=== PATIENT | female | born 1985 | race Caucasian/White ===

== ENCOUNTER 2023-04-27 11:34 | Outpatient (REF) | payer BC, OTHER, SELFPAY ==
[2023-04-27 12:51] LABS: SARS-CoV-2 Ag POSITIVE (NEGATIVE)
== END 2023-04-27 11:35 | disposition home or self-care (01) ==
LOC: LAB 11:34
PROVIDERS: PCP Internal Medicine; Visit Provider Internal Medicine
DX: J06.9 Acute upper respiratory infection, unspecified (principal)
CPT/HCPCS: 87804; 87811

== ENCOUNTER 2023-10-01 11:00 | Outpatient (OUT) | payer BC, OTHER, SELFPAY ==
--- NOTE | 2023-10-01 11:07 | US_ITS ---
[address] [address] Patient Name: KELLY PEREZ MRN: [id number] date: 1985 Sex: F Assigned Patient Location: [place] Current Patient Location: [place] Accession/Order Number: [id number] Exam Date: 10/01/2023 11:12 Report Date: 10/01/2023 13:43 At the request of: SUMEET KAUFFMAN Procedure: US arterial duplex LE BI EXAMINATION: US arterial duplex LE BI HISTORY: Absent pedal pulses R09.89 COMPARISON: No relevant comparison available. TECHNIQUE: Color duplex Doppler ultrasound evaluation analysis was performed in the usual manner. FINDINGS: RIGHT LOWER EXTREMITY ARTERIAL No significant atherosclerosis. Triphasic waveform throughout External Iliac PSV: 144.4 cm/s External Iliac EDV: 16.3 cm/s Common Femoral PSV: 90.9 cm/s Common Femoral EDV: 10.1 cm/s Superficial Femoral Proximal PSV: 85.4 cm/s Proximal EDV: 4.7 cm/s Mid PSV: 104.8 cm/s Mid EDV: 0.0 cm/s Distal PSV: 93.5 cm/s Distal EDV: 0.0 cm/s Popliteal Proximal PSV: 53.7 cm/s Popliteal Proximal EDV: 4.3 cm/s Posterior Tibial Proximal PSV: 55.9 cm/s Proximal EDV: 0.0 cm/s Mid PSV: 19.1 cm/s Mid EDV: 0.0 cm/s Distal PSV: 86.6 cm/s Distal EDV: 2.7 cm/s Anterior Tibial Proximal PSV: 47.1 cm/s Proximal EDV: 0.0 cm/s Mid PSV: 49.3 cm/s Mid EDV: 0.0 cm/s Distal PSV: 61.4 cm/s Distal EDV: 0.0 cm/s LEFT LOWER EXTREMITY ARTERIAL No significant atherosclerosis. Triphasic waveform throughout External Iliac PSV: 183.6 cm/s External Iliac EDV: 13.7 cm/s Common Femoral PSV: 144.6 cm/s Common Femoral EDV: 13.7 cm/s Superficial Femoral Proximal PSV: 110.1 cm/s Proximal EDV: 0.0 cm/s Mid PSV: 110.1 cm/s Mid EDV: 0.0 cm/s Distal PSV: 85.0 cm/s Distal EDV: 2.4 cm/s Popliteal Proximal PSV: Popliteal Proximal EDV: Posterior Tibial Proximal PSV: 43.9 cm/s Proximal EDV: 0.0 cm/s Mid PSV: 52.6 cm/s Mid EDV: 0.0 cm/s Distal PSV: 55.9 cm/s Distal EDV: Anterior Tibial Proximal PSV: 47.2 cm/s Proximal EDV: 0.0 cm/s Mid PSV: 53.7 cm/s Mid EDV: 0.0 cm/s Distal PSV: 64.7 cm/s Distal EDV: 0.0 cm/s US/US arterial duplex LE BI IMPRESSION: No flow significant stenosis Electronically authenticated by: DONNA NAVARRETE Date: 10/01/2023 13:43
== END 2023-10-01 11:01 | disposition home or self-care (01) ==
PROVIDERS: PCP Internal Medicine; Visit Provider Internal Medicine
DX: R09.89 Other specified symptoms and signs involving the circulatory and respiratory systems (principal)
CPT/HCPCS: 93925

== ENCOUNTER 2023-12-12 09:52 | Outpatient (REF) | payer BC, SELFPAY ==
--- OUTSIDE RECORDS SUMMARY | 2023-12-12 09:58 | XMS_ITS | CCD ---
Author Organization [facility] Care Team Providers Care Senior Information Security Analyst Name Role Phone SUNITHA ., DR GANT Admitting Unavailable HAY ., DR GANT Attending Unavailable WHITE, DR FAY Primary Care Unavailable GRECHNY ., JANELL MCMILLAN Consulting Unavailabl e BERNOT, CONCEPCIÓN Consulting Unavailable MARKER ., DR ELLIOTT Admitting Unavailable ZIEBER, DR SIXTO Delgado Consulting Unavailable MARKER ., DR ELLIOTT Attending Unavailable DALY, DR FAY Primary Care Unavailable PAY ., DR UGARTE Consulting Unavailable MARKER ., DR ELLIOTT Consulting Unavailable ANNE ., RENETTA Attending Unavailable GRECHNY ., JANELL MCMILLAN Consulting Unavailabl e WHITE, DR FAY Primary Care Unavailable ANNE ., RENETTA Admitting Unavailable HEMMER, DR [place] Garcia Attending Unavailable WEST, DR DONNA Wright Consulting Unavailable DALY, DR FAY Primary Care Unavailable HEMMER, DR [place] Garcia Admitting Unavailable HEMMER, DR [place] Garcia Consulting Unavailable DALY, DR FAY Primary Care Unavailable DALY, DR FAY Admitting Unavailable DALY, DR FAY Attending Unavailable DALY, DR FAY Consulting Unavailable ZICARITO, DR SIXTO Delgado Consulting Unavailable Leroy White MD Primary Care Provider LEROY WHITE Attending Unavailable RENY MEDRANO Attending Unavailable LEROY WHITE Referring Unavailable LEROY WHITE Attending Unavailable SIXTO MCKINNEY Attending Unavailable LEROY WHITE Referring Unavailable LEROY WHITE Attending Unavailable LEROY WHITE Attending Unavailable LEROY WHITE Attending Unavailable LEROY WHITE Attending Unavailable Allergies Allergy Classification Reported Allergen(s) Allergy Type Date of Onset Reaction(s) Facility (1 source) Adhesive agent Drug allergy (disorder) 11-16-2016 [facility] Repository (1 source) Ciprofloxacin Drug Allergy 01-01-2013 [facility] Repository (1 source) natural latex rubber Drug allergy (disorder) 03-01-2017 [facility] Repository (4 sources) Ciprofloxacin Drug Allergy 11-06-2022 Swelling [facility] Work Phone: (4 sources) Wound Dressing Adhesive Drug Allergy 11-06-2022 Unknown [facility] Medications Current Medications Medication Drug Class(es) Dates Sig (Normalized) Sig (Original) acetaminophen 325 mg / HYDROcodone bitartrate 7.5 mg oral tablet (3 sources) Opioid Agonist Start: 06-21-19 24 End: 06-26-19 24 take 1 tablet by mouth every six hours for pain HYDROcodone-acetamino phen ([place]) 7.5-325 MG tablet Indications: Acute left-sided low back pain with left-sided sciatica Take 1 tablet by mouth every 6 (six) hours if needed for severe pain for up to 5 days 20 tablet 0 06/21/2023 06/26/2023 Active betamethasone 0.5 mg/ml / clotrimazole 10 mg/ml topical cream (1 source) Azole Antifungal, Corticosteroid Start: 06-26-19 24 End: 07-24-19 24 clotrimazole-betameth asone (Lotrisone) cream Indications: Tinea pedis of left foot Apply topically 2 (two) times a day for 28 days 60 g 2 06/26/2023 07/24/2023 Active cyclobenzaprine hydrochloride 10 mg oral tablet (4 sources) Muscle Relaxant Start: 03-08-20 23 take 1 tablet by mouth three times daily as needed for muscle spasms cyclobenzaprine (Flexeril) 10 MG tablet Indications: Cervical radiculopathy Take 1 tablet (10 mg) by mouth 3 (three) times a day as needed for muscle spasms. 90 tablet 2 03/08/2023 Active diazePAM 5 mg oral tablet (3 sources) Benzodiazepine Start: 06-01-19 24 take 1 tablet by mouth once diazePAM (Valium) 5 MG tablet Indications: Panic attacks (CMS/HCC) Take 1 tablet (5 mg) by mouth every 12 (twelve) hours if needed for anxiety, sleep or muscle spasms 30 tablet 0 06/01/2023 Active methylPREDNISolone (4 sources) Corticosteroid Start: 06-21-19 24 End: 06-28-19 24 methylPREDNISolone (Medrol Dospak) 4 MG tablets Indications: Acute left-sided low back pain with left-sided sciatica Follow schedule on package instructions 21 tablet 0 06/21/2023 06/28/2023 Active phentermine hydrochloride 37.5 mg oral tablet (4 sources) Sympathomimetic Amine Anorectic Start: 06-04-19 24 take 1 tablet by mouth once daily phentermine (Adipex-P) 37.5 MG tablet Indications: Severe obesity (BMI 35.0-39.9) with comorbidity (CMS/HCC) Take 1 tablet (37.5 mg) by mouth 1 (one) time each day at the same time 30 tablet 0 06/04/2023 Active vortioxetine 10 mg oral tablet (4 sources) take 1 tablet by mouth once daily Vortioxetine HBr (Trintellix) 10 MG tablet Take 1 tablet by mouth 1 (one) time each day at the same time. 0 Active zolpidem tartrate 10 mg oral tablet (5 sources) gamma-Aminobutyric Acid-ergic Agonist Start: 06-27-19 24 zolpidem (Ambien) 10 MG tablet Indications: Other insomnia TAKE 1 TABLET (10 MG) BY MOUTH NEEDED AT BEDTIME FOR SLEEP. 30 tablet 2 06/27/2023 Active Start: 03-27-2023 End: 06-27-2023 zolpidem (Ambien) 10 MG tabl et Indications: Other insomnia TAKE 1 TABLET (10 MG) BY MOUTH NEEDED AT BEDTIME FOR SLEEP. 30 tablet 2 03/27/2023 06/27/2023 Discontinued Problems Active Problems Problem Classification Problem Date Documented Date Episodic/Chronic Adjustment disorders (4 sources) Adjustment disorder; Translations: [Adjustment disorder, unspecified] Onset: 11-06-2022 11-06-2022 Chronic Anxiety disorders (4 sources) Panic attack; Translations: [Panic disorder [episodic paroxysmal anxiety]] Onset: 11-06-2022 11-06-2022 Chronic Biliary tract disease (4 sources) Disorder of biliary tract; Translations: [Other specified diseases of biliary tract] Onset: 11-06-2022 11-06-2022 Chronic Headache; including migraine (4 sources) Migraine; Translations: [Migraine, unspecified, not intractable, without status migrainosus] Onset: 11-06-2022 11-06-2022 Chronic Headache; including migraine (1 source) Headache; including migraine; Translations: [HEADACHE UNSPECIFIED] Onset: 04-17-2022 Menstrual disorders (12 sources) Dysmenorrhea; Translations: [Dysmenorrhea, unspecified] Onset: 11-06-2022 11-06-2022 Chronic Mood disorders (4 sources) Major depressive disorder; Translations: [Major depressive disorder, single episode, unspecified] Onset: 11-06-2022 11-06-2022 Chronic Other aftercare (1 source) Other shelter (current) drug therapy; Translations: [OTH DETENTION CURRENT DRUG THERAPY] Onset: 10-03-2022 Episodic Other connective tissue disease (2 sources) Plantar fasciitis of right foot; Translations: [Plantar fascial fibromatosis] 06-21-2023 Episodic Other nervous system disorders (4 sources) Chiari malformation type I; Translations: [Compression of brain] Onset: 11-06-2022 11-06-2022 Chronic Other nutritional; endocrine; and metabolic disorders (4 sources) Severe obesity; Translations: [Morbid (severe) obesity due to excess calories] Onset: 11-06-2022 11-06-2022 Chronic Residual codes; unclassified (5 sources) Insomnia; Translations: [Other insomnia] Onset: 11-06-2022 11-06-2022 Chronic Residual codes; unclassified (1 source) Acquired absence of other specified parts of digestive tract; Translations: [ACQ ABSENCE OTH PART DIGESTV TRACT] Onset: 10-03-2022 Episodic Screening and history of mental health and substance abuse codes (1 source) Personal history of nicotine dependence; Translations: [PERSONAL HISTORY OF NICOTINE DEPEND] Onset: 10-03-2022 Episodic Spondylosis; intervertebral disc disorders; other back problems (5 sources) Other cervical disc degeneration, unspecified cervical region; Translations: [Degeneration of cervical intervertebral disc] Onset: 06-10-2022 11-06-2022 Chronic Substance-related disorders (1 source) Nicotine dependence, cigarettes, uncomplicated; Translations: [NICOTINE DEPEND CIGARETTES UNCOMP] Onset: 12-19-2021 Chronic Unclassified (3 sources) LOW BACK PAIN, UNSPECIFIED; Translations: [LOW BACK PAIN, UNSPECIFIED] Onset: 10-03-2022 Past or Other Problems Problem Classification Problem Date Documented Da te Episodic/Chronic Cardiac dysrhythmias (4 sources) Palpitations; Translations: [PALPITATIONS] Onset: 04-10-2022 Episodic Other nervous system disorders (4 sources) Loss of taste; Translations: [Parageusia] Onset: 11-06-2022 11-06-2022 Episodic Spondylosis; intervertebral disc disorders; other back problems (20 sources) Radiculopathy, lumbar region; Translations: [Radiculopathy, cervical region] Onset: 12-19-2021 Episodic Unclassified (1 source) LOW BACK PAIN, UNSPECIFIED; Translations: [LOW BACK PAIN, UNSPECIFIED] Onset: 09-29-2022 Results Test Name Value Interpretation Reference Range Facil ity CT LSPINE WO CONon 3 CT LSPINE WO CON EXAMINATION: CT LSPINE WO CON, 09/29/2022 6:30 AM EDT HISTORY: DORSALGIA, UNSPECIFIED ; acute lumbar pain, no known injury COMPARISON: None. TECHNIQUE: CT of the lumbar spine was performed without IV contrast. CT dose reduction technique was used, including Automated Exposure Control. FINDINGS: PARASPINAL AREA: Normal with no visible mass. BONES: No fracture, pars defect, or osseous lesion. CERVICAL DISC LEVELS: 12-L1: No significant disc/facet abnormality, spinal stenosis, or foraminal stenosis. L1-L2: No significant disc/facet abnormality, spinal stenosis, or foraminal stenosis. L2-L3: No significant disc/facet abnormality, spinal stenosis, or foraminal stenosis. L3-L4: Early degenerative disc disease is present without focal protrusion or neural impingement. L4-L5: Early degenerative disc disease is present without focal protrusion or neural impingement. L5-S1: Moderate left foramen narrowing and mild central canal narrowing. Moderate diffuse disc bulging with mild disc at reduction. Mild degenerative facet arthropathy. IMPRESSION: 1. Suspect moderate or possibly greater foramen narrowing on the left at L5-S1 secondary to degenerative disc disease and facet arthropathy. 2. No acute bone abnormality. Electronically authenticated by: SIXTO BENNETT Date: 2022-09-29 07:12 Normal [facility] ER URINE PROFILEon 3 Bilirubin Ql (U) Negative Normal NEGATIVE [facility] Comment on above: Performed By: #### P T, PTT, DDIM #### [facility] [address] [place] [address] Dr. Michelle Alfaro Clarity (U) CLEAR Normal CLEAR [facility] Comment on above: Performed By: #### P T, PTT, DDIM #### [facility] [address] [address] [address] Michelle Alfaro Color (U) YELLOW Normal YELLOW [facility] Comment on above: Performed By: #### P T, PTT, DDIM #### [facility] [address] [place] [address] Dr. Michelle GARRIDO A micrscopic examination will be performed if indicated. Normal [facility] Comment on above: Performed By: #### P T, PTT, DDIM #### [facility] [address] [place] [address] Dr. Michelle Alfaro Glucose Ql (U) Negative Normal NEGATIVE [facility] Comment on above: Performed By: #### P T, PTT, DDIM #### [facility] [address] [place] [address] Dr. Michelle Alfaro Hemoglobin Ql (U) TRACE-INTACT Abnormal NEGATIVE [facility] Comment on above: Performed By: #### P T, PTT, DDIM #### [facility] [address] [place] [address] Dr. Michelle Alfaro Ketones Ql (U) Negative Normal NEGATIVE [facility] Comment on above: Performed By: #### P T, PTT, DDIM #### [facility] [address] [place] [address] Dr. Michelle Alfaro LEUKOCYTES Negative Normal NEGATIVE [facility] Comment on above: Performed By: #### P T, PTT, DDIM #### [facility] [address] [place] [address] Dr. Michelle Alfaro Nitrite Ql (U) Negative Normal NEGATIVE [facility] Comment on above: Performed By: #### P T, PTT, DDIM #### [facility] [address] [place] [address] Dr. Michelle Alfaro pH (U) 5.5 [pH] Normal 5-9 [facility] Comment on above: Performed By: #### P T, PTT, DDIM #### [facility] [address] [place], [place] [id number] Dr. Michelle Alfaro SPEC GRAVITY >=1.030 Abnormal 1.005-<=1.025 [facility] Comment on above: Performed By: #### P T, PTT, DDIM #### [facility] [address] [place] [address] Dr. Michelle Alfaro UA PROTEIN Negative Normal NEGATIVE/ TRACE [facility] Comment on above: Performed By: #### P T, PTT, DDIM #### [facility] [address] [place] [address] Dr. Michelle Alfaro UR MICRO IND NOT INDICATED Normal [facility] Comment on above: Performed By: #### P T, PTT, DDIM #### [facility] [address] [place] [address] Dr. Michelle Alfaro Urobilinogen Qn (U) 4 {Ramona'U}/dL Abnormal 0.2 - 1.0 [facility] Comment on above: Performed By: #### P T, PTT, DDIM #### [facility] [address] [place] [address] Dr. Michelle Alfaro XR CSPINE MIN 4 VIEWSon 05-21 XR CSPINE MIN 4 VIEWS EXAMINATION: XR CSPINE MIN 4 VIEWS HISTORY: Cervical radiculopathy COMPARISON: No relevant comparison available. FINDINGS: BONES: Reversal of normal cervical lordosis. No acute fracture or spondylolisthesis. No significant degenerative changes DISC SPACES: Normal. No significant disc height narrowing, subluxation, or endplate abnormality. PARASPINOUS: Negative. No paraspinous abnormality is seen. OTHER: Negative. IMPRESSION: Reversal of normal cervical lordosis Electronically authenticated by: DONNA NAVARRETE Date: 2022-06-06 09:11 Normal [facility] CBC W MANUAL DIFFon 04-10-20 22 ATYPICAL LYMPH # Normal [facility] Comment on above: Performed By: #### P T, PTT, DDIM #### [facility] [address] [place] [address] Dr. Michelle Alfaro ATYPICAL LYMPH % Normal [facility] Comment on above: Performed By: #### P T, PTT, DDIM #### [facility] [address] [place] [address] Dr. Michelle Alfaro BAND # Normal 0.0-0.3 [facility] Comment on above: Performed By: #### P T, PTT, DDIM #### [facility] [address] [place] [address] Dr. Michelle Alfaro BAND % Normal 0-5 [facility] Comment on above: Performed By: #### P T, PTT, DDIM #### [facility] [address] [place] [address] Dr. Michelle Alfaro BASOM # 0.09 103/ul Normal 0.00-0.10 [facility] Comment on above: Performed By: #### P T, PTT, DDIM #### [facility] [address] [place] [address] Dr. Michelle Alfaro BASOM % 1.0 % Normal 0.2-2.0 [facility] Comment on above: Performed By: #### P T, PTT, DDIM #### [facility] [address] [place] [address] Dr. Michelle Alfaro BLAST # Normal [facility] Comment on above: Performed By: #### P T, PTT, DDIM #### [facility] [address] [place] [address] Dr. Michelle Alfaro BLAST % Normal [facility] Comment on above: Performed By: #### P T, PTT, DDIM #### [facility] [address] [place] [address] Dr. Michelle Alfaro CORRECTED WBC Normal 4.0-11.0 [facility] Comment on above: Performed By: #### P T, PTT, DDIM #### [facility] [address] [place] [address] Dr. Michelle Alfaro EOS # 0.28 103/ul Normal 0.00-0.70 [facility] Comment on above: Performed By: #### P T, PTT, DDIM #### [facility] [address] [place] [address] Dr. Michelle Alfaro EOS% 3.0 % Normal 0.9-7.0 [facility] Comment on above: Performed By: #### P T, PTT, DDIM #### [facility] [address] [address] [address] Michelle Alfaro HCT 40.7 % Normal 36.0-48.0 [facility] Comment on above: Performed By: #### P T, PTT, DDIM #### [facility] [address] [address] [address] Michelle Alfaro HGB 14.0 g/dl Normal 12.0-16.0 [facility] Comment on above: Performed By: #### P T, PTT, DDIM #### [facility] [address] [address] [address] Michelle Alfaro LYMPHM # 2.67 103/ul Normal 1.20-3.80 [facility] Comment on above: Performed By: #### P T, PTT, DDIM #### [facility] [address] [address] [address] Michelle Alfaro LYMPHM% 29.0 % Normal 20.5-60.0 [facility] Comment on above: Performed By: #### P T, PTT, DDIM #### [facility] [address] [address] [address] Michelle Alfaro MCH 32.1 pg Normal 26.7-34.0 [facility] Comment on above: Performed By: #### P T, PTT, DDIM #### [facility] [address] [address] [address] Michelle Alfaro MCHC 34.4 g/dl Normal 29.9-35.2 [facility] Comment on above: Performed By: #### P T, PTT, DDIM #### [facility] [address] [address] [address] Michelle Alfaro MCV 93.3 fL Normal 81.0-99.0 [facility] Comment on above: Performed By: #### P T, PTT, DDIM #### [facility] [address] [address] [address] Michelle Alfaro METAMYELOCYTE # Normal [facility] Comment on above: Performed By: #### P T, PTT, DDIM #### [facility] [address] [place] [address] Dr. Michelle Alfaro METAMYELOCYTE % Normal [facility] Comment on above: Performed By: #### P T, PTT, DDIM #### [facility] [address] [place] [address] Dr. Michelle Alfaro MONOM# 0.64 103/ul Normal 0.30-0.80 [facility] Comment on above: Performed By: #### P T, PTT, DDIM #### [facility] [address] [place] [address] Dr. Michelle Alfaro MONOM% 7.0 % Normal 1.7-12.0 [facility] Comment on above: Performed By: #### P T, PTT, DDIM #### [facility] [address] [place] [address] Dr. Michelle Alfaro MPV 10.0 fL Normal 9.5-13.5 [facility] Comment on above: Performed By: #### P T, PTT, DDIM #### [facility] [address] [place] [address] Dr. Michelle Alfaro MYELOCYTE # Normal [facility] Comment on above: Performed By: #### P T, PTT, DDIM #### [facility] [address] [place] [address] Dr. Michelle Alfaro MYELOCYTE % Normal [facility] Comment on above: Performed By: #### P T, PTT, DDIM #### [facility] [address] [place] [address] Dr. Michelle Alfaro NRBC Normal [facility] Comment on above: Performed By: #### P T, PTT, DDIM #### [facility] [address] [place] [address] Dr. Michelle Alfaro PLT 288 103/ul Normal 150-450 [facility] Comment on above: Performed By: #### P T, PTT, DDIM #### [facility] [address] [place] [address] Dr. Michelle Alfaro RBC 4.36 106/ul Normal 4.20-5.40 [facility] Comment on above: Performed By: #### P T, PTT, DDIM #### [facility] [address] [place] [address] Dr. Michelle Alfaro RDW 12.4 % Normal 11.0-15.0 [facility] Comment on above: Performed By: #### P T, PTT, DDIM #### [facility] [address] [place] [address] Dr. Michelle Alfaro SEG # 5.52 103/ul Normal 1.40-6.50 [facility] Comment on above: Performed By: #### P T, PTT, DDIM #### [facility] [address] [place] [address] Dr. Michelle Alfaro SEG % 60.0 % Normal 43.0-75.0 [facility] Comment on above: Performed By: #### P T, PTT, DDIM #### [facility] [address] [place] [address] Dr. Michelle Alfaro WBC 9.2 103/ul Normal 4.0-11.0 [facility] Comment on above: Performed By: #### P T, PTT, DDIM #### [facility] [address] [place] [address] Dr. Michelle Alfaro D-DIMERon 04-10-2022 D-DIMER 0.43 mg/L FEU Normal <=0.59 [facility] Comment on above: Performed By: #### P T, PTT, DDIM #### [facility] [address] [place] [address] Dr. Michelle Alfaro D-DIMER COMMENTS SEE BELOW Normal [facility] Comment on above: Result Comment: Incr eases in D-Dimer concentration observed with thromboembolic events can be variable due to localization, size, and age of the thrombus. Therefore, a thromboembolic event cannot be diagnosed with certainty on the basis of the reference range. D-Dimers may also be elevated for a variety of disorders including: advanced age, , coronary disease, cancer, liver disease, infection, inflammation, hematoma, DIC, trauma, post-surgery, diabetes, thrombolytic or anticoagulant therapy, stress, and generalized hospitalization. Performed By: #### P T, PTT, DDIM #### [facility] [address] [address] [address] Michelle Alfaro PREG HCG QUALon 04-10-2022 , QUAL Negative Normal NEGATIVE [facility] Comment on above: Performed By: #### P T, PTT, DDIM #### [facility] [address] [address] [address] Michelle Alfaro PROF 14(COMP METB)on 022 Albumin [Mass/Vol] 3.6 g/dL Normal 3.4-5.0 [facility] Comment on above: Performed By: #### C MP, HSTROPN, TSH #### [facility] [address] [place] [address] Dr. Michelle Alfaro Albumin/Globulin [Mass ratio] 0.9 {ratio} Normal [facility] Comment on above: Performed By: #### C MP, HSTROPN, TSH #### [facility] [address] [place] [address] Dr. Michelle Alfaro ALP [Catalytic activity/Vol] 85 U/L Normal 46-116 [facility] Comment on above: Performed By: #### C MP, HSTROPN, TSH #### [facility] [address] [place] [address] Dr. Michelle Alfaro ALT [Catalytic activity/Vol] 28 U/L Normal 14-59 [facility] Comment on above: Performed By: #### C MP, HSTROPN, TSH #### [facility] [address] [place] [address] Dr. Michelle Alfaro Anion gap [Moles/Vol] 11.7 mmol/L Normal [facility] Comment on above: Performed By: #### C MP, HSTROPN, TSH #### [facility] [address] [place] [address] Dr. Michelle Alfaro AST [Catalytic activity/Vol] 19 U/L Normal 15-37 [facility] Comment on above: Performed By: #### C MP, HSTROPN, TSH #### [facility] [address] [address] [address] Michelle Alfaro Bilirubin [Mass/Vol] 0.2 mg/dL Normal 0.2-1.0 [facility] Comment on above: Performed By: #### C MP, HSTROPN, TSH #### [facility] [address] [address] [address] Michelle Alfaro Calcium [Mass/Vol] 8.8 mg/dL Normal 8.5-10.1 [facility] Comment on above: Performed By: #### C MP, HSTROPN, TSH #### [facility] [address] [place] [address] Dr. Michelle Alfaro Chloride [Moles/Vol] 103 mmol/L Normal 98-107 [facility] Comment on above: Performed By: #### C MP, HSTROPN, TSH #### [facility] [address] [place] [address] Dr. Michelle Alfaro CO2 [Moles/Vol] 26.7 mmol/L Normal 21.0-32.0 [facility] Comment on above: Performed By: #### C MP, HSTROPN, TSH #### [facility] [address] [address] [address] Michelle Alfaro Creatinine [Mass/Vol] 1.05 mg/dL Critically high 0.55-1.02 [facility] Comment on above: Performed By: #### C MP, HSTROPN, TSH #### [facility] [address] [place] [address] Dr. Michelle Alfaro EGFR-AF IRANIAN >60 Normal >=60 [facility] Comment on above: Performed By: #### C MP, HSTROPN, TSH #### [facility] [address] [address] [address] Michelle Alfaro EGFR-NON AF IRANIAN 59 mL/min/1.73m2 Critically low >=60 [facility] Comment on above: Performed By: #### C MP, HSTROPN, TSH #### [facility] [address] [place] [address] Dr. Michelle Alfaro Globulin (S) [Mass/Vol] 4.0 g/dL Normal [facility] Comment on above: Performed By: #### C SARBJIT HSTROPMayela, TSH #### [facility] [address] [address] [address] Michelle Alfaro Glucose [Mass/Vol] 97 mg/dL Normal 74-106 [facility] Comment on above: Performed By: #### C SARBJIT HSTRNUN, TSH #### [facility] [address] [place] [address] Dr. Michelle Alfaro Potassium [Moles/Vol] 3.4 mmol/L Critically low 3.5-5.1 [facility] Comment on above: Performed By: #### C ASH SCHAFFERTRKALLI, TSH #### [facility] [address] [place] [address] Dr. Michelle Alfaro Protein [Mass/Vol] 7.6 g/dL Normal 6.4-8.2 [facility] Comment on above: Performed By: #### C SARBJIT HSTROPN, TSH #### [facility] [address] [place] [address] Dr. Michelle Alfaro Sodium [Moles/Vol] 138 mmol/L Normal 136-145 [facility] Comment on above: Performed By: #### C ASH SCHAFFERTRKALLI, TSH #### [facility] [address] [place] [address] Dr. Michelle Alfaro Urea nitrogen [Mass/Vol] 11.0 mg/dL Normal 7.0-18.0 [facility] Comment on above: Performed By: #### C SARBJIT HSTROPN, TSH #### [facility] [address] [place] [address] Dr. Michelle Alfaro Urea nitrogen/Creatinine [Mass ratio] 10.5 mg/mg Normal [facility] Comment on above: Performed By: #### C SARBJIT HSTRKALLI, TSH #### [facility] [address] [place] [address] Dr. Michelle Alfaro PROTIMEon 04-10-2022 INR Coag (PPP) [Relative time] 0.95 {INR} Normal [facility] Comment on above: Performed By: #### P T, PTT, DDIM #### [facility] [address] [address] [address] Michelle Alfaro INR GUIDELINES SEE BELOW Normal [facility] Comment on above: Result Comment: YASMIN RED INR: 2.0 - 3.0 CONDITIONS NOT LISTED BELOW 2.5 - 3.5 FOR PROSTHETIC HEART VALVE REPLACEMENT 2.5 - 3.5 RECURRENT THROMBOSIS Performed By: #### P T, PTT, DDIM #### [facility] [address] [address] [address] Michelle Alfaro PT Coag (PPP) [Time] 10.3 s Normal 9.0-11.6 [facility] Comment on above: Performed By: #### P T, PTT, DDIM #### [facility] [address] [place] [address] Dr. Michelle Alfaro PTTon 04-10-2022 aPTT Coag (Bld) [Time] 25.3 s Normal 22.3-36.2 [facility] Comment on above: Performed By: #### P T, PTT, DDIM #### [facility] [address] [place] [address] Dr. Michelle Alfaro TROPONIN, HIGH SENSITIVITYon 04-10-2022 HSTROP 12.0 pg/mL Normal 4.0-51.3 [facility] Comment on above: Result Comment: CUT- OFF POINTS HAVE BEEN ESTABLISHED BASED ON THE FOURTH UNIVERSAL DEFINITIONS OF MYOCARDIAL INFARCTION. THE UPPER REFERENCE LIMIT (URL) OF TROPONIN, DEFINED THE 99TH PERCENTILE OF cTnI DISTRIBUTION IN A REFERENCE POPULATION, HAS BEEN CONFIRMED THE DECISION THRESHOLD FOR CA DIAGNOSIS. Performed By: #### C MP, HSTROPN, TSH #### [facility] [address] [address] [address] Michelle Alfaro TSHon 04-10-2022 TSH 3.556 uIU/mL Normal 0.358-3.740 [facility] Comment on above: Performed By: #### C MP, HSTROPN, TSH #### [facility] [address] [address] [address] Michelle Alfaro XR CHEST 1 Von 04-10-2022 XR CHEST 1 V EXAM: XR CHEST 1 V HISTORY: Palpitations COMPARISON(S): None. TECHNIQUE: Single portable AP chest radiograph FINDINGS: Support devices: None. Lungs/pleura: Lungs are clear. No pleural effusion or pneumothorax. Heart/mediastinum: Heart and mediastinum are normal. Bones/Soft Tissues: No acute osseous abnormality. Upper abdomen: Imaged upper abdomen is unremarkable. IMPRESSION: No evidence for acute cardiopulmonary disease. Electronically authenticated by: CONCEPCIÓN MUJICA Date: 2022-04-10 18:52 Normal [facility] XR LSPINE MIN 4 VIEWSon 08-0 XR LSPINE MIN 4 VIEWS EXAMINATION: XR LSPINE MIN 4 VIEWS HISTORY: Lumbar radiculopathy for 4 months COMPARISON: XR lumbar spine 08/15/2017 FINDINGS: BONES: No significant spondylosis, scoliosis, fracture, or visible bony lesion. DISC SPACES: Mild narrowing L5-S1. PARASPINOUS: Negative. No paraspinous abnormality is seen. OTHER: Negative. IMPRESSION: 1. Mild degenerative changes of the lower lumbar spine. No appreciable acute abnormality. Electronically authenticated by: SIXTO BENNETT Date: 2021-12-21 08:04 Normal [facility] Coding Summary.on 04-08-2020 Coding Summary. 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 However, the narrative phrase printed from the coding software may appear abbreviated, or result in slightly different terminology. Coded By: Prisca Ramirez CphT Date Saved: 04/08/2020 07:40 pm Normal [facility] SARS-CoV-2, NAAon 04-03-2020 SARS CORONAVIRUS 2 RNA:PRTHR:PT:RESPIR ATORY:ORD:PROBE.AMP .TAR Detected Abnormal Not Detected [facility] Comment on above: Result Comment: This nucleic acid amplification test was developed and its performance characteristics determined by [facility]. Nucleic acid amplification tests include PCR and TMA. This test has not been FDA cleared or approved. This test has been authorized by FDA under an Emergency Use Authorization (EUA). This test is only authorized for the duration of time the declaration that circumstances exist justifying the authorization of the emergency use of in vitro diagnostic tests for detection of SARS-CoV-2 virus and/or diagnosis of COVID-19 infection under section 564(b)(1) of the Act, 21 U.S.C. 360bbb-3(b) (1), unless the authorization is terminated or revoked sooner. When diagnostic testing is negative, the possibility of a false negative result should be considered in the context of a patient's recent exposures and the presence of clinical signs and symptoms consistent with COVID-19. An individual without symptoms of COVID-19 and who is not shedding SARS-CoV-2 virus would expect to have a negative (not detected) result in this assay. Performed at: [facility] [address] [place], [place] [id number] [facility] Carmella Elizabeth Performed By: #### S ARS-CoV-2, CHRIS #### [facility] [address] [place] [address] Physician Orderon 03-30-2020 Physician Order [id number] .00CD:127 Normal [facility] Consent for Treatmenton Consent for Treatment [id number] 1.00CD:127 Normal [facility] Vital Signs Date Time Vital Sign Value Performing Clinician Faci lity 06-21-2023 15:53-0500 Body mass index (BMI) [Ratio] 37.35 kg/m2 Leroy White MD Work Phone: [facility] 06-21-2023 15:53-0500 Body weight 100.25 kg Leroy White MD Work Phone: [facility] 06-21-2023 15:53-0500 Diastolic blood pressure 78 mm[Hg] Leroy White MD Work Phone: [facility] 06-21-2023 15:53-0500 Heart rate 115 /min Leroy Whtie MD Work Phone: [facility] 06-21-2023 15:53-0500 SaO2% (BldA) [Mass fraction] 99 % Leroy White MD Work Phone: [facility] 06-21-2023 15:53-0500 Systolic blood pressure 128 mm[Hg] Leroy White MD Work Phone: [facility] Encounters Encounter Date Encounter Type Care Provider Facility Start: 11-21-2023 End: 11-21-2023 ambulatory LEROY WHITE Not Available Start: 11-05-2023 End: 11-05-2023 ambulatory LEROY WHITE Not Available Start: 10-22-2023 End: 10-22-2023 ambulatory LEROY WHITE Not Available Start: 10-04-2023 End: 10-04-2023 ambulatory SIXTO MCKINNEY Not Available Start: 09-26-2023 End: 09-26-2023 ambulatory LEROY WHITE Not Available Start: 06-26-2023 Chart abstracting Reny Medrano DPM Work Phone: [facility] Start: 06-26-2023 Refill Ny MACIEL Work Phone: [facility] Comment on above: Other insomnia Start: 06-26-2023 End: 06-26-2023 ambulatory RENY MEDRANO Not Available Start: 06-21-2023 End: 06-21-2023 Office outpatient visit 25 minutes Leroy White MD Work Phone: [facility] Comment on above: Acute left-sided low back pain with left-sided sciatica (Primary Dx); Plantar fasciitis of right foot Start: 06-21-2023 End: 06-21-2023 ambulatory LEROY WHITE Not Available Start: 04-27-2023 End: 04-27-2023 ambulatory LEROY WHITE Not Available Start: 09-29-2022 End: 09-29-[address] LEXI ALCOCER . Facility:[facility] Start: 06-05-2022 End: 06-06-[address] NY PARHAM Facility:[facility] Start: 04-10-2022 End: 04-10-[address] STALIN HELTON . Facility:[facility] Start: 12-20-2021 End: 12-21-[address] LEROY WHITE Facility:[facility] Start: 12-15-2021 End: 12-15-2021 ambulatory RENETTA RODRÍGUEZ . Facility: Plan of Treatment Date Care Activity Detail Author Start: 04-26-2025 Screening for malign ant neoplasm of cervix [facility] Start: 11-18-2023 Influenza vaccination Influenza Vacc ine (#1) [facility] Comment on above: Postponed from 01/19 (Patient Refused) Start: 06-26-2023 End: 06-26-2023 Patient encounter procedure 06/26/2023 9:00 AM EST Office Visit [facility] [address] [place] [id number] Reny Medrano DPM [address] [place] [address] [facility] Start: 2005 Screening for malign ant neoplasm of cervix Pap Smear [facility] Immunizations Immunization Date Immunization Notes Care Provider Fa cili 02-23-2022 influenza, injectabl e, quadrivalent, preservative free Leroy White MD Work Phone: [facility] 02-23-2022 influenza virus vacc ine, unspecified formulation Leroy White MD Work Phone: [facility] 11-03-2021 Pfizer Gómez Cap SARS-CoV-2 Vaccination Leroy White MD Work Phone: [facility] 10-10-2021 Pfizer Gómez Cap SARS-CoV-2 Vaccination Leroy White MD Work Phone: [facility] 02-25-2020 influenza, injectabl e, quadrivalent, preservative free Leroy White MD Work Phone: [facility] 03-01-2015 influenza, injectabl e, quadrivalent, preservative free Leroy White MD Work Phone: [facility] Payers Date Payer Category Payer Medicaid [employer] [place] [id number] 2022-Present [address] [place] [address] [id number] 2022 Unknown BCBS BCBS [id number] 2022-Present [phone] [address] [place] [address] [id number] 2022 Unknown [id number] 1984 Unknown [id number] 1984 Unknown [id number] [id number] 1984 Unknown [id number] [id number] 1984 Unknown [id number] [id number] 1984 Unknown [id number] [id number] 1984 Unknown [id number] [id number] 1984 Unknown [id number] [id number] 1984 Unknown [id number] [id number] 1984 Unknown [id number] [id number] 1984 Unknown [id number] 2.16.840.1.221771.3.579.2.1259 1984 Unknown [id number] [id number] 1984 Unknown [id number] [id number] 1984 Unknown [id number] [id number] 1959 Unknown [id number] 1959 Unknown [id number] 1959 Unknown [id number] Social History Date Type Detail Facility Start: 04-27-2023 Tobacco smoking status VAIS Ex-smoke r [facility] End: 12-19-2021 History of tobacco use Current smoker [facility] End: 12-19-2021 History of tobacco use Cigarette Smoker [facility] Start: 12-05-2022 End: 04-27-2023 Cigarettes smoked current (pack per day) - Reported 1 [facility] Start: 04-27-2023 Tobacco use and exposure Smoke less tobacco non-user [facility] Start: 06-21-2023 End: 06-26-2023 Alcohol intake Ex-drinker (finding) [facility] Start: 12-05-2022 End: 12-20-2022 Humiliation, Afraid, Rape, and Kick questionnaire [HARK] [facility] Within the last year , have you been afraid of your partner or ex-partner? No [facility] Are you now , , , , never or living with a partner? [facility] How often to you hav e a drink containing alcohol? Monthly or less [facility] How many standard dr inks containing alcohol do you have on a typical day? 1 or 2 [facility] How often do you hav e 6 or more drinks on 1 occasion? Less than monthly [facility] How hard is it for y ou to pay for the very basics like food, housing, medical care, and heating Somewhat hard [facility] Do you feel stress - tense, restless, nervous, or anxious, or unable to sleep at night because your mind is troubled all the time - these days [OSQ] To some extent [facility] (I/We) worried wheth er (my/our) food would run out before (I/we) got money to buy more. DK or Refused [facility] In the past 12 month s, has lack of transportation kept you from medical appointments or from getting medications? No [facility] Start: 11-16-2022 Alcohol Comment Caffeine intak e: 1 can pop daily [facility] Start: 1985 Sex Assigned At Not on file [facility] History of Present illness Narrative 06-21-2023 Leroy White MD - 06/21/2023 4:00 PM EST Note Date & Type Note Facility 06-21-2023 History of Presen t illness Narrative Images from the original note were not included. Subjective Patient ID: Kelly Perez is a 37 y.o. female who presents for foot and back pain (Left side ). Pt is having foot and back pain on her left side , started a few months ago , getting worse over the last couple of weeks The most pain is in her arch to her heal , has used ice , used a tennis ball ,tried biofreeze ,tylenol Her back started last week she did fall on the ice Current Outpatient Medications on File Prior to Visit Medication Sig Dispense Refill cyclobenzaprine (Flexeril) 10 MG tablet Take 1 tablet (10 mg) by mouth 3 (three) times a day as needed for muscle spasms. 90 tablet 2 diazePAM (Valium) 5 MG tablet Take 1 tablet (5 mg) by mouth every 12 (twelve) hours if needed for anxiety, sleep or muscle spasms 30 tablet 0 phentermine (Adipex-P) 37.5 MG tablet Take 1 tablet (37.5 mg) by mouth 1 (one) time each day at the same time 30 tablet 0 Vortioxetine HBr (Trintellix) 10 MG tablet Take 1 tablet by mouth 1 (one) time each day at the same time. zolpidem (Ambien) 10 MG tablet TAKE 1 TABLET (10 MG) BY MOUTH NEEDED AT BEDTIME FOR SLEEP. 30 tablet 2 No current facility-administered medications on file prior to visit. Allergies Allergen Reactions Ciprofloxacin Swelling Wound Dressing Adhesive Unknown Social History Tobacco Use Smoking status: Former Packs/day: 1.00 Years: 10.00 Additional pack years: 0.00 Total pack years: 10.00 Types: Cigarettes Quit date: 12/19/2021 Years since quittin.5 Smokeless tobacco: Never Vaping Use Vaping Use: Some days Start date: 12/19/2021 Substance Use Topics Alcohol use: Not Currently Comment: Caffeine intake: 1 can pop daily Drug use: Never Family History Problem Relation Name Age of Onset Fibromyalgia Mother Shaun Lupus Mother Shaun Hypertension Mother Shaun Heart disease Mother Shaun Depression Mother Shaun Other (DDD) Father No Known Problems Sister Past Medical History: Diagnosis Date Acute shoulder pain 2011 accident Anxiety Depression (CMS/HCC) Gall bladder disease 1998 Migraine headache (CMS/HCC) Past Surgical History: Procedure Laterality Date SECTION, LOW TRANSVERSE 2007 x2 CHOLECYSTECTOMY 1998 ESOPHAGOGASTRODUODENOSCOPY IUD INSERTION Adiana Visit Vitals Smoking Status Former Review of Systems Objective Physical Exam Musculoskeletal: Lumbar back: Spasms and tenderness present. No deformity. Normal range of motion. Negative right straight leg raise test and negative left straight leg raise test. No scoliosis. Feet: Feet: Comments: Area of pain/tenderness Neurological: Motor: No weakness. Gait: Gait normal. Deep Tendon Reflexes: Reflexes normal. Assessment/Plan Diagnoses and all orders for this visit: Acute left-sided low back pain with left-sided sciatica - methylPREDNISolone (Medrol Dospak) 4 MG tablets; Follow schedule on package instructions - HYDROcodone-acetaminophen ([place]) 7.5-325 MG tablet; Take 1 tablet by mouth every 6 (six) hours if needed for severe pain for up to 5 days Plantar fasciitis of right foot - Ambulatory referral to Podiatry; Future No follow-ups on file. documented in this encounter [facility] Evaluation note Note Date & Type Note Facility Evaluation note Diagnosis Acute left-sided low back pain with left-sided sciatica- Primary Plantar fasciitis of right foot documented in this encounter [facility] Evaluation note Note Date & Type Note Facility Evaluation note Diagnosis Other insomnia documented in this encounter [facility] Reason for referral (narrative) Consultation (Routine) - Pending Review Note Date & Type Note Facility Reason for referral (narrati ve) Specialty Diagnoses / Procedures Referred By Bc burr Referred To Contact Podiatry Diagnoses Plantar fasciitis of right foot Procedures RI OFFICE/OUTPATIENT NEW HIGH MDM 60 MINUTES Leroy White MD [address] [facility] [address] [place] [address] Danny Chung, DPM FACFAS [address] [place] [id number] Referral ID Status Reason Start Date Expiration Date Visits Requested Visits Authorized [id number] Pending Review Specialty Services Required 06/21/2023 12/18/2023 1 1 [facility] Summary Purpose Family History No Family History Records FoundNo Family History Records FoundNo Family History Records Found Advance Directives No Advanced Directives Records FoundNo Advanced Directives Records FoundNo Advanced Directives Records Found Additional Source Comments INFORMATION SOURCE (unrecogn ized section and content) DATE CREATED AUTHOR 04/19/2020 [facility] DATE CREATED AUTHOR AUTHOR'S ORGANIZ ATION 10/04/2022 [facility] DATE CREATED AUTHOR AUTHOR'S ORGANIZ ATION 11/22/2023 [facility] EPIC Reason for Visit (unrecogniz ed section and content) Reason Comments foot and back pain Left side Reason Comments Med Refill Care Teams (unrecognized sec tion and content) Senior Information Security Analyst Relationship Specialty Start Date End Date Leroy White MD [address] [address] PCP - General Internal Medicine 11/06/22 Senior Information Security Analyst Relationship Specialty Start Date End Date Leroy White MD [address] [address] PCP - General Internal Medicine 11/06/22 Senior Information Security Analyst Relationship Specialty Start Date End Date Leroy White MD [address] [address] PCP - General Internal Medicine 11/06/22 FOR RECORDS PERTAINING TO PATIENTS WHO ARE OR HAVE BEEN ENROLLED IN A CHEMICAL DEPENDENCY/SUBSTANCEABUSE PROGRAM, SOME INFORMATION MAY BE OMITTED. This clinical summary was aggregated from multiple sources. Caution should be exercised in using it in the provision of clinical care. This summary normalizes information from multiple sources, and as a consequence, information in this document may materially change the coding, format and clinical context of patient data. In addition, data may be omitted in some cases. CLINICAL DECISIONS SHOULD BE BASED ON THE PRIMARY CLINICAL RECORDS. [facility]. provides no warranty or guarantee of the accuracy or completeness of information in this document.
[2023-12-12 11:37] LABS: Internal Control Within Normal Limits; SARS-CoV-2 Ag NEGATIVE (NEGATIVE)
== END 2023-12-12 09:53 | disposition home or self-care (01) ==
LOC: LAB 09:52
PROVIDERS: PCP Internal Medicine; Visit Provider Internal Medicine
DX: B34.9 Viral infection, unspecified (principal)
CPT/HCPCS: 87811

== ENCOUNTER 2024-05-02 18:52 | Emergency (ER) | payer BC, SELFPAY ==
[2024-05-02] VITALS (18 sets, daily range): BP systolic 115–134; BP diastolic 72–89; PULSE 79–102; TEMP 37.1; O2SAT 88–100; BMI 30.5
--- NOTE | 2024-05-02 19:16 | ECG_ITS ---
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
--- NOTE | 2024-05-02 19:16 | XR_ITS ---
The [address] [address] Patient Name: KELLY PEREZ MRN: [id number] date: 1985 Sex: F Assigned Patient Location: ER Current Patient Location: ER Accession/Order Number: [id number] Exam Date: 05/02/2024 19:26 Report Date: 05/02/2024 21:30 At the request of: STALIN HELTON Procedure: XR chest 1V XR chest 1V 05/02/2024 7:26 PM EST HISTORY: Chest pain COMPARISON: None FINDINGS: The lungs and pleural spaces are clear. No focal airspace opacity. No pleural effusion. The central airway is clear. No pneumothorax. The heart and pulmonary vascularity appear unremarkable. No acute bony abnormality. XR/XR chest 1V IMPRESSION: No acute cardiopulmonary abnormality. Electronically authenticated by: ANEUDY AGUAYO Date: 05/02/2024 21:30
--- NOTE | 2024-05-02 19:18 | ED_ITS ---
HPI - Chest Pain General Chief Complaint: Chest Pain Stated Complaint: Chest Pain Time Seen by Provider: 05/02/24 19:01 Source: patient Mode of arrival: walk-in Limitations: no limitations History of Present Illness HPI narrative: Yesterday the patient developed chest pain while at rest and has been experiencing intermittent tachycardia and intermittent chest pain since. Mid sternal, it now has moved up toward the lower anterior neck. No associated symptoms and no inciting events or activities, but notes that it is worse with deep breaths during the exam. Although she admits to history of anxiety/panic, she denies any feelings of panic or anxiety at this time. She denies any GI symptoms such as reflux or heartburn. No recent injury to the chest. No [id number] of breath. No URI symptoms, cough or chest congestion. No relief with tylenol and motrin Related Data Home Medications ?Medication ?Instructions ?Recorded ?Confirmed cyclobenzaprine 10 mg tablet 10 mg PO BID PRN muscle spasm 05/02/24 05/02/24 diazepam 5 mg tablet 5 mg PO BID PRN anxiety 05/02/24 05/02/24 ondansetron HCl 4 mg tablet 4 mg PO TID-QID PRN nausea and 05/02/24 05/02/24 vomiting tirzepatide 7.5 mg/0.5 mL 7.5 mg subcut .WEEKLY 05/02/24 05/02/24 subcutaneous pen injector (Mounjaro) vortioxetine 10 mg tablet 10 mg PO BID 05/02/24 05/02/24 (Trintellix) zolpidem 10 mg tablet 10 mg PO .HS 05/02/24 05/02/24 Previous Rx's ?Medication ?Instructions ?Recorded nabumetone 750 mg tablet 750 mg PO BID PRN pain #14 tabs 05/02/24 Allergies Allergy/AdvReac Type Severity Reaction Status Date / Time ciprofloxacin (From Cipro) Allergy Severe SWELLING Verified 05/02/24 18:59 Latex, Natural Rubber Allergy Intermediate Rash Verified 05/02/24 18:59 PFSH PFSH Social History Little interest or pleasure in doing things: not at all Feeling down, depressed, or hopeless: not at all Exam Narrative Exam Narrative: Nurses notes and vital signs reviewed and patient is not hypoxic. afebrile General: Well-appearing and in no apparent distress. Skin: Warm, dry, no pallor noted. Head: Normocephalic, atraumatic. Eye: Pupils are equal, round and EOMI. No scleral icterus. Ears, Nose, Mouth, and Throat: Oral mucosa is moist Cardiovascular: Borderline tachycardia. Respiratory: No accessory muscle use or respiratory distress. Lungs are clear to auscultation, no wheezing, rales or rhonchi Chest Wall: no tenderness, crepitus or subcutaneous emphysema Back: No midline thoracic or lumbar vertebral tenderness. No CVA tenderness GI: Abdomen is soft, non-distended. Normal bowel sounds. No tenderness to palpation. No rebound, guarding, or rigidity noted. Neurological: A&O x4. No cranial nerve dysfunction observed. No truncal ataxia. Moves all extremities. Sensation intact. Psychiatric: Cooperative and interactive. Normal mood and affect. Constitutional Vital Signs, click to edit/add: Last Vital Signs Temp 98.7 F 05/02/24 18:59 Pulse 96 H 05/02/24 21:20 Resp 26 H 05/02/24 21:20 BP 117/89 05/02/24 21:00 Pulse Ox 100 05/02/24 19:50 O2 Del Method Room Air 05/02/24 18:59 Course Vital Signs Vital signs: Vital Signs Temperature 98.7 F 05/02/24 18:59 Pulse Rate 79 05/02/24 18:59 Respiratory Rate 18 05/02/24 18:59 Blood Pressure 134/86 05/02/24 18:59 Pulse Oximetry 98 05/02/24 18:59 Oxygen Delivery Method Room Air 05/02/24 18:59 Temperature 98.7 F 05/02/24 18:59 Pulse Rate 96 H 05/02/24 21:20 Respiratory Rate 26 H 05/02/24 21:20 Blood Pressure 117/89 05/02/24 21:00 Pulse Oximetry 100 05/02/24 19:50 Oxygen Delivery Method Room Air 05/02/24 18:59 MDM - Chest Pain MDM Narrative Medical decision making narrative: EKG unremarkable. Thyroid studies do not reveal hyperthyroidism. CXR negative. DDimer elevated so CTA chest obtained - it was negative for PE. All results explained to pt and she was given reassurance,. She received IV Toradol before discharge home. Recommend PCP follow up and continued use of OTC tylenol and motrin for pain as it appears musculoskeletal. Continue psych meds as well, despite not likely due to anxiety. Lab Data Attestation: I reviewed the patient's lab results. Labs: Lab Results 05/02/24 Range/Units 19:25 D-Dimer 0.61 H* (<=0.59) mg/L FEU Free T3 1.88 L (2.18-3.98) pg/mL TSH & Free T4 Interp 1.858 (0.358-3.740) uIU/mL Imaging Data CT scan - chest: Radiologist's impression: ITS Impressions Chest X-Ray 05/02/24 19:16 IMPRESSION: No acute cardiopulmonary abnormality. Electronically authenticated by: ANEUDY AGUAYO Date: 05/02/2024 21:30 Chest CTA 05/02/24 19:57 IMPRESSION: No CT findings to suggest pulmonary embolism. Electronically authenticated by: ANEUDY AGUAYO Date: 05/02/2024 21:30 ECG Data Attestation: I personally reviewed and interpreted this ECG as follows: Interpretation: EKG interpretation: Emergency Department physician interpretation. Normal sinus rhythm at 99bpm. Normal axis, normal intervals and no ST segment elevation or depression. Discharge Plan Discharge Chief Complaint: Chest Pain Clinical Impression: Pleurisy, Chest pain Patient Disposition: Home, Self-Care Time of Disposition Decision: 21:41 Prescriptions / Home Meds: New nabumetone 750 mg tablet 750 mg PO BID PRN (Reason: pain) Qty: 14 0RF No Action diazepam 5 mg tablet 5 mg PO BID PRN (Reason: anxiety) Mounjaro 7.5 mg/0.5 mL pen injector 7.5 mg SUBCUT .WEEKLY Trintellix 10 mg tablet 10 mg PO BID zolpidem 10 mg tablet 10 mg PO .HS ondansetron HCl 4 mg tablet 4 mg PO TID-QID PRN (Reason: nausea and vomiting) cyclobenzaprine 10 mg tablet 10 mg PO BID PRN (Reason: muscle spasm) Print Language: Greenlandic Instructions: Chest Pain (ED), Pleurisy (ED) Referrals: SUMEET KAUFFMAN [Primary Care Provider] - 1 week
--- OUTSIDE RECORDS SUMMARY | 2024-05-02 19:32 | XMS_ITS | CCD ---
Author Organization [facility] Care Team Providers Care Occupational Health And Safety Manager Name Role Phone SUNITHA ., DR GANT Admitting Unavailable HAY ., DR GANT Attending Unavailable WHITE, DR FAY Primary Care Unavailable GRECHNY ., JANELL MCMILLAN Consulting Unavailabl e BERNOT, CONCEPCIÓN Consulting Unavailable MARKER ., DR ELLIOTT Admitting Unavailable ZIEBER, DR SIXTO Delgado Consulting Unavailable MARKER ., DR ELLIOTT Attending Unavailable WHITE, DR FAY Primary Care Unavailable PAY ., [...] Unavailable HEMMER, DR [place] Garcia Consulting Unavailable WHITE, DR FAY Primary Care Unavailable WHITE, DR FAY Admitting Unavailable WHITE, DR FAY Attending Unavailable WHITE, DR FAY Consulting Unavailable ZIEBER, DR SIXTO Delgado Consulting Unavailable Leroy White [...] Adhesive agent Drug allergy (disorder) 11-16-2016 [facility] Rep[facility] (1 source) Ciprofloxacin Drug Allergy 01-01-2013 [facility] (1 source) natural latex rubber Drug allergy (disorder) 03-01-2017 [facility] (15 sources) Ciprofloxacin Drug Allergy 11-06-2022 Swelling [facility] Work Phone: (15 sources) Wound Dressing Adhesive Drug Allergy 11-06-2022 Unknown [facility] Medications Current Medications Medication Drug Class(es) Dates Sig (Normalized) Sig (Original) acetaminophen 325 mg / HYDROcodone bitartrate 10 mg oral tablet (8 sources) Opioid Agonist Start: 03-03-2024 End: 03-24-2024 take 1 tablet by mouth every six hours for pain HYDROcodone-acetami nophen (Jackson) 10-325 MG tablet Indications: Spondylosis of lumbar region without myelopathy or radiculopathy Take 1 tablet by mouth every 6 (six) hours if needed for moderate pain or severe pain for up to 10 days 40 tablet 03/14/2024 03/24/2024 Active Start: 06-21-2023 End: 06-26-2023 take 1 tablet by mouth every six hours for pain HYDROcodone-acetaminophen (Jackson) 7.5-32 5 MG tablet Indications: Acute left-sided low back pain with left-sided sciatica Take 1 tablet by mouth every 6 (six) hours if needed for severe pain for up to 5 days 20 tablet 0 06/21/2023 06/26/2023 Active azithromycin 250 mg oral tablet (2 sources) Macrolide Antimicrobial Start: 02-06-2024 End: 02-11-2024 take 2 tablets by mouth once daily, then take 1 tablet by mouth once daily azithromycin (Zithromax) 250 MG tablet Indications: Upper respiratory tract infection, unspecified type Take 2 tablets (500 mg) by mouth Daily for 1 day, THEN 1 tablet (250 mg) Daily for 4 days. 6 tablet 02/06/2024 02/11/2024 Active betamethasone 0.5 mg/ml / clotrimazole 10 mg/ml topical cream (1 source) Azole Antifungal, Corticosteroid Start: 06-26-2023 End: 07-24-2023 clotrimazole-betame thasone (Lotrisone) cream Indications: Tinea pedis of left foot Apply topically 2 (two) times a day for 28 days 60 g 2 06/26/2023 07/24/2023 Active cyclobenzaprine hydrochloride 10 mg oral tablet (15 sources) Muscle Relaxant Start: 03-24-2024 take 1 tablet by mouth three times daily as needed for muscle spasms cyclobenzaprine (Flexeril) 10 MG tablet Indications: Cervical radiculopathy Take 1 tablet (10 mg) by mouth 3 (three) times a day as needed for muscle spasms 90 tablet 2 03/24/2024 Active Start: 07-30-2023 take 1 tablet by hal th three times daily as needed for muscle spasms cyclobenzaprine (Flexeril) 10 MG tablet Indications: Cervical radiculopathy TAKE 1 TABLET (10 MG) BY MOUTH 3 (THREE) TIMES A DAY NEEDED FOR MUSCLE SPASMS. 90 tablet 2 07/30/2023 Active Start: 03-08-2023 take 1 tablet by hal th three times daily as needed for muscle spasms cyclobenzaprine (Flexeril) 10 MG tablet Indications: Cervical radiculopathy Take 1 tablet (10 mg) by mouth 3 (three) times a day as needed for muscle spasms. 90 tablet 2 03/08/2023 Active diclofenac potassium 50 mg oral tablet (11 sources) Nonsteroidal Anti-inflammatory Drug Start: 09-26-2023 End: 09-25-2024 take 1 tablet by mouth in the morning diclofenac (Cataflam) 50 MG tablet Indications: Spondylosis of lumbar region without myelopathy or radiculopathy Take 1 tablet (50 mg) by mouth in the morning and 1 tablet (50 mg) before bedtime. 60 tablet 5 09/26/2023 09/25/2024 Active methylPREDNISolone (4 sources) Corticosteroid Start: 06-21-2023 End: 06-28-2023 methylPREDNISolone (Medrol Dospak) 4 MG tablets Indications: Acute left-sided low back pain with left-sided sciatica Follow schedule on package instructions 21 tablet 0 06/21/2023 06/28/2023 Active ondansetron 4 mg disintegrating oral tablet (11 sources) Serotonin-3 Receptor Antagonist Start: 01-25-2024 take 1 tablet by mouth every eight hours as needed for nausea and vomiting and nausea and nausea ondansetron ODT (Zofran-ODT) 4 MG disintegrating tablet Indications: Nausea Take 1 tablet (4 mg) by mouth every 8 (eight) hours if needed for nausea or vomiting 28 tablet 1 01/25/2024 Active phentermine hydrochloride 37.5 mg oral tablet (4 sources) Sympathomimetic Amine Anorectic Start: 06-04-2023 take 1 tablet by mouth once daily phentermine (Adipex-P) 37.5 MG tablet Indications: Severe obesity (BMI 35.0-39.9) with comorbidity (CMS/HCC) Take 1 tablet (37.5 mg) by mouth 1 (one) time each day at the same time 30 tablet 0 06/04/2023 Active SUMAtriptan 50 mg oral tablet (11 sources) Serotonin-1b and Serotonin-1d Receptor Agonist Start: 08-02-2023 take 1 tablet by mouth once daily, then take 2 tablets by mouth every twenty-four hours SUMAtriptan (Imitrex) 50 MG tablet Indications: Migraine syndrome (CMS/HCC) TAKE 1 TABLET BY MOUTH ONCE DAILY WITHIN 1 HOUR OF MIGRAINE START *MAX 2 PER 24 HOURS* 15 tablet 2 02/21/2024 Active Tirzepatide (Mounjaro) 7.5 MG/0.5ML solution auto-injector (2 sources) Start: 04-07-2024 End: 04-07-2025 inject 7.5 mg by subcutaneous injection every week Tirzepatide (Mounjaro) 7.5 MG/0.5ML solution auto-injector Indications: Severe obesity (BMI 35.0-39.9) with comorbidity (CMS/HCC) Inject 7.5 mg under the skin 1 (one) time per week 2 mL 3 04/07/2024 04/07/2025 Active vortioxetine 20 mg oral tablet (15 sources) Start: 10-22-2023 take 1 tablet by mouth once daily Vortioxetine HBr (Trintellix) 20 MG tablet Indications: Depression with anxiety Take 20 mg by mouth Daily 30 tablet 11 10/22/2023 Active take 1 tablet by mouth once charisse y Vortioxetine HBr (Trintellix) 10 MG tablet Take 1 tablet by mouth 1 (one) time each day at the same time. 0 Active zolpidem tartrate 10 mg oral tablet (17 sources) gamma-Aminobutyric Acid-ergic Agonist Start: 03-31-2024 zolpidem (Ambien) 10 MG tablet Indications: Other insomnia Take 1 tablet (10 mg) by mouth as needed at bedtime for sleep 30 tablet 2 03/31/2024 Active Start: 12-26-2023 End: 03-28-2024 zolpidem (Ambien) 10 MG tabl et Indications: Other insomnia Take 1 tablet (10 mg) by mouth as needed at bedtime for sleep 30 tablet 2 12/26/2023 03/28/2024 Discontinued (Reorder) Start: 06-27-2023 zolpidem (Ambi en) 10 MG tablet Indications: Other insomnia TAKE 1 TABLET (10 MG) BY MOUTH NEEDED AT BEDTIME FOR SLEEP. 30 tablet 2 06/27/2023 Active Start: 03-27-2023 End: 06-27-2023 zolpidem (Ambien) 10 MG tabl et Indications: Other insomnia TAKE 1 TABLET (10 MG) BY MOUTH NEEDED AT BEDTIME FOR SLEEP. 30 tablet 2 03/27/2023 06/27/2023 Discontinued Completed/Discontinued Medications Medication Drug Class(es) Dates Sig (Normalized) Sig (Original) diazePAM 5 mg oral tablet (17 sources) Benzodiazepine Start: 01-23-2024 End: 07-23-2024 take 1 tablet by mouth once diazePAM (Valium) 5 MG tablet Indications: Panic attacks (CMS/HCC) Take 1 tablet (5 mg) by mouth every 12 (twelve) hours if needed for anxiety, sleep or muscle spasms 60 tablet 03/24/2024 04/23/2024 Discontinued (Reorder) Start: 06-01-2023 take 1 tablet by mouth once di azePAM (Valium) 5 MG tablet Indications: Panic attacks (CMS/HCC) Take 1 tablet (5 mg) by mouth every 12 (twelve) hours if needed for anxiety, sleep or muscle spasms 30 tablet 0 06/01/2023 Active Tirzepatide (Mounjaro) 5 MG/0.5ML solution pen-injector (12 sources) Start: 02-06-2024 End: 04-07-2024 inject 5 mg by subcutaneous injection every week Tirzepatide (Mounjaro) 5 MG/0.5ML solution pen-injector Indications: Severe obesity (BMI 35.0-39.9) with comorbidity (CMS/HCC) Inject 5 mg under the skin 1 (one) time per week 2 mL 3 02/06/2024 04/07/2024 Discontinued (Dose adjustment) Start: 02-06-2024 inject 5 mg by subcu taneous injection every week Tirzepatide (Mounjaro) 5 MG/0.5ML solution pen-injector Indications: Severe obesity (BMI 35.0-39.9) with comorbidity (CMS/HCC) Inject 5 mg under the skin 1 (one) time per week 2 mL 3 02/06/2024 Active Start: 10-22-2023 End: 02-06-2024 inject 5 mg by subcutaneous injection every week Tirzepatide (Mounjaro) 5 MG/0.5ML solution pen-injector Indications: Severe obesity (BMI 35.0-39.9) with comorbidity (CMS/HCC) Inject 5 mg under the skin 1 (one) time per week 2 mL 3 10/22/2023 02/06/2024 Discontinued (Reorder) Problems Active Problems Problem Classification Problem Date Documented Date Episodic/Chronic Adjustment disorders (15 sources) Adjustment disorder; Translations: [Adjustment disorder, unspecified] Onset: 11-06-2022 11-06-2022 Chronic Anxiety disorders (18 sources) Panic attack; Translations: [Panic disorder [episodic paroxysmal anxiety]] Onset: 11-06-2022 11-06-2022 Chronic Biliary tract disease (15 sources) Disorder of biliary tract; Translations: [Other specified diseases of biliary tract] Onset: 11-06-2022 11-06-2022 Chronic Headache; including migraine (15 sources) Migraine; Translations: [Migraine, unspecified, not intractable, without status migrainosus] Onset: 11-06-2022 11-06-2022 Chronic Headache; including migraine (1 source) Headache; including migraine; Translations: [HEADACHE UNSPECIFIED] Onset: 04-17-2022 Menstrual disorders (20 sources) Dysmenorrhea; Translations: [Dysmenorrhea, unspecified] Onset: 11-06-2022 11-06-2022 Chronic Mood disorders (15 sources) Major depressive disorder; Translations: [Major depressive disorder, single episode, unspecified] Onset: 11-06-2022 11-06-2022 Chronic Other aftercare (1 source) Other custodial (current) drug therapy; Translations: [OTH 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 DRUG THERAPY] Onset: 10-03-2022 Episodic Other connective tissue disease (2 sources) Plantar fasciitis of right foot; Translations: [Plantar fascial fibromatosis] 06-21-2023 Episodic Other nervous system disorders (15 sources) Chiari malformation type I; Translations: [Compression of brain] Onset: 11-06-2022 11-06-2022 Chronic Other nutritional; endocrine; and metabolic disorders (18 sources) Severe obesity; Translations: [Morbid (severe) obesity due to excess calories] Onset: 11-06-2022 11-06-2022 Chronic Other upper respiratory infections (2 sources) Upper respiratory infection; Translations: [Acute upper respiratory infection, unspecified] 02-06-2024 Episodic Residual codes; unclassified (17 sources) Insomnia; Translations: [Other insomnia] Onset: 11-06-2022 [...] disc disorders; other back problems (20 sources) Other cervical disc degeneration, unspecified cervical [...] Onset: 04-10-2022 Episodic Other nervous system disorders (15 sources) Loss of taste; Translations: [Parageusia] Onset: 11-06-2022 11-06-2022 Episodic Spondylosis; intervertebral disc disorders; other back problems (20 sources) Radiculopathy, lumbar region; Translations: [Radiculopathy, cervical region] Onset: 12-19-2021 Episodic Unclassified (1 source) LOW BACK PAIN, UNSPECIFIED; Translations: [LOW BACK PAIN, UNSPECIFIED] Onset: 09-29-2022 Results Test Name Value Interpretation Reference Range Facil ity CT LSPINE WO CONon 3 CT LSPINE WO CON EXAMINATION: CT LSTAZ WO CON, 09/29/2022 6:30 AM EDT HISTORY: [...] SIXTO BENNETT Date: 2022-09-29 07:12 Normal [facility] ER URINE PROFILEon 3 Bilirubin Ql (U) Negative Normal NEGATIVE [facility] Comment on above: Performed By: #### P T, PTT, DDIM #### [facility] [address] [address] [address] Michelle Alfaro Clarity (U) CLEAR Normal CLEAR [facility] Comment on above: Performed By: #### P T, PTT, DDIM #### [facility] [address] [address] [address] Michelle Alfaro Color (U) YELLOW Normal YELLOW [facility] Comment on above: Performed By: #### P T, PTT, DDIM #### [facility] [address] [address] [address] Michelle GARRIDO A micrscopic examination will be performed if indicated. Normal [facility] Comment on above: Performed By: #### P T, PTT, DDIM #### [facility] [address] [address] [address] Michelle Alfaro Glucose Ql (U) Negative Normal NEGATIVE [facility] Comment on above: Performed By: #### P T, PTT, DDIM #### [facility] [address] [address] [address] Michelle Alfaro Hemoglobin Ql (U) TRACE-INTACT Abnormal NEGATIVE [facility] Comment on above: Performed By: #### P T, PTT, DDIM #### [facility] [address] [place] [address] Dr. Michelle Alfaro Ketones Ql (U) Negative Normal NEGATIVE [facility] Comment on above: Performed By: #### P T, PTT, DDIM #### [facility] [address] [place] [address] Dr. Michelle Alfaro LEUKOCYTES Negative Normal NEGATIVE [facility] Comment on above: Performed By: #### P T, PTT, DDIM #### [facility] [address] [address] [address] Michelle Alfaro Nitrite Ql (U) Negative Normal NEGATIVE [facility] Comment on above: Performed By: #### P T, PTT, DDIM #### [facility] [address] [place] [address] Dr. Michelle Alfaro pH (U) 5.5 [pH] Normal 5-9 [facility] Comment on above: Performed By: #### P T, PTT, DDIM #### [facility] [address] [place] [address] Dr. Michelle Alfaro SPEC GRAVITY >=1.030 Abnormal 1.005-<=1.[address] [facility] Comment on above: Performed By: #### P T, PTT, DDIM #### [facility] [address] [place] [address] Dr. Michelle Alfaro UA PROTEIN Negative Normal NEGATIVE/ TRACE [facility] Comment on above: Performed By: #### P T, PTT, DDIM #### [facility] [address] [address] [address] Michelle Alfaro UR MICRO IND NOT INDICATED Normal [facility] Comment on above: Performed By: #### P T, PTT, DDIM #### [facility] [address] [place] [address] Dr. Michelle Alfaro Urobilinogen Qn (U) 4 {Ramona'U}/dL Abnormal 0.2 - 1.0 [facility] Comment on above: Performed By: #### P T, PTT, DDIM #### [facility] [address] [place] [address] Dr. Michelle Alfaro XR CSPINE MIN 4 [...] DONNA NAVARRETE Date: 2022-06-06 09:11 Normal [facility] CBC W MANUAL DIFFon 04-10-20 22 ATYPICAL LYMPH # Normal [facility] Comment on above: Performed By: #### P T, PTT, DDIM #### [facility] [address] [place] [address] Dr. Michelle Alfaro ATYPICAL LYMPH % Normal [facility] Comment on above: Performed By: #### P T, PTT, DDIM #### [facility] [address] [place] [address] Dr. Michelle Alfaro BAND # Normal 0.0-0.3 [facility] Comment on above: Performed By: #### P T, PTT, DDIM #### [facility] [address] [place] [address] Dr. Michelle Alfaro BAND % Normal 0-5 [facility] Comment on above: Performed By: #### P T, PTT, DDIM #### [facility] [address] [address] [address] Michelle Alfaro BASOM # 0.09 103/ul Normal 0.00-0.10 [facility] Comment on above: Performed By: #### P T, PTT, DDIM #### [facility] [address] [place] [address] Dr. Michelle Alfaro BASOM % 1.0 % Normal 0.2-2.0 [facility] Comment on above: Performed By: #### P T, PTT, DDIM #### [facility] [address] [place] [address] Dr. Michelle Alfaro BLAST # Normal [facility] Comment on above: Performed By: #### P T, PTT, DDIM #### [facility] [address] [place] [address] Dr. Michelle Alfaro BLAST % Normal [facility] Comment on above: Performed By: #### P T, PTT, DDIM #### [facility] [address] [place] [address] Dr. Michelle Alfaro CORRECTED WBC Normal 4.0-11.0 [facility] Comment on above: Performed By: #### P T, PTT, DDIM #### [facility] [address] [place] [address] Dr. Michelle Alfaro EOS # 0.28 103/ul Normal 0.00-0.70 [facility] Comment on above: Performed By: #### P T, PTT, DDIM #### [facility] [address] [place] [address] Dr. Michelle Alfaro EOS% 3.0 % Normal 0.9-7.0 [facility] Comment on above: Performed By: #### P T, PTT, DDIM #### [facility] [address] [place] [address] Dr. Michelle Alfaro HCT 40.7 % Normal 36.0-48.0 [facility] Comment on above: Performed By: #### P T, PTT, DDIM #### [facility] [address] [address] [address] Michelle Alfaro HGB 14.0 g/dl Normal 12.0-16.0 [facility] Comment on above: Performed By: #### P T, PTT, DDIM #### [facility] [address] [place] [address] Dr. Michelle Alfaro LYMPHM # 2.67 103/ul Normal 1.20-3.80 [facility] Comment on above: Performed By: #### P T, PTT, DDIM #### [facility] [address] [place] [address] Dr. Michelle Alfaro LYMPHM% 29.0 % Normal 20.5-60.0 [facility] Comment on above: Performed By: #### P T, PTT, DDIM #### [facility] [address] [place] [address] Dr. Michelle Alfaro MCH 32.1 pg Normal 26.7-34.0 [facility] Comment on above: Performed By: #### P T, PTT, DDIM #### [facility] [address] [place] [address] Dr. Michelle Alfaor MCHC 34.4 g/dl Normal 29.9-35.2 [facility] Comment on above: Performed By: #### P T, PTT, DDIM #### [facility] [address] [place] [address] Dr. Michelle Alfaro MCV 93.3 fL Normal 81.0-99.0 [facility] Comment on above: Performed By: #### P T, PTT, DDIM #### [facility] [address] [place] [address] Dr. Michelle Alfaro METAMYELOCYTE # Normal [facility] Comment on above: Performed By: #### P T, PTT, DDIM #### [facility] [address] [place] [address] Dr. Michelle Alfaro METAMYELOCYTE % Normal [facility] Comment on above: Performed By: #### P T, PTT, DDIM #### [facility] [address] [place] [address] Dr. Michelle Alfaro MONOM# 0.64 103/ul Normal 0.30-0.80 [facility] Comment on above: Performed By: #### P T, PTT, DDIM #### [facility] [address] [place] [address] Dr. Michelle Alafro MONOM% 7.0 % Normal 1.7-12.0 [facility] Comment on above: Performed By: #### P T, PTT, DDIM #### [facility] [address] [place] [address] Dr. Michelle Alfaro MPV 10.0 fL Normal 9.5-13.5 [facility] Comment on above: Performed By: #### P T, PTT, DDIM #### [facility] [address] [place] [address] Dr. Michelle Alfaro MYELOCYTE # Normal [facility] Comment on above: Performed By: #### P T, PTT, DDIM #### [facility] [address] [place] [address] Dr. Michelle Alfaro MYELOCYTE % Normal [facility] Comment on above: Performed By: #### P T, PTT, DDIM #### [facility] [address] [place] [address] Dr. Michelle Alfaro NRBC Normal [facility] Comment on above: Performed By: #### P T, PTT, DDIM #### [facility] [address] [place] [address] Dr. Michelle Alfaro PLT 288 103/ul Normal 150-450 [facility] Comment on above: Performed By: #### P T, PTT, DDIM #### [facility] [address] [place] [address] Dr. Michelle Alfaro RBC 4.36 106/ul Normal 4.20-5.40 [facility] Comment on above: Performed By: #### P T, PTT, DDIM #### [facility] [address] [place] [address] Dr. Michelle Alfaro RDW 12.4 % Normal 11.0-15.0 [facility] Comment on above: Performed By: #### P T, PTT, DDIM #### [facility] [address] [address] [address] Michelle Alfaro SEG # 5.52 103/ul Normal 1.40-6.50 [facility] Comment on above: Performed By: #### P T, PTT, DDIM #### [facility] [address] [place] [address] Dr. Michelle Alfaro SEG % 60.0 % Normal 43.0-75.0 [facility] Comment on above: Performed By: #### P T, PTT, DDIM #### [facility] [address] [place] [address] Dr. Michelle Alfaro WBC 9.2 103/ul Normal 4.0-11.0 [facility] Comment on above: Performed By: #### P T, PTT, DDIM #### [facility] [address] [place] [address] Dr. Michelle Alfaro D-DIMERon 04-10-2022 D-DIMER 0.43 mg/L FEU Normal <=0.59 [facility] Comment on above: Performed By: #### P T, PTT, DDIM #### [facility] [address] [place] [address] Dr. Michelle Alfaro D-DIMER COMMENTS SEE BELOW Normal [facility] Comment on above: Result Comment: Incr [...] By: #### P T, PTT, DDIM #### [facility] [address] [place] [address] Dr. Michelle Alfaro PREG HCG QUALon 04-10-2022 , QUAL Negative Normal NEGATIVE [facility] Comment on above: Performed By: #### P T, PTT, DDIM #### [facility] [address] [place] [address] Dr. Michelle Alfaro PROF 14(COMP METB)on 022 Albumin [Mass/Vol] 3.6 g/dL Normal 3.4-5.0 [facility] Comment on above: Performed By: #### C MP, HSTROPN, TSH #### [facility] [address] [place] [address] Dr. Michelle Alfaro Albumin/Globulin [Mass ratio] 0.9 {ratio} Normal [facility] Comment on above: Performed By: #### C MP, HSTROPN, TSH #### [facility] [address] [place] [address] Dr. Michelle Alfaro ALP [Catalytic activity/Vol] 85 U/L Normal 46-116 [facility] Comment on above: Performed By: #### C MP, HSTROPN, TSH #### [facility] [address] [place] [address] Dr. Michelle Alfaro ALT [Catalytic activity/Vol] 28 U/L Normal 14-59 [facility] Comment on above: Performed By: #### C MP, HSTROPN, TSH #### [facility] [address] [place] [address] Dr. Michelle Alfaro Anion gap [Moles/Vol] 11.7 mmol/L Normal [facility] Comment on above: Performed By: #### C MP, HSTROPN, TSH #### [facility] [address] [place] [address] Dr. Michelle Alfaro AST [Catalytic activity/Vol] 19 U/L Normal 15-37 [facility] [facility] Comment on above: Performed By: #### C MP, HSTROPN, TSH #### [facility] [address] [place] [address] Dr. Michelle Alfaro Bilirubin [Mass/Vol] 0.2 mg/dL Normal 0.2-1.0 [facility] Comment on above: Performed By: #### C MP, HSTROPN, TSH #### [facility] [address] [place] [address] Dr. Michelle Alfaro Calcium [Mass/Vol] 8.8 mg/dL Normal 8.5-10.1 [facility] Comment on above: Performed By: #### C MP, HSTROPN, TSH #### [facility] [address] [address] [address] Michelle Alfaro Chloride [Moles/Vol] 103 mmol/L Normal 98-107 [facility] Comment on above: Performed By: #### C MP, HSTROPN, TSH #### [facility] [address] [address] [address] Michelle Alfaro CO2 [Moles/Vol] 26.7 mmol/L Normal 21.0-32.0 [facility] Comment on above: Performed By: #### C MP, HSTROPN, TSH #### [facility] [address] [place] [address] Dr. Michelle Alfaro Creatinine [Mass/Vol] 1.05 mg/dL Critically high 0.55-1.02 [facility] Comment on above: Performed By: #### C MP, HSTROPN, TSH #### [facility] [address] [place] [address] Dr. Michelle Alfaro EGFR-AF QATARI >60 Normal >=60 [facility] Comment on above: Performed By: #### C MP, HSTROPN, TSH #### [facility] [address] [place] [address] Dr. Michelle Alfaro EGFR-NON AF QATARI 59 mL/min/1.73m2 Critically low >=60 [facility] Comment on above: Performed By: #### C MP, HSTROPN, TSH #### [facility] [address] [address] [address] Michelle Alfaro Globulin (S) [Mass/Vol] 4.0 g/dL Normal [facility] Comment on above: Performed By: #### C MP, HSTROPN, TSH #### [facility] [address] [address] [address] Michelle Alfaro Glucose [Mass/Vol] 97 mg/dL Normal 74-106 [facility] Comment on above: Performed By: #### C MP, HSTROPN, TSH #### [facility] [address] [address] [address] Michelle Alfaro Potassium [Moles/Vol] 3.4 mmol/L Critically low 3.5-5.1 [facility] Comment on above: Performed By: #### C MP, HSTROPN, TSH #### [facility] [address] [address] [address] Michelle Alfaro Protein [Mass/Vol] 7.6 g/dL Normal 6.4-8.2 [facility] Comment on above: Performed By: #### C SARBJIT, HSTROPN, TSH #### [facility] [address] [place] [address] Dr. Michelle Alfaro Sodium [Moles/Vol] 138 mmol/L Normal 136-145 [facility] Comment on above: Performed By: #### C SARBJIT HSTROPN, TSH #### [facility] [address] [address] [address] Michelle Alfaro Urea nitrogen [Mass/Vol] 11.0 mg/dL Normal 7.0-18.0 [facility] Comment on above: Performed By: #### C SARBJIT HSTROPN, TSH #### [facility] [address] [place] [address] Dr. Michelle Alfaro Urea nitrogen/Creatinine [Mass ratio] 10.5 mg/mg Normal [facility] Comment on above: Performed By: #### C MP, HSTROPN, TSH #### [facility] [address] [place] [address] Dr. Michelle Alfaro PROTIMEon 04-10-2022 INR Coag (PPP) [Relative time] 0.95 {INR} Normal [facility] Comment on above: Performed By: #### P T, PTT, DDIM #### [facility] [address] [place] [address] Dr. Michelle Alfaro INR GUIDELINES SEE BELOW Normal [facility] Comment on above: Result Comment: YASMIN RED INR: 2.0 - 3.0 CONDITIONS NOT LISTED BELOW 2.5 - 3.5 FOR PROSTHETIC HEART VALVE REPLACEMENT 2.5 - 3.5 RECURRENT THROMBOSIS Performed By: #### P T, PTT, DDIM #### [facility] [address] [place] [address] Dr. Michelle Alfaro PT Coag (PPP) [Time] 10.3 s Normal 9.0-11.6 [facility] Comment on above: Performed By: #### P T, PTT, DDIM #### [facility] [address] [place] [address] Dr. Michelle Alfaro PTTon 04-10-2022 aPTT Coag (Bld) [Time] 25.3 s Normal 22.3-36.2 [facility] Comment on above: Performed By: #### P T, PTT, DDIM #### [facility] [address] [place] [address] Dr. Michelle Alfaro TROPONIN, HIGH SENSITIVITYon 04-10-2022 HSTROP 12.0 pg/mL Normal 4.0-51.3 [facility] Comment on above: Result Comment: CUT- OFF POINTS HAVE BEEN ESTABLISHED BASED ON THE FOURTH UNIVERSAL DEFINITIONS OF MYOCARDIAL INFARCTION. THE UPPER REFERENCE LIMIT (URL) OF TROPONIN, DEFINED THE 99TH PERCENTILE OF cTnI DISTRIBUTION IN A REFERENCE POPULATION, HAS BEEN CONFIRMED THE DECISION THRESHOLD FOR VA DIAGNOSIS. Performed By: #### C MP, HSTROPN, TSH #### [facility] [address] [place] [address] Dr. Michelle Alfaro TSHon 04-10-2022 TSH 3.556 uIU/mL Normal 0.358-3.740 [facility] Comment on above: Performed By: #### C MP, HSTROPN, TSH #### [facility] [address] [place] [address] Dr. Michelle Alfaro XR CHEST 1 Von [...] by: CONCEPCIÓN MUJICA Date: 2022-04-10 18:52 Normal [facility] XR LSPINE MIN 4 VIEWSon 08-0 XR [...] by: SIXTO BENNETT Date: 2021-12-21 08:04 Normal [facility] Coding Summary.on 04-08-2020 Coding Summary. CODING DATE: 04/08/[address] 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 Nucleic acid amplification tests include PCR and [...] detected) result in this assay. Performed at: [facility] [address] [facility], [place] [id number] Formerly [facility] Carmella Elizabeth Performed By: #### S ARS-CoV-2, CHRIS #### [facility] [address] [place] [address] Physician Orderon 03-30-2020 Physician Order [id number] .00CD:127 Normal [facility] Consent for Treatmenton Consent for Treatment [id number] 1.00CD:127 Normal [facility] Vital Signs Date Time Vital Sign Value Performing Clinician Faci lity 03-03-2024 11:42-0400 Body height 162.6 cm Leroy White MD Work Phone: [facility] 03-03-2024 11:42-0400 Body mass index (BMI) [Ratio] 33.47 kg/m2 Leroy White MD Work Phone: [facility] 03-03-2024 11:42-0400 Body weight 88.45 kg Leroy White MD Work Phone: [facility] 03-03-2024 11:42-0400 Diastolic blood pressure 70 mm[Hg] Leroy White MD Work Phone: [facility] 03-03-2024 11:42-0400 Heart rate 74 /min Leroy White MD Work Phone: [facility] 03-03-2024 11:42-0400 SaO2% (BldA) [Mass fraction] 98 % Leroy White MD Work Phone: [facility] 03-03-2024 11:42-0400 Systolic blood pressure 122 mm[Hg] Leroy White MD Work Phone: [facility] 02-06-2024 10:40-0400 Body height 162.6 cm Leroy White MD Work Phone: [facility] 02-06-2024 10:40-0400 Body mass index (BMI) [Ratio] 33.3 kg/m2 Leroy White MD Work Phone: [facility] 02-06-2024 10:40-0400 Body weight 88 kg Leroy White MD Work Phone: [facility] 02-06-2024 10:40-0400 Diastolic blood pressure 76 mm[Hg] Leroy White MD Work Phone: [facility] 02-06-2024 10:40-0400 Heart rate 84 /min Leroy White MD Work Phone: [facility] 02-06-2024 10:40-0400 SaO2% (BldA) [Mass fraction] 98 % Leroy White MD Work Phone: [facility] 02-06-2024 10:40-0400 Systolic blood pressure 124 mm[Hg] Leroy White MD Work Phone: [facility] 06-21-2023 15:53-0500 Body mass index (BMI) [Ratio] 37.35 kg/m2 Leroy White MD Work Phone: [facility] 06-21-2023 15:53-0500 Body weight 100.25 kg Leroy White MD Work Phone: [facility] 06-21-2023 15:53-0500 Diastolic blood pressure 78 mm[Hg] Leroy White MD Work Phone: [facility] 06-21-2023 15:53-0500 Heart rate 115 /min Leroy White MD Work Phone: [facility] 06-21-2023 15:53-0500 SaO2% (BldA) [Mass fraction] 99 % Leroy White MD Work Phone: [facility] 06-21-2023 15:53-0500 Systolic blood pressure 128 mm[Hg] Leroy White MD Work Phone: [facility] Encounters Encounter Date Encounter Type Care Provider Facility Start: 04-23-2024 End: 04-24-2024 Refill Ny Parham PA Work Phone: [facility] Comment on above: Panic attacks (CMS/H CC) Start: 04-07-2024 End: 04-07-2024 Telephone encounter Leroy White MD Work Phone: [facility] Start: 03-28-2024 End: 03-31-2024 Refill Ny Parham PA Work Phone: [facility] Comment on above: Other insomnia Start: 03-24-2024 End: 03-24-2024 Refill Ny Parham PA Work Phone: [facility] Comment on above: Panic attacks (CMS/H CC) Start: 03-14-2024 End: 03-14-2024 Refill Leroy White MD Work Phone: [facility] Comment on above: Spondylosis of lumba r region without myelopathy or radiculopathy Start: 03-03-2024 End: 03-03-2024 Bamboo flowsheet Leroy White MD Work Phone: [facility] Start: 03-03-2024 End: 03-03-2024 Bamboo flowsheet Leroy White MD Work Phone: [facility] Start: 03-03-2024 End: 03-03-2024 ambulatory LEROY WHITE Not Available Start: 03-03-2024 End: 03-03-2024 Office outpatient visit 15 minutes Leroy White MD Work Phone: [facility] Comment on above: Left sided sciatica (Primary Dx); Spondylosis of lumbar region without myelopathy or radiculopathy Start: 02-20-2024 End: 02-20-2024 Refvidya MACIEL Work Phone: [facility] Comment on above: Panic attacks (CMS/H CC) Start: 02-06-2024 End: 02-06-2024 Office outpatient visit 25 minutes Leroy White MD Work Phone: [facility] Comment on above: Upper respiratory tr act infection, unspecified type (Primary Dx); Severe obesity (BMI 35.0-39.9) with comorbidity (CMS/HCC) Start: 02-06-2024 End: 02-06-2024 ambulatory LEROY WHITE Not Available Start: 12-12-2023 End: 12-12-2023 ambulatory LEROY Schreiber WHITE Not Available Start: 11-21-2023 End: 11-21-2023 ambulatory LEROY Schreiber WHITE Not Available Start: 11-05-2023 End: 11-05-2023 ambulatory LEROY Schreiber WHITE Not Available Start: 10-22-2023 End: 10-22-2023 ambulatory LEROY WHITE Not Available Start: 10-04-2023 End: 10-04-2023 ambulatory SIXTO MCKINNEY Not Available Start: 09-26-2023 End: 09-26-2023 ambulatory ELROY B WHITE Not Available Start: 06-26-2023 Chart abstracting Reny Medrano DPM Work Phone: [facility] Start: 06-26-2023 Refvidya MACIEL Work Phone: [facility] Comment [...] Facility:[facility] Start: 12-20-2021 End: 12-21-[address] LERYO WHITE Facility:[facility] Start: 12-15-2021 End: 12-15-2021 ambulatory RENETTA RODRÍGUEZ . Facility: Plan of Treatment Date Care Activity Detail Author Start: 04-26-2025 Screening for malign ant neoplasm of cervix [facility] Start: 05-07-2024 End: 05-07-2024 Patient encounter procedure 05/07/2024 10:00 AM EST Office Visit [facility] [address] [place] [address] Leroy White MD [address] [place] [address] [facility] Start: 03-19-2024 End: 03-19-2024 Patient encounter procedure 03/19/2024 9:45 AM EDT Office Visit [facility] [address] [place] [address] Leroy White MD [address] [place] [address] [facility] Start: 01-20-2024 Influenza vaccination Influenza Vacc ine (#1) [facility] Start: 11-18-2023 Influenza vaccination Influenza Vacc ine (#1) [facility] Comment on above: Postponed from 01/19 (Patient Refused) Start: 06-26-2023 End: 06-26-2023 Patient encounter procedure 06/26/2023 9:00 AM EST Office Visit [facility] [address] [place] [id number] Reny Medrano DPM [address] [place] [address] [facility] Start: 2005 Screening for malign ant neoplasm of cervix Pap Smear [facility] Immunizations Immunization Date Immunization Notes Care Provider Fa cility 02-23-2022 influenza, injectabl e, quadrivalent, preservative free Leroy White MD Work Phone: [facility] 02-23-2022 influenza virus vacc ine, unspecified formulation Leroy White MD Work Phone: [facility] 11-03-2021 Pfizer Gómez Cap SARS-CoV-2 Vaccination Leroy White MD Work Phone: [facility] 10-10-2021 Pfizer Gómez Cap SARS-CoV-2 Vaccination Leroy White MD Work Phone: [facility] 02-25-2020 influenza, injectabl e, quadrivalent, preservative free Leroy White MD Work Phone: [facility] 03-01-2015 influenza, injectabl e, quadrivalent, preservative free Leroy White MD Work Phone: [facility] Payers Date Payer Category Payer [facility] BCBS [id number] 2022 Medicaid [employer] [place] [id number] 2022- [address] [place] [address] [id number] 2022 Unknown BCBS BCBS [id number] [id number] 2022-Present [phone] [address] [place] [address] [id number] 2022 Unknown [id number] 1984 Unknown [id number] [id number]. 593 1984 Unknown [id number] 2.16.840.1.989432.3.579.2. 593 1984 Unknown [id number] 2.16.840.1.847835.3.579.2. 593 1984 Unknown [id number] 2.16.840.1.869531.3.579.2. 593 1984 Unknown [id number] 2.16.840.1.738247.3.579.2. 593 1984 Unknown [id number] 2.16.840.1.722753.3.579.2. 1258 1984 Unknown [id number] 2.16.840.1.666992.3.579.2. 1258 1984 Unknown [id number] 2.16.840.1.765555.3.579.2. 1258 1984 Unknown [id number] 2.16.840.1.944079.3.579.2. 1259 1984 Unknown [id number] 2.16.840.1.825999.3.579.2. 1258 1984 Unknown [id number] 2.16.840.1.854319.3.579.2. 9 1984 Unknown [id number] 2.16.840.1.903508.3.579.2. 1258 1984 Unknown [id number] 2.16.840.1.044877.3.579.2. 9 1984 Unknown [id number] 2.16.840.1.166938.3.579.2. 1258 1984 Unknown [id number] 2.16.840.1.060757.3.579.2. 1259 1984 Unknown [id number] 2.16.840.1.458644.3.579.2. 1259 1959 Unknown [id number] 1959 Unknown [id number] 1959 Unknown [id number] Social History Date Type Detail Facility Start: 04-27-2023 End: 12-12-2023 Tobacco smoking status UTIS Ex-smoker [facility] Start: 12-20-2011 End: 12-19-2021 History of tobacco use Current smoker [facility] Start: 12-20-2011 End: 12-19-2021 History of tobacco use Cigarette Smoker [facility] Start: 04-27-2023 End: 12-12-2023 Cigarettes smoked current (pack per day) - Reported 1 [facility] Start: 04-27-2023 End: 12-12-2023 Tobacco use and exposure Smokeless tobacco non-user [facility] Start: 06-21-2023 End: 02-06-2024 Alcohol intake Ex-drinker (finding) [facility] Start: 12-05-2022 End: 12-12-2023 Humiliation, Afraid, Rape, and Kick questionnaire [HARK] [...] Caffeine intak e: 1 can pop daily [facility] Start: 1985 Sex Assigned At Not on file [facility] Do you feel stress - tense, restless, nervous, or anxious, or unable to sleep at night because your mind is troubled all the time - these days [OSQ] Rather much [facility] (I/We) worried [facility] er (my/our) food would run out before (I/we) got money to buy more. Sometimes true [facility] The food that (I/we) bought just didn't last, and (I/we) didn't have money to get more. Never true [facility] In the past 12 month s, was there a time when you were not able to pay the mortgage or rent on time? Yes [facility] Clinical Notes 06-21-2023 to 04-24-2024 Telephone Encounter - JANELL Saxena - 04/24/2024 7:59 AM ESTTelephone Encounter - JANELL Saxena - 04/24/2024 7:59 AM ESTTelephone Encounter - Leroy White MD - 04/07/2024 12:10 PM EST Note Date & Type Note Facility 04-24-2024 Telephone encount er Note OARRS reviewed, Rx sent into patient's pharmacy. [facility] 04-24-2024 Miscellaneous Notes Formattin g of this note might be different from the original. OARRS reviewed, Rx sent into patient's pharmacy. documented in this encounter [facility] 04-07-2024 Telephone encount er Note Dose adjusted, Rx sent. [facility] 04-07-2024 Miscellaneous Notes Formattin g of this note might be different from the original. Dose adjusted, Rx sent. Tirzepatide (Mounjaro) 5 MG/0.5ML solution pen-injector pt would like to up her dosage. LEX Han documented in this encounter [facility] 04-07-2024 Telephone encount er Note Tirzepatide (Mounjaro) 5 MG/0.5ML solution pen-injector pt would like to up her dosage. LEX Short [facility] 03-24-2024 Telephone encount er Note OARRS reviewed, Rx sent into patient's pharmacy. [facility] 03-24-2024 Miscellaneous Notes Formattin g of this note might be different from the original. OARRS reviewed, Rx sent into patient's pharmacy. documented in this encounter [facility] 03-03-2024 History of Presen t illness Narrative Images from the original note were not included. Subjective Patient ID: Terese Uribe is a 38 y.o. female who presents for Back Pain. Back Pain Patient presents for evaluation of low back problems. Symptoms have been present for 4 days and include pain in lower back Initial inciting event: none. Alleviating factors identifiable by the patient are none. Aggravating factors identifiable by the patient are bending forwards, sitting, standing, and walking. Treatments initiated by the patient: biofreeze patches,flexeril,diclofenac Back Pain Current Outpatient Medications on File Prior to Visit Medication Sig Dispense Refill cyclobenzaprine (Flexeril) 10 MG tablet TAKE 1 TABLET (10 MG) BY MOUTH 3 (THREE) TIMES A DAY NEEDED FOR MUSCLE SPASMS. 90 tablet 2 diazePAM (Valium) 5 MG tablet Take 1 tablet (5 mg) by mouth every 12 (twelve) hours if needed for anxiety, sleep or muscle spasms 60 tablet 0 diclofenac (Cataflam) 50 MG tablet Take 1 tablet (50 mg) by mouth in the morning and 1 tablet (50 mg) before bedtime. 60 tablet 5 ondansetron ODT (Zofran-ODT) 4 MG disintegrating tablet Take 1 tablet (4 mg) by mouth every 8 (eight) hours if needed for nausea or vomiting 28 tablet 1 SUMAtriptan (Imitrex) 50 MG tablet TAKE 1 TABLET BY MOUTH ONCE DAILY WITHIN 1 HOUR OF MIGRAINE START *MAX 2 PER 24 HOURS* 15 tablet 2 Tirzepatide (Mounjaro) 5 MG/0.5ML solution pen-injector Inject 5 mg under the skin 1 (one) time per week 2 mL 3 Vortioxetine HBr (Trintellix) 20 MG tablet Take 20 mg by mouth Daily 30 tablet 11 zolpidem (Ambien) 10 MG tablet Take 1 tablet (10 mg) by mouth as needed at bedtime for sleep 30 tablet 2 [DISCONTINUED] HYDROcodone-acetaminophen (Jackson) 10-325 MG tablet Take 1 tablet by mouth every 6 (six) hours if needed for moderate pain or severe pain for up to 5 days 20 tablet 0 No current facility-administered medications on file prior to visit. I have reviewed and reconciled the history and medication list with the patient today. Allergies Allergen Reactions Ciprofloxacin Swelling Wound Dressing Adhesive Unknown Social History Tobacco Use Smoking status: Former Current packs/day: 0.00 Average packs/day: 1 pack/day for 10.0 years (10.0 ttl pk-yrs) Types: Cigarettes Start date: 12/20/2011 Quit date: 12/19/2021 Years since quittin.2 Smokeless tobacco: Never Vaping Use Vaping status: Some Days Start date: 12/19/2021 Substance Use Topics Alcohol use: Not Currently Comment: Caffeine intake: 1 can pop daily Drug use: Never Family History Problem Relation Name Age of Onset Fibromyalgia Mother Shaun Lupus Mother Shaun Hypertension Mother Shaun Heart disease Mother Shaun Depression Mother Shaun COPD Mother Shaun Other (DDD) Father No Known Problems Sister COPD Paternal Grandfather Marcel Cancer Paternal Grandmother Sally Sweet Alcohol abuse Mother's Sister Aida Alcohol abuse Father's Brother Kishor Cancer Father's Brother Kishor Alcohol abuse Father's Brother Brendan Alcohol abuse Father's Brother Marcos Cancer Father's Brother Marcos Cancer Father's Sister Nisha Past Medical History: Diagnosis Date Acute shoulder pain 2011 accident Anxiety Brachial neuritis or radiculitis Cervicalgia CTS (carpal tunnel syndrome) Depression (CMS/HCC) Disturbance of skin sensation Gall bladder disease 1998 Migraine headache (CMS/HCC) Muscle spasm Pain in limb Spina bifida with hydrocephalus (CMS/HCC) Past Surgical History: Procedure Laterality Date SECTION, LOW TRANSVERSE 2007 x2 CHOLECYSTECTOMY 1998 ESOPHAGOGASTRODUODENOSCOPY IUD INSERTION Adiana Visit Vitals BP 122/70 Pulse 74 Ht 5' 4 Wt 195 lb SpO2 98% BMI 33.47 kg/m Smoking Status Former BSA 2 m Review of Systems Musculoskeletal: Positive for back pain. Objective Physical Exam Constitutional: Appearance: She is ill-appearing and diaphoretic. Cardiovascular: Rate and Rhythm: Regular rhythm. Tachycardia present. Heart sounds: Normal heart sounds. Pulmonary: Effort: Pulmonary effort is normal. No respiratory distress. Breath sounds: No stridor. No wheezing, rhonchi or rales. Musculoskeletal: Lumbar back: Spasms and tenderness present. No deformity. Normal range of motion. Negative right straight leg raise test and negative left straight leg raise test. No scoliosis. Neurological: Motor: No weakness. Gait: Gait normal. Deep Tendon Reflexes: Reflexes normal. Assessment/Plan Diagnoses and all orders for this visit: Left sided sciatica - Episodic. EMG was normal recently. Spondylosis of lumbar region without myelopathy or radiculopathy - HYDROcodone-acetaminophen (Jackson) 10-325 MG tablet; Take 1 tablet by mouth every 6 (six) hours if needed for moderate pain or severe pain for up to 10 days Follow up in about 2 weeks (around 03/17/2024) for F/U med changes. documented in this encounter [facility] 02-20-2024 Telephone encount er Note OARRS reviewed, Rx sent into patient's pharmacy. [facility] 02-20-2024 Miscellaneous Notes Formattin g of this note might be different from the original. OARRS reviewed, Rx sent into patient's pharmacy. documented in this encounter [facility] 02-06-2024 History of Presen t illness Narrative Images from the original note were not included. HPI Med Refill Additional comments: Mounjaro-- discuss increasing dose-- [facility] Last edited by Radha Delgado LPN on 02/06/2024 10:47 AM. Subjective Patient ID: Terese Uribe is a 38 y.o. female who presents for Depression, Obesity, URI, and Med Refill (Mounjaro-- discuss increasing dose-- [facility]). Terese is in for anxiety/depression. States its been improving Taking meds as directed Pt taking mounjaro as directed tolerating well Upper Respiratory Infection Patient complains of symptoms of a URI. Symptoms include cough described as productive, post nasal drip, and sinus pressure. Onset of symptoms was 5 days ago, and has been gradually worsening since that time. Treatment to date: cough suppressants and decongestants. Depression URI Med Refill Current Outpatient Medications on File Prior to Visit Medication Sig Dispense Refill cyclobenzaprine (Flexeril) 10 MG tablet TAKE 1 TABLET (10 MG) BY MOUTH 3 (THREE) TIMES A DAY NEEDED FOR MUSCLE SPASMS. 90 tablet 2 diazePAM (Valium) 5 MG tablet Take 1 tablet (5 mg) by mouth every 12 (twelve) hours if needed for anxiety, sleep or muscle spasms 60 tablet 0 diclofenac (Cataflam) 50 MG tablet Take 1 tablet (50 mg) by mouth in the morning and 1 tablet (50 mg) before bedtime. 60 tablet 5 ondansetron ODT (Zofran-ODT) 4 MG disintegrating tablet Take 1 tablet (4 mg) by mouth every 8 (eight) hours if needed for nausea or vomiting 28 tablet 1 SUMAtriptan (Imitrex) 50 MG tablet TAKE 1 TABLET BY MOUTH ONCE DAILY WITHIN 1 HOUR OF MIGRAINE START *MAX 2 PER 24 HOURS* 15 tablet 0 Vortioxetine HBr (Trintellix) 20 MG tablet Take 20 mg by mouth Daily 30 tablet 11 zolpidem (Ambien) 10 MG tablet Take 1 tablet (10 mg) by mouth as needed at bedtime for sleep 30 tablet 2 [DISCONTINUED] Tirzepatide (Mounjaro) 5 MG/0.5ML solution pen-injector Inject 5 mg under the skin 1 (one) time per week 2 mL 3 No current facility-administered medications on file prior to visit. I have reviewed and reconciled the history and medication list with the patient today. Allergies Allergen Reactions Ciprofloxacin Swelling Wound Dressing Adhesive Unknown Social History Tobacco Use Smoking status: Former Current packs/day: 0.00 Average packs/day: 1 pack/day for 10.0 years (10.0 ttl pk-yrs) Types: Cigarettes Start date: 12/20/2011 Quit date: 12/19/2021 Years since quittin.1 Smokeless tobacco: Never Vaping Use Vaping status: Some Days Start date: 12/19/2021 Substance Use Topics Alcohol use: Not Currently Comment: Caffeine intake: 1 can pop daily Drug use: Never Family History Problem Relation Name Age of Onset Fibromyalgia Mother Shaun Lupus Mother Shaun Hypertension Mother Shaun Heart disease Mother Shaun Depression Mother Shaun COPD Mother Shaun Other (DDD) Father No Known Problems Sister COPD Paternal Grandfather Marcel Cancer Paternal Grandmother Sally Sweet Alcohol abuse Mother's Sister Aida Alcohol abuse Father's Brother Kishor Cancer Father's Brother Kishor Alcohol abuse Father's Brother Brendna Alcohol abuse Father's Brother Marcos Cancer Father's Brother Marcos Cancer Father's Sister Pat Past Medical History: Diagnosis Date Acute shoulder pain 2012 accident Anxiety Brachial neuritis or radiculitis Cervicalgia CTS (carpal tunnel syndrome) Depression (CMS/HCC) Disturbance of skin sensation Gall bladder disease 1998 Migraine headache (CMS/HCC) Muscle spasm Pain in limb Spina bifida with hydrocephalus (CMS/HCC) Past Surgical History: Procedure Laterality Date SECTION, LOW TRANSVERSE 2007 x2 CHOLECYSTECTOMY 1999 ESOPHAGOGASTRODUODENOSCOPY IUD INSERTION Adiana Visit Vitals BP 124/76 Pulse 84 Ht 5' 4 Wt 194 lb SpO2 98% BMI 33.30 kg/m Smoking Status Former BSA 1.99 m Review of Systems Psychiatric/Behavioral: Positive for depression. Objective Physical Exam Constitutional: Appearance: She is ill-appearing and diaphoretic. Cardiovascular: Rate and Rhythm: Regular rhythm. Tachycardia present. Heart sounds: Normal heart sounds. Pulmonary: Effort: Pulmonary effort is normal. No respiratory distress. Breath sounds: No stridor. No wheezing, rhonchi or rales. Assessment/Plan Diagnoses and all orders for this visit: Upper respiratory tract infection, unspecified type - azithromycin (Zithromax) 250 MG tablet; Take 2 tablets (500 mg) by mouth Daily for 1 day, THEN 1 tablet (250 mg) Daily for 4 days. Severe obesity (BMI 35.0-39.9) with comorbidity (CMS/HCC) - Tirzepatide (Mounjaro) 5 MG/0.5ML solution pen-injector; Inject 5 mg under the skin 1 (one) time per week Follow up in about 3 months (around 05/07/2024) for Routine F/U. documented in this encounter [facility] 06-21-2023 History of Presen t illness Narrative Images from the original note were not included. Subjective Patient ID: Terese Uribe is a 37 y.o. female who presents [...] Follow schedule on package instructions - HYDROcodone-acetaminophen (Jackson) 7.5-325 MG tablet; Take 1 tablet by mouth every 6 (six) hours if needed for severe pain for up to 5 days Plantar fasciitis of right foot - Ambulatory referral to Podiatry; Future No follow-ups on file. documented in this encounter [facility] Evaluation note Diagnosis Acute left-sided low back pain with left-sided sciatica- Primary Plantar fasciitis of right foot [facility]* Diagnosis Other insomnia [facility]* Diagnosis Panic attacks (CMS/HCC) Panic disorder without agoraphobia documented in this encounter [facility]* Diagnosis Left sided sciatica- Primary Sciatica Spondylosis of lumbar region without myelopathy or radiculopathy [facility] Diagnosis Spondylosis of lumbar region without myelopathy or radiculopathy documented in this encounter [facility]* Diagnosis Panic attacks (CMS/HCC) Panic disorder without agoraphobia documented in this encounter [facility]* Diagnosis Other insomnia documented in this encounter [facility]* Diagnosis Severe obesity (BMI 35.0-39.9) with comorbidity (CMS/HCC) documented in this encounter [facility]* Diagnosis Panic attacks (CMS/HCC) Panic disorder without agoraphobia documented in this encounter [facility]* Diagnosis Upper respiratory tract infection, unspecified type- Primary Severe obesity (BMI 35.0-39.9) with comorbidity (CMS/HCC) documented in this encounter [facility] for referral (narrative)* Consultation (Routine) - Pending Review Specialty Diagnoses / Procedures Referred By Contminor t Referred To Contact Podiatry Diagnoses Plantar fasciitis of right foot Procedures DC OFFICE/OUTPATIENT NEW HIGH MDM 60 MINUTES Leroy White MD [address] [address] Danny Chung, DPJose FACFAS [address] [place] [address] Referral ID Status Reason Start Date Expiration Date Visits Requested Visits Authorized [id number] Pending Review Specialty Services Required 06/21/2023 12/18/2023 1 1 [facility] Summary Purpose Family History No Family History Records FoundNo Family History Records FoundNo Family History Records Found Advance Directives No Advanced Directives Records FoundNo Advanced Directives Records FoundNo Advanced Directives Records Found Additional Source Comments INFORMATION SOURCE (unrecogn ized section and content) DATE CREATED AUTHOR 04/19/2020 [facility] DATE CREATED AUTHOR AUTHOR'S ORGANIZ ATION 10/04/2022 [facility] DATE CREATED AUTHOR AUTHOR'S ORGANIZ ATION 03/05/2024 [facility] EPIC Reason for Visit (unrecogniz ed section and content) Reason Comments foot and back pain Left side Reason Comments Med Refill Reason Onset Date Comments Med Refill 02/20/2024 Reason Comments Back Pain Reason Onset Date Comments Med Refill 03/14/2024 Reason Onset Date Comments Med Refill 03/24/2024 Reason Onset Date Comments Med Refill 03/28/2024 Reason Onset Date Comments Med Refill 04/23/2024 Reason Comments Depression Obesity URI Med Refill Mounjaro-- discuss i ncreasing dose-- [facility] Teams (unrecognized sec tion and content) Occupational Health And Safety Manager Relationship Specialty Start Date End Date Leroy White MD [address] [place] [address] PCP - General Internal Medicine 11/06/22 Occupational Health And Safety Manager Relationship Specialty Start Date End Date Leroy White MD [address] [place] [address] PCP - General Internal Medicine 11/06/22 Occupational Health And Safety Manager Relationship Specialty Start Date End Date Leroy White MD [address] [place] [address] PCP - General Internal Medicine 11/06/22 Occupational Health And Safety Manager Relationship Specialty Start Date End Date Leroy White MD [address] [place] [address] PCP - General Internal Medicine 11/06/22 Occupational Health And Safety Manager Relationship Specialty Start Date End Date Leroy White MD [address] [place] [address] PCP - General Internal Medicine 11/06/22 Occupational Health And Safety Manager Relationship Specialty Start Date End Date Leroy White MD [address] [facility] [address] [place] [address] PCP - General Internal Medicine 11/06/22 Occupational Health And Safety Manager Relationship Specialty Start Date End Date Leroy White MD [address] [facility] [address] [place] [address] PCP - General Internal Medicine 11/06/22 Occupational Health And Safety Manager Relationship Specialty Start Date End Date Leroy White MD [address] [facility] [address] [place] [address] PCP - General Internal Medicine 11/06/22 Occupational Health And Safety Manager Relationship Specialty Start Date End Date Leroy White MD [address] [facility] [address] [place] [address] PCP - General Internal Medicine 11/06/22 Occupational Health And Safety Manager Relationship Specialty Start Date End Date Leroy White MD [address] [facility] [address] [place] [address] PCP - General Internal Medicine 11/06/22 FOR [...] BE BASED ON THE PRIMARY CLINICAL RECORDS. [employer] [facility]. provides no warranty or guarantee of the accuracy or completeness of information in this document.
[2024-05-02 19:57] LABS: D Dimer 0.61 mg/L FEU (<=0.59)
--- NOTE | 2024-05-02 19:57 | CT_ITS ---
The [address] [address] Patient Name: KELLY PEREZ MRN: [id number] date: 1985 Sex: F Assigned Patient Location: ER Current Patient Location: ER Accession/Order Number: [id number] Exam Date: 05/02/2024 20:20 Report Date: 05/02/2024 21:30 At the request of: STALIN HELTON Procedure: CT angio chest EXAM: CT angio chest HISTORY: chest pain, tachycardia, elevated d dimer COMPARISON: None. TECHNIQUE: CT angiography of the chest was performed without IV contrast followed by IV contrast, including 3D post processing CTA image reconstruction. CT dose reduction technique was used, including Automated Exposure Control. FINDINGS: Diagnostic quality: Adequate There is no evidence for pulmonary embolism. The heart is not enlarged. There is no pericardial effusion. There are no abnormally enlarged hilar or mediastinal lymph nodes. No significant coronary calcification. The central tracheobronchial tree is clear. The lungs are clear. There is no pleural effusion. No acute process identified in the visualized upper abdomen. No destructive osseous changes are seen. Pneumobilia is present, likely related to cholecystectomy changes. CT/CT angio chest IMPRESSION: No CT findings to suggest pulmonary embolism. Electronically authenticated by: ANEUDY AGUAYO Date: 05/02/2024 21:30
[2024-05-02 20:06] LABS: Free T3 1.88 pg/mL (2.18-3.98); TSH W/ REFLEX FT4 1.858 uIU/mL (0.358-3.740)
[2024-05-02] MEDS: KETOROLAC TROMETHAMINE 30 MG/ML VIAL IVP (21:42)
== END 2024-05-02 21:49 | disposition home or self-care (01) ==
PROVIDERS: Emergency Provider Emergency Medicine; PCP Internal Medicine
DX: R09.1 Pleurisy (principal); R07.9 Chest pain, unspecified; R79.89 Other specified abnormal findings of blood chemistry; F41.8 Other specified anxiety disorders; F41.9 Anxiety disorder, unspecified
CPT/HCPCS: 36415; 71045; 71275; 84443; 84481; 85378; 93005; 99285; J1885; Q9967

== ENCOUNTER 2024-10-17 10:26 | Emergency (ER) | payer BC, SELFPAY ==
[2024-10-17] VITALS (27 sets, daily range): BP systolic 115–131; BP diastolic 67–88; PULSE 74–88; TEMP 37.1; O2SAT 78–100
--- OUTSIDE RECORDS SUMMARY | 2024-10-17 10:34 | XMS_ITS | Encounter Summary ---
Author Organization [facility] Address [address] [facility] [place] [address] Care Team Providers Care Vascular Surgery Physician Name Role Phone Leroy White MD Primary Care Provider [phone] Encounter Details Date Type Department Care Team (Late st Contact Info) Description 05/15/2024 Orders Only [facility] [address] [facility] [address] [place] [id number] Leroy White MD [address] [facility] [address] [place], [place] [id number] Social History Tobacco Use Types Packs/Day Years Used Date Smoking Tobacco: Former Cigarettes 1 10 0 12/20/2011 - 12/19/2021 Smokeless Tobacco: Never Alcohol Use Standard Drinks/Week Comments Not Currently 0 (1 standard drink = 0.6 oz pure alcohol) Caffeine intake: 1 can pop daily B1300 Health Literacy Answer Date Recor ded How often do you need to hav e someone help you when you read instructions, pamphlets, or other written material from your doctor or pharmacy? Never 12/12/2023 Humiliation, Afraid, Rape, and Kick questionnair e Answer Date Recorded Within the last year, have y ou been afraid of your partner or ex-partner? No 12/05/2022 Within the last year, have y ou been humiliated or emotionally abused in other ways by your partner or ex-partner? No Within the last year, have y ou been kicked, hit, slapped, or otherwise physically hurt by your partner or ex-partner? No 12/05/2022 Within the last year, have y ou been raped or forced to have any kind of sexual activity by your partner or ex-partner? No 12/05/2022 Social Connection and Isolation Panel [NHANES] A nswer Date Recorded In a typical week, how many times do you talk on the phone with family, friends, or neighbors? Twice a week 12/12/2023 How often do you get together with friends or re latives? Once a week 12/12/2023 How often do you attend sabianist or anabaptist serv ices? Never 12/12/2023 Do you belong to any clubs o r organizations such as sabianist groups, unions, fraternal or athletic groups, or school groups? No 12/12/2023 How often do you attend meet ings of the clubs or organizations you belong to? Never 12/12/2023 Are you , , di vorced, , never , or living with a partner? 12/12/2023 AUDIT-C Answer Date Recorded Q1: How often do you have a drink containing alc ohol? Monthly or less 12/12/2023 Q2: How many drinks containi ng alcohol do you have on a typical day when you are drinking? 1 or 2 12/12/2023 Q3: How often do you have si x or more drinks on one occasion? Less than monthly 12/12/2023 Overall Financial Resource Strain (CARDIA) Answe r Date Recorded How hard is it for you to pa y for the very basics like food, housing, medical care, and heating? Somewhat hard 12/12/2023 PHQ-2 Answer Date Recorded Patient Health Questionnaire-2 Score 0 12/20/2022 [facility] - Occupational Stress Questionnaire Answer Date Recorded Do you feel stress - tense, restless, nervous, or anxious, or unable to sleep at night because your mind is troubled all the time - these days? Rather much 12/12/2023 Exercise Vital Sign Answer Date Recorde d On average, how many days pe r week do you engage in moderate to strenuous exercise (like a brisk walk)? 3 days 12/12/2023 On average, how many minutes do you engage in exercise at this level? 30 min 12/12/2023 Hunger Vital Sign Answer Date Recorded Within the past 12 months, y ou worried that your food would run out before you got the money to buy more. Sometimes true Within the past 12 months, t he food you bought just didn't last and you didn't have money to get more. Never true PRAPARE - Transportation Answer Date Re corded In the past 12 months, has l ack of transportation kept you from medical appointments or from getting medications? No 11/19 In the past 12 months, has l ack of transportation kept you from meetings, work, or from getting things needed for daily living? No 12/12/2023 Housing Stability Vital Sign Answer Jan e Recorded In the last 12 months, was t here a time when you were not able to pay the mortgage or rent on time? No 12/05/2022 In the last 12 months, how many places have you lived? 1 12/05/2022 In the last 12 months, was t here a time when you did not have a steady place to sleep or slept in a [place] care facility (including now)? No 12/05/2022 Housing Stability Vital Sign Answer Jan e Recorded In the last 12 months, was t here a time when you were not able to pay the mortgage or rent on time? Yes 12/12/2023 In the past 12 months, how m any times have you moved where you were living? 0 12/12/2023 At any time in the past 12 m [facility], were you homeless or living in a [place] health care facility (including now)? No 12/12/2023 Comments Unknown Sex and Gender Information Value Date Recorded Sex Assigned at Not on file Legal Sex Female 6:49 PM EDT Gender Identity Not on file Sexual Orientation Not on file documented as of this encounter Plan of Treatment Not on file documented as of this encounter Procedures Procedure Name Priority Date/Time Associated Diagnosis Comments RHYTHM ECG, REPORT Routine 05/15/2024 2:51 PM EST documented in this encounter Results * ECG 3 Lead (05/15/2024 2:51 PM EST) us Leroy White MD IN CLINIC/BEDSIDE ORDERABLES F inal Result documented in this encounter Visit Diagnoses Not on filedocumented in this encounter Care Teams Vascular Surgery Physician Relationship Specialty Start Date End Date Leroy White MD [address] [place] [address] PCP - General Internal Medicine 11/06/22 documented as of this encounter
--- OUTSIDE RECORDS SUMMARY | 2024-10-17 10:34 | XMS_ITS | Encounter Summary ---
Author Organization [facility] Address [address] [facility] [place] [address] Care Team Providers Care Gage Designer Name Role Phone Leroy White MD Primary Care Provider [phone] Encounter Details Date Type Department Care Team (Late st Contact Info) Description 06/19/2024 Abstract [facility] [address] [facility] [address] [place] [phone] Leroy White MD 112 [facility] [address] [place], [place] [id number] Social History Tobacco Use Types Packs/Day Years [...] week 12/12/2023 How often do you attend anglican or hindu serv ices? Never 12/12/2023 Do you belong to any clubs o r organizations such as anglican groups, unions, fraternal or athletic groups, or [...] Recorded Patient Health Questionnaire-2 Score 0 12/20/2022 [facility] - Occupational [...] place to sleep or slept in a retirement (including now)? No 12/05/2022 Housing Stability Vital Sign Answer Jan e Recorded In the last 12 months, was t here a time when you were not able to pay the mortgage or rent on time? Yes 12/12/2023 In the past 12 months, how m any times have you moved where you were living? 0 12/12/2023 At any time in the past 12 m [facility], were you homeless or living in a retirement (including now)? No 12/12/2023 Comments Unknown Sex and Gender Information Value Date Recorded Sex Assigned at Not on file Legal Sex Female 6:49 PM EDT Gender Identity Not on file Sexual Orientation Not on file documented as of this encounter Plan of Treatment Not on file documented as of this encounter Visit Diagnoses Not on filedocumented in this encounter Care Teams Gage Designer Relationship Specialty Start Date End Date Leroy White MD [address] [place] [address] PCP - General Internal Medicine 11/06/22 documented as of this encounter
--- OUTSIDE RECORDS SUMMARY | 2024-10-17 10:34 | XMS_ITS | Encounter Summary ---
Author Organization [facility] Address [address] [facility] [place] [address] Care Team Providers Care Warehouse Foreman Name Role Phone Leroy White MD Primary Care Provider [phone] Encounter Details Date Type Department Care Team (Late st Contact Info) Description 02/05/2023 Abstract [facility] [address] [facility] [address] [place] [phone] Ciara Lyles, NUCLEAR REACTOR TECHNICIAN [address] [facility] [address] [place], [place] [id number] Social History Tobacco Use Types Packs/Day Years Used Date Smoking Tobacco: Former Cigarettes Q uit: 12/2021 Smokeless Tobacco: Never Alcohol Use Standard Drinks/Week Comments Yes 0 (1 standard drink = 0.6 oz pure alcohol) Caffeine intake: 1 can pop daily Humiliation, Afraid, Rape, and Kick questionnair e [...] or ex-partner? No 12/05/2022 Social Connection and Isolat ion Panel [NHANES] Answer Date Recorded In a typical week, how many times do you talk on the phone with family, friends, or neighbors? More than three times a week 12/05/2022 How often do you get togethe r with friends or relatives? Once a week 12/05/2022 How often do you attend chur ch or druze services? Never 12/05/2022 Do you belong to any clubs o r organizations such as voodoo groups, unions, fraternal or athletic groups, or school groups? No 12/05/2022 How often do you attend meet ings of the clubs or organizations you belong to? Never 12/05/2022 Are you , , di vorced, , never , or living with a partner? 12/05/2022 AUDIT-C Answer Date Recorded Q1: How often do you have a drink containing alc ohol? Monthly or less 12/05/2022 Q2: How many drinks containi ng alcohol do you have on a typical day when you are drinking? 1 or 2 12/05/2022 Q3: How often do you have si x or more drinks on one occasion? Less than monthly 12/05/2022 Overall Financial Resource Strain (CARDIA) Answe r Date Recorded How hard is it for you to pa y for the very basics like food, housing, medical care, and heating? Somewhat hard 12/05/2022 PHQ-2 Answer Date Recorded Patient Health Questionnaire-2 Score 0 12/20/2022 [facility] - Occupational Stress Questionnaire Answer Date Recorded Do you feel stress - tense, restless, nervous, or anxious, or unable to sleep at night because your mind is troubled all the time - these days? To some extent 12/05/2022 Exercise Vital Sign Answer Date Recorde d On average, how many days pe r week do you engage in moderate to strenuous exercise (like a brisk walk)? 4 days 12/05/2022 On average, how many minutes do you engage in exercise at this level? 20 min 12/05/2022 Hunger Vital Sign Answer Date Recorded Within the past 12 months, y ou worried that your food would run out before you got the money to buy more. Patient declined Within the past 12 months, t he food you bought just didn't last and you didn't have money to get more. Patient declined PRAPARE - Transportation Answer Date Re corded In the past 12 months, has l ack of transportation kept you from medical appointments or from getting medications? No 11/18 In the past 12 months, has l ack of transportation kept you from meetings, work, or from getting things needed for daily living? No 12/05/2022 Housing Stability Vital Sign Answer [...] place to sleep or slept in a [facility] (including now)? No 12/05/2022 Comments Unknown Sex and Gender Information Value Date Recorded Sex Assigned at Not on file Legal Sex Female 6:49 PM EDT Gender Identity Not on file Sexual Orientation Not on file COVID-19 Exposure Response Date Recorded In the last 10 days, have yo u been in contact with someone who was confirmed or suspected to have Coronavirus/COVID-19? No / Unsure 01/31/2023 10:34 PM EDT documented as of this encounter Plan of Treatment Not on file documented as of this encounter Visit Diagnoses Not on filedocumented in this encounter Care Teams Warehouse Foreman Relationship Specialty Start Date End Date Leroy White MD [address] [facility] [address] [place] [address] PCP - General Internal Medicine 11/06/22 documented as of this encounter
--- OUTSIDE RECORDS SUMMARY | 2024-10-17 10:34 | XMS_ITS | Encounter Summary ---
Author Organization [facility] Address [address] [facility] [place] [address] Care Team Providers Care Chick Room Supervisor Name Role Phone Leroy White MD Primary Care Provider [phone] Encounter Details Date Type Department Care Team (Late st Contact Info) Description 10/25/2023 Abstract [facility] [address] [facility] [address] [place] [phone] Leroy White MD 112 [facility] 110 [place], [place] [id number] Social History Tobacco Use Types Packs/Day Years [...] often do you attend chur ch or quaker services? Never 12/05/2022 Do you belong to any clubs o r organizations such as muslim groups, unions, fraternal or athletic groups, or [...] Recorded Patient Health Questionnaire-2 Score 0 12/20/2022 [facility] - Occupational [...] have money to get more. Patient declined 07/ PRAPARE - Transportation Answer Date Re corded [...] place to sleep or slept in a [facility] (including now)? No 12/05/2022 Comments Unknown Sex and Gender Information Value Date Recorded Sex Assigned at Not on file Legal Sex Female 6:49 PM EDT Gender Identity Not on file Sexual Orientation Not on file documented as of this encounter Plan of Treatment Not on file documented as of this encounter Visit Diagnoses Not on filedocumented in this encounter Care Teams Chick Room Supervisor Relationship Specialty Start Date End Date Leroy White MD [address] [facility] [address] [place] [address] PCP - General Internal Medicine 11/06/22 documented as of this encounter
--- OUTSIDE RECORDS SUMMARY | 2024-10-17 10:34 | XMS_ITS | Encounter Summary ---
Author Organization [facility] Address [address] [facility] [place] [address] Care Team Providers Care Commanding Officer Traffic Division Name Role Phone Leroy White MD Primary Care Provider [phone] Encounter Details Date Type Department Care Team (Late st Contact Info) Description 06/23/2024 Abstract [facility] [address] [facility] 110 [place] [phone] Leroy White MD 112 [facility] 110 [place], [place] [id number] Social History Tobacco Use Types Packs/Day Years [...] week 12/12/2023 How often do you attend pentecostalism or hinduism serv ices? Never 12/12/2023 Do you belong to any clubs o r organizations such as pentecostalism groups, unions, fraternal or athletic groups, or [...] Recorded Patient Health Questionnaire-2 Score 0 12/20/2022 [facility] Occupat ional Health - Occupational [...] place to sleep or slept in a fpc (including now)? No 12/05/2022 Housing Stability Vital Sign Answer Jan e Recorded In the last 12 months, was t here a time when you were not able to pay the mortgage or rent on time? Yes 12/12/2023 In the past 12 months, how m any times have you moved where you were living? 0 12/12/2023 At any time in the past 12 m [facility], were you homeless or living in a fpc (including now)? No 12/12/2023 Comments Unknown Sex and Gender Information Value Date Recorded Sex Assigned at Not on file Legal Sex Female 6:49 PM EDT Gender Identity Not on file Sexual Orientation Not on file documented as of this encounter Plan of Treatment Not on file documented as of this encounter Visit Diagnoses Not on filedocumented in this encounter Care Teams Commanding Officer Traffic Division Relationship Specialty Start Date End Date Leroy White MD 112 [place] [address] PCP - General Internal Medicine 11/06/22 documented as of this encounter
--- OUTSIDE RECORDS SUMMARY | 2024-10-17 10:34 | XMS_ITS | Encounter Summary ---
Author Organization [facility] Address [address] [facility] [place] [address] Care Team Providers Care Direct Casting Operator Name Role Phone Leroy White MD Primary Care Provider [phone] Encounter Details Date Type Department Care Team (Late st Contact Info) Description 01/09/2024 Orders Only [facility] [address] [place] [address] Radha Delgado LPN [address] [place] [address] Absent pedal pulses; Acute pain of both knees Social History Tobacco Use Types Packs/Day Years [...] week 12/12/2023 How often do you attend jain or pentecostalism serv ices? Never 12/12/2023 Do you belong to any clubs o r organizations such as jain groups, unions, fraternal or athletic groups, or [...] Recorded Patient Health Questionnaire-2 Score 0 12/20/2022 [facility] - Occupational Stress Questionnaire Answer Date Recorded [...] place to sleep or slept in a penitentiary (including now)? No 12/05/2022 Housing Stability Vital Sign Answer Jan e Recorded In the last 12 months, was t here a time when you were not able to pay the mortgage or rent on time? Yes 12/12/2023 In the past 12 months, how m any times have you moved where you were living? 0 12/12/2023 At any time in the past 12 m [facility], were you homeless or living in a penitentiary (including now)? No 12/12/2023 Comments Unknown Sex and Gender Information Value Date Recorded Sex Assigned at Not on file Legal Sex Female 6:49 PM EDT Gender Identity Not on file Sexual Orientation Not on file documented as of this encounter Plan of Treatment Not on file documented as of this encounter Visit Diagnoses Diagnosis Absent pedal pulses Acute pain of both knees documented in this encounter Care Teams Direct Casting Operator Relationship Specialty Start Date End Date Leroy White MD [address] [facility] 110 [place] [address] PCP - General Internal Medicine 11/06/22 documented as of this encounter
--- OUTSIDE RECORDS SUMMARY | 2024-10-17 10:34 | XMS_ITS | Encounter Summary ---
Author Organization [facility] Address [address] [facility] [place] [address] Care Team Providers Care Hr Business Partner Consultant Name Role Phone Leroy White MD Primary Care Provider [phone] Encounter Details Date Type Department Care Team (Late st Contact Info) Description 05/04/2023 Abstract [facility] [address] [facility] 110 [place] [address] Leroy White MD 112 [facility] 110 [place], [place] [id number] Social History Tobacco Use Types Packs/Day Years [...] often do you attend chur ch or catholic services? Never 12/05/2022 Do you belong to any clubs o r organizations such as yazidi groups, unions, fraternal or athletic groups, or [...] Recorded Patient Health Questionnaire-2 Score 0 12/20/2022 [facility] of Occupat ional Health - Occupational Stress [...] place to sleep or slept in a jail (including now)? No 12/05/2022 Comments Unknown Sex [...] suspected to have Coronavirus/COVID-19? No / Unsure 04/27/2023 5:24 AM EST documented as of this encounter Plan of Treatment Not on file documented as of this encounter Visit Diagnoses Not on filedocumented in this encounter Care Teams Hr Business Partner Consultant Relationship Specialty Start Date End Date Leroy White MD 112 [facility] 110 [place] [address] PCP - General Internal Medicine 11/06/22 documented as of this encounter
--- OUTSIDE RECORDS SUMMARY | 2024-10-17 10:34 | XMS_ITS | Encounter Summary ---
Author Organization [facility] Address [address] [facility] [place] [address] Care Team Providers Care Manager Proposal Name Role Phone Leroy White MD Primary Care Provider [phone] Encounter Details Date Type Department Care Team (Late st Contact Info) Description 02/01/2023 Abstract [facility] [address] [facility] 110 [place] [phone] Ciara Lyles, VEST FINISHER [address] [facility] 110 [place], [place] [id number] Social History Tobacco Use Types Packs/Day Years [...] often do you attend chur ch or sabianist services? Never 12/05/2022 Do you belong to [...] Recorded Patient Health Questionnaire-2 Score 0 12/20/2022 [facility] - Occupational Stress Questionnaire Answer Date [...] place to sleep or slept in a long-term (including now)? No 12/05/2022 Comments Unknown Sex [...] on filedocumented in this encounter Care Teams Manager Proposal Relationship Specialty Start Date End Date Leroy White MD 112 [facility] 110 [place] [address] PCP - General Internal Medicine 11/06/22 documented as of this encounter
--- OUTSIDE RECORDS SUMMARY | 2024-10-17 10:34 | XMS_ITS | Encounter Summary ---
Author Organization [facility] Address [address] [facility] [place] [address] Care Team Providers Care Cow Tender Name Role Phone Leroy White MD Primary Care Provider [phone] Encounter Details Date Type Department Care Team (Late st Contact Info) Description 05/05/2024 Abstract [facility] [address] [facility] 110 [place] [phone] Leroy White MD 112 [facility] 110 [employer], [place] [id number] Social History Tobacco Use Types Packs/Day Years [...] week 12/12/2023 How often do you attend confucianism or sikhism serv ices? Never 12/12/2023 Do you belong to any clubs o r organizations such as confucianism groups, unions, fraternal or athletic groups, or [...] Recorded Patient Health Questionnaire-2 Score 0 12/20/2022 [facility] of Occupat ional Health - Occupational [...] place to sleep or slept in a alf (including now)? No 12/05/2022 Housing Stability Vital Sign Answer Jan e Recorded In the last 12 months, was t here a time when you were not able to pay the mortgage or rent on time? Yes 12/12/2023 In the past 12 months, how m any times have you moved where you were living? 0 12/12/2023 At any time in the past 12 m [facility], were you homeless or living in a alf (including now)? No 12/12/2023 Comments Unknown Sex and Gender Information Value Date Recorded Sex Assigned at Not on file Legal Sex Female 6:49 PM EDT Gender Identity Not on file Sexual Orientation Not on file documented as of this encounter Plan of Treatment Not on file documented as of this encounter Visit Diagnoses Not on filedocumented in this encounter Care Teams Cow Tender Relationship Specialty Start Date End Date Leroy White MD 112 [place] [address] PCP - General Internal Medicine 11/06/22 documented as of this encounter
--- OUTSIDE RECORDS SUMMARY | 2024-10-17 10:34 | XMS_ITS | Clinical Summary ---
Author Organization [facility] Address [address] [place] [address] Care Team Providers Care Administrative Director Name Role Phone Leroy White MD Primary Care Provider [phone] Allergies Active Allergy Reactions Criticality Noted Date Comments Ciprofloxacin Swelling 11/06/2022 Wound Dressing Adhesive Unknown 11/06/2022 Medications Vortioxetine HBr (Trintellix) 20 MG tabletIndications: Depression with anxiety Take 20 mg by mouth Daily 30 tablet 11 10/22/19 24 Active ondansetron ODT (Zofran-ODT) 4 MG disintegrating tabletIndications: Nausea Take 1 tablet (4 mg) by mouth every 8 (eight) hours if needed for nausea or vomiting 28 tablet 1 01/25/20 24 Active SUMAtriptan (Imitrex) 50 MG tabletIndications: Migraine syndrome (CMS/HCC) TAKE 1 TABLET BY MOUTH ONCE DAILY WITHIN 1 HOUR OF MIGRAINE START *MAX 2 PER 24 HOURS* 15 tablet 2 02/21/20 24 Active cyclobenzaprine (Flexeril) 10 MG tabletIndications: Cervical radiculopathy Take 1 tablet (10 mg) by mouth 3 (three) times a day as needed for muscle spasms 90 tablet 2 05/26/19 25 Active zolpidem (Ambien) 10 MG tabletIndications: Other insomnia Take 1 tablet (10 mg) by mouth as needed at bedtime for sleep 30 tablet 2 09/24/19 25 Active diazePAM (Valium) 5 MG tabletIndications: Panic attacks (CMS/HCC) Take 1 tablet (5 mg) by mouth every 12 (twelve) hours if needed for anxiety, sleep or muscle spasms 60 tablet 09/30/19 25 025 Active diclofenac (Cataflam) 50 MG tabletIndications: Spondylosis of lumbar region without myelopathy or radiculopathy Take 1 tablet (50 mg) by mouth in the morning and 1 tablet (50 mg) before bedtime. 60 tablet 5 09/26/19 24 025 Additional Information Patient taking differently:50 mg Oral 2 times daily,PRN, Reported on 06/04/2024 zolpidem (Ambien) 10 MG tabletIndications: Other insomnia Take 1 tablet (10 mg) by mouth as needed at bedtime for sleep 30 tablet 2 06/26/19 25 025 Discontinu ed(Reorder ) diazePAM (Valium) 5 MG tabletIndications: Panic attacks (CMS/HCC) Take 1 tablet (5 mg) by mouth every 12 (twelve) hours if needed for anxiety, sleep or muscle spasms 60 tablet 08/29/19 25 025 Discontinu ed(Reorder ) HYDROcodone-acetam inophen (Sutton) 5-325 MG tabletIndications: Osteoarthritis of spine with radiculopathy, lumbar region Take 1 tablet by mouth every 6 (six) hours if needed for severe pain for up to 5 days 20 tablet 09/13/19 25 025 Active Problems Problem Noted Date Diagnosed Date Osteoarthritis of lumbar spine 09/26/2023 Adjustment disorder 11/06/2022 Cervical radiculopathy 11/06/2022 Chiari malformation type I 11/06/2022 Degenerative disc disease, cervical 11/06/2022 Dysmenorrhea 11/06/2022 Left sided sciatica 11/06/2022 Loss of taste 11/06/2022 Major depression 11/06/2022 Menorrhagia with irregular cycle 11/06/2022 Menorrhagia with regular cycle 11/06/2022 Migraine syndrome 11/06/2022 Other insomnia 11/06/2022 Panic attacks 11/06/2022 Pneumobilia 11/06/2022 Severe obesity (BMI 35.0-39.9) with comorbidity 11/06/2022 Encounters Date Type Department Care Team Description 09/29/2024 Refill [facility] [address] [place] [address] Ny Nathan, PA Panic attacks (CMS/HCC) 09/22/2024 Refill [facility] [address] [place] [address] Leroy White MD Other insomnia 09/12/2024 12:00 PM EDT Office Visit [facility] [address] [place] [address] Ny Nathan PA Osteoarthritis of spine with radiculopathy, lumbar region (Primary Dx); Right sciatic nerve pain; Panic attacks (CMS/HCC); Other insomnia 09/12/2024 Travel 09/04/2024 Abstract [facility] [address] [place] [place] [address] Leroy White MD 09/01/2024 Telephone [facility] [address] [place] [address] Leroy White MD Med Refill 08/29/2024 Abstract [facility] [address] [place] [address] Leroy White MD 08/28/2024 Refill [facility] [address] [place] [address] Ny Nathan PA Panic attacks (CMS/HCC) 07/29/2024 Refill [facility] [address] [place] [address] Leroy White MD Panic attacks (CMS/HCC) from Last 3 Months Immunizations Immunization Administration Dates Next Due Influenza, injectable, quadr ivalent, preservative free 02/23/2022,02/25/2020,03/01/2015 Pfizer Gómez Cap SARS-CoV-2 Vaccination 2,10/10/2021 Family History Medical History Relation Name Comments DDD Father Alcohol abuse Father's Brother 1 Kishor Cancer Father's Brother 1 Kishor Alcohol abuse Father's Brother 2 Brendan Alcohol abuse Father's Brother 3 Marcos Cancer Father's Brother 3 Marcos Cancer Father's Sister Pat COPD Mother Shaun Depression Mother Shaun Fibromyalgia Mother Shaun Heart disease Mother Shaun Hypertension Mother Shaun Lupus Mother Shaun Alcohol abuse Mother's Sister Aida COPD Paternal Grandfather Marcel Cancer Paternal Grandmother Sally Sweet No Known Problems Sister Relation Name Status Comments Daughter Alive 1 daughter Father Alive Father's Brother 1 Kishor Father's Brother 2 Brendan Father's Brother 3 Marcos Father's Sister Pat Mother Shaun Alive Mother's Sister Aida Paternal Grandfather Marcel Paternal Grandmother Sally Sweet Sister 1 sister Son Alive 1 son Social History Tobacco Use Types Packs/Day Years Used Date Smoking Tobacco: Former Cigarettes 1 10 0 12/20/2011 - 12/19/2021 Smokeless Tobacco: Never Tobacco Cessation:Counseling Given: Not Answered Alcohol Use Standard Drinks/Week Comments Not Currently [...] week 12/12/2023 How often do you attend scientology or islam serv ices? Never 12/12/2023 Do you belong to any clubs o r organizations such as scientology groups, unions, fraternal or athletic groups, or [...] Score 0 12/20/2022 [facility] of Occupat ional Health - Occupational [...] any time in the past 12 m [facility], were you homeless or living in a [place] facility (including now)? No 12/12/2023 Comments Unknown Sex and Gender Information Value Date Recorded Sex Assigned at Not on file Legal Sex Female 6:49 PM EDT Gender Identity Not on file Sexual Orientation Not on file Last Filed Vital Signs Vital Sign Reading Time Taken Comments Blood Pressure 108/78 09/12/2024 11:46 AM EDT Pulse 91 09/12/2024 11:46 AM EDT Temperature 36.8 C (98.2 F) 06/04/2024 9:31 AM EST Respiratory Rate 16 06/04/2024 9:31 AM EST Oxygen Saturation 98% 09/12/2024 11:46 AM EDT Inhaled Oxygen Concentration - - Weight 85.3 kg (188 lb) 09/12/2024 11:46 AM EDT Height 162.6 cm (5' 4 ) 09/12/2024 11:46 AM EDT Body Mass Index 32.27 09/12/2024 11:46 AM EDT Plan of Treatment Health Maintenance Due Date Last Done Comments Pap Smear 2005 Mammogram 2024 Influenza Vaccine (Season Ended) 2025 02/23/2022, 02/25/2020, 03/01/2015 Cervical Cancer Screening 04/26/2025 HPV/Cotest 04/26/2025 04/26/2020, 02/19/2019 Procedures Procedure Name Priority Date/Time Associated Diagnosis Comments THINPREP TIS PAP REFLEX HPV MRNA E6/E7 (91559) Routine 04/26/2020 from Last 3 Months or Most Recently Relevant to Health Maintenance Results * THINPREP TIS PAP REFLEX HPV MRNA E6/E7 (74913) (04/26/2020) CLINICAL INFORMATION: None given [facility] LMP: None given [facility] PRE[facility]. PAP: None given [facility] BX: None given [facility] SOURCE: None given [facility] STATEMENT OF ADEQUACY: SEE COMMENT [facility] Comment: Satisfactory for evaluation. Endocervical/transformation zone component absent. INTERPRETATION /RESULT: Negative for intraepithelial lesion or malignancy. [facility] COMMENT: This Pap test has been evaluated with computer assisted technology. [facility] CYTOTECHNOLOGI ST: SEE COMMENT [facility] Comment: JABIER PENNINGTON(ASCP) CT screening location: [facility], [address] [place] [address]. COMMENT SEE COMMENT [facility] Comment: EXPLANATORY NOTE: The Pap is a screening test for cervical cancer. It is not a diagnostic test and is subject to false negative and false positive results. It is most reliable when a satisfactory sample, regularly obtained, is submitted with relevant clinical findings and history, and when the Pap result is evaluated along with historic and current clinical information. 04/26/2020 José Miguel Crow MD [facility] Final Result [facility] from Last 3 Months or Most Recently Relevant to Health Maintenance Insurance [employer] Care Teams Administrative Director Relationship Specialty Start Date End Date Leroy White MD [address] [address] PCP - General Internal Medicine 11/06/22
--- OUTSIDE RECORDS SUMMARY | 2024-10-17 10:34 | XMS_ITS | Encounter Summary ---
Author Organization [facility] Address [address] [facility] [place] [address] Care Team Providers Care Professor Of Latin American Studies Name Role Phone Leroy White MD Primary Care Provider [phone] Encounter Details Date Type Department Care Team (Late st Contact Info) Description 03/12/2023 Abstract [facility] [address] [facility] 110 [place] [phone] Leroy White MD 112 [facility] 110 [place], [place] [id number] Social History Tobacco Use Types Packs/Day Years [...] often do you attend chur ch or buddhist services? Never 12/05/2022 Do you belong to any clubs o r organizations such as cheondoism groups, unions, fraternal or athletic groups, or [...] Recorded Patient Health Questionnaire-2 Score 0 12/20/2022 [facility] of Occupat ional Health - Occupational Stress [...] suspected to have Coronavirus/COVID-19? No / Unsure 02/27/2023 7:21 AM EDT documented as of this encounter Plan of Treatment Not on file documented as of this encounter Visit Diagnoses Not on filedocumented in this encounter Care Teams Professor Of Latin American Studies Relationship Specialty Start Date End Date Leroy White MD 112 [facility] 110 [place] [address] PCP - General Internal Medicine 11/06/22 documented as of this encounter
--- OUTSIDE RECORDS SUMMARY | 2024-10-17 10:34 | XMS_ITS | Encounter Summary ---
Author Organization [facility] Address [address] [facility] [place] [address] Care Team Providers Care Electric Deicer Inspector Name Role Phone Leroy White MD Primary Care Provider Encounter Details Date Type Department Care Team (Late st Contact Info) Description 06/17/2024 Abstract [facility] [address] [facility] 110 [place] [phone] Leroy White MD 112 [facility] 110 [place], [place] [id number] Social History Tobacco Use Types Packs/Day Years [...] week 12/12/2023 How often do you attend moravian or anglican serv ices? Never 12/12/2023 Do you belong to any clubs o r organizations such as moravian groups, unions, fraternal or athletic groups, or [...] Recorded Patient Health Questionnaire-2 Score 0 12/20/2022 [facility] of Occupat ional Health - Occupational [...] place to sleep or slept in a fdc (including now)? No 12/05/2022 Housing Stability Vital Sign Answer Jan e Recorded In the last 12 months, was t here a time when you were not able to pay the mortgage or rent on time? Yes 12/12/2023 In the past 12 months, how m any times have you moved where you were living? 0 12/12/2023 At any time in the past 12 m [facility], were you homeless or living in a fdc (including now)? No 12/12/2023 Comments Unknown Sex and Gender Information Value Date Recorded Sex Assigned at Not on file Legal Sex Female 6:49 PM EDT Gender Identity Not on file Sexual Orientation Not on file documented as of this encounter Plan of Treatment Not on file documented as of this encounter Visit Diagnoses Not on filedocumented in this encounter Care Teams Electric Deicer Inspector Relationship Specialty Start Date End Date Leroy White MD [address] [place] [address] PCP - General Internal Medicine 11/06/22 documented as of this encounter
--- OUTSIDE RECORDS SUMMARY | 2024-10-17 10:34 | XMS_ITS | Encounter Summary ---
Author Organization [facility] Address [address] [facility] [place] [address] Care Team Providers Care Pier Master Name Role Phone Leroy White MD Primary Care Provider [phone] Encounter Details Date Type Department Care Team (Late st Contact Info) Description 05/06/2024 Abstract [facility] [address] [facility] 110 [place] [phone] Leroy White MD [address] [facility] 110 [place], [place] [id number] Social History Tobacco Use Types Packs/Day Years [...] week 12/12/2023 How often do you attend adventism or muslim serv ices? Never 12/12/2023 Do you belong to any clubs o r organizations such as adventism groups, unions, fraternal or athletic groups, or [...] 0 12/20/2022 [facility] of Occupat ional Health - [...] in a fci (including now)? No 12/05/2022 Housing Stability Vital Sign Answer Jan e Recorded In the last 12 months, was t here a time when you were not able to pay the mortgage or rent on time? Yes 12/12/2023 In the past 12 months, how m any times have you moved where you were living? 0 12/12/2023 At any time in the past 12 m [facility], were you homeless or living in a fci (including now)? No 12/12/2023 Comments Unknown Sex and Gender Information Value Date Recorded Sex Assigned at Not on file Legal Sex Female 6:49 PM EDT Gender Identity Not on file Sexual Orientation Not on file documented as of this encounter Plan of Treatment Not on file documented as of this encounter Visit Diagnoses Not on filedocumented in this encounter Care Teams Pier Master Relationship Specialty Start Date End Date Leroy White MD 112 [place] [address] PCP - General Internal Medicine 11/06/22 documented as of this encounter
--- OUTSIDE RECORDS SUMMARY | 2024-10-17 10:34 | XMS_ITS | Encounter Summary ---
Author Organization [facility] Address [address] [facility] [place] [address] Care Team Providers Care Physical Education Department Chair Name Role Phone Leroy White MD Primary Care Provider [phone] Encounter Details Date Type Department Care Team (Late st Contact Info) Description 05/05/2024 Abstract [facility] [address] [facility] 110 [place] [phone] Leroy White MD 112 [facility] 110 [place], [place] [id number] Social History Tobacco Use Types Packs/Day Years [...] How often do you attend anglican or denominational serv ices? Never 12/12/2023 Do you belong [...] Recorded Patient Health Questionnaire-2 Score 0 12/20/2022 [facility] - Occupational [...] in a chcf (including now)? No 12/05/2022 Housing Stability Vital [...] in the past 12 m [facility], were you homeless or living in a chcf (including now)? No 12/12/2023 Comments Unknown Sex and Gender Information Value Date Recorded Sex Assigned at Not on file Legal Sex Female 6:49 PM EDT Gender Identity Not on file Sexual Orientation Not on file documented as of this encounter Plan of Treatment Not on file documented as of this encounter Visit Diagnoses Not on filedocumented in this encounter Care Teams Physical Education Department Chair Relationship Specialty Start Date End Date Leroy White MD 112 [place] [address] PCP - General Internal Medicine 11/06/22 documented as of this encounter
--- OUTSIDE RECORDS SUMMARY | 2024-10-17 10:34 | XMS_ITS | Encounter Summary ---
Author Organization [facility] Address [address] [facility] [place] [address] Care Team Providers Care Product Ambassador Name Role Phone Leroy White MD Primary Care Provider [phone] Encounter Details Date Type Department Care Team (Late st Contact Info) Description 05/05/2024 Abstract [facility] [address] [facility] 110 [place] [phone] Leroy White MD 112 [facility] 110 [place], [place] [id number] Social History Tobacco Use Types Packs/Day Years [...] week 12/12/2023 How often do you attend restorationist or zoroastrianism serv ices? Never 12/12/2023 Do you belong to any clubs o r organizations such as restorationist groups, unions, fraternal or athletic groups, or [...] place to sleep or slept in a mcfp (including now)? No 12/05/2022 Housing Stability Vital Sign Answer Jan e Recorded In the last 12 months, was t here a time when you were not able to pay the mortgage or rent on time? Yes 12/12/2023 In the past 12 months, how m any times have you moved where you were living? 0 12/12/2023 At any time in the past [address] [facility], were you homeless or living in a mcfp (including now)? No 12/12/2023 Comments Unknown Sex and Gender Information Value Date Recorded Sex Assigned at Not on file Legal Sex Female 6:49 PM EDT Gender Identity Not on file Sexual Orientation Not on file documented as of this encounter Plan of Treatment Not on file documented as of this encounter Visit Diagnoses Not on filedocumented in this encounter Care Teams Product Ambassador Relationship Specialty Start Date End Date Leroy White MD 112 [place] [address] PCP - General Internal Medicine 11/06/22 documented as of this encounter
--- OUTSIDE RECORDS SUMMARY | 2024-10-17 10:34 | XMS_ITS | Encounter Summary ---
Author Organization [facility] Address [address] [place] [address] Care Team Providers Care Shader And Toner Name Role Phone Leroy White MD Primary Care Provider [phone] Encounter Details Date Type Department Care Team (Late st Contact Info) Description 10/01/2023 Clinisync Result Encounter [facility] External Department Unsolicited Leroy White MD [address] [facility] 110 [place] [address] Social History Tobacco Use Types Packs/Day Years [...] often do you attend chur ch or temple services? Never 12/05/2022 Do you belong to any clubs o r organizations such as uatsdin groups, unions, fraternal or athletic groups, or [...] Recorded Patient Health Questionnaire-2 Score 0 12/20/2022 [facility] Occupat ional Health - Occupational [...] place to sleep or slept in a residential (including now)? No 12/05/2022 Comments Unknown Sex and Gender Information Value Date Recorded Sex Assigned at Not on file Legal Sex Female 6:49 PM EDT Gender Identity Not on file Sexual Orientation Not on file documented as of this encounter Plan of Treatment Not on file documented as of this encounter Procedures Procedure Name Priority Date/Time Associated Diagnosis Comments VASC US LOWER EXTREMITY ARTERIAL DUPLEX BILATERAL 10/01/2023 1:43 PM EDT documented in this encounter Results * Vascular US lower extremity arterial duplex bilateral (10/01/2023 1:43 PM EDT) Anatomical Region Laterality Modality Lower Extremities Ultrasound 10/01/2023 1:43 PM EDT Narrative 10/01/2023 1:45 [place] [address] Ultrasound Report Signed Patient: KELLY URIBE MR#: [id number] : 1985 Acct:[id number] Age/Sex: 38 / F ADM Date: 10/01/23 Loc: US Attending Dr: LEROY WHITE Ordering Physician: LEROY WHITE Date of Service: 10/01/23 Procedure(s): US arterial duplex LE BI Accession Number(s): [id number] cc: LEROY WHITE [place] [address] Patient Name: KELLY URIBE MRN: [facility]:[id number] date: 1985 Sex: F Assigned Patient Location: Current Patient Location: US Accession/Order Number: [id number] Exam Date: 10/01/2023 11:12 Report Date: 10/01/2023 13:43 At the request of: LEROY WHITE Procedure: US arterial duplex LE BI EXAMINATION: US arterial duplex LE BI HISTORY: Absent pedal pulses R09.89 COMPARISON: No relevant comparison available. TECHNIQUE: Color duplex Doppler ultrasound evaluation analysis was performed in the usual manner. FINDINGS: RIGHT LOWER EXTREMITY ARTERIAL No significant atherosclerosis. Triphasic waveform throughout External Iliac PSV: 144.4 cm/s External Iliac EDV: 16.3 cm/s Common Femoral PSV: 90.9 cm/s Common Femoral EDV: 10.1 cm/s Superficial Femoral Proximal PSV: 85.4 cm/s Proximal EDV: 4.7 cm/s Mid PSV: 104.8 cm/s Mid EDV: 0.0 cm/s Distal PSV: 93.5 cm/s Distal EDV: 0.0 cm/s Popliteal Proximal PSV: 53.7 cm/s Popliteal Proximal EDV: 4.3 cm/s Posterior Tibial Proximal PSV: 55.9 cm/s Proximal EDV: 0.0 cm/s Mid PSV: 19.1 cm/s Mid EDV: 0.0 cm/s Distal PSV: 86.6 cm/s Distal EDV: 2.7 cm/s Anterior Tibial Proximal PSV: 47.1 cm/s Proximal EDV: 0.0 cm/s Mid PSV: 49.3 cm/s Mid EDV: 0.0 cm/s Distal PSV: 61.4 cm/s Distal EDV: 0.0 cm/s LEFT LOWER EXTREMITY ARTERIAL No significant atherosclerosis. Triphasic waveform throughout External Iliac PSV: 183.6 cm/s External Iliac EDV: 13.7 cm/s Common Femoral PSV: 144.6 cm/s Common Femoral EDV: 13.7 cm/s Superficial Femoral Proximal PSV: 110.1 cm/s Proximal EDV: 0.0 cm/s Mid PSV: 110.1 cm/s Mid EDV: 0.0 cm/s Distal PSV: 85.0 cm/s Distal EDV: 2.4 cm/s Popliteal Proximal PSV: Popliteal Proximal EDV: Posterior Tibial Proximal PSV: 43.9 cm/s Proximal EDV: 0.0 cm/s Mid PSV: 52.6 cm/s Mid EDV: 0.0 cm/s Distal PSV: 55.9 cm/s Distal EDV: Anterior Tibial Proximal PSV: 47.2 cm/s Proximal EDV: 0.0 cm/s Mid PSV: 53.7 cm/s Mid EDV: 0.0 cm/s Distal PSV: 64.7 cm/s Distal EDV: 0.0 cm/s US/US arterial duplex LE BI IMPRESSION: No flow significant stenosis Electronically authenticated by: DONNA NAVARRETE Date: 10/01/2023 13:43 Dictated By: Donna Navarrete M.D. Signed By: 10/01/235 DD/ 42 TD/TT: Ordering Box Operator: Procedure Note Radiology, Radiologist, MD - 10/01/2023 [place] [address] Ultrasound Report Signed Patient: KELLY URIBE AMR#: [id number] : 1985Acct:[id number] Age/Sex: 38 / FADM Date: 10/01/23 Loc: US Attending Dr: LEROY WHITE Ordering Physician: LEROY WHITE Date of Service: 10/01/23 Procedure(s): US arterial duplex LE BI Accession Number(s): [id number] cc: LEROY WHITE [place] [address] Patient Name: KELLY URIBE MRN: [id number] date: 1985 Sex: F Assigned Patient Location: US Current Patient Location: US Accession/Order Number: [id number] Exam Date: 10/01/2023 11:12 Report Date: 10/01/2023 13:43 At the request of: LEROY WHITE Procedure: US arterial duplex LE BI EXAMINATION: US arterial duplex LE BI HISTORY: Absent pedal pulses R09.89 COMPARISON: No relevant comparison available. TECHNIQUE: Color duplex Doppler ultrasound evaluation analysis wasperformed in the usual manner. FINDINGS: RIGHT LOWER EXTREMITY ARTERIAL No significant atherosclerosis. Triphasic waveform throughout External Iliac PSV: 144.4 cm/s External Iliac EDV: 16.3 cm/s Common Femoral PSV: 90.9 cm/s Common Femoral EDV: 10.1 cm/s Superficial Femoral Proximal PSV: 85.4 cm/s Proximal EDV: 4.7 cm/s Mid PSV: 104.8 cm/s Mid EDV: 0.0 cm/s Distal PSV: 93.5 cm/s Distal EDV: 0.0 cm/s Popliteal Proximal PSV: 53.7 cm/s Popliteal Proximal EDV: 4.3 cm/s Posterior Tibial Proximal PSV: 55.9 cm/s Proximal EDV: 0.0 cm/s Mid PSV: 19.1 cm/s Mid EDV: 0.0 cm/s Distal PSV: 86.6 cm/s Distal EDV: 2.7 cm/s Anterior Tibial Proximal PSV: 47.1 cm/s Proximal EDV: 0.0 cm/s Mid PSV: 49.3 cm/s Mid EDV: 0.0 cm/s Distal PSV: 61.4 cm/s Distal EDV: 0.0 cm/s LEFT LOWER EXTREMITY ARTERIAL No significant atherosclerosis. Triphasic waveform throughout External Iliac PSV: 183.6 cm/s External Iliac EDV: 13.7 cm/s Common Femoral PSV: 144.6 cm/s Common Femoral EDV: 13.7 cm/s Superficial Femoral Proximal PSV: 110.1 cm/s Proximal EDV: 0.0 cm/s Mid PSV: 110.1 cm/s Mid EDV: 0.0 cm/s Distal PSV: 85.0 cm/s Distal EDV: 2.4 cm/s Popliteal Proximal PSV: Popliteal Proximal EDV: Posterior Tibial Proximal PSV: 43.9 cm/s Proximal EDV: 0.0 cm/s Mid PSV: 52.6 cm/s Mid EDV: 0.0 cm/s Distal PSV: 55.9 cm/s Distal EDV: Anterior Tibial Proximal PSV: 47.2 cm/s Proximal EDV: 0.0 cm/s Mid PSV: 53.7 cm/s Mid EDV: 0.0 cm/s Distal PSV: 64.7 cm/s Distal EDV: 0.0 cm/s US/US arterial duplex LE BI IMPRESSION: No flow significant stenosis Electronically authenticated by: DONNA NAVARRETE Date: 10/01/2023 13:43 Dictated By: Donna Navarrete M.D. Signed By:10/01/23 1345 DD/ 1343 TD/TT: Ordering Box Operator: us Leroy White MD IMG US PROCEDURES Final Result documented in this encounter Visit Diagnoses Not on filedocumented in this encounter Care Teams Shader And Toner Relationship Specialty Start Date End Date Leroy White MD [address] [place] [address] PCP - General Internal Medicine 11/06/22 documented as of this encounter
--- OUTSIDE RECORDS SUMMARY | 2024-10-17 10:34 | XMS_ITS | Encounter Summary ---
Author Organization [facility] Address [address] [facility] [place] [address] Care Team Providers Care Health Insurance Adjuster Name Role Phone Leroy White MD Primary Care Provider [phone] Encounter Details Date Type Department Care Team (Late st Contact Info) Description 05/05/2024 Abstract [facility] [address] [facility] 110 [place] [phone] Leroy White MD 112 [facility] 110 [place], [place] [id number] Social History Tobacco Use Types Packs/Day Years [...] week 12/12/2023 How often do you attend advent or sikh serv ices? Never 12/12/2023 Do you belong to any clubs o r organizations such as advent groups, unions, fraternal or athletic groups, or [...] Recorded Patient Health Questionnaire-2 Score 0 12/20/2022 [facility] Occupat ional Health - Occupational Stress [...] place to sleep or slept in a group home (including now)? No 12/05/2022 Housing Stability Vital [...] time in the past 12 m [facility], were you homeless or living in a group home (including now)? No 12/12/2023 Comments Unknown Sex and Gender Information Value Date Recorded Sex Assigned at Not on file Legal Sex Female 6:49 PM EDT Gender Identity Not on file Sexual Orientation Not on file documented as of this encounter Plan of Treatment Not on file documented as of this encounter Visit Diagnoses Not on filedocumented in this encounter Care Teams Health Insurance Adjuster Relationship Specialty Start Date End Date Leroy Wihte MD [address] [place] [address] PCP - General Internal Medicine 11/06/22 documented as of this encounter
--- OUTSIDE RECORDS SUMMARY | 2024-10-17 10:34 | XMS_ITS | Encounter Summary ---
Author Organization [facility] Address [address] [facility] [place] [address] Care Team Providers Care Senior Internal Auditor Name Role Phone Leroy White MD Primary Care Provider [phone] Encounter Details Date Type Department Care Team (Late st Contact Info) Description 02/05/2023 Abstract [facility] [address] [facility] 110 [place] [phone] Leroy White MD 112 [facility] 110 [place], [place] [phone] Social History Tobacco Use Types Packs/Day Years [...] often do you attend chur ch or yazidi services? Never 12/05/2022 Do you belong to any clubs o r organizations such as presybeterian groups, unions, fraternal or athletic groups, or [...] place to sleep or slept in a senior care (including now)? No 12/05/2022 Comments Unknown Sex [...] on filedocumented in this encounter Care Teams Senior Internal Auditor Relationship Specialty Start Date End Date Leroy White MD 112 [facility] 110 [place] [address] PCP - General Internal Medicine 11/06/22 documented as of this encounter
--- OUTSIDE RECORDS SUMMARY | 2024-10-17 10:35 | XMS_ITS | Encounter Summary ---
Author Organization [facility] Address [address] [facility] [place] [address] Care Team Providers Care Coater Slate Name Role Phone Leroy White MD Primary Care Provider [phone] Reason for Visit * Reason Onset Date Comments Med Refill 08/28/2024 Encounter Details Date Type Department Care Team (Late st Contact Info) Description 08/28/2024 Refill [facility] [address] [facility] 110 [place] [phone] Ny Nathan PA [address] [facility] [address] [place] [address] Panic attacks ([facility]/HCC) Social History Tobacco Use Types Packs/Day Years [...] week 12/12/2023 How often do you attend mu-ism or mandaen serv ices? Never 12/12/2023 Do you belong to any clubs o r organizations such as mu-ism groups, unions, fraternal or athletic groups, or [...] Recorded Patient Health Questionnaire-2 Score 0 12/20/2022 [facility] Occupat ional Health - [...] to sleep or slept in a senior living (including now)? No 12/05/2022 Housing Stability Vital Sign Answer Jan e Recorded In the last 12 months, was t here a time when you were not able to pay the mortgage or rent on time? Yes 12/12/2023 In the past 12 months, how m any times have you moved where you were living? 0 12/12/2023 At any time in the past 12 m [facility], were you homeless or living in a senior living (including now)? No 12/12/2023 Comments Unknown Sex and Gender Information Value Date Recorded Sex Assigned at Not on file Legal Sex Female 6:49 PM EDT Gender Identity Not on file Sexual Orientation Not on file documented as of this encounter Miscellaneous Notes * Telephone Encounter - JANELL Saxena - 08/28/2024 4:18 PM EDT OARRS reviewed, Rx sent into patient's pharmacy. Please help pt get set up for controlled medication follow up this month. Last refill until seen. documented in this encounter Plan of Treatment Not on file documented as of this encounter Visit Diagnoses Diagnosis Panic attacks (CMS/HCC) Panic disorder without agoraphobia documented in this encounter Care Teams Coater Slate Relationship Specialty Start Date End Date Leroy White MD [address] [address] PCP - General Internal Medicine 11/06/22 documented as of this encounter
--- OUTSIDE RECORDS SUMMARY | 2024-10-17 10:35 | XMS_ITS | Encounter Summary ---
Author Organization [facility] Address [address] [facility] [place] [address] Care Team Providers Care Elementary Art Teacher Name Role Phone Leroy White MD Primary Care Provider [phone] Encounter Details Date Type Department Care Team (Late st Contact Info) Description 09/04/2024 Abstract [facility] [address] [facility] 110 [place] [phone] Leroy White MD 112 [facility] 110 [place], [place] [address] Social History Tobacco Use Types Packs/Day Years [...] week 12/12/2023 How often do you attend mandaeism or advent serv ices? Never 12/12/2023 Do you belong to any clubs o r organizations such as mandaeism groups, unions, fraternal or athletic groups, or [...] Recorded Patient Health Questionnaire-2 Score 0 12/20/2022 [facility] Occupat ional Health - [...] any time in the past 12 m [facility], were you homeless or living in [...] on filedocumented in this encounter Care Teams Elementary Art Teacher Relationship Specialty Start Date End Date Leroy White MD [address] [place] [address] PCP - General Internal Medicine 11/06/22 documented as of this encounter
--- OUTSIDE RECORDS SUMMARY | 2024-10-17 10:35 | XMS_ITS | Encounter Summary ---
Author Organization [facility] Address [address] [place] [place] [address] Care Team Providers Care Dross Puller Name Role Phone Leroy White MD Primary Care Provider [phone] Encounter Details Date Type Department Care Team (Late st Contact Info) Description 08/29/2024 Abstract [facility] [address] [facility] 110 [place] [phone] Leroy White MD 112 [facility] 110 [place], [place] [phone] Social History Tobacco Use Types Packs/Day Years [...] week 12/12/2023 How often do you attend holiness or restorationist serv ices? Never 12/12/2023 Do you belong to any clubs o r organizations such as holiness groups, unions, fraternal or athletic groups, or [...] Recorded Patient Health Questionnaire-2 Score 0 12/20/2022 [facility] Occupat ional Health - Occupational Stress [...] place to sleep or slept in a care home (including now)? No 12/05/2022 Housing Stability [...] any time in the past 12 m [facility], were you homeless or living in a care home (including now)? No 12/12/2023 Comments Unknown Sex and Gender Information Value Date Recorded Sex Assigned at Not on file Legal Sex Female 6:49 PM EDT Gender Identity Not on file Sexual Orientation Not on file documented as of this encounter Plan of Treatment Not on file documented as of this encounter Visit Diagnoses Not on filedocumented in this encounter Care Teams Dross Puller Relationship Specialty Start Date End Date Leroy White MD 112 [place] [address] PCP - General Internal Medicine 11/06/22 documented as of this encounter
--- OUTSIDE RECORDS SUMMARY | 2024-10-17 10:36 | XMS_ITS | CCD ---
Author Organization [facility] Care Team Providers Care Horticultural Therapist Name Role Phone SUNITHA ., DR GANT [...] Unavailable WEST, DR DONNA Wright Consulting Unavailable WHITE, DR FAY Primary Care Unavailable HEMMER, DR [place] Garcia Admitting Unavailable HEMMER, DR [place] Garcia Consulting Unavailable WHITE, DR FAY Primary Care Unavailable WHITE, DR FAY Admitting Unavailable WHITE, DR FAY Attending Unavailable WHITE, DR FAY Consulting Unavailable ZIEBER, DR SIXTO Delgado Consulting Unavailable Leroy White MD Primary Care Provider [phone] [place] PARHAM Attending Unavailable [place] PARHAM Attending Unavailable WHITELEROY Attending Unavailable WHITELEROY Attending Unavailable WHITELEROY Attending Unavailable WHITELEROY Attending Unavailable WHITELEROY Attending Unavailable WHITELEROY Attending Unavailable WHITELEROY Attending Unavailable LEROY WHITE Referring Unavailable SIXTO MCKINNEY Attending Unavailable LEROY WHITE Attending Unavailable WHITELEROY Attending Unavailable Allergies Allergy Classification Reported Allergen(s) Allergy Type Date of Onset Reaction(s) Facility (1 source) Adhesive agent Drug allergy (disorder) 11-16-2016 [facility] Repository (1 source) Ciprofloxacin Drug Allergy 01-01-2013 [facility] Repository (1 source) natural latex rubber Drug allergy (disorder) 03-01-2017 [facility] Repository (20 sources) Ciprofloxacin Drug Allergy 11-06-2022 Swelling [facility] Healthcare Work Phone: (20 sources) Wound Dressing Adhesive Drug Allergy 11-06-2022 Unknown [facility] Medications Current Medications Medication Drug Class(es) Dates Sig (Normalized) Sig (Original) acetaminophen 325 mg / HYDROcodone bitartrate 5 mg oral tablet (14 sources) Opioid Agonist Start: 09-12-2024 End: 09-17-2024 take 1 tablet by mouth every six hours for pain HYDROcodone-acetamin ophen ([place]) 5-325 MG tablet Indications: Osteoarthritis of spine with radiculopathy, lumbar region Take 1 tablet by mouth every 6 (six) hours if needed for severe pain for up to 5 days 20 tablet 09/12/2024 09/17/2024 Active Start: 05-07-2024 End: 05-17-2024 take 1 tablet by mouth every six hours for pain HYDROcodone-acetaminophen ([place]) 10-325 MG tablet Indications: Spondylosis of lumbar region without myelopathy or radiculopathy Take 1 tablet by mouth every 6 (six) hours if needed for moderate pain or severe pain for up to 10 days 40 tablet 05/07/2024 05/17/2024 Active Start: 03-03-2024 End: 03-24-2024 take 1 tablet by mouth every six hours for pain HYDROcodone-acetaminophen ([place]) 10-325 MG tablet Indications: Spondylosis of lumbar region without myelopathy or radiculopathy Take 1 tablet by mouth every 6 (six) hours if needed for moderate pain or severe pain for up to 10 days 40 tablet 03/14/2024 03/24/2024 Active Start: 06-21-2023 End: 06-26-2023 take 1 tablet by mouth every six hours for pain HYDROcodone-acetaminophen ([place]) 7.5-32 5 MG tablet Indications: Acute left-sided [...] Active cyclobenzaprine hydrochloride 10 mg oral tablet (20 sources) Muscle Relaxant Start: 05-26-2024 take 1 tablet by mouth three times daily as needed for muscle spasms cyclobenzaprine (Flexeril) 10 MG tablet Indications: Cervical radiculopathy Take 1 tablet (10 mg) by mouth 3 (three) times a day as needed for muscle spasms 90 tablet 2 05/26/2024 Active Start: 03-24-2024 take 1 tablet by hal three times daily as needed for muscle spasms cyclobenzaprine (Flexeril) 10 MG tablet Indications: Cervical radiculopathy Take 1 tablet (10 mg) by mouth 3 (three) times a day as needed for muscle spasms 90 tablet 2 03/24/2024 Active Start: 07-30-2023 take 1 tablet by hal three times daily as needed for muscle [...] 03/08/2023 Active diazePAM 5 mg oral tablet (20 sources) Benzodiazepine Start: 11-21-2023 End: 10-29-2024 take 1 tablet by mouth once diazePAM (Valium) 5 MG tablet Indications: Panic attacks (CMS/HCC) Take 1 tablet (5 mg) by mouth every 12 (twelve) hours if needed for anxiety, sleep or muscle spasms 60 tablet 09/29/2024 10/29/2024 Active Start: 06-01-2023 take 1 tablet by mouth once di azePAM (Valium) 5 MG tablet Indications: Panic attacks (CMS/HCC) Take 1 tablet (5 mg) by mouth every 12 (twelve) hours if needed for anxiety, sleep or muscle spasms 30 tablet 0 06/01/2023 Active diclofenac potassium 50 mg oral tablet (20 sources) Nonsteroidal Anti-inflammatory Drug Start: 09-26-2023 End: [...] instructions 21 tablet 0 06/21/2023 06/28/2023 Active nabumetone 500 mg oral tablet (7 sources) Nonsteroidal Anti-inflammatory Drug Start: 05-07-2024 End: 06-04-2024 take 1 tablet by mouth in the morning nabumetone (Relafen) 500 MG tablet Indications: Costochondritis, acute Take 1 tablet (500 mg) by mouth in the morning and 1 tablet (500 mg) before bedtime. Do all this for 28 days. 28 tablet 1 05/07/2024 06/04/2024 Active ondansetron 4 mg disintegrating oral tablet (20 sources) Serotonin-3 Receptor Antagonist Start: 01-25-2024 take 1 tablet by mouth every eight hours as needed for nausea and vomiting and nausea and nausea ondansetron ODT (Zofran-ODT) 4 MG disintegrating tablet Indications: Nausea Take 1 tablet (4 mg) by mouth every 8 (eight) hours if needed for nausea or vomiting 28 tablet 1 01/25/2024 Active Start: 11-01-2023 take 1 tablet by hal th every eight hours as needed for nausea and vomiting and nausea and nausea ondansetron ODT (Zofran-ODT) 4 MG disintegrating tablet Indications: Nausea Take 1 tablet (4 mg) by mouth every 8 (eight) hours if needed for nausea or vomiting 28 tablet 1 11/01/2023 Active phentermine hydrochloride 37.5 mg oral tablet (4 sources) Sympathomimetic Amine Anorectic Start: 06-04-2023 take 1 tablet by mouth once daily phentermine (Adipex-P) 37.5 MG tablet Indications: Severe obesity (BMI 35.0-39.9) with comorbidity (CMS/HCC) Take 1 tablet (37.5 mg) by mouth 1 (one) time each day at the same time 30 tablet 0 06/04/2023 Active predniSONE 20 mg oral tablet (2 sources) Start: 05-15-2024 End: 05-20-2024 take 1 tablet by mouth once daily predniSONE (Deltasone) 20 MG tablet Indications: Costochondritis, acute Take 1 tablet (20 mg) by mouth Daily for 5 days 5 tablet 05/15/2024 05/20/2024 Active SUMAtriptan 50 mg oral tablet (20 sources) Serotonin-1b and Serotonin-1d Receptor Agonist Start: 08-02-2023 take 1 tablet by mouth once daily, then take 2 tablets by mouth every twenty-four hours SUMAtriptan (Imitrex) 50 MG tablet Indications: Migraine syndrome (CMS/HCC) TAKE 1 TABLET BY MOUTH ONCE DAILY WITHIN 1 HOUR OF MIGRAINE START *MAX 2 PER 24 HOURS* 15 tablet 2 02/21/2024 Active Tirzepatide (Mounjaro) 7.5 MG/0.5ML solution auto-injector (15 sources) Start: 09-01-2024 End: 09-12-2024 inject 7.5 mg by subcutaneous injection every week Tirzepatide (Mounjaro) 7.5 MG/0.5ML solution auto-injector Indications: Severe obesity (BMI 35.0-39.9) with comorbidity (CMS/HCC) Inject 7.5 mg under the skin 1 (one) time per week 2 mL 3 09/01/2024 09/12/2024 Discontinued (Other) Start: 04-07-2024 End: 04-07-2025 inject 7.5 mg by subcutaneous injection every week Tirzepatide (Mounjaro) 7.5 MG/0.5ML solution auto-injector Indications: Severe obesity (BMI 35.0-39.9) with comorbidity (CMS/HCC) Inject 7.5 mg under the skin 1 (one) time per week 2 mL 3 04/07/2024 04/07/2025 Active vortioxetine 20 mg oral tablet (20 sources) Start: 10-22-2023 take 1 tablet by [...] Active zolpidem tartrate 10 mg oral tablet (20 sources) gamma-Aminobutyric Acid-ergic Agonist Start: 09-23-2024 zolpidem (Ambien) 10 MG tablet Indications: Other insomnia Take 1 tablet (10 mg) by mouth as needed at bedtime for sleep 30 tablet 2 09/23/2024 Active Start: 03-31-2024 End: 09-22-2024 zolpidem (Ambien) 10 MG tabl et Indications: Other insomnia Take 1 tablet (10 mg) by mouth as needed at bedtime for sleep 30 tablet 2 06/26/2024 09/22/2024 Discontinued (Reorder) Start: 12-26-2023 End: 03-28-2024 zolpidem (Ambien) 10 [...] Drug Class(es) Dates Sig (Normalized) Sig (Original) 2 ml ketorolac tromethamine 30 mg/ml cartridge (4 sources) Nonsteroidal Anti-inflammatory Drug, Cyclooxygenase Inhibitor Start: 09-12-2024 End: 09-12-2024 60 mg, Intramuscular, Once, On Sun09/12/24 at 1230, For 1 dose, Max daily dose: 120 mg. Max duration: 5 days total Start: 09-12-2024 End: 09-12-2024 ketorolac (Toradol) injectio n 60 mg Start: 09-12-2024 End: 09-12-2024 60 mg, Intramuscular, Once, On Sun09/12/24 at 1230, For 1 dose, Max daily dose: 120 mg. Max duration: 5 days total Start: 09-12-2024 End: 09-12-2024 ketorolac (Toradol) injectio n 60 mg 1 ml promethazine hydrochloride 25 mg/ml injection (6 sources) Phenothiazine Start: 06-04-2024 End: 06-04-2024 promethazine (Phenergan) injection 12.5 mg Start: 06-04-2024 End: 06-04-2024 promethazine (Phenergan) injection 25 mg Start: 06-04-2024 End: 06-04-2024 inject 25 mg by intramuscular injection once 25 mg, Intramuscular, Once, On Sun06/04/24 at 0945, For 1 dose Tirzepatide (Mounjaro) 5 MG/0.5ML solution pen-injector (13 sources) Start: 02-06-2024 End: 04-07-2024 inject 5 [...] 2 mL 3 10/22/2023 02/06/2024 Discontinued (Reorder) Start: 10-22-2023 inject 5 mg by subcu taneous injection every week Tirzepatide (Mounjaro) 5 MG/0.5ML solution pen-injector Indications: Severe obesity (BMI 35.0-39.9) with comorbidity (CMS/HCC) Inject 5 mg under the skin 1 (one) time per week 2 mL 3 10/22/2023 Active Problems Active Problems Problem Classification Problem Date Documented Da te Episodic/Chronic Adjustment disorders (20 sources) Adjustment disorder; Translations: [Adjustment disorder, unspecified] Onset: 11-06-2022 11-06-2022 Chronic Anxiety disorders (20 sources) Panic attack; Translations: [Panic disorder [episodic paroxysmal anxiety]] Onset: 11-06-2022 11-06-2022 Chronic Biliary tract disease (20 sources) Disorder of biliary tract; Translations: [Other specified diseases of biliary tract] Onset: 11-06-2022 11-06-2022 Chronic Headache; including migraine (20 sources) Migraine; Translations: [Migraine, unspecified, not intractable, without status migrainosus] Onset: 11-06-2022 11-06-2022 Chronic Headache; including migraine (1 source) Headache; including migraine; Translations: [HEADACHE UNSPECIFIED] Onset: 04-17-2022 Intestinal infection (2 sources) Viral gastroenteritis; Translations: [Viral intestinal infection, unspecified] 06-04-2024 Episodic Malaise and fatigue (4 sources) Malaise and fatigue; Translations: [Other malaise] 05-07-2024 Episodic Menstrual disorders (20 sources) Dysmenorrhea; Translations: [Dysmenorrhea, unspecified] Onset: 11-06-2022 11-06-2022 Chronic Mood disorders (20 sources) Major depressive disorder; Translations: [Major depressive disorder, single episode, unspecified] Onset: 11-06-2022 11-06-2022 Chronic Nausea and vomiting (2 sources) Nausea and vomiting; Translations: [Nausea with vomiting, unspecified] 06-04-2024 Episodic Other aftercare (1 source) Other terminal block assembler (current) drug therapy; Translations: [OTH CV/CVN CV TSC SYSTEM 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 DRUG THERAPY] Onset: 10-03-2022 Episodic Other bone disease and musculoskeletal deformities (4 sources) Costal chondritis; 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 [[place]]] 05-07-2024 Episodic Other connective tissue disease (2 sources) Plantar fasciitis of right foot; Translations: [Plantar fascial fibromatosis] 06-21-2023 Episodic Other nervous system disorders (20 sources) Chiari malformation type I; Translations: [Compression of brain] Onset: 11-06-2022 11-06-2022 Chronic Other nutritional; endocrine; and metabolic disorders (20 sources) Severe obesity; Translations: [Morbid (severe) obesity due to excess calories] Onset: 11-06-2022 11-06-2022 Chronic Other upper respiratory infections (2 sources) Upper respiratory infection; Translations: [Acute upper respiratory infection, unspecified] 02-06-2024 Episodic Residual codes; unclassified (20 sources) Insomnia; Translations: [Other insomnia] Onset: 11-06-2022 [...] Translations: [LOW BACK PAIN, UNSPECIFIED] Onset: 10-03-2022 Viral infection (2 sources) Viral disease; Translations: [Viral infection, unspecified] 05-07-2024 Episodic Past or Other Problems Problem Classification Problem Date Documented Da te Episodic/Chronic Cardiac dysrhythmias (4 sources) Palpitations; Translations: [PALPITATIONS] Onset: 04-10-2022 Episodic Other nervous system disorders (20 sources) Loss of taste; Translations: [Parageusia] Onset: 11-06-2022 11-06-2022 Episodic Spondylosis; intervertebral disc disorders; other back problems (20 sources) Radiculopathy, lumbar region; Translations: [Radiculopathy, cervical region] Onset: 12-19-2021 Episodic Unclassified (1 source) LOW BACK PAIN, UNSPECIFIED; Translations: [LOW BACK PAIN, UNSPECIFIED] Onset: 09-29-2022 Results Test Name Value Interpretation Reference Range Facility CBC (INCLUDES DIFF/PLT)on Basophils (Bld) [#/Vol] 0.062 10*3/uL Normal 0-200 [facility] Comment on above: Performed By: #### 6 399, 15150, 809 #### [facility] [place] [address] Shellfish Dredge Operator: Louie Agosto MD Basophils/100 WBC (Bld) 1.2 % Normal [facility] Comment on above: Performed By: #### 6 399, 86327, 809 #### [facility] [place] [address] [employer]fish Dredge Operator: Louie Agosto MD Eosinophils (Bld) [#/Vol] 0.213 10*3/uL Normal 15-500 [facility] Comment on above: Performed By: #### 6 399, 66494, 809 #### [facility] [address] [place] [address] Shellfish Dredge Operator: Louie Agosto MD Eosinophils/100 WBC (Bld) 4.1 % Normal [facility] Comment on above: Performed By: #### 6 399, 42894, 809 #### [facility] [place] [address] [employer] Dred[employer] Operator: Louie Agosto MD Erythrocyte distribution width (RBC) [Ratio] 11.7 % Normal 11.0-15.0 [facility] Comment on above: Performed By: #### 6 399, 49531, 809 #### [facility] [place] [address] [employer] Dredge Operator: Louie Agosto MD Hematocrit (Bld) [Volume fraction] 42.6 % Normal 35.0-45.0 [facility] Comment on above: Performed By: #### 6 399, 08030, 809 #### [facility] [place] [address] [employer] Dred[employer] Operator: Louie Agosto MD Hemoglobin (Bld) [Mass/Vol] 14.3 g/dL Normal 11.7-15.5 [facility] Comment on above: Performed By: #### 6 399, 10779, 809 #### [facility] [place] [address] [employer] Dredge Operator: Louie Agosto MD Lymphocytes (Bld) [#/Vol] 1.524 10*3/uL Normal 850-3900 [facility] Comment on above: Performed By: #### 6 399, 11573, 809 #### [facility] [place] [address] [employer]fish Dredge Operator: Louie Agosto MD Lymphocytes/100 WBC (Bld) 29.3 % Normal [facility] Comment on above: Performed By: #### 6 399, 08173, 809 #### [facility] [place] [address] [employer] Dredge Operator: Louie Agosto MD MCH (RBC) [Entitic mass] 31.5 pg Normal 27.0-33.0 [facility] Comment on above: Performed By: #### 6 399, 32795, 809 #### [facility] [place] [address] [employer]fish Dredge Operator: Louie Agosto MD MCHC (RBC) [Mass/Vol] 33.6 g/dL Normal 32.0-36.0 [facility] Comment on above: Result Comment: For adults, a slight decrease in the calculated MCHC value (in the range of 30 to 32 g/dL) is most likely not clinically significant; however, it should be interpreted with caution in correlation with other red cell parameters and the patient's clinical condition. Performed By: #### 6 399, 08100, 809 #### [facility] [place] [address] [employer] Dredge Operator: Louie Agosto MD MCV (RBC) [Entitic vol] 93.8 fL Normal 80.0-100.0 [facility] Comment on above: Performed By: #### 6 399, 08941, 809 #### [facility] [place] [address] [employer]fish Dredge Operator: Louie Agosto MD Monocytes (Bld) [#/Vol] 0.364 10*3/uL Normal 200-950 [facility] Comment on above: Performed By: #### 6 399, 53960, 809 #### [facility] [place] [address] [employer]fish Dredge Operator: Louie Agosto MD Monocytes/100 WBC (Bld) 7.0 % Normal [facility] Comment on above: Performed By: #### 6 399, 31574, 809 #### [facility] [place] [address] [employer]fish Dredge Operator: Louie Agosto MD Neutrophils (Bld) [#/Vol] 3.037 10*3/uL Normal 3338-4525 [facility] Comment on above: Performed By: #### 6 399, 20343, 809 #### [facility] [place] [address] [employer] Dredge Operator: Louie Agosto MD Neutrophils/100 WBC (Bld) 58.4 % Normal [facility] Comment on above: Performed By: #### 6 399, 06631, 809 #### [facility] [place] [address] [employer]fish Dredge Operator: Louie Agosto MD Platelet mean volume (Bld) [Entitic vol] 11.2 fL Normal 7.5-12.5 [facility] Comment on above: Performed By: #### 6 399, 06213, 809 #### [facility] [place] [address] [employer] Dredge Operator: Louie Agosto MD Platelets (Bld) [#/Vol] 327 10*3/uL Normal 140-400 [facility] Comment on above: Performed By: #### 6 399, 81340, 809 #### [facility] [place] [address] [employer]fish Dredge Operator: Louie Agosto MD RBC (Bld) [#/Vol] 4.54 10*6/uL Normal 3.80-5.10 [facility] Comment on above: Performed By: #### 6 399, 97229, 809 #### [facility] [place] [address] [employer]fish Dredge Operator: Louie Agosto MD WBC (Bld) [#/Vol] 5.2 10*3/uL Normal 3.8-10.8 [facility] Comment on above: Performed By: #### 6 399, 37944, 809 #### [facility] [place] [address] [employer]fish Dredge Operator: Louie Agosto MD COMPREHENSIVE METABOLIC PANE [facility] 05-08-2024 Albumin [Mass/Vol] 4.1 g/dL Normal 3.6-5.1 [facility] Comment on above: Order Comment: FASTI NG:YES FASTING: YES Performed By: #### 6 399, 28685, 809 #### [facility] [address], [address] [place] [address] [employer]fish Dredge Operator: Louie Agosto MD Albumin/Globulin [Mass ratio] 1.4 {ratio} Normal 1.0-2.5 [facility] Comment on above: Order Comment: FASTI NG:YES FASTING: YES Performed By: #### 6 399, 47925, 809 #### [facility] [place] [address] [employer] Dredge Operator: Louie Agosto MD ALP [Catalytic activity/Vol] 85 U/L Normal 31-125 [facility] Comment on above: Order Comment: FASTI NG:YES FASTING: YES Performed By: #### 6 399, 15921, 809 #### [facility] [place] [address] [employer] Dredge Operator: Louie Agosto MD ALT [Catalytic activity/Vol] 38 U/L High 6-29 [facility] Comment on above: Order Comment: FASTI NG:YES FASTING: YES Performed By: #### 6 399, 65357, 809 #### [facility] [place] [address] [employer] Dredge Operator: oLuie Agosto MD AST [Catalytic activity/Vol] 32 U/L High 10-30 [facility] Comment on above: Order Comment: FASTI NG:YES FASTING: YES Performed By: #### 6 399, 19867, 809 #### [facility] [place] [address] [employer] Dredge Operator: Louie Agosto MD Bilirubin [Mass/Vol] 0.6 mg/dL Normal 0.2-1.2 [facility] Comment on above: Order Comment: FASTI NG:YES FASTING: YES Performed By: #### 6 399, 16479, 809 #### [facility] [place] [address] [employer] Dredge Operator: Louie Agosto MD Calcium [Mass/Vol] 9.4 mg/dL Normal 8.6-10.2 [facility] Comment on above: Order Comment: FASTI NG:YES FASTING: YES Performed By: #### 6 399, 50692, 809 #### [facility] [place] [address] [employer] Dredge Operator: Louie Agosto MD Chloride [Moles/Vol] 106 mmol/L Normal 98-110 [facility] Comment on above: Order Comment: FASTI NG:YES FASTING: YES Performed By: #### 6 399, 70473, 809 #### [facility] [place] [address] [employer] Dredge Operator: Louie Agosto MD CO2 [Moles/Vol] 25 mmol/L Normal 20-32 [facility] Comment on above: Order Comment: FASTI NG:YES FASTING: YES Performed By: #### 6 399, 10671, 809 #### [facility] [place] [address] [employer] Dredge Operator: Louie Agosto MD Creatinine [Mass/Vol] 1.09 mg/dL High 0.50-0.97 [facility] Comment on above: Order Comment: FASTI NG:YES FASTING: YES Performed By: #### 6 399, 70933, 809 #### [facility] [place] [address] [employer]fish Dredge Operator: Louie Agosto MD GFR/1.73 sq M.predicted among non-blacks MDRD (S/P/Bld) [Vol rate/Area] 66 mL/min/{1.73_m2} Normal > OR = 60 [facility] Comment on above: Order Comment: FASTI NG:YES FASTING: YES Performed By: #### 6 399, 65904, 809 #### [facility] [place] [address] [employer] Dredge Operator: Louie Agosto MD Globulin (S) [Mass/Vol] 2.9 g/dL Normal 1.9-3.7 [facility] Comment on above: Order Comment: FASTI NG:YES FASTING: YES Performed By: #### 6 399, 63378, 809 #### [facility] [place] [address] [employer] Dredge Operator: Louie Agosto MD Glucose [Mass/Vol] 81 mg/dL Normal 65-99 [facility] Comment on above: Order Comment: FASTI NG:YES FASTING: YES Result Comment: Fasting reference interval Performed By: #### 6 399, 50354, 809 #### [facility] [place] [address] [employer] Dredge Operator: Louie Agosto MD Potassium [Moles/Vol] 4.6 mmol/L Normal 3.5-5.3 [facility] Comment on above: Order Comment: FASTI NG:YES FASTING: YES Performed By: #### 6 399, 08116, 809 #### [facility] [place] [address] [employer] Dredge Operator: Louie Agosto MD Protein [Mass/Vol] 7.0 g/dL Normal 6.1-8.1 [facility] Comment on above: Order Comment: FASTI NG:YES FASTING: YES Performed By: #### 6 399, 95541, 809 #### [facility] [place] [address] [employer] Dredge Operator: Louie Agosto MD Sodium [Moles/Vol] 140 mmol/L Normal 135-146 [facility] Comment on above: Order Comment: FASTI NG:YES FASTING: YES Performed By: #### 6 399, 84298, 809 #### [facility] [place] [address] [employer] Dredge Operator: Louie Agosto MD Urea nitrogen [Mass/Vol] 13 mg/dL Normal 7-25 [facility] Comment on above: Order Comment: FASTI NG:YES FASTING: YES Performed By: #### 6 399, 79112, 809 #### [facility] [place] [address] [employer] Dredge Operator: Louie Agosto MD Urea nitrogen/Creatinine [Mass ratio] 12 mg/mg Normal 6-22 [facility] Comment on above: Order Comment: FASTI NG:YES FASTING: YES Performed By: #### 6 399, 02572, 809 #### [facility] [address], [address] [place] [address] [employer]fish Dredge Operator: Louie Agosto MD SED RATE BY MODIFIED WESTERG RENon 05-08-2024 SED RATE BY MODIFIED WESTERGREN 29 mm/h High < OR = 20 [facility] Comment on above: Performed By: #### 6 399, 42733, 809 #### [facility] [address], [address] Shellfish Dredge Operator: Louie Agosto MD CT LSPINE WO CONon 3 CT LSPINE [...] SIXTO BENNETT Date: 2022-09-29 07:12 Normal [facility] ER URINE PROFILEon 3 Bilirubin Ql (U) Negative Normal NEGATIVE [facility] Comment on above: Performed By: #### P T, PTT, DDIM #### [facility] [address] [place] [address] [address] Michelle Alfaro Clarity (U) CLEAR Normal CLEAR [facility] Comment on above: Performed By: #### P T, PTT, DDIM #### [facility] [address] [place] [address] Dr. Michelle Alfaro Color (U) YELLOW Normal YELLOW [facility] Comment on above: Performed By: #### P T, PTT, DDIM #### [facility] [address] [place] [address] Dr. Michelle Alfaro ERUAHD A micrscopic examination will be performed if indicated. Normal [facility] Comment on above: Performed By: #### P T, PTT, DDIM #### [facility] [address] [place] [address] Dr. Michelle Alfaro Glucose Ql (U) Negative Normal NEGATIVE [facility] Comment on above: Performed By: #### P T, PTT, DDIM #### [facility] [address] [place] [address] Dr. Michelle Alfaro Hemoglobin Ql (U) TRACE-INTACT Abnormal NEGATIVE [facility] Comment on above: Performed By: #### P T, PTT, DDIM #### [facility] [address] [place] [address] Dr. Michelle Alfaro Ketones Ql (U) Negative Normal NEGATIVE [facility] Comment on above: Performed By: #### P T, PTT, DDIM #### [facility] Laboratory [address] [place] [address] Dr. Michelle Alfaro LEUKOCYTES Negative Normal NEGATIVE [facility] Comment on above: Performed By: #### P T, PTT, DDIM #### [facility] [address] [place] [address] Dr. Michelle Alfaro Nitrite Ql (U) Negative Normal NEGATIVE [facility] Comment on above: Performed By: #### P T, PTT, DDIM #### [facility] [address] [place] [address] Dr. Michelle Alfaro pH (U) 5.5 [pH] Normal 5-9 [facility] Comment on above: Performed By: #### P T, PTT, DDIM #### [facility] [address] [address] [address] Michelle Alfaro SPEC GRAVITY >=1.030 Abnormal 1.005-<=1.025 [facility] Comment on above: Performed By: #### P T, PTT, DDIM #### [facility] [address] [place] [address] Dr. Michelle Alfaro UA PROTEIN Negative Normal NEGATIVE/ TRACE [facility] Comment on above: Performed By: #### P T, PTT, DDIM #### [facility] [address] [address] [address] Michelle Alfrao UR MICRO IND NOT INDICATED Normal [facility] Comment on above: Performed By: #### P T, PTT, DDIM #### [facility] [address] [place] [address] Dr. Michelle Alfaro Urobilinogen Qn (U) 4 {Ramona'U}/dL Abnormal 0.2 - 1.0 [facility] Comment on above: Performed By: #### P T, PTT, DDIM #### [facility] [address] [place] [address] Dr. Michelle Alfaro XR CSPINE MIN 4 [...] DONNA NAVARRETE Date: 2022-06-06 09:11 Normal [facility] CBC W MANUAL DIFFon 04-10-20 22 ATYPICAL LYMPH # Normal [facility] Comment on above: Performed By: #### P T, PTT, DDIM #### [facility] [address] [place] [address] Dr. Michelle Alfaro ATYPICAL LYMPH % Normal [facility] Comment on above: Performed By: #### P T, PTT, DDIM #### [facility] [address] [place] [address] Dr. Michelle Alfaro BAND # Normal 0.0-0.3 [facility] Comment on above: Performed By: #### P T, PTT, DDIM #### [facility] [address] [place] [address] Dr. Michelle Alfaro BAND % Normal 0-5 [facility] Comment on above: Performed By: #### P T, PTT, DDIM #### [facility] [address] [place] [address] Dr. Michelle Alfaro BASOM # 0.09 103/ul Normal 0.00-0.10 [facility] Comment on above: Performed By: #### P T, PTT, DDIM #### [facility] [address] [place] [address] Dr. Michelle Alfaro BASOM % 1.0 % Normal 0.2-2.0 [facility] Comment on above: Performed By: #### P T, PTT, DDIM #### [facility] [address] [place] [address] Dr. Michelle Alfaro BLAST # Normal [facility] Comment on above: Performed By: #### P T, PTT, DDIM #### [facility] [address] [place] [address] Dr. Michelle Alfaro BLAST % Normal [facility] Comment on above: Performed By: #### P T, PTT, DDIM #### [facility] [address] [place] [address] Dr. Michelle Alfaro CORRECTED WBC Normal 4.0-11.0 [facility] Comment on above: Performed By: #### P T, PTT, DDIM #### [facility] [address] [place] [address] Dr. Michelle Alfaro EOS # 0.28 103/ul Normal 0.00-0.70 [facility] Comment on above: Performed By: #### P T, PTT, DDIM #### [facility] [address] [place] [address] Dr. Michelle Alfaro EOS% 3.0 % Normal 0.9-7.0 [facility] Comment on above: Performed By: #### P T, PTT, DDIM #### [facility] [address] [place] [address] Dr. Michelle Alfaro HCT 40.7 % Normal 36.0-48.0 [facility] Comment on above: Performed By: #### P T, PTT, DDIM #### [facility] [address] [place] [address] Dr. Michelle Alfaro HGB 14.0 g/dl Normal 12.0-16.0 [facility] Comment on above: Performed By: #### P T, PTT, DDIM #### [facility] [address] [place] [address] Dr. Michelle Alfaro LYMPHM # 2.67 103/ul Normal 1.20-3.80 [facility] Comment on above: Performed By: #### P T, PTT, DDIM #### [facility] [address] [place] [address] Dr. Michelle Alfaro LYMPHM% 29.0 % Normal 20.5-60.0 [facility] Comment on above: Performed By: #### P T, PTT, DDIM #### [facility] [address] [place] [address] Dr. Michelle Alfaro MCH 32.1 pg Normal 26.7-34.0 [facility] Comment on above: Performed By: #### P T, PTT, DDIM #### [facility] [address] [place] [address] Dr. Michelle Alfaro MCHC 34.4 g/dl Normal 29.9-35.2 [facility] Comment on above: Performed By: #### P T, PTT, DDIM #### [facility] [address] [place] [address] Dr. Michelle Alfaro MCV 93.3 fL Normal 81.0-99.0 [facility] Comment on above: Performed By: #### P T, PTT, DDIM #### [facility] [address] [place] [address] Dr. Michelle Alfaro METAMYELOCYTE # Normal [facility] Comment on above: Performed By: #### P T, PTT, DDIM #### [facility] [address] [place] [address] Dr. Michelle Alfaro METAMYELOCYTE % Normal [facility] Comment on above: Performed By: #### P T, PTT, DDIM #### [facility] [address] [place] [address] Dr. Michelle Alfaro MONOM# 0.64 103/ul Normal 0.30-0.80 [facility] Comment on above: Performed By: #### P T, PTT, DDIM #### [facility] [address] [place] [address] Dr. Michelle Alfaro MONOM% 7.0 % Normal 1.7-12.0 [facility] Comment on above: Performed By: #### P T, PTT, DDIM #### [facility] [address] [place] [address] Dr. Michelle Alfaro MPV 10.0 fL Normal 9.5-13.5 [facility] Comment on above: Performed By: #### P T, PTT, DDIM #### [facility] [address] [place] [address] Dr. Michelle Alfaro MYELOCYTE # Normal [facility] Comment on above: Performed By: #### P T, PTT, DDIM #### [facility] [address] [place] [address] Dr. Michelle Alfaro MYELOCYTE % Normal [facility] Comment on above: Performed By: #### P T, PTT, DDIM #### [facility] [address] [place] [address] Dr. Michelle Alfaro NRBC Normal [facility] Comment on above: Performed By: #### P T, PTT, DDIM #### [facility] [address] [place] [address] Dr. Michelle Alfaro PLT 288 103/ul Normal 150-450 [facility] Comment on above: Performed By: #### P T, PTT, DDIM #### [facility] [address] [place] [address] Dr. Michelle Alfaro RBC 4.36 106/ul Normal 4.20-5.40 [facility] Comment on above: Performed By: #### P T, PTT, DDIM #### [facility] [address] [place] [address] Dr. Michelle Alfaro RDW 12.4 % Normal 11.0-15.0 [facility] Comment on above: Performed By: #### P T, PTT, DDIM #### [facility] [address] [place] [address] Dr. Michelle Alfaro SEG # 5.52 103/ul Normal 1.40-6.50 [facility] Comment on above: Performed By: #### P T, PTT, DDIM #### [facility] [address] [place] [address] Dr. Michelle Alfaro SEG % 60.0 % Normal 43.0-75.0 [facility] Comment on above: Performed By: #### P T, PTT, DDIM #### [facility] [address] [place] [address] Dr. Michelle Alfaro WBC 9.2 103/ul Normal 4.0-11.0 [facility] Comment on above: Performed By: #### P T, PTT, DDIM #### [facility] [address] [place] [address] Dr. Michelle Alfaro D-DIMERon 04-10-2022 D-DIMER 0.43 mg/L FEU Normal <=0.59 [facility] Comment on above: Performed By: #### P T, PTT, DDIM #### [facility] [address] [place] [address] Dr. Michelle Alfaro D-DIMER COMMENTS SEE BELOW Normal [facility] Comment on above: Result Comment: Incr [...] By: #### P T, PTT, DDIM #### [facility] [address] [place] [address] Dr. Michelle Alfaro PREG HCG QUALon 04-10-2022 , QUAL Negative Normal NEGATIVE [facility] Comment on above: Performed By: #### P T, PTT, DDIM #### [facility] [address] [place] [address] Dr. Michelle Alfaro PROF 14(COMP METB)on 022 Albumin [Mass/Vol] 3.6 g/dL Normal 3.4-5.0 [facility] Comment on above: Performed By: #### C MP, HSTROPN, TSH #### [facility] [address] [place] [address] Dr. Michelle Alfaro Albumin/Globulin [Mass ratio] 0.9 {ratio} Normal [facility] Comment on above: Performed By: #### C MP, HSTROPN, TSH #### [facility] [address] [place] [address] Dr. Michelle Alfaro ALP [Catalytic activity/Vol] 85 U/L Normal 46-116 [facility] Comment on above: Performed By: #### C MP, HSTROPN, TSH #### [facility] [address] [place] [address] Dr. Michelle Alfaro ALT [Catalytic activity/Vol] 28 U/L Normal 14-59 [facility] Comment on above: Performed By: #### C MP, HSTROPN, TSH #### [facility] [address] [place] [address] Dr. Michelle Alfaro Anion gap [Moles/Vol] 11.7 mmol/L Normal [facility] Comment on above: Performed By: #### C MP, HSTROPN, TSH #### [facility] [address] [place] [address] Dr. Michelle Alfaro AST [Catalytic activity/Vol] 19 U/L Normal 15-37 [facility] Comment on above: Performed By: #### C MP, HSTROPN, TSH #### [facility] [address] [address] [address] Michelle Alfaro Bilirubin [Mass/Vol] 0.2 mg/dL Normal 0.2-1.0 [facility] Comment on above: Performed By: #### C MP, HSTROPN, TSH #### [facility] [address] [place] [address] Dr. Michelle Alfaro Calcium [Mass/Vol] 8.8 mg/dL Normal 8.5-10.1 [facility] Comment on above: Performed By: #### C MP, HSTROPN, TSH #### [facility] [address] [address] [address] Michelle Alfaro Chloride [Moles/Vol] 103 mmol/L Normal 98-107 [facility] Comment on above: Performed By: #### C MP, HSTROPN, TSH #### [facility] [address] [place] [address] Dr. Michelle Alfaro CO2 [Moles/Vol] 26.7 mmol/L Normal 21.0-32.0 [facility] Comment on above: Performed By: #### C MP, HSTROPN, TSH #### [facility] [address] [place] [address] Dr. Michelle Alfaro Creatinine [Mass/Vol] 1.05 mg/dL Critically high 0.55-1.02 [facility] Comment on above: Performed By: #### C MP, HSTROPN, TSH #### [facility] [address] [place] [address] Dr. Michelle Alfaro EGFR-AF SRI LANKAN >60 Normal >=60 [facility] Comment on above: Performed By: #### C MP, HSTROPN, TSH #### [facility] [address] [place] [address] Dr. Michelle Alfaro EGFR-NON AF SRI LANKAN 59 mL/min/1.73m2 Critically low >=60 [facility] Comment on above: Performed By: #### C MP, HSTROPN, TSH #### [facility] [address] [place] [address] Dr. Michelle Alfaro Globulin (S) [Mass/Vol] 4.0 g/dL Normal [facility] Comment on above: Performed By: #### C MP, HSTROPN, TSH #### [facility] [address] [address] [address] Michelle Alfaro Glucose [Mass/Vol] 97 mg/dL Normal 74-106 [facility] Comment on above: Performed By: #### C MP, HSTROPN, TSH #### [facility] [address] [address] [address] Michelle Alfaro Potassium [Moles/Vol] 3.4 mmol/L Critically low 3.5-5.1 [facility] Comment on above: Performed By: #### C MP, HSTROPN, TSH #### [facility] [address] [address] [address] Michelle Alfaro Protein [Mass/Vol] 7.6 g/dL Normal 6.4-8.2 [facility] Comment on above: Performed By: #### C MP, HSTROPN, TSH #### [facility] [address] [address] [address] Michelle Alfaro Sodium [Moles/Vol] 138 mmol/L Normal 136-145 [facility] Comment on above: Performed By: #### C MP, HSTROPN, TSH #### [facility] [address] [address] [address] Michelle Alfaro Urea nitrogen [Mass/Vol] 11.0 mg/dL Normal 7.0-18.0 [facility] Comment on above: Performed By: #### C MP, HSTROPN, TSH #### [facility] [address] [address] [address] Michelle Alfaro Urea nitrogen/Creatinine [Mass ratio] 10.5 mg/mg Normal [facility] Comment on above: Performed By: #### C MP, HSTROPN, TSH #### [facility] [address] [address] [address] Michelle Alfaro PROTIMEon 04-10-2022 INR Coag (PPP) [Relative time] 0.95 {INR} Normal [facility] Comment on above: Performed By: #### P T, PTT, DDIM #### [facility] [address] [place] [address] Dr. Michelle Alfaro INR GUIDELINES SEE BELOW Normal [facility] Comment on above: Result Comment: YASMIN RED INR: 2.0 - 3.0 CONDITIONS NOT LISTED BELOW 2.5 - 3.5 FOR PROSTHETIC HEART VALVE REPLACEMENT 2.5 - 3.5 RECURRENT THROMBOSIS Performed By: #### P T, PTT, DDIM #### [facility] [address] [place] [address] Dr. Michelle Alfaro PT Coag (PPP) [Time] 10.3 s Normal 9.0-11.6 [facility] Comment on above: Performed By: #### P T, PTT, DDIM #### [facility] [address] [place] [address] Dr. Michelle Alfaro PTTon 04-10-2022 aPTT Coag (Bld) [Time] 25.3 s Normal 22.3-36.2 [facility] Comment on above: Performed By: #### P T, PTT, DDIM #### [facility] [address] [place] [address] Dr. Michelle Alfaro TROPONIN, HIGH SENSITIVITYon 04-10-2022 HSTROP 12.0 pg/mL Normal 4.0-51.3 [facility] Comment on above: Result Comment: CUT- OFF POINTS HAVE BEEN ESTABLISHED BASED ON THE FOURTH UNIVERSAL DEFINITIONS OF MYOCARDIAL INFARCTION. THE UPPER REFERENCE LIMIT (URL) OF TROPONIN, DEFINED THE 99TH PERCENTILE OF cTnI DISTRIBUTION IN A REFERENCE POPULATION, HAS BEEN CONFIRMED THE DECISION THRESHOLD FOR ID DIAGNOSIS. Performed By: #### C MP, HSTROPN, TSH #### [facility] [address] [place] [address] Dr. Michelle Alfaro TSHon 04-10-2022 TSH 3.556 uIU/mL Normal 0.358-3.740 [facility] Comment on above: Performed By: #### C MP, HSTROPN, TSH #### [facility] [address] [place], [place] [id number] Dr. Michelle Alfaro XR CHEST 1 Von [...] by: CONCEPCIÓN MUJICA Date: 2022-04-10 18:52 Normal [facility] XR LSPINE MIN 4 VIEWSon 08-0 [...] by: SIXTO BENNETT Date: 2021-12-21 08:04 Normal [facility] Coding Summary.on 04-08-2020 Coding Summary. CODING DATE: 04/08/2020 FINAL [facility] STATUS: Home (Routine DC) PAYOR: Commercial [...] CphT Date Saved: 04/08/2020 07:40 pm Normal [facility] SARS-CoV-2, NAAon 04-03-2020 SARS CORONAVIRUS 2 RNA:PRTHR:PT:RESPIR ATORY:ORD:PROBE.AMP .TAR Detected Abnormal Not Detected [facility] Comment on above: Result Comment: This nucleic acid amplification test was developed and its performance characteristics determined by [employer]. Nucleic acid amplification tests include PCR and [...] detected) result in this assay. Performed at: [facility] [address] [place], [place] [id number] [facility] Carmella Elizabeth Performed By: #### S ARS-CoV-2, CHRIS #### [facility] [address] [place] [address] Physician Orderon 03-30-2020 Physician Order [id number] #1.00CD:127 Normal [facility] Consent for Treatmenton Consent for Treatment [id number]#1.00CD:127 Normal [facility] Vital Signs Date Time Vital Sign Value Performing Clinician Faci lity 09-12-2024 11:46-0400 Body height 162.6 cm Ny MACIEL Work Phone: [facility] 09-12-2024 11:46-0400 Body mass index (BMI) [Ratio] 32.27 kg/m2 Ny MACIEL Work Phone: [facility] 09-12-2024 11:46-0400 Body weight 85.28 kg Ny MACIEL Work Phone: [facility] 09-12-2024 11:46-0400 Diastolic blood pressure 78 mm[Hg] Ny Hemmer PA Work Phone: [facility] 09-12-2024 11:46-0400 Heart rate 91 /min Ny Hemmer PA Work Phone: [facility] 09-12-2024 11:46-0400 SaO2% (BldA) [Mass fraction] 98 % Ny Hemmer PA Work Phone: [facility] 09-12-2024 11:46-0400 Systolic blood pressure 108 mm[Hg] Ny Hemmer PA Work Phone: [facility] 06-04-2024 09:31-0500 Body height 162.6 cm Ny Hemmer PA Work Phone: [facility] 06-04-2024 09:31-0500 Body mass index (BMI) [Ratio] 31.21 kg/m2 Ny Hemmer PA Work Phone: [facility] 06-04-2024 09:31-0500 Body temperature 98.2 [degF] Ny Hemmer PA Work Phone: [facility] 06-04-2024 09:31-0500 Body weight 82.46 kg Ny Hemmer PA Work Phone: [facility] 06-04-2024 09:31-0500 Diastolic blood pressure 86 mm[Hg] Ny Hemmer PA Work Phone: [facility] 06-04-2024 09:31-0500 Heart rate 91 /min Ny Hemmer PA Work Phone: [facility] 06-04-2024 09:31-0500 Respiratory rate 16 /min Ny Hemmer PA Work Phone: [facility] 06-04-2024 09:31-0500 SaO2% (BldA) [Mass fraction] 99 % Ny Hemmer PA Work Phone: [facility] 06-04-2024 09:31-0500 Systolic blood pressure 116 mm[Hg] Ny Hemmer PA Work Phone: [facility] 05-15-2024 08:33-0500 Body height 162.6 cm Leroy White MD Work Phone: [facility] 05-15-2024 08:33-0500 Body mass index (BMI) [Ratio] 32.61 kg/m2 Leroy White MD Work Phone: [facility] 05-15-2024 08:33-0500 Body weight 86.18 kg Leroy White MD Work Phone: [facility] 05-15-2024 08:33-0500 Diastolic blood pressure 82 mm[Hg] Leroy White MD Work Phone: [facility] 05-15-2024 08:33-0500 Heart rate 88 /min Leroy White MD Work Phone: [facility] 05-15-2024 08:33-0500 SaO2% (BldA) [Mass fraction] 100 % Leroy White MD Work Phone: [facility] 05-15-2024 08:33-0500 Systolic blood pressure 112 mm[Hg] Leroy White MD Work Phone: [facility] 05-07-2024 09:59-0500 Body height 162.6 cm Leroy White MD Work Phone: [facility] 05-07-2024 09:59-0500 Body mass index (BMI) [Ratio] 32.1 kg/m2 Leroy White MD Work Phone: [facility] 05-07-2024 09:59-0500 Body weight 84.82 kg Leroy White MD Work Phone: [facility] 05-07-2024 09:59-0500 Diastolic blood pressure 76 mm[Hg] Leroy White MD Work Phone: [facility] 05-07-2024 09:59-0500 Heart rate 94 /min Leroy White MD Work Phone: [facility] 05-07-2024 09:59-0500 SaO2% (BldA) [Mass fraction] 99 % Leroy White MD Work Phone: [facility] 05-07-2024 09:59-0500 Systolic blood pressure 124 mm[Hg] Leroy White MD Work Phone: [facility] 03-03-2024 11:42-0400 Body height 162.6 cm Leroy White MD Work Phone: [facility] 03-03-2024 11:42-0400 Body mass index (BMI) [Ratio] 33.47 kg/m2 Leroy White MD Work Phone: [facility] 03-03-2024 11:42-0400 Body weight 88.45 kg Leroy White MD Work Phone: [facility] 03-03-2024 11:42-0400 Diastolic blood pressure 70 mm[Hg] Leroy White MD Work Phone: [facility] 03-03-2024 11:42-0400 Heart rate 74 /min Leroy White MD Work Phone: [facility] 03-03-2024 11:42-0400 SaO2% (BldA) [Mass fraction] 98 % Leroy White MD Work Phone: [facility] 03-03-2024 11:42-0400 Systolic blood pressure 122 mm[Hg] Leroy White MD Work Phone: [facility] 02-06-2024 10:40-0400 Body height 162.6 cm Leroy White MD Work Phone: [facility] 02-06-2024 10:40-0400 Body mass index (BMI) [Ratio] 33.3 kg/m2 Leroy White MD Work Phone: [facility] 02-06-2024 10:40-0400 Body weight 88 kg Leroy White MD Work Phone: [facility] 02-06-2024 10:40-0400 Diastolic blood pressure 76 mm[Hg] Leroy White MD Work Phone: [facility] 02-06-2024 10:40-0400 Heart rate 84 /min Leroy White MD Work Phone: [facility] 02-06-2024 10:40-0400 SaO2% (BldA) [Mass fraction] 98 % Leroy White MD Work Phone: [facility] 02-06-2024 10:40-0400 Systolic blood pressure 124 mm[Hg] Leroy White MD Work Phone: [facility] 06-21-2023 15:53-0500 Body mass index (BMI) [Ratio] 37.35 kg/m2 Leroy White MD Work Phone: [facility] 06-21-2023 15:53-0500 Body weight 100.25 kg Leroy White MD Work Phone: [facility] 06-21-2023 15:53-0500 Diastolic blood pressure 78 mm[Hg] Leroy White MD Work Phone: [facility] 06-21-2023 15:53-0500 Heart rate 115 /min Leroy White MD Work Phone: [facility] 06-21-2023 15:53-0500 SaO2% (BldA) [Mass fraction] 99 % Leroy White MD Work Phone: [facility] 06-21-2023 15:53-0500 Systolic blood pressure 128 mm[Hg] Leroy White MD Work Phone: [facility] Healthcare Encounters Encounter Date Encounter Type Care Provider Facility Start: 09-29-2024 End: 09-29-2024 Refill Ny MACIEL Work Phone: [facility] Comment on above: Panic attacks (CMS/H CC) Start: 09-22-2024 End: 09-23-2024 Refill Leroy White MD Work Phone: [facility] Comment on above: Other insomnia Start: 09-12-2024 End: 09-12-2024 Office outpatient visit 25 minutes Ny MACIEL Work Phone: [facility] Comment on above: Osteoarthritis of sp ine with radiculopathy, lumbar region (Primary Dx); Right sciatic nerve pain; Panic attacks (CMS/HCC); Other insomnia Start: 09-12-2024 End: 09-12-2024 ambulatory NY PARHAM Not Available Start: 07-29-2024 End: 07-29-2024 Refill Leroy White MD Work Phone: [facility] Comment on above: Panic attacks (CMS/H CC) Start: 06-25-2024 End: 06-26-2024 Refill Leroy White MD Work Phone: [facility] Comment on above: Other insomnia Panic attacks (CMS/H CC) Start: 06-04-2024 End: 06-04-2024 Bamboo flowsheet Ny Parham PA Work Phone: [facility] Start: 06-04-2024 End: 06-04-2024 Bamboo flowsheet Ny Parham PA Work Phone: [facility] Start: 06-04-2024 End: 06-04-2024 Office outpatient visit 15 minutes Ny Parham PA Work Phone: [facility] Comment on above: Viral gastroenteriti s (Primary Dx); Nausea and vomiting, unspecified vomiting type Start: 06-04-2024 End: 06-04-2024 ambulatory NY PARHAM Not Available Start: 05-15-2024 End: 05-15-2024 Office outpatient visit 15 minutes Leroy White MD Work Phone: [facility] Comment on above: Costochondritis, acu te (Primary Dx); Malaise and fatigue Start: 05-15-2024 End: 05-15-2024 ambulatory LEROY WHITE Not Available Start: 05-07-2024 End: 05-07-2024 Bamboo flowsheet Leroy White MD Work Phone: [facility] Start: 05-07-2024 End: 05-07-2024 Bamboo flowsheet Leroy White MD Work Phone: [facility] Start: 05-07-2024 End: 05-07-2024 Office outpatient visit 25 minutes Leroy White MD Work Phone: [facility] Comment on above: Costochondritis, acu te (Primary Dx); Malaise and fatigue; Viral syndrome; Spondylosis of lumbar region without myelopathy or radiculopathy Start: 05-07-2024 End: 05-07-2024 ambulatory LEROY WHITE Not Available Start: 04-23-2024 End: 04-24-2024 Refill Ny Parham [...] (CMS/HCC) Start: 02-06-2024 End: 02-06-2024 ambulatory LEROY B WHITE Not Available Start: 01-22-2024 End: 01-23-2024 Refvidya White MD Work Phone: [facility] Comment on above: Panic attacks (CMS/H CC) Start: 12-12-2023 End: 12-12-2023 ambulatory LEROY B WHITE Not Available Start: 11-21-2023 End: 11-21-2023 ambulatory LEROY B WHITE Not Available Start: 11-05-2023 End: 11-05-2023 ambulatory LEROY B WHITE Not Available Start: 10-22-2023 End: 10-22-2023 ambulatory LEROY B WHITE Not Available Start: 10-04-2023 End: 10-04-2023 ambulatory LEROY B WHITE Not Available Start: 09-26-2023 End: 09-26-2023 ambulatory LEROY B WHITE Not Available Start: 06-26-2023 Chart abstracting Triny Medrano DPM Work Phone: [facility] Start: 06-26-2023 Refvidya MACIEL Work Phone: [facility] Comment on above: Other insomnia Start: 06-21-2023 End: 06-21-2023 Office outpatient visit 25 minutes Leroy White MD Work Phone: [facility] Comment on above: Acute left-sided low back pain with left-sided sciatica (Primary Dx); Plantar fasciitis of right foot Start: 09-29-2022 End: 09-29-[address] LEXI ALCOCER . Facility:[facility] Start: 06-05-2022 End: 06-06-[address] NY PARHAM Facility:[facility] Start: 04-10-2022 End: 04-10-[address] STALIN HELTON . Facility:[facility] Start: 12-20-2021 End: 12-21-[address] LEROY WHITE Facility:[facility] Start: 12-15-2021 End: 12-15-2021 ambulatory RENETTA ANNE . Facility:[facility] Plan of Treatment Date Care Activity Detail Author Start: 04-26-2025 Screening for malign ant neoplasm of cervix [facility] Start: 01-19-2025 Influenza vaccination Influenz a Vaccine (Season Ended) [facility] Start: 2024 Screening for malign ant neoplasm of breast Mammogram [facility] Start: 06-12-2024 End: 06-12-2024 Patient encounter procedure 06/12/2024 10:00 AM EST Office Visit [facility] [address] [facility] [address] [place] [address] Leroy White MD [address] [facility] [address] [place] [address] [facility] Start: 06-04-2024 End: 06-04-2024 Patient encounter procedure 06/04/2024 9:30 AM EST Office Visit [facility] [address] [facility] [address] [place] [address] Ny Parham PA [address] [facility] [address] [place] [address] Arrived [facility] Comment on above: Arrived Start: 05-07-2024 End: 05-07-2025 Comprehensive metabolic 2000 panel - Serum or Plasma Comprehensive metabolic panel Lab Routine Costochondritis, acute Malaise and fatigue Viral syndrome Expected: 05/07/2024 (Approximate), Expires: 05/07/2025 [facility] Comment on above: Expected: 05/07/2024 (Approximate), Expires: 05/07/2025 Start: 05-07-2024 End: 05-07-2025 Erythrocyte sedimentation rate Sedimentation rate, automated Lab Routine Costochondritis, acute Malaise and fatigue Viral syndrome Expected: 05/07/2024 (Approximate), Expires: 05/07/2025 [facility] Comment on above: Expected: 05/07/2024 (Approximate), Expires: 05/07/2025 Start: 05-07-2024 End: 05-07-2024 Patient encounter procedure [facility] Comment on above: Arrived Start: 03-19-2024 End: 03-19-2024 Patient encounter procedure 03/19/2024 9:45 AM EDT Office Visit [facility] [address] [place] [address] [place] [address] Leroy White MD [address] [place] [address] [place] [address] [facility] Start: 02-06-2024 End: 02-06-2024 Patient encounter procedure 02/06/2024 10:45 AM EDT Office Visit [facility] [address] [facility] [address] [place] [address] Leroy White MD [address] [place] [address] [facility] Start: 01-20-2024 Influenza vaccination Influenza Vacc ine (#1) [facility] Start: 11-18-2023 Influenza vaccination Influenza Vacc ine (#1) [facility] Comment on above: Postponed from 01/19 (Patient Refused) Start: 06-26-2023 End: 06-26-2023 Patient encounter procedure 06/26/2023 9:00 AM EST Office Visit [facility] [address] [place] [address] [place] [id number] Triny Medrano DPM [address] [place] [address] [facility] Start: 2005 Screening for malign ant neoplasm of cervix Pap Smear [facility] CBC W Auto Different ial panel - Blood CBC and differential Lab Routine Costochondritis, acute Malaise and fatigue Viral syndrome Ordered: 05/07/2024 [facility] Work Phone: Comment on above: Ordered: 05/07/2024 Immunizations Immunization Date Immunization Notes Care Provider Fa [facility] 02-23-2022 influenza, injectabl e, quadrivalent, preservative free Leroy White MD Work Phone: [facility] 02-23-2022 influenza virus vacc ine, unspecified formulation Leroy White MD Work Phone: [facility] 11-03-2021 Pfizer Gómez Cap SARS-CoV-2 Vaccination Leroy White MD Work Phone: [facility] 10-10-2021 Pfizer Gómez Cap SARS-CoV-2 Vaccination Leroy White MD Work Phone: [facility] 02-25-2020 influenza, injectabl e, quadrivalent, preservative free Leroy White MD Work Phone: [facility] 03-01-2015 influenza, injectabl e, quadrivalent, preservative free Leroy White MD Work Phone: [facility] Payers Date Payer Category Payer [facility] BCBS [id number] 2022 Medicaid [employer] [place] [id number] 2022-Present [address] [place] [address] [id number] 2022 Unknown BCBS BCBS xxxxxx [id number] 2022-Present [phone] [facility] [id number] [place] [address] [id number] 2022 Unknown [id number] 1984 Unknown [id number] 2.16.840.1.902085.3.579.2. 593 1984 Unknown [id number] 2.16.840.1.024379.3.579.2. 593 1984 Unknown [id number] 2.16.840.1.625158.3.579.2. 593 1984 Unknown [id number] 2.16.840.1.679507.3.579.2. 593 1984 Unknown [id number] 2.16.840.1.043788.3.579.2. 593 1984 Unknown [id number] 2.16.840.1.651229.3.579.2. 9 1984 Unknown [id number] 2.16.840.1.746161.3.579.2. 1258 1984 Unknown [id number] 2.16.840.1.470851.3.579.2. 9 1984 Unknown [id number] 2.16.840.1.177104.3.579.2. 9 1984 Unknown [id number] 2.16.840.1.204640.3.579.2. 1258 1984 Unknown [id number] 2.16.840.1.670226.3.579.2. 1258 1984 Unknown [id number] 2.16.840.1.707355.3.579.2. 1258 1984 Unknown [id number] 2.16.840.1.192256.3.579.2. 9 1984 Unknown [id number] 2.16.840.1.346702.3.579.2. 1259 1984 Unknown [id number] 2.16.840.1.578871.3.579.2. 1259 1984 Unknown [id number] 2.16.840.1.912681.3.579.2. 1259 1984 Unknown [id number] 2.16.840.1.245444.3.579.2. 1259 1959 Unknown [id number] 1959 Unknown [id number] 1959 Unknown [id number] Social History Date Type Detail Facility Start: 04-27-2023 End: 12-12-2023 Tobacco smoking status TNIS Ex-smoker [facility] Start: 12-20-2011 End: 12-19-2021 History of tobacco use Current smoker [facility] Start: 12-20-2011 End: 12-19-2021 History of tobacco use Cigarette Smoker [facility] Start: 04-27-2023 End: 12-12-2023 Cigarettes smoked current (pack per day) - Reported 1 [facility] Start: 04-27-2023 End: 12-12-2023 Tobacco use and exposure Smokeless tobacco non-user [facility] Start: 06-21-2023 End: 09-12-2024 Alcohol intake Ex-drinker (finding) [facility] Start: [...] [OSQ] Rather much [facility] (I/We) worried wheth er (my/our) [...] the mortgage or rent on time? Yes [facility] How often do you nee d to have someone help you when you read instructions, pamphlets, or other written material from your doctor or pharmacy [SILS] Never [facility] Clinical Notes 06-21-2023 to 09-29-2024 Telephone Encounter - JANELL Saxena - 09/29/2024 9:58 AM EDTTelephone Encounter - JANELL Saxena - 09/29/2024 9:58 AM EDTTelephone Encounter - JANELL Saxena - 09/23/2024 9:06 AM EDT Note Date & Type Note Facility 09-29-2024 Telephone encount er Note OARRS reviewed, Rx sent into patient's pharmacy. [facility] 09-29-2024 Miscellaneous Notes Formattin g of this note might be different from the original. OARRS reviewed, Rx sent into patient's pharmacy. documented in this encounter [facility] 09-23-2024 Telephone encount er Note OARRS reviewed, Rx sent into patient's pharmacy. [facility] 09-23-2024 Miscellaneous Notes Formattin g of this note might be different from the original. OARRS reviewed, Rx sent into patient's pharmacy. documented in this encounter [facility] 09-12-2024 History of Presen t illness Narrative Images from the original note were not included. Subjective Patient ID: Terese Uribe is a 39 y.o. female who presents for Back Pain. Back Pain Patient presents for evaluation of low back problems. Symptoms have been present for months now and include pain in lower back and goes down the left side Initial inciting event: none. Alleviating factors identifiable by the patient are none. Aggravating factors identifiable by the patient are bending forwards, sitting, standing, and walking. Treatments initiated by the patient: Biofreeze patches, Flexeril, Diclofenac. States had some left over steroids, but those are not helping. Pt states the pain is also going up her spine this happened a couple of weeks ago Pt did start to jog with her son. Does walk her dogs often, has three Gold Retrievers. Does take the Diclofenac as needed, but for for her knee pain. Current Outpatient Medications on File Prior to Visit Medication Sig Dispense Refill cyclobenzaprine (Flexeril) 10 MG tablet Take 1 tablet (10 mg) by mouth 3 (three) times a day as needed for muscle spasms 90 tablet 2 diazePAM (Valium) 5 MG tablet Take 1 tablet (5 mg) by mouth every 12 (twelve) hours if needed for anxiety, sleep or muscle spasms 60 tablet 0 diclofenac (Cataflam) 50 MG tablet Take 1 tablet (50 mg) by mouth in the morning and 1 tablet (50 mg) before bedtime. (Patient taking differently: Take 50 mg by mouth in the morning and 50 mg before bedtime. PRN.) 60 tablet 5 ondansetron ODT (Zofran-ODT) 4 MG disintegrating tablet Take 1 tablet (4 mg) by mouth every 8 (eight) hours if needed for nausea or vomiting 28 tablet 1 SUMAtriptan (Imitrex) 50 MG tablet TAKE 1 TABLET BY MOUTH ONCE DAILY WITHIN 1 HOUR OF MIGRAINE START *MAX 2 PER 24 HOURS* 15 tablet 2 Vortioxetine HBr (Trintellix) 20 MG tablet Take 20 mg by mouth Daily 30 tablet 11 zolpidem (Ambien) 10 MG tablet Take 1 tablet (10 mg) by mouth as needed at bedtime for sleep 30 tablet 2 [DISCONTINUED] Tirzepatide (Mounjaro) 7.5 MG/0.5ML solution auto-injector Inject 7.5 mg under the skin 1 [...] date: 12/20/2011 Quit date: 12/19/2021 Years since quittin.7 Smokeless tobacco: Never Vaping Use Vaping status: [...] ESOPHAGOGASTRODUODENOSCOPY IUD INSERTION Adiana Visit Vitals BP 108/78 Pulse 91 Ht 5' 4 Wt 188 lb SpO2 98% BMI 32.27 kg/m Smoking Status Former BSA 1.96 m Review of Systems Constitutional: Negative for chills, fatigue and fever. Respiratory: Negative for cough, shortness of breath and wheezing. Cardiovascular: Negative for chest pain, palpitations and leg swelling. Gastrointestinal: Negative for abdominal pain, constipation, diarrhea, nausea and vomiting. Musculoskeletal: Positive for back pain and myalgias. Skin: Negative for rash. Objective Physical Exam Constitutional: General: She is not in acute distress. Appearance: She is well-developed. Comments: Appears uncomfortable HENT: Head: Normocephalic and atraumatic. Eyes: General: No scleral icterus. Conjunctiva/sclera: Conjunctivae normal. Cardiovascular: Rate and Rhythm: Normal rate and regular rhythm. Heart sounds: Normal heart sounds. No murmur heard. Pulmonary: Effort: Pulmonary effort is normal. No respiratory distress. Breath sounds: Normal breath sounds. No wheezing, rhonchi or rales. Musculoskeletal: Thoracic back: Bony tenderness (Lower thoracic) present. Lumbar back: Spasms (Mild) and bony tenderness present. Decreased range of motion. Positive right straight leg raise test. Negative left straight leg raise test. Comments: BLE strength 5/5 except for right knee extension/flexion 5-5, left knee flexion/extension 4+/5. Skin: General: Skin is warm and dry. Neurological: General: No focal deficit present. Mental Status: She is alert and oriented to person, place, and time. Sensory: Sensation is intact. Psychiatric: Mood and Affect: Mood normal. Behavior: Behavior normal. Assessment/Plan Diagnoses and all orders for this visit: Osteoarthritis of spine with radiculopathy, lumbar region - HYDROcodone-acetaminophen ([place]) 5-325 MG tablet; Take 1 tablet by mouth every 6 (six) hours if needed for severe pain for up to 5 days Discussed risks of this class of medication including the potential for abuse, reliance. Reviewed the goals of treatment, including improving pain control and improving functional status. Medication choice and dosage is appropriate for patient's current medical conditions. Reviewed the rules and regulations surrounding prescription of opioids and compliance at length with the patient. Right sciatic nerve pain - ketorolac (Toradol) injection 60 mg Discussed potential risks and benefits of Toradol injections. She has had them in the past and tolerated them well. Most recent kidney function reviewed. No other anti-inflammatories today. Drink plenty of water. Provided pt with Toradol 60 mg IM today, she tolerated this well. Contact office with any concerns. Panic attacks (CMS/HCC) Medication choice and dosage is appropriate for patient's current medical conditions. Patient will continue to be required to be seen in our office at least every three months for monitoring. At each follow up visit I will reassess the patient's need for the medication. Using the Diazepam as needed. Patient is to have this medication prescribed only through this office. Failure to follow the rules and regulations will result in tapering and discontinuation of medications if applicable. Patient verbalized understanding. OARRS Report was reviewed for this patient. Other insomnia Advised pt of risks of multiple controlled medications and potential for additive effect and/or increase risks of s/e. Taking Ambien for sleep with good control of symptoms. Follow up in about 3 months (around 12/12/2024) for Medication Follow Up. documented in this encounter [facility] 07-29-2024 Telephone encount er Note OARRS reviewed, Rx sent into patient's pharmacy. [facility] 07-29-2024 Miscellaneous Notes Formattin g of this note might be different from the original. OARRS reviewed, Rx sent into patient's pharmacy. documented in this encounter [facility] 06-04-2024 History of Presen t illness Narrative Images from the original note were not included. Subjective Patient ID: Terese Uribe is a 38 y.o. female who presents for vomiting. Terese is present today for evaluation of vomiting. Admits nausea and vomiting started Sunday evening, body aches, no fever. She is starting to improve. She did take her zofran but did not help the nausea Sunday evening. Throws up stomach bile, and then nothing left so dry heaves. Is supposed to work today and tomorrow. Missed work Sunday. Does have some diarrhea. Current Outpatient Medications on File Prior to Visit Medication Sig Dispense Refill diclofenac (Cataflam) 50 MG tablet Take 1 tablet (50 mg) by mouth in the morning and 1 tablet (50 mg) before bedtime. (Patient taking differently: Take 50 mg by mouth in the morning and 50 mg before bedtime. PRN.) 60 tablet 5 cyclobenzaprine (Flexeril) 10 MG tablet Take 1 tablet (10 mg) by mouth 3 (three) times a day as needed for muscle spasms 90 tablet 2 diazePAM (Valium) 5 MG tablet Take 1 tablet (5 mg) by mouth every 12 (twelve) hours if needed for anxiety, sleep or muscle spasms 60 tablet 0 nabumetone (Relafen) 500 MG tablet Take 1 tablet (500 mg) by mouth in the morning and 1 tablet (500 mg) before bedtime. Do all this for 28 days. 28 tablet 1 ondansetron ODT (Zofran-ODT) 4 MG disintegrating tablet Take 1 tablet (4 mg) by mouth every 8 (eight) hours if needed for nausea or vomiting 28 tablet 1 SUMAtriptan (Imitrex) 50 MG tablet TAKE 1 TABLET BY MOUTH ONCE DAILY WITHIN 1 HOUR OF MIGRAINE START *MAX 2 PER 24 HOURS* 15 tablet 2 Tirzepatide (Mounjaro) 7.5 MG/0.5ML solution auto-injector Inject 7.5 mg under the skin 1 (one) time per week 2 mL 3 Vortioxetine HBr (Trintellix) 20 MG tablet Take 20 mg by mouth Daily 30 tablet 11 zolpidem (Ambien) 10 MG tablet Take 1 tablet (10 mg) by mouth as needed at bedtime for sleep 30 tablet 2 No current facility-administered medications [...] date: 12/20/2011 Quit date: 12/19/2021 Years since quittin.4 Smokeless tobacco: Never Vaping Use Vaping status: [...] ESOPHAGOGASTRODUODENOSCOPY IUD INSERTION Adiana Visit Vitals BP 116/86 Pulse 91 Temp 98.2 F Resp 16 Ht 5' 4 Wt 181 lb 12.8 oz SpO2 99% BMI 31.21 kg/m Smoking Status Former BSA 1.93 m Review of Systems Constitutional: Positive for fatigue. Negative for chills and fever. Respiratory: Negative for cough, shortness of breath and wheezing. Cardiovascular: Negative for chest pain, palpitations and leg swelling. Gastrointestinal: Positive for abdominal pain, diarrhea, nausea and vomiting. Negative for constipation. Musculoskeletal: Positive for myalgias. Skin: Negative for rash. Neurological: Positive for weakness. Objective Physical Exam Constitutional: General: She is not in acute distress. Appearance: She is well-developed. She is ill-appearing. HENT: Head: Normocephalic and atraumatic. Eyes: General: No scleral icterus. Conjunctiva/sclera: Conjunctivae normal. Cardiovascular: Rate and Rhythm: Normal rate and regular rhythm. Heart sounds: Normal heart sounds. No murmur heard. Pulmonary: Effort: Pulmonary effort is normal. No respiratory distress. Breath sounds: Normal breath sounds. No wheezing, rhonchi or rales. Abdominal: General: Bowel sounds are normal. Palpations: Abdomen is soft. Tenderness: There is abdominal tenderness in the epigastric area. There is no guarding or rebound. Skin: General: Skin is warm and dry. Neurological: General: No focal deficit present. Mental Status: She is alert and oriented to person, place, and time. Psychiatric: Mood and Affect: Mood normal. Behavior: Behavior normal. Assessment/Plan Diagnoses and all orders for this visit: Viral gastroenteritis - promethazine (Phenergan) injection 25 mg Reassurance given that this is most likely viral and should gradually improve. Provided pt with Promethazine 25 mg IM today for vomiting. She can take Zofran prn for nausea as it has worked well for her in the past, will likely be more effective once the Promethazine has calmed her current symptoms. Increase water intake, sipping clear fluids frequently, get plenty of rest. Keep to a bland diet. BRATY diet reviewed. Can take Tylenol prn for any discomfort or fever. Wash hands often, and avoid sharing food/drinks. Follow up in our office if no improvement in one week. Note for work provided for 06/01/2024 through 06/08/2024, RTW 06/09/24. Advised if symptoms worsen despite the above, she is to go to the ER for further evaluation. Follow up for Appointment As Scheduled. documented in this encounter [facility] 05-15-2024 History of Presen t illness Narrative Images from the original note were not included. Subjective Patient ID: Terese Uribe is a 38 y.o. female who presents for Chest Pain. Pt is here for her 1 week follow up. Pt states it still does hurt but not as much as before, trying to do nothing Pt HR will still increase, only when she is working Current Outpatient Medications on File Prior to Visit Medication Sig Dispense Refill cyclobenzaprine (Flexeril) 10 MG tablet Take 1 tablet (10 mg) by mouth 3 (three) times a day as needed for muscle spasms 90 tablet 2 diazePAM (Valium) 5 MG tablet Take 1 tablet (5 mg) by mouth every 12 (twelve) hours if needed for anxiety, sleep or muscle spasms 60 tablet 0 diclofenac (Cataflam) 50 MG tablet Take 1 tablet (50 mg) by mouth in the morning and 1 tablet (50 mg) before bedtime. 60 tablet 5 HYDROcodone-acetaminophen ([place]) 10-325 MG tablet Take 1 tablet by mouth every 6 (six) hours if needed for moderate pain or severe pain for up to 10 days 40 tablet 0 nabumetone (Relafen) 500 MG tablet Take 1 tablet (500 mg) by mouth in the morning and 1 tablet (500 mg) before bedtime. Do all this for 28 days. 28 tablet 1 ondansetron ODT (Zofran-ODT) 4 MG disintegrating tablet Take 1 tablet (4 mg) by mouth every 8 (eight) hours if needed for nausea or vomiting 28 tablet 1 SUMAtriptan (Imitrex) 50 MG tablet TAKE 1 TABLET BY MOUTH ONCE DAILY WITHIN 1 HOUR OF MIGRAINE START *MAX 2 PER 24 HOURS* 15 tablet 2 Tirzepatide (Mounjaro) 7.5 MG/0.5ML solution auto-injector Inject 7.5 mg under the skin 1 (one) time per week 2 mL 3 Vortioxetine HBr (Trintellix) 20 MG tablet Take 20 mg by mouth Daily 30 tablet 11 zolpidem (Ambien) 10 MG tablet Take 1 tablet (10 mg) by mouth as needed at bedtime for sleep 30 tablet 2 No current facility-administered medications [...] date: 12/20/2011 Quit date: 12/19/2021 Years since quittin.4 Smokeless tobacco: Never Vaping Use Vaping status: [...] Former Review of Systems Objective Physical Exam Constitutional: General: She is not in acute distress. Appearance: Normal appearance. She is well-developed. HENT: Head: Normocephalic and atraumatic. Eyes: General: No scleral icterus. Conjunctiva/sclera: Conjunctivae normal. Cardiovascular: Rate and Rhythm: Normal rate and regular rhythm. Heart sounds: Normal heart sounds. No murmur heard. Pulmonary: Effort: Pulmonary effort is normal. No respiratory distress. Breath sounds: Normal breath sounds. No wheezing, rhonchi or rales. Chest: Chest wall: Tenderness present. Skin: General: Skin is warm and dry. Neurological: General: No focal deficit present. Mental Status: She is alert and oriented to person, place, and time. Psychiatric: Mood and Affect: Mood normal. Behavior: Behavior normal. Office Visit on 05/07/2024 Component Date Value Ref Range Status WHITE BLOOD CELL COUNT 05/07/2024 5.2 3.8 - 10.8 Thousand/uL Final RED BLOOD CELL COUNT 05/07/2024 4.54 3.80 - 5.10 Million/uL Final HEMOGLOBIN 05/07/2024 14.3 11.7 - 15.5 g/dL Final HEMATOCRIT 05/07/2024 42.6 35.0 - 45.0 % Final MCV 05/07/2024 93.8 80.0 - 100.0 fL Final MCH 05/07/2024 31.5 27.0 - 33.0 pg Final MCHC 05/07/2024 33.6 32.0 - 36.0 g/dL Final Comment: For adults, a slight decrease in the calculated MCHC value (in the range of 30 to 32 g/dL) is most likely not clinically significant; however, it should be interpreted with caution in correlation with other red cell parameters and the patient's clinical condition. RDW 05/07/2024 11.7 11.0 - 15.0 % Final PLATELET COUNT 05/07/2024 327 140 - 400 Thousand/uL Final MPV 05/07/2024 11.2 7.5 - 12.5 fL Final ABSOLUTE NEUTROPHILS 05/07/2024 3,037 1,500 - 7,800 cells/uL Final ABSOLUTE LYMPHOCYTES 05/07/2024 1,524 850 - 3,900 cells/uL Final ABSOLUTE MONOCYTES 05/07/2024 364 200 - 950 cells/uL Final ABSOLUTE EOSINOPHILS 05/07/2024 213 15 - 500 cells/uL Final ABSOLUTE BASOPHILS 05/07/2024 62 0 - 200 cells/uL Final NEUTROPHILS 05/07/2024 58.4 % Final LYMPHOCYTES 05/07/2024 29.3 % Final MONOCYTES 05/07/2024 7.0 % Final EOSINOPHILS 05/07/2024 4.1 % Final BASOPHILS 05/07/2024 1.2 % Final Glucose 05/07/2024 81 65 - 99 mg/dL Final Comment: Fasting reference interval BUN 05/07/2024 13 7 - 25 mg/dL Final Creatinine 05/07/2024 1.09 (H) 0.50 - 0.97 mg/dL Final EGFR 05/07/2024 66 > OR = 60 mL/min/1.73m2 Final BUN/CREATININE RATIO 05/07/2024 12 6 - 22 (calc) Final Sodium 05/07/2024 140 135 - 146 mmol/L Final Potassium, Bld 05/07/2024 4.6 3.5 - 5.3 mmol/L Final Chloride 05/07/2024 106 98 - 110 mmol/L Final Carbon Dioxide 05/07/2024 25 20 - 32 mmol/L Final Calcium 05/07/2024 9.4 8.6 - 10.2 mg/dL Final PROTEIN, TOTAL 05/07/2024 7.0 6.1 - 8.1 g/dL Final ALBUMIN 05/07/2024 4.1 3.6 - 5.1 g/dL Final GLOBULIN 05/07/2024 2.9 1.9 - 3.7 g/dL (calc) Final ALBUMIN/GLOBULIN RATIO 05/07/2024 1.4 1.0 - 2.5 (calc) Final BILIRUBIN, TOTAL 05/07/2024 0.6 0.2 - 1.2 mg/dL Final ALKALINE PHOSPHATASE 05/07/2024 85 31 - 125 U/L Final AST 05/07/2024 32 (H) 10 - 30 U/L Final ALT 05/07/2024 38 (H) 6 - 29 U/L Final SED RATE BY MODIFIED WESTERGREN 05/07/2024 29 (H) < OR = 20 mm/h Final Assessment/Plan Diagnoses and all orders for this visit: Costochondritis, acute - predniSONE (Deltasone) 20 MG tablet; Take 1 tablet (20 mg) by mouth Daily for 5 days - EKG done to eval for pericarditis, it was normal. Malaise and fatigue No follow-ups on file. [facility] [facility] 05-07[facility]2024 History of Presen t illness Narrative Images from the original note were not included. HPI Follow-up Additional comments: [facility] ER 05/02/24 DX: CP,PLEURISY RX FOR NABUMETONE GIVEN Last edited by Radha Delgado LPN on 05/07/2024 9:59 AM. Subjective Patient ID: Terese Uribe is a 38 y.o. female who presents for controlled/pain med follow up and Follow-up ([facility] ER 05/02/24 DX: CP,PLEURISY RX FOR NABUMETONE GIVEN). Flowsheet Row Documentation from 05/06/2024 in [facility] with Sowmya Aguillon MA Hospital Information ED, Hospital or [facility] Facility Discharge? ED Patient has been contacted within 1 week of being seen in the ED Yes Diagnosis pleurisy,cp Discharge Date 05/02/24 Discharged To: Home Setting Discharge Hospital [facility] Engagement Call Start Time 1308 Admission Date 05/02/24 Medications Discharge medications reviewed and reconciled from hospital? Yes Is the patient having any side effects they believe may be caused by any medication additions or changes? No Does the patient have all medications ordered at discharge? Yes Appointments Does the patient have a primary care provider? Yes Self Management Patient Teaching Does the patient have access to their discharge instructions? Yes What is the patient's perception of their health status since discharge? Same Wrap Up Wrap Up Additional Comments appt sched Call End Time 1310 Pt states the pain she was having has almost completely resolved Current Outpatient Medications on File Prior to Visit Medication Sig Dispense Refill cyclobenzaprine (Flexeril) 10 MG tablet Take 1 tablet (10 mg) by mouth 3 (three) times a day as needed for muscle spasms 90 tablet 2 diazePAM (Valium) 5 MG [...] 24 HOURS* 15 tablet 2 Tirzepatide (Mounjaro) 7.5 MG/0.5ML solution auto-injector Inject 7.5 mg under the skin 1 (one) time per week 2 mL 3 Vortioxetine HBr (Trintellix) 20 MG tablet Take 20 mg by mouth Daily 30 tablet 11 zolpidem (Ambien) 10 MG tablet Take 1 tablet (10 mg) by mouth as needed at bedtime for sleep 30 tablet 2 [DISCONTINUED] HYDROcodone-acetaminophen ([place]) 10-325 MG tablet Take 1 tablet by mouth every 6 (six) hours if needed for moderate pain or severe pain for up to 10 days 40 tablet 0 No current facility-administered medications on [...] date: 12/20/2011 Quit date: 12/19/2021 Years since quittin.3 Smokeless tobacco: Never Vaping Use Vaping status: Some Days Start date: 12/19/2021 Substance Use Topics Alcohol use: Not Currently Comment: Caffeine intake: 1 can pop daily Drug use: Never Family History Problem Relation Name Age of Onset Fibromyalgia Mother Shaun Lupus Mother Shaun Hypertension Mother Shaun Heart disease Mother Hsaun Depression Mother Shaun COPD Mother Shaun Other [...] History: Procedure Laterality Date SECTION, LOW TRANSVERSE 2006 x2 CHOLECYSTECTOMY 1998 ESOPHAGOGASTRODUODENOSCOPY IUD INSERTION Adiana Visit Vitals BP 124/76 Pulse 94 Ht 5' 4 Wt 187 lb SpO2 99% BMI 32.10 kg/m Smoking Status Former BSA 1.96 m Review of Systems Objective Physical Exam Constitutional: General: She is not in acute distress. Appearance: Normal appearance. She is well-developed. HENT: Head: Normocephalic and atraumatic. Eyes: General: No scleral icterus. Conjunctiva/sclera: Conjunctivae normal. Cardiovascular: Rate and Rhythm: Normal rate and regular rhythm. Heart sounds: Normal heart sounds. No murmur heard. Pulmonary: Effort: Pulmonary effort is normal. No respiratory distress. Breath sounds: Normal breath sounds. No wheezing, rhonchi or rales. Chest: Chest wall: Tenderness present. Skin: General: Skin is warm and dry. Neurological: General: No focal deficit present. Mental Status: She is alert and oriented to person, place, and time. Psychiatric: Mood and Affect: Mood normal. Behavior: Behavior normal. Assessment/Plan Diagnoses and all orders for this visit: Costochondritis, acute - CBC and differential - Comprehensive metabolic panel; Future - Sedimentation rate, automated; Future - nabumetone (Relafen) 500 MG tablet; Take 1 tablet (500 mg) by mouth in the morning and 1 tablet (500 mg) before bedtime. Do all this for 28 days. Malaise and fatigue - CBC and differential - Comprehensive metabolic panel; Future - Sedimentation rate, automated; Future Viral syndrome - CBC and differential - Comprehensive metabolic panel; Future - Sedimentation rate, automated; Future Spondylosis of lumbar region without myelopathy or radiculopathy - HYDROcodone-acetaminophen ([place]) 10-325 MG tablet; Take 1 tablet by mouth every 6 (six) hours if needed for moderate pain or severe pain for up to 10 days Follow up in about 1 week (around 05/14/2024) for prn. documented in this encounter [facility] 04-24-2024 Telephone encount er Note OARRS reviewed, Rx sent into patient's pharmacy. [facility] 04-24-2024 Miscellaneous Notes Formattin g of this note might be different from the original. OARRS reviewed, Rx sent into patient's pharmacy. documented in this encounter [facility] 04-07-2024 Telephone encount er Note Dose adjusted, Rx sent. [facility] 04-07-2024 Miscellaneous Notes Formattin g of this note might be different from the original. Dose adjusted, Rx sent. Tirzepatide (Mounjaro) 5 MG/0.5ML solution pen-injector pt would like to up her dosage. [facility] documented in this encounter [facility] 04-07-2024 Telephone encount er Note Tirzepatide (Mounjaro) 5 MG/0.5ML solution pen-injector pt would like to up her dosage. [facility] 03-24-2024 Telephone encount er Note OARRS reviewed, Rx sent into patient's pharmacy. [facility] 03-24-2024 Miscellaneous Notes Formattin g of this note might be different from the original. OARRS reviewed, Rx sent into patient's pharmacy. documented in this encounter [facility] 03-03-2024 History of Presen t illness [...] for sleep 30 tablet 2 [DISCONTINUED] HYDROcodone-acetaminophen ([place]) 10-325 MG tablet Take 1 tablet by [...] region without myelopathy or radiculopathy - HYDROcodone-acetaminophen ([place]) 10-325 MG tablet; Take 1 tablet by mouth every 6 (six) hours if needed for moderate pain or severe pain for up to 10 days Follow up in about 2 weeks (around 03/17/2024) for F/U med changes. documented in this encounter [facility] 02-20-2024 Telephone encount er Note OARRS reviewed, Rx sent into patient's pharmacy. [facility] 02-20-2024 Miscellaneous Notes Formattin g of this note might be different from the original. OARRS reviewed, Rx sent into patient's pharmacy. documented in this encounter [facility] 02-06-2024 History of Presen t illness Narrative Images from the original note were not included. HPI Med Refill Additional comments: Mounlisharo-- discuss increasing dose-- [facility] Last edited by Radha Delgado LPN on 02/06/2024 10:47 AM. Subjective Patient ID: Terese Uribe is a 38 y.o. female who presents for Depression, Obesity, URI, and Med Refill (Mounisaura-- discuss increasing dose-- [facility]). Terese is in for anxiety/depression. States [...] for Routine F/U. documented in this encounter [facility] 01-23-2024 Telephone encount er Note OARRS reviewed, Rx sent into patient's pharmacy. [facility] 01-23-2024 Miscellaneous Notes Formattin g of this note might be different from the original. OARRS reviewed, Rx sent into patient's pharmacy. documented in this encounter [facility] 06-21-2023 History of Presen t illness [...] Follow schedule on package instructions - HYDROcodone-acetaminophen ([place]) 7.5-325 MG tablet; Take 1 tablet by [...] disorder without agoraphobia [facility] Diagnosis Left sided sciatica- Primary Sciatica Spondylosis of lumbar region without myelopathy or radiculopathy [facility]* Diagnosis Spondylosis of lumbar region without myelopathy or radiculopathy [facility]* Diagnosis Panic attacks (CMS/HCC) Panic disorder without agoraphobia [facility]* Diagnosis Other insomnia [facility]* Diagnosis Severe obesity (BMI 35.0-39.9) with comorbidity (CMS/HCC) [facility]* Diagnosis Panic attacks (CMS/HCC) Panic disorder without agoraphobia [facility]* Diagnosis Upper respiratory tract infection, unspecified type- Primary Severe obesity (BMI 35.0-39.9) with comorbidity (CMS/HCC) [facility]* Diagnosis Costochondritis, acute- Primary Malaise and fatigue Viral syndrome Unspecified viral infection, in conditions classified elsewhere and of unspecified site Spondylosis of lumbar region without myelopathy or radiculopathy [facility]* Diagnosis Costochondritis, acute- Primary Malaise and fatigue [facility]* Diagnosis Viral gastroenteritis- Primary Intestinal infection due to other organism, NEC Nausea and vomiting, unspecified vomiting type [facility]* Diagnosis Other insomnia [facility]* Diagnosis Panic attacks (CMS/HCC) Panic disorder without agoraphobia [facility]* Diagnosis Osteoarthritis of spine with radiculopathy, lumbar region- Primary Right sciatic nerve pain Panic attacks (CMS/HCC) Panic disorder without agoraphobia Other insomnia [facility]* Diagnosis Panic attacks (CMS/HCC) Panic disorder without agoraphobia [facility] Consultation (Routine) - Pending Review Specialty Diagnoses / Procedures Referred By Contminor t Referred To Contact Podiatry Diagnoses Plantar fasciitis of right foot Procedures AK OFFICE/OUTPATIENT NEW HIGH MDM 60 MINUTES Leroy White MD [address] [facility] [address] [place] [address] Danny Chung R, DPM FACFAS [address] [facility] [place] [address] Referral ID Status Reason Start Date Expiration Date Visits Requested Visits Authorized [id number] Pending Review Specialty Services Required 06/21/2023 12/18/2023 [...] DATE CREATED AUTHOR 04/19/2020 [facility] DATE CREATED AUTHOR AUTHOR'S ORGANIZ ATION 10/04/2022 [facility] DATE CREATED AUTHOR AUTHOR'S ORGANIZ ATION 05/11/2024 [facility] DATE CREATED AUTHOR AUTHOR'S ORGANIZ ATION 09/13/2024 [facility] EPIC Reason for Visit (unrecogniz [...] Refill Mounjaro-- discuss i ncreasing dose-- [facility] Reason Comments controlled/pain med follow up Follow-up [facility] 05/02/24 DX: CP,PLEURISY RX FOR NABUMETONE GIVEN Reason Onset Date Comments Med Refill 01/22/2024 Reason Comments Chest Pain Reason Onset Date Comments Med Refill 06/25/2024 Reason Onset Date Comments Med Refill 07/29/2024 Reason Comments Back Pain Reason Onset Date Comments Med Refill 09/22/2024 Reason Onset Date Comments Med Refill 09/29/2024 Care Teams (unrecognized sec tion and content) Horticultural Therapist Relationship Specialty Start Date End Date Leroy White MD [address] [place] [address] PCP - General Internal Medicine 11/06/22 Horticultural Therapist Relationship Specialty Start Date End Date Leroy White MD [address] [place] [address] PCP - General Internal Medicine 11/06/22 Horticultural Therapist Relationship Specialty Start Date End Date Leroy White MD [address] [facility] [address] [place] [address] PCP - General Internal Medicine 11/06/22 Horticultural Therapist Relationship Specialty Start Date End Date Leroy White MD [address] [facility] [address] [place] [address] PCP - General Internal Medicine 11/06/22 Horticultural Therapist Relationship Specialty Start Date End Date Leroy White MD [address] [place] [address] PCP - General Internal Medicine 11/06/22 Horticultural Therapist Relationship Specialty Start Date End Date Leroy White MD [address] [place] [address] PCP - General Internal Medicine 11/06/22 Horticultural Therapist Relationship Specialty Start Date End Date Leroy White MD [address] [facility] [address] [place] [address] PCP - General Internal Medicine 11/06/22 Horticultural Therapist Relationship Specialty Start Date End Date Leroy White MD [address] [place] [address] PCP - General Internal Medicine 11/06/22 Horticultural Therapist Relationship Specialty Start Date End Date Leroy White MD [address] [place] [address] PCP - General Internal Medicine 11/06/22 Horticultural Therapist Relationship Specialty Start Date End Date Leroy White MD [address] [place] [address] PCP - General Internal Medicine 11/06/22 Horticultural Therapist Relationship Specialty Start Date End Date Leroy White MD [address] [place] [address] PCP - General Internal Medicine 11/06/22 Horticultural Therapist Relationship Specialty Start Date End Date Leroy White MD [address] [place] [address] PCP - General Internal Medicine 11/06/22 Horticultural Therapist Relationship Specialty Start Date End Date Leroy White MD [address] [place] [address] PCP - General Internal Medicine 11/06/22 Horticultural Therapist Relationship Specialty Start Date End Date Leroy White MD [address] [place] [address] PCP - General Internal Medicine 11/06/22 Horticultural Therapist Relationship Specialty Start Date End Date Leroy White MD [address] [place] [address] PCP - General Internal Medicine 11/06/22 FOR [...] BE BASED ON THE PRIMARY CLINICAL RECORDS. [facility] [facility]. provides no warranty or guarantee of the accuracy or completeness of information in this document.
--- NOTE | 2024-10-17 10:51 | ECG_ITS ---
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 Measurements Intervals [place] Rate: 87 P: 69 WV: 126 QRS: 76 QRSD: 90 T: 44 QT: 362 QTc: 406 Interpretive Statements 1100 Sinus rhythm 9110 normal ECG Compared to ECG 05/02/2024 19:04:36 Short WV interval no longer present Electronically Signed On 10-17-2024 17:34:04 EDT by GIORGIO WATTERS M.D.
--- NOTE | 2024-10-17 10:53 | ED.GENADUL1 ---
HPI HPI - General Adult General Chief complaint: Arrhythmia/Palpitations Stated complaint: HIGH HEART RATE , WEAKNESS Time Seen by Provider: 10/17/24 10:40 Mode of arrival: walk-in History of Present Illness HPI narrative: Patient is a 39-year-old female who is presenting to the ER today with chief complaint of generalized weakness. Patient was at work today. Patient stated that she felt overall generalized weakness, fatigue, but she noticed that her watch stated that her heart rate was in the 150s. Then it went down into the low 100s when she sat down and rested. Patient is at bedside. Patient does not take thyroid medication. Patient's is not lightheaded or dizzy. No headache. No chest pain or shortness of breath. No abdominal pain nausea or vomiting. No acute complaints. Patient finished her last menses 2 weeks ago approximately. Patient states she is not , she had a tubal procedure so that she cannot be . She has no bowel or bladder changes. Patient has not had any type of change into her food or drinking habits recently. No recent traveling. She takes no new medications recently. No other acute complaints. All systems are negative except as noted/marked. All systems reviewed and otherwise negative. Nurses note and vital signs reviewed and patient is not hypoxic. General: The patient appears well and in no apparent distress. Patient is resting comfortably on cart. Patient is not toxic, lethargic, or listless Skin: Warm, dry, no pallor noted. There is no rash noted. No petechiae, purpura. Head: Normocephalic, atraumatic Eye: Normal conjunctiva, no drainage, EOMI. PERRL Ears, Nose, Mouth, and Throat: oral mucosa is moist. Nares patent. Mouth without vesicles. Cardiovascular: Regular Rate and Rhythm, no murmur, gallop, rub Respiratory: Patient is in no distress, no accessory muscle use, lungs are clear to auscultation, no wheezing, rales or rhonchi Back: non-tender, no CVA tenderness bilaterally to percussion. No CT LS midline pain GI: minimal left upper quadrant tenderness to palpation and no other tenderness to palpation, no masses appreciated. No rebound, guarding, or rigidity noted. No distention Musculoskeletal: Patient has full range of motion of all of the extremities, no motor, sensory, or focal neurological deficits Neurological: A&O x4, normal speech Psychiatric: Cooperative Related Data Home Medications ?Medication ?Instructions ?Recorded ?Confirmed cyclobenzaprine 10 mg tablet 10 mg PO BID PRN muscle spasm 05/02/24 10/17/24 diazepam 5 mg tablet 5 mg PO BID PRN anxiety 05/02/24 10/17/24 ondansetron HCl 4 mg tablet 4 mg PO TID-QID PRN nausea and 05/02/24 10/17/24 vomiting zolpidem 10 mg tablet 10 mg PO .HS 05/02/24 10/17/24 Allergies Allergy/AdvReac Type Severity Reaction Status Date / Time ciprofloxacin (From Cipro) Allergy Severe SWELLING Verified 10/17/24 10:31 Latex, Natural Rubber Allergy Intermediate Rash Verified 10/17/24 10:31 Opioid HPI Opioid Management Most Recent Opioid Data: Last Pain Scale 5 05/02/24, 19:09 PFSH PFSH Social History Little interest or pleasure in doing things: not at all Feeling down, depressed, or hopeless: not at all Exam Constitutional Vital Signs, click to edit/add: Last Vital Signs Temp 98.7 F 10/17/24 10:31 Pulse 82 10/17/24 12:50 Resp 23 H 10/17/24 12:50 BP 125/67 10/17/24 12:01 Pulse Ox 80 L 10/17/24 12:01 O2 Del Method Room Air 10/17/24 10:31 Course Vital Signs Vital signs: Vital Signs Temperature 98.7 F 10/17/24 10:31 Pulse Rate 87 10/17/24 10:31 Respiratory Rate 16 10/17/24 10:31 Blood Pressure 118/88 10/17/24 10:31 Pulse Oximetry 98 10/17/24 10:31 Oxygen Delivery Method Room Air 10/17/24 10:31 Temperature 98.7 F 10/17/24 10:31 Pulse Rate 82 10/17/24 12:50 Respiratory Rate 23 H 10/17/24 12:50 Blood Pressure 125/67 10/17/24 12:01 Pulse Oximetry 80 L 10/17/24 12:01 Oxygen Delivery Method Room Air 10/17/24 10:31 Medical Decision Making MDM Narrative Medical decision making narrative: Patient seen and examined: Patient will be given 1 L of IV fluids, lab work, EKG, lab testing. Differential diagnosis includes but is not limited to: Diagnostics and management: Patient will have laboratory studies Relevant laboratory interpretation: Creatinine was 1.12. Magnesium 1.7. Reevaluation: Patient did not feel much better after IV fluids, but did not feel worse. Shared decision making: I discussed with the patient the necessary laboratory findings and radiological findings. Social barriers to healthcare: There are no food insecurities, there is no issue with transportation, there are no insurance barriers. Disposition: I discussed with the patient IV fluids, orthostatics that were normal, and lab testing. No acute indication for her symptoms. Patient will follow-up with PCP next week for reevaluation. She will return to the ER this weekend if no significant improvement. Lab Data Labs: Lab Results 10/17/24 Range/Units 10:42 WBC 7.8 (4.0-11.0) 10^3/uL RBC 4.64 (4.20-5.40) 10^6/uL Hgb 15.0 (12.0-16.0) g/dL Hct 43.0 (36.0-48.0) % MCV 92.7 (81.0-99.0) fL MCH 32.3 (26.7-34.0) pg MCHC 34.9 (29.9-35.2) g/dL RDW 12.5 (11.0-15.0) % Plt Count 204 (150-450) 10^3/uL MPV 11.1 (9.5-13.5) fL Neut % (Auto) 78.3 H (43.0-75.0) % Lymph % (Auto) 11.7 L (20.5-60.0) % Kleberg % (Auto) 8.6 (1.7-12.0) % Eos % (Auto) 0.5 L (0.9-7.0) % Baso % (Auto) 0.8 (0.2-2.0) % Neut # (Auto) 6.1 (1.4-6.5) 10^3/uL Lymph # (Auto) 0.9 L (1.2-3.8) 10^3/uL Kleberg # (Auto) 0.7 (0.3-0.8) 10^3/uL Eos # (Auto) 0.0 (0.0-0.7) 10^3/uL Baso # (Auto) 0.1 (0.0-0.1) 10^3/uL Abs Immat Gran (auto) 0.01 (0.00-0.03) 10^3/uL Imm/Tot Granulo (auto) 0.1 (0.0-0.5) % Sodium 140 (136-145) mmol/L Potassium 3.8 (3.5-5.1) mmol/L Chloride 103 (98-107) mmol/L Carbon Dioxide 28.4 (21.0-32.0) mmol/L Anion Gap 12.4 BUN 9.0 (7.0-18.0) mg/dL Creatinine 1.12 H (0.55-1.02) mg/dL Est GFR ( Amer) >60 (>=60 mL/min/1.73m^2) Est GFR (Non-Af Amer) 54 L (>=60 mL/min/1.73m^2) BUN/Creatinine Ratio 8.0 Glucose 84 (74-106) mg/dL Calcium 9.2 (8.5-10.1) mg/dL Magnesium 1.7 L (1.8-2.4) mg/dL Total Creatine Kinase 70 (26-192) U/L Troponin I High Sens 7.7 (4.0-51.3) pg/mL ECG Data Attestation: I personally reviewed and interpreted this ECG as follows: (EKG interpretation. EKG interpretation. Normal sinus rhythm at 87 beats a minute. Normal axis deviation. No acute ST elevation, no acute ectopy. QTc of 406) Discharge Plan Discharge Chief Complaint: Arrhythmia/Palpitations Clinical Impression: Weakness, Palpitations Patient Disposition: Home, Self-Care Time of Disposition Decision: 12:31 Condition: Fair Prescriptions / Home Meds: No Action diazepam 5 mg tablet 5 mg PO BID PRN (Reason: anxiety) zolpidem 10 mg tablet 10 mg PO .HS ondansetron HCl 4 mg tablet 4 mg PO TID-QID PRN (Reason: nausea and vomiting) cyclobenzaprine 10 mg tablet 10 mg PO BID PRN (Reason: muscle spasm) Print Language: Lithuanian Instructions: Heart Palpitations (ED), Weakness (ED) Additional Instructions: Continue to increase fluids at home. If you have additional symptoms, please follow-up with PCP. Your lab work shows no acute findings. Your magnesium level was slightly low, you are given a magnesium pill. Start taking women's One-A-Day vitamin, Increase fluids daily, Gatorade, Powerade If your heart is racing, and is sustained greater than 120 beats a minute for more than 5-10 minutes, please come back into the ER for reevaluation. Return back to the ER for any other acute concerns Referrals: SUMEET KAUFFMAN [Primary Care Provider, Internal Medicine] - 1 week Discharge Date/Time: 10/17/24 13:06
[2024-10-17 10:59] LABS: Basophils Absolute Auto 0.1 10^3/uL (0.0-0.1); Basophils Percent Auto 0.8 % (0.2-2.0); Eosinophils Percent Auto 0.5 % (0.9-7.0); Immature Granulocytes Abs Auto 0.01 10^3/uL (0.00-0.03); Immature Granulocytes Pct Auto 0.1 % (0.0-0.5); Lymphocytes Absolute Auto 0.9 10^3/uL (1.2-3.8); Lymphocytes Percent Auto 11.7 % (20.5-60.0); Mean Corpuscular HGB Conc 34.9 g/dL (29.9-35.2); Mean Corpuscular Hemoglobin 32.3 pg (26.7-34.0); Mean Corpuscular Volume 92.7 fL (81.0-99.0); Mean Platelet Volume 11.1 fL (9.5-13.5); Monocytes Absolute Auto 0.7 10^3/uL (0.3-0.8); Monocytes Percent Auto 8.6 % (1.7-12.0); Neutrophils Absolute Auto 6.1 10^3/uL (1.4-6.5); Neutrophils Percent Auto 78.3 % (43.0-75.0); Platelet Count 204 10^3/uL (150-450); Red Blood Count 4.64 10^6/uL (4.20-5.40); Red Cell Distribution Width 12.5 % (11.0-15.0); White Blood Count 7.8 10^3/uL (4.0-11.0)
[2024-10-17] MEDS: 0.9 % SODIUM CHLORIDE 1,000 ML 999 ML IV (10:59)
[2024-10-17 11:22] LABS: Anion Gap 12.4; Calcium 9.2 mg/dL (8.5-10.1); Carbon Dioxide 28.4 mmol/L (21.0-32.0); Chloride 103 mmol/L (98-107); Creatine Kinase 70 U/L (26-192); Estimated GFR (African America >60 (>=60 mL/min/1.73m^2); Estimated GFR (Non-African Ame 54 (>=60 mL/min/1.73m^2); Glucose 84 mg/dL (74-106); Potassium 3.8 mmol/L (3.5-5.1); Sodium 140 mmol/L (136-145); Troponin I High Sensitivity 7.7 pg/mL (4.0-51.3)
[2024-10-17 11:23] LABS: Magnesium 1.7 mg/dL (1.8-2.4)
[2024-10-17] MEDS: MAGNESIUM OXIDE 400 MG TABLET 800 MG PO (13:01)
== END 2024-10-17 13:06 | disposition home or self-care (01) ==
PROVIDERS: Emergency Provider Emergency Medicine; PCP Internal Medicine
DX: R53.1 Weakness (principal); R00.2 Palpitations
CPT/HCPCS: 36415; 80048; 82550; 83735; 84484; 85025; 93005; 99285

== ENCOUNTER 2025-01-13 13:06 | Outpatient (OUT) | payer BC, SELFPAY ==
--- OUTSIDE RECORDS SUMMARY | 2025-01-01 10:10 | XMS_ITS | Encounter Summary ---
Author Organization [facility] Address [address] [place] [address] Care Team Providers Care Fire And Safety Helper Name Role Phone Leroy White MD Primary Care Provider [phone] Reason for Visit * Reason Comments Follow-up RT LESION/LT KATTY [place] Encounter Details Date Type Department Care Team ([facility] st Contact Info) Description 01/01/2025 10:10 AM EDT Office Visit [facility] [address] [facility] [address] [place] [address] Maxi Macdonald, DPM [address] [facility] [address] [place] [address] Left Achilles tendinitis (Primary Dx); Verruca plantaris; Foot pain, right; Contracture of left ankle; Plantar fasciitis Social History Tobacco Use Types Packs/Day Years Used Date Smoking Tobacco: Former Cigarettes 1 10 0 12/20/2011 - 12/19/2021 Smokeless Tobacco: Never Tobacco Cessation:Counseling Given: Yes Alcohol Use Standard Drinks/Week Comments Not Currently [...] week 12/12/2023 How often do you attend worship or mandaeism serv ices? Never 12/12/2023 Do you belong to any clubs o r organizations such as worship groups, unions, fraternal or athletic groups, or [...] Recorded Patient Health Questionnaire-2 Score 0 12/20/2022 [place] [facility] - Occupational Stress [...] any time in the past 12 m [facility], were you homeless or living in a fci (including now)? No 12/12/2023 Comments Unknown Sex and Gender Information Value Date Recorded Sex Assigned at Not on file Legal Sex Female 6:49 PM EDT Gender Identity Not on file Sexual Orientation Not on file documented as of this encounter Last Filed Vital Signs Vital Sign Reading Time Taken Comments Blood Pressure - - Pulse - - Temperature - - Respiratory Rate 16 01/01/2025 10:15 AM EDT Oxygen Saturation - - Inhaled Oxygen Concentration - - Weight 79.4 kg (175 lb) 01/01/2025 10:15 AM EDT Height 165.1 cm (5' 5 ) 01/01/2025 10:15 AM EDT Body Mass Index 29.12 01/01/2025 10:15 AM EDT documented in this encounter Progress Notes * Maxi Macdonald, DPM - 01/01/2025 10:10 AM EDT Patient: Terese Uribe : 1985 PCP: Leroy White MD SUBJECTIVE Pt presents today for follow up of skin lesion/neoplasm of unknown origin to the right foot Pt states that previous treatment of acid tx with some improvement Pt rates pain the pain on a 1-10 scale an intensity of 5 Pt presents today for followup. Pt presents today for follow up of left achilles tendonitis . Pt has had previous treatment of 1st steroid injection, nsaids, ice and walking boot with Minimal relief. Pt states current pain on a 1-10 scale is a 8 Pt presents to day for follow up tx. Patient also presents today with complaints of left plantar foot pain for the past year and states pain up to an 8/10 particularly 1st steps in the morning and has tried [id number] treatments and arch supports with negative improvement Allergies: Allergies Allergen Reactions Ciprofloxacin Swelling Latex Wound Dressing Adhesive Unknown Past Medical History: Past Medical History: Diagnosis Date Acute shoulder pain 2012 accident Anxiety Brachial neuritis or radiculitis Cervicalgia CTS (carpal tunnel syndrome) Depression Disturbance of skin sensation Gall bladder disease 1998 Migraine headache Muscle spasm Pain in limb Spina bifida with hydrocephalus (HCC) Medications: Current Outpatient Medications: cyclobenzaprine (Flexeril) 10 MG tablet, Take 1 tablet (10 mg) by mouth 3 (three) times a day as needed for muscle spasms, Disp: 90 tablet, Rfl: 2 diazePAM (Valium) 5 MG tablet, Take 1 tablet (5 mg) by mouth every 12 (twelve) hours if needed for anxiety, sleep or muscle spasms, Disp: 60 tablet, Rfl: 0 HYDROcodone-acetaminophen ([place]) 5-325 MG tablet, Take 1 tablet by mouth every 6 (six) hours if needed for severe pain for up to 10 days, Disp: 40 tablet, Rfl: 0 ondansetron ODT (Zofran-ODT) 4 MG disintegrating tablet, TAKE 1 TABLET (4 MG) BY MOUTH EVERY 8 HOURS NEEDED FOR NAUSEA AND VOMITING, Disp: 28 tablet, Rfl: 1 SUMAtriptan (Imitrex) 50 MG tablet, TAKE 1 TABLET BY MOUTH ONCE DAILY WITHIN 1 HOUR OF MIGRAINE START *MAX 2 PER 24 HOURS*, Disp: 15 tablet, Rfl: 2 Vortioxetine HBr (Trintellix) 20 MG tablet, Take 20 mg by mouth Daily, Disp: 30 tablet, Rfl: 11 zolpidem (Ambien) 10 MG tablet, Take 1 tablet (10 mg) by mouth as needed at bedtime for sleep, Disp: 30 tablet, Rfl: 2 Social History: Social History Socioeconomic History Marital status: Spouse name: Not on file Number of children: Not on file Years of education: Not on file Highest education level: Not on file Occupational History Not on file Tobacco Use Smoking status: Former Current packs/day: 0.00 Average packs/day: 1 pack/day for 10.0 years (10.0 ttl pk-yrs) Types: Cigarettes Start date: 12/20/2011 Quit date: 12/19/2021 Years since quittin.0 Smokeless tobacco: Never Vaping Use Vaping status: Some Days Start date: 12/19/2021 Substance and Sexual Activity Alcohol use: Not Currently Comment: Caffeine intake: 1 can pop daily Drug use: Never Sexual activity: Yes Partners: Male control/protection: Female Sterilization Comment: coils Other Topics Concern Not on file Social History Narrative Not on file Social Drivers of Health Financial Resource Strain: Medium Risk (12/12/2023) Overall Financial Resource Strain (CARDIA) Difficulty of Paying Living Expenses: Somewhat hard Food Insecurity: Food Insecurity Present (12/12/2023) Hunger Vital Sign Worried About Running Out of Food in the Last Year: Sometimes true Ran Out of Food in the Last Year: Never true Transportation Needs: No Transportation Needs (12/12/2023) PRAPARE - Transportation Lack of Transportation (Medical): No Lack of Transportation (Non-Medical): No Physical Activity: Insufficiently Active (12/12/2023) Exercise Vital Sign Days of Exercise per Week: 3 days Minutes of Exercise per Session: 30 min Stress: Stress Concern Present (12/12/2023) [place] [facility] [employer] - Occupational Stress Questionnaire Feeling of Stress : Rather much Social Connections: Moderately Isolated (12/12/2023) Social Connection and Isolation Panel [NHANES] Frequency of Communication with Friends and Family: Twice a week Frequency of Social Gatherings with Friends and Family: Once a week Attends Pentecostal Services: Never Active Member of Clubs or Organizations: No Attends Club or Organization Meetings: Never Marital Status: Intimate Partner Violence: Not At Risk (12/05/2022) Humiliation, Afraid, Rape, and Kick questionnaire Fear of Current or Ex-Partner: No Emotionally Abused: No Physically Abused: No Sexually Abused: No Housing Stability: High Risk (12/12/2023) Housing Stability Vital Sign Unable to Pay for Housing in the Last Year: Yes Number of Times Moved in the Last Year: 0 Homeless in the Last Year: No ROS: Gastrointestinal: denies abdominal pain, ulcers, or changes in appetite or bowel habits Musculoskeletal: Positive generalized arthritis to joints and denies loss of strength. Cardiovascular: denies CP, palpitations, irregular rhythms OBJECTIVE LE EXAM: DERM: Positive hair growth to b/l feet with good skin turgor noted. Negative openings in skin. Nummular lesion measuring at the right sub 2nd metatarsal measuring 0.3 cm x 0.3 cm. VASC: Palpable pedal pulsed b/l with warm to cool tibia to toes b/l NEURO: Gross sensation intact digits 1-10 and b/l feet ORTHO: +5/5 DF/PF/IN/EV right, +5/5 DF/PF/IN/EV left. 20 degrees inversion and 10 degrees eversion STJ b/l. Ankle ROM less than 10 degrees b/l. positive pain on palpation to left Achilles tendon and retrocalcaneal bursa with negative palpable [place] Positive pain on palpation to the left medial calcaneal tubercle US findings of left Retrocalcaneal bursitis Ultrasound DIAGNOSTIC US REPORT - verbal order for ultrasound today The plantar arch and heel of the left foot were scanned today using a 12MHz linear probe in the transverse and sagittal planes, concerning the plantar fascia. Images were obtained. FINDINGS - US exam demonstrates hypo-echoic thickening of plantar fascia with its origin at the medial plantartuberosity of the calcaneus. The area of thickening and inflammation is greater than 4mm (norm = 4 mm). IMPRESSION - Left heel plantar fasciitis ASSESSMENT 1. Left Achilles tendinitis 2. Verruca plantaris 3. Foot pain, right 4. Contracture of left ankle 5. Plantar fasciitis PLAN Recommended to apply ice to affected areas for 20 minutes, twice daily. Ice should not be applied directly to skin. Patient to continue with oral anti - inflammatories as needed for pain and recommended OTC medications such as tylenol or Ibuprofen Continue with cam walker Reviewed ultrasound today with patient Pt given steroid injection to left medial calcaneal tubercle under US guidance with visualization of injected fluid into area of concern per imaging. Injection of 1cc kenalog 10 and 2cc xylocaine 2% plain. Informed patient of risks and benefits of injection including non resolution of symptoms,steroid flare, tendon damage or rupture. Pt consents to proceed. This is the patients 1st injection Prescription today for Medrol pack Application of salinocaine acid medication to lesion/lesions located at right foot Informed pt of risks and benefits of procedure including high reoccurence rate, infection, pain andconsent given. Application of DSD post procedure. Patient have additional 2 weeks off work Maxi Macdonald DPM documented in this encounter Plan of Treatment Upcoming Encounters Date Type Department Care Team (Late st Contact Info) Description 01/15/2025 1:30 PM EDT Clinical Support [facility] [address] [facility] [address] [place] [address] Maxi Macdonald DPM [address] [facility] [address] [place] [address] 01/11/2026 10:15 AM EDT Office Visit [facility] [address] MICHELLE D [address] [phone] Monika Gillette DO [address] [phone] documented as of this encounter Visit Diagnoses Diagnosis Left Achilles tendinitis- Primary Verruca plantaris Plantar wart Foot pain, right Pain in soft tissues of limb Contracture of left ankle Plantar fasciitis Plantar fascial fibromatosis Verruca plantaris- Primary Plantar wart Foot pain, right Pain in soft tissues of limb Left Achilles tendinitis Plantar fasciitis Plantar fascial fibromatosis Contracture of left ankle documented in this encounter Care Teams Fire And Safety Helper Relationship Specialty Start Date End Date Leroy White MD [address] [id number] PCP - General Internal Medicine 11/06/22 documented as of this encounter
--- OUTSIDE RECORDS SUMMARY | 2025-01-07 10:00 | XMS_ITS | Encounter Summary ---
Author Organization [facility] Address [address] [place] [address] Care Team Providers Care Data Conversion Operator Name Role Phone Leroy White MD Primary Care Provider [phone] Reason for Visit * Reason Comments Gynecologic Exam New patient here for a yearly. Denies problems. Mammogram order sent to [facility]. Having monthly periods lasting days with heavy bleeding, changing a super+ plus tampon in 1 hr and severe cramping in the past 2 months. LMP 12/31/24 Has Non-chemical tubal (coils) for birthcontrol. Last pap more that 2 years ago. Hx of abnormal pap 18 years ago. Encounter Details Date Type Department Care Team (Late st Contact Info) Description 01/07/2025 10:00 AM EDT Office Visit SOPHIE Wright OBGYMayela [address] MICHELLE D [address] [phone] Monika Gillette DO [address] [phone] Encounter for gynecological examination without abnormal finding (Primary Dx); Screening for malignant neoplasm of cervix; Encounter for screening for human papillomavirus (HPV); Other screening mammogram; Menorrhagia with regular cycle; Dysmenorrhea; Hx of nonchemical tubal occlusion; Thyroid disorder screen Social History Tobacco Use Types Packs/Day Years Used Date Smoking Tobacco: Former Cigarettes 1.1 13.3 0 12/20/2011 - 12/19/2021 Smokeless Tobacco: Never [...] week 12/12/2023 How often do you attend jew or tenriism serv ices? Never 12/12/2023 Do you belong to any clubs o r organizations such as jew groups, unions, fraternal or athletic groups, or [...] Recorded Patient Health Questionnaire-2 Score 0 12/20/2022 [facility] - Occupational Stress Questionnaire Answer Date Recorded [...] any time in the past 12 m [facility], were you homeless or living in a care home (including now)? No 12/12/2023 Comments No Sex and Gender Information Value Date Recorded Sex Assigned at Not on file Legal Sex Female 6:49 PM EDT Gender Identity Not on file Sexual Orientation Not on file documented as of this encounter Last Filed Vital Signs Vital Sign Reading Time Taken Comments Blood Pressure 116/74 01/07/2025 10:10 AM EDT Pulse - - Temperature - - Respiratory Rate - - Oxygen Saturation - - Inhaled Oxygen Concentration - - Weight 79.8 kg (176 lb) 01/07/2025 10:10 AM EDT Height - - Body Mass Index 29.29 01/01/2025 10:15 AM EDT documented in this encounter Progress Notes * Monika Gillette DO - 01/07/2025 10:00 AM EDT Images from the original note were not included. Monika Gillette DO Obstetrics and Gynecology Name: Terese Uribe Date/Time of Service:01/07/2025 1:09 PM :1985 Age: 39 y.o. Subjective Terese Uribe is a 39 y.o. female who is here for a routine exam. Gynecologic Exam (New patient here for a yearly. Denies problems. Mammogram order sent to [facility]. Having monthly periods lasting days with heavy bleeding, changing a super+ plus tampon in 1 hr and severe cramping in the past 2 months. LMP 12/31/24 Has Non-chemical tubal (coils) for birthcontrol. Last pap more that 2 years ago. Hx of abnormal pap 18 years ago.) Control Contraception: Essure. LMP: Patient's last menstrual period was 12/31/2024. Last Mammogram No results found for this or any previous visit. Current Outpatient Medications on File Prior to Visit Medication Sig Dispense Refill cyclobenzaprine (Flexeril) 10 MG tablet Take 1 tablet (10 mg) by mouth 3 (three) times a day as needed for muscle spasms 90 tablet 2 diazePAM (Valium) 5 MG tablet Take 1 tablet (5 mg) by mouth every 12 (twelve) hours if needed for anxiety, sleep or muscle spasms 60 tablet 1 methylPREDNISolone (Medrol Dospak) 4 MG tablets Follow schedule on MEDROL PACK package instructionsto be used as directed 21 tablet 0 ondansetron ODT (Zofran-ODT) 4 MG disintegrating tablet TAKE 1 TABLET (4 MG) BY MOUTH EVERY 8 HOURSAS NEEDED FOR NAUSEA AND VOMITING 28 tablet 1 SUMAtriptan (Imitrex) 50 MG tablet TAKE 1 TABLET BY MOUTH ONCE DAILY WITHIN 1 HOUR OF MIGRAINE START *MAX 2 PER 24 HOURS* 15 tablet 2 Vortioxetine HBr (Trintellix) 20 MG tablet Take 20 mg by mouth Daily 30 tablet 11 zolpidem (Ambien) 10 MG tablet TAKE 1 TABLET (10 MG) BY MOUTH NEEDED AT BEDTIME FOR SLEEP 30 tablet 2 No current facility-administered medications on file prior to visit. 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 (human papilloma virus) infection 2007 Migraine headache Muscle spasm Pain in limb Spina bifida with hydrocephalus (HCC) Past Surgical History: Procedure Laterality Date SECTION, LOW TRANSVERSE 2007 x2 CHOLECYSTECTOMY 1998 ESOPHAGOGASTRODUODENOSCOPY IUD INSERTION Adiana TUBAL LIGATION 2010 Family History Problem Relation Name Age of [...] Father's Brother Marcos Cancer Father's Sister Pat Social History Tobacco Use Smoking status: Former Current packs/day: 0.00 Average packs/day: 1.1 packs/day for 13.3 years (15.0 ttl pk-yrs) Types: Cigarettes Start date: 12/20/2011 Quit date: 12/19/2021 Years since quittin.0 Smokeless tobacco: Never Vaping Use Vaping status: Some Days Start date: 12/19/2021 Substance Use Topics Alcohol use: Not Currently Comment: Caffeine intake: 1 can pop daily Drug use: Never OB History Para Term AB Living 2 2 SAB IAB Ectopic Multiple Live Births # Outcome Date GA Lbr Lavell/2nd Weight Sex Type Anes PTL Lv 2 Para 1 Para Allergies Allergen Reactions Ciprofloxacin Swelling Latex Wound Dressing Adhesive Unknown Review of Systems Constitutional: Negative. Respiratory: Negative. Cardiovascular: Negative. Gastrointestinal: Negative. Musculoskeletal: Negative. Skin: Negative. Neurological: Negative. Endocrine: Negative. Objective BP 116/74 Wt 176 lb LMP 12/31/2024 BMI 29.29 kg/m?? Body mass index is 29.29 kg/m??. Physical Exam Genitourinary: Urethral meatus normal. No lesions in the vagina. Right Labia: No lesions. Left Labia: No lesions. No vaginal discharge. Right Adnexa: not tender and no mass present. Left Adnexa: not tender and no mass present. No cervical lesion. Uterus is tender. Uterus is anteverted. No urethral stress urinary incontinence with cough stress test present. Bladder is not tender. Breasts: Right: No mass, nipple discharge, skin change or tenderness. Left: No mass, nipple discharge, skin change or tenderness. HENT: Head: Normocephalic and atraumatic. Mouth/Throat: Mouth: Mucous membranes are moist. Cardiovascular: Rate and Rhythm: Normal rate and regular rhythm. Pulmonary: Effort: Pulmonary effort is normal. Breath sounds: Normal breath sounds. Abdominal: General: Bowel sounds are normal. Palpations: Abdomen is soft. Musculoskeletal: General: No tenderness. Cervical back: Neck supple. Neurological: Mental Status: She is alert and oriented to person, place, and time. Skin: General: Skin is warm and dry. Psychiatric: Mood and Affect: Mood normal. Vitals and nursing note reviewed. Pelvic ultrasound revealed: Measurements: Uterus: 8.3 x 3.9 x 4.9 cm Volume: 83.3 cm?? Endometrial thickness: 5.8 mm Right ovary: 2.6 x 2.1 x 1.5 cm Volume: 4.2 cm?? Left ovary: 3.4 x 2.3 x 1.9 cm Volume: 8.0 cm?? Findings: Uterus: The uterus is normal in size and contour with the exception of c/section scar. Position: Anterverted Malformations: none Myometrium: The myometrium is homogenous in echotexture, there are no overt fibroids. There are bright echogenic structures located on the right and left cornua region that likely represents essure coils. Fibroid(s): no overt fibroid(s) Endometrium: There is some fluid collecting near the c/section scar and the cervical portion of theendometrium. Polyp(s): no overt polyp(s) Cervix: There is fluid noted within the cervix. Right ovary: Visualized Morphology: normal appearing Cyst(s): none Doppler: power doppler shows ovarian blood profusion Right adnexa: no overt adnexal mass Left ovary: Visualized Morphology: normal appearing Cyst(s): The left ovary contains several small follicular like cysts with the largest measuring 1.6x 1.2 x 1.6 cm. Doppler: power doppler shows ovarian blood profusion Left adnexa: no overt adnexal mass Cul de Sac: no free fluid Assessment/Plan 1. Encounter for gynecological examination without abnormal finding (Primary) Breast and pelvic exam performed. Discussed findings. Patient to contact the office with any changes to her gynecological condition. 2. Screening for malignant neoplasm of cervix Cervical cytology and co-testing performed. Patient to contact the office for results - IGP, APT HPV,RFX 16/18,45 3. Encounter for screening for human papillomavirus (HPV) - IGP, APT HPV,RFX 16/18,45 4. Other screening mammogram Mammogram order sent. Patient to schedule appointment - Bilateral screening mammogram with tomosynthesis 5. Menorrhagia with regular cycle Pelvic ultrasound findings discussed. Will assess CMP, CBC, FSH and TSH levels, orders given to patient. Will notify patient of results. Treatment/management options discussed: continue observation vs. Hormonal treatment vs. Endometrial ablation vs. Hysterectomy. Patient voiced interest in continueobservation at this time and to contact the office with any concerns/questions. - CBC - Comprehensive metabolic panel - Follicle stimulating hormone 6. Dysmenorrhea - CBC - Comprehensive metabolic panel - Follicle stimulating hormone 7. Hx of nonchemical tubal occlusion 8. Thyroid disorder screen - Tsh+free t4; Future - Tsh+free t4 ICD-10-CM 1. Encounter for gynecological examination without abnormal finding Z01.419 2. Screening for malignant neoplasm of cervix Z12.4 IGP, APT HPV,RFX 16/18,45 3. Encounter for screening for human papillomavirus (HPV) Z11.51 IGP, APT HPV,RFX 16/18,45 4. Other screening mammogram Z12.31 Bilateral screening mammogram with tomosynthesis 5. Menorrhagia with regular cycle N92.0 CBC Comprehensive metabolic panel Follicle stimulating hormone 6. Dysmenorrhea N94.6 CBC Comprehensive metabolic panel Follicle stimulating hormone 7. Hx of nonchemical tubal occlusion Z98.890 8. Thyroid disorder screen Z13.29 Tsh+free t4 Tsh+free t4 Follow up in 1 year (on 01/07/2026) for Yearly. Monika Gillette DO 01/07/2025 1:09 PM documented in this encounter Miscellaneous Notes * Addendum Note - Monika Gillette DO - 01/07/2025 10:00 AM EDTAddended by: MONIKA GILLETTE on: 01/07/2025 01:14 PM Modules accepted: Level of Service documented in this encounter Plan of Treatment Upcoming Encounters Date Type Department Care Team (Late st Contact Info) Description 01/15/2025 1:30 PM EDT Clinical Support [facility] [address] [facility] 120 [place] [phone] Maxi Macdonald, DPJose [address] [facility] 5 [place] [address] 01/11/2026 10:15 AM EDT Office Visit [facility] Adriana GAYLEGYMayela [address] MICHELLE D [address] [phone] Monika Gillette DO [address] [phone] Scheduled Orders Name Type Priority Associated Diagnoses Orde r Schedule Bilateral screening mammogram with tomosynthesis Imaging Routine Other screening mammogram Ordered: 01/07/2025 Tsh+free t4 Lab Routine Thyroid disorder screen Expected: 01/07/2025 (Approximate), Expires: 01/07/2026 CBC Lab Routine Menorrhagia with regular cycle Dysmenorrhea Ordered: 01/07/2025 Comprehensive metabolic panel Lab Routine Menorrhagia with regular cycle Dysmenorrhea Ordered: 01/07/2025 Follicle stimulating hormone Lab Routine Menorrhagia with regular cycle Dysmenorrhea Ordered: 01/07/2025 documented as of this encounter Procedures Procedure Name Priority Date/Time Associated Diagnosis Comments IGP, APT HPV,RFX 16/18,45 Routine 01/07/2025 12:00 AM EDT Screening for malignant neoplasm of cervix Encounter for screening for human papillomavirus (HPV) documented in this encounter Results * IGP, APT HPV,RFX 16/18,45 (01/07/2025 12:00 AM EDT) Diagnosis: Comment [facility] Comment:NEGATIVE FOR INTRAEP ITHELIAL LESION OR MALIGNANCY. Specimen Adequacy: Comment [facility] Comment:Satisfactory for scooter luation. No endocervical component is identified. Clinician Provided ICD10: Comment [facility] Comment: Z12.4 Z11.51 Performed By: Comment [facility] Comment:Munira Ayoub, Cytolog ist (ASCP) Cyto Comments . [facility] Note: Comment [facility] Comment: The Pap smear is a screening test designed to aid in the detection of premalignant and malignant conditions of the uterine cervix. It is not a diagnostic procedure and should not be used as the sole means of detecting cervical cancer. Both false-positive and false-negative reports do occur. Test Methodology: Comment [facility] Comment: This liquid based ThinPrep(R) pap test was screened with the use of an image guided system. HPV Aptima Negative Negative [facility] Comment: This nucleic acid amplification test detects fourteen high-risk HPV types (16,18,31,33,35,39,45,51,52,56,58,59,66,68) without differentiation. Vaginal Fluid 01/07/2025 01/08/2025 Narrative [facility] - 01/10/2025 12:35 PM EDT Performed at: [facility] [address] [place], [place] [id number] Specialist Wound Care: Johnson Camacho MD, Phone: [phone] Performed at: 02 - [facility] [address] [place], [place] [id number] Specialist Wound Care: Catherine Stone MD, Phone: [phone] Performed at: 03 - [facility] [address] [id number] Specialist Wound Care: Catherine Stone MD, Phone: [phone] Specimen Comment: No. of containers..01 ThinPrep Vial us Monika Gillette DO LAB BLOOD ORDERABLES Final Result [facility] documented in this encounter Visit Diagnoses Diagnosis Encounter for gynecological examination without abnormal finding- Primary Screening for malignant neoplasm of cervix Screening for malignant neoplasm of the cervix Encounter for screening for human papillomavirus (HPV) Other screening mammogram Menorrhagia with regular cycle Dysmenorrhea Hx of nonchemical tubal occlusion Thyroid disorder screen Screening for thyroid disorder Verruca plantaris- Primary Plantar wart Foot pain, right Pain in soft tissues of limb Left Achilles tendinitis Plantar fasciitis Plantar fascial fibromatosis Contracture of left ankle documented in this encounter Care Teams Data Conversion Operator Relationship Specialty Start Date End Date Leroy White MD [address] [place] [address] PCP - General Internal Medicine 11/06/22 documented as of this encounter
--- OUTSIDE RECORDS SUMMARY | 2025-01-07 11:00 | XMS_ITS | Encounter Summary ---
Author Organization [facility] Address [address] [facility] [place] [address] Care Team Providers Care Tourist Cabin Keeper Name Role Phone Leroy White MD Primary Care Provider [phone] Encounter Details Date Type Department Care Team (Latest Contact Info) Description 01/07/2025 11:00 AM EDT Ancillary Procedure [facility] [address] MICHELLE D [address] [phone] Menorrhagia with regular cycle; Dysmenorrhea Social History Tobacco Use Types Packs/Day Years [...] week 12/12/2023 How often do you attend hindu or mosque serv ices? Never 12/12/2023 Do you belong to any clubs o r organizations such as hindu groups, unions, fraternal or athletic groups, or [...] Recorded Patient Health Questionnaire-2 Score 0 12/20/2022 [facility] - Occupational Stress Questionnaire Answer Date [...] any time in the past 12 m [facility], were you homeless or living in a [place] health care facility (including now)? No 12/12/2023 Comments No Sex and Gender Information Value Date Recorded Sex Assigned at Not on file Legal Sex Female 6:49 PM EDT Gender Identity Not on file Sexual Orientation Not on file documented as of this encounter Plan of Treatment Upcoming Encounters Date Type Department Care Team (Late st Contact Info) Description 01/15/2025 1:30 PM EDT Clinical Support [facility] [address] [facility] 120 [place] [address] Maxi Macdonald DPM 8[address] [facility] 5 [place] [address] 01/11/2026 10:15 AM EDT Office Visit [facility] Adriana MENDEZ [address] [facility] 2 [place] [address] Monika Gillette, DO [address] [phone] Pending Results Name Type Priority Associated Diagnoses Date /Time US pelvis transvaginal Imaging Routine Menorrhagia with regular cycle Dysmenorrhea 01/07/2025 11:06 AM EDT documented as of this encounter Visit Diagnoses Diagnosis Menorrhagia with regular cycle Dysmenorrhea Verruca plantaris- Primary Plantar wart Foot pain, right Pain in soft tissues of limb Left Achilles tendinitis Plantar fasciitis Plantar fascial fibromatosis Contracture of left ankle documented in this encounter Care Teams Tourist Cabin Keeper Relationship Specialty Start Date End Date eLroy White MD [address] [place] [id number] PCP - General Internal Medicine 11/06/22 documented as of this encounter
--- NOTE | 2025-01-13 13:09 | MM_ITS ---
Patient Name: KELLY PEREZ MR#: [id number] : 1985 Exam Date: 01/13/2025 Ordering Doctor: DR. PHUC DE SOUZA D.O. RADIOLOGY REPORT PROCEDURE: MM TOMOSYNTHESIS SCREENING BI COMPARISON: None. INDICATIONS: screening mammogram Calculator Name NCI Breast Cancer Risk Assessment Tool 5 Year Breast Cancer Risk 0.40% Lifetime Breast Cancer Risk 6.70% Personal Breast Cancer No Personal Ovarian Cancer No Treatments None Family Cancers Grandmother-paternal with breast cancer at age 45; Aunt-paternal with breast cancer at age 45; Uncle-paternal with small cell cancer at age 40; Uncle-paternal with small cell cancer at age 42. LOCATION: [facility] BREAST COMPOSITION: The breasts are heterogeneously dense, which may obscure small masses. FINDINGS: DIAGNOSTIC CATEGORY 1--NEGATIVE. RIGHT BREAST: No significant suspicious finding. LEFT BREAST: No significant suspicious finding. RECOMMENDATIONS: ROUTINE MAMMOGRAM AND CLINICAL EVALUATION IN 12 MONTHS. Dictated by: Campbell Manley DO on 01/14/2025 at 14:51 Approved by: Campbell Manley DO on 01/14/2025 at 14:52
--- OUTSIDE RECORDS SUMMARY | 2025-01-13 13:10 | XMS_ITS | Encounter Summary ---
Author Organization [facility] Address [address] [facility] [place] [address] Care Team Providers Care Lacquer Pin Press Operator Name Role Phone Leroy White MD Primary Care Provider [phone] Encounter Details Date Type Department Care Team (Late st Contact Info) Description 05/05/2024 Abstract [facility] [address] [facility] 110 [place] [address] Leroy White MD [address] [facility] 110 [place] [address] Social History Tobacco Use Types Packs/Day Years [...] week 12/12/2023 How often do you attend mosque or scientology serv ices? Never 12/12/2023 Do you belong to any clubs o r organizations such as mosque groups, unions, fraternal or athletic groups, or [...] Recorded Patient Health Questionnaire-2 Score 0 12/20/2022 [facility] - Occupational Stress Questionnaire Answer [...] place to sleep or slept in a detention (including now)? No 12/05/2022 Housing Stability Vital Sign Answer Jan e Recorded In the last 12 months, was t here a time when you were not able to pay the mortgage or rent on time? Yes 12/12/2023 In the past 12 months, how m any times have you moved where you were living? 0 12/12/2023 At any time in the past 12 m [facility], were you homeless or living in a detention (including now)? No 12/12/2023 Comments Unknown Sex and Gender Information Value Date Recorded Sex Assigned at Not on file Legal Sex Female 6:49 PM EDT Gender Identity Not on file Sexual Orientation Not on file documented as of this encounter Plan of Treatment Upcoming Encounters Date Type Department Care Team (Late st Contact Info) Description 01/15/2025 1:30 PM EDT Clinical Support [facility] 112 [facility] 120 [place] [phone] Maxi Macdonald DPM [address] [facility] 5 [place] [address] 01/11/2026 10:15 AM EDT Office Visit SOPHIE MENDEZ [address] [phone] Monika Gillette, DO [address] [phone] documented as of this encounter Visit Diagnoses Not on filedocumented in this encounter Care Teams Lacquer Pin Press Operator Relationship Specialty Start Date End Date Leroy White MD 112 [facility] 110 [place] [address] PCP - General Internal Medicine 11/06/22 documented as of this encounter
--- OUTSIDE RECORDS SUMMARY | 2025-01-13 13:10 | XMS_ITS | Encounter Summary ---
Author Organization [facility] Address [address] [facility] [place] [address] Care Team Providers Care Rubber Goods Supervisor Name Role Phone Leroy White MD Primary Care Provider [phone] Encounter Details Date Type Department Care Team (Late st Contact Info) Description 02/01/2023 Abstract [facility] [address] [facility] 110 [place] [address] Ciara Lyles, RUBBER WASHER [address] [facility] 110 [place], [place] [phone] Social History Tobacco Use Types Packs/Day Years [...] often do you attend chur ch or moravian services? Never 12/05/2022 Do you belong to [...] Recorded Patient Health Questionnaire-2 Score 0 12/20/2022 [facility] - [...] place to sleep or slept in a prison (including now)? No 12/05/2022 Comments Unknown Sex [...] EDT Clinical Support [facility] 112 [facility] 120 [place] [address] Maxi Macdonald DPM 3002 [facility] 5 [place] [address] 01/11/2026 10:15 AM EDT Office Visit [facility] Adriana MENDEZ [address] MICHELLE D [address] [address] Monika Gillette DO [address] [address] documented as of this encounter Visit Diagnoses Not on filedocumented in this encounter Care Teams Rubber Goods Supervisor Relationship Specialty Start Date End Date Leroy White MD [address] [place] [id number] PCP - General Internal Medicine 11/06/22 documented as of this encounter
--- OUTSIDE RECORDS SUMMARY | 2025-01-13 13:10 | XMS_ITS | Encounter Summary ---
Author Organization [facility] Address [address] [facility] [place] [address] Care Team Providers Care C Developer Name Role Phone Leroy White MD Primary Care Provider [phone] Encounter Details Date Type Department Care Team (Late st Contact Info) Description 10/20/2024 Abstract [facility] 112 [address] [facility] 110 [place] [address] Leroy White MD 112 [place] [facility] 110 [place] [address] Social History Tobacco Use Types [...] week 12/12/2023 How often do you attend hoahaoism or pentecostalism serv ices? Never 12/12/2023 Do you belong to any clubs o r organizations such as hoahaoism groups, unions, fraternal or athletic groups, or [...] Recorded Patient Health Questionnaire-2 Score 0 12/20/2022 [facility] - Occupational Stress Questionnaire Answer Date [...] any time in the past 12 m [facility], were you homeless or living [...] EDT Clinical Support [facility] [address] [facility] 120 [place] [phone] Maxi Macdonald DPM 3776 [facility] 5 [place] [address] 01/11/2026 10:15 AM EDT Office Visit SOPHIE MENDEZ [address] [phone] Monika Gillette, DO [address] [place] [address] documented as of this encounter Visit Diagnoses Not on filedocumented in this encounter Care Teams C Developer Relationship Specialty Start Date End Date Leroy White MD 112 [facility] 110 [place] [address] PCP - General Internal Medicine 11/06/22 documented as of this encounter
--- OUTSIDE RECORDS SUMMARY | 2025-01-13 13:10 | XMS_ITS | Encounter Summary ---
Author Organization [facility] Address [address] [facility] [place] [address] Care Team Providers Care Blow Machine Tender Starch Spraying Name Role Phone Leroy White MD Primary Care Provider [phone] Encounter Details Date Type Department Care Team (Late st Contact Info) Description 06/19/2024 Abstract [facility] 112 [facility] [facility] 110 [place] [address] Leroy White MD 112 [facility] 110 [place] [address] Social History Tobacco Use Types [...] week 12/12/2023 How often do you attend episcopalian or worship serv ices? Never 12/12/2023 Do you belong to any clubs o r organizations such as episcopalian groups, unions, fraternal or athletic groups, or [...] Questionnaire-2 Score 0 12/20/2022 [facility] - Occupational Stress Questionnaire Answer [...] in a prison (including now)? No 12/05/2022 Housing Stability Vital Sign Answer Jan e Recorded In the last 12 months, was t here a time when you were not able to pay the mortgage or rent on time? Yes 12/12/2023 In the past 12 months, how m any times have you moved where you were living? 0 12/12/2023 At any time in the past 12 m [facility], were you homeless or living in a prison (including now)? No 12/12/2023 Comments Unknown Sex [...] Clinical Support [facility] [address] [facility] 120 [place] [phone] Maxi Macdonald DPM 0284 [facility] 5 [place] [address] 01/11/2026 10:15 AM EDT Office Visit SOPHIE MENDEZ [address] D [address] [phone] Monika Gillette, DO [address] [place] [address] [address] documented as of this encounter Visit Diagnoses Not on filedocumented in this encounter Care Teams Blow Machine Tender Starch Spraying Relationship Specialty Start Date End Date Leroy White MD 112 [facility] 110 [place] [address] PCP - General Internal Medicine 11/06/22 documented as of this encounter
--- OUTSIDE RECORDS SUMMARY | 2025-01-13 13:10 | XMS_ITS | Encounter Summary ---
Author Organization [facility] Address [address] [facility] [place] [address] Care Team Providers Care Director Of Radio Services Name Role Phone Leroy White MD Primary Care Provider [phone] Encounter Details Date Type Department Care Team (Late st Contact Info) Description 05/04/2023 Abstract [facility] 112 [address] [facility] 110 [place] [phone] Leroy White MD 112 [facility] 110 [place] [address] Social History Tobacco Use Types [...] 12/05/2022 How often do you attend chur or hinduism services? Never 12/05/2022 Do you belong to any clubs o r organizations such as taoism groups, unions, fraternal or athletic groups, or [...] in a penitentiary (including now)? No 12/05/2022 Comments Unknown Sex [...] Upcoming Encounters Date Type Department Care Team ([facility] Contact Info) Description 01/15/2025 1:30 PM EDT Clinical Support [facility] 112 [facility] 120 [place] [phone] Maxi Macdonald, TERESA 3008 [facility] 5 [place] [address] 01/11/2026 10:15 AM EDT Office Visit [facility] Adriana MENDEZ [address] MICHELLE D [address] [address] Monika Gillette DO [address] [phone] documented as of this encounter Visit Diagnoses Not on filedocumented in this encounter Care Teams Director Of Radio Services Relationship Specialty Start Date End Date Leroy White MD 112 [facility] 110 [place] [address] PCP - General Internal Medicine 11/06/22 documented as of this encounter
--- OUTSIDE RECORDS SUMMARY | 2025-01-13 13:10 | XMS_ITS | Encounter Summary ---
Author Organization [facility] Address [address] [place] [address] Care Team Providers Care Board Writer Name Role Phone Leroy White MD Primary Care Provider [phone] Encounter Details Date Type Department Care Team (Latest Contact Info) Description 01/07/2025 Travel Social History Tobacco Use Types Packs/Day Years [...] How often do you attend sabianist or anglican serv ices? Never 12/12/2023 Do [...] Recorded Patient Health Questionnaire-2 Score 0 12/20/2022 [facility] ional [facility] - Occupational Stress [...] any time in the past 12 m [facility], were you homeless or living in a group home (including now)? No 12/12/2023 Comments No Sex and Gender Information Value Date Recorded Sex Assigned at Not on file Legal Sex Female 6:49 PM EDT Gender Identity Not on file Sexual Orientation Not on file documented as of this encounter Plan of Treatment Upcoming Encounters Date Type Department Care Team ([facility] st Contact Info) Description 01/15/2025 1:30 PM EDT Clinical Support [facility] 112 [facility] 120 [place] [phone] Maxi Macdonald, DPJose 0964 [facility] 5 [place] [address] 01/11/2026 10:15 AM EDT Office Visit [facility] Adriana MENDEZ [address] MICHELLE D [address] [address] Monika Gillette DO [address] [address] documented as of this encounter Visit Diagnoses Not on filedocumented in this encounter Care Teams Board Writer Relationship Specialty Start Date End Date Leroy White MD [address] [address] PCP - General Internal Medicine 11/06/22 documented as of this encounter
--- OUTSIDE RECORDS SUMMARY | 2025-01-13 13:10 | XMS_ITS | Encounter Summary ---
Author Organization [facility] Address [address] [facility] [place] [address] Care Team Providers Care Pipeliner Name Role Phone Leroy White MD Primary Care Provider [phone] Encounter Details Date Type Department Care Team (Late st Contact Info) Description 12/02/2024 Orders Only [facility] [address] MICHELLE D [address] [phone] Arlene Bledsoe MA Social History Tobacco Use Types Packs/Day Years [...] week 12/12/2023 How often do you attend catholic or mosque serv ices? Never 12/12/2023 Do you belong to any clubs o r organizations such as catholic groups, unions, fraternal or athletic groups, or [...] Recorded Patient Health Questionnaire-2 Score 0 12/20/2022 [facility] of Occupat ional Health - [...] place to sleep or slept in a skilled nursing (including now)? No 12/05/2022 Housing Stability Vital [...] in the past 12 m [facility], were you homeless or living in a skilled nursing (including now)? No 12/12/2023 Comments Unknown Sex and Gender Information Value Date Recorded Sex Assigned at Not on file Legal Sex Female 6:49 PM EDT Gender Identity Not on file Sexual Orientation Not on file documented as of this encounter Plan of Treatment Upcoming Encounters Date Type Department Care Team ([facility] st Contact Info) Description 01/15/2025 1:30 PM EDT Clinical Support [facility] 112 [facility] 120 [place] [address] Maxi Macdonald DPM 3005 [facility] 5 [place] [address] 01/11/2026 10:15 AM EDT Office Visit [facility] Adriana MENDEZ [address] MICHELLE D [facility] 2 [place] [phone] Nataprawira, Monika J, DO [address] [facility] 2 [place] [phone] documented as of this encounter Visit Diagnoses Not on filedocumented in this encounter Care Teams Pipeliner Relationship Specialty Start Date End Date Leroy White MD 112 [facility] 110 [place] [address] PCP - General Internal Medicine 11/06/22 documented as of this encounter
--- OUTSIDE RECORDS SUMMARY | 2025-01-13 13:10 | XMS_ITS | Encounter Summary ---
Author Organization [facility] Address [address] [facility] [address] [place] [address] Care Team Providers Care Dry Chain Operator Name Role Phone Leroy White MD Primary Care Provider [phone] Encounter Details Date Type Department Care Team ([facility] st Contact Info) Description 12/26/2024 Abstract [facility] 112 [facility] 120 [place] [address] Maxi Macdonald, DPM 3001 [facility] 5 [place] [address] Social History Tobacco Use Types Packs/Day Years [...] week 12/12/2023 How often do you attend denominational or episcopalian serv ices? Never 12/12/2023 Do you belong to any clubs o r organizations such as denominational groups, unions, fraternal or athletic groups, or [...] Health Questionnaire-2 Score 0 12/20/2022 [facility] of Occupat ional Health - Occupational Stress [...] place to sleep or slept in a half-way (including now)? No 12/05/2022 Housing Stability Vital Sign Answer Jan e Recorded In the last 12 months, was t here a time when you were not able to pay the mortgage or rent on time? Yes 12/12/2023 In the past 12 months, how m any times have you moved where you were living? 0 12/12/2023 At any time in the past 12 m [facility], were you homeless or living in a half-way (including now)? No 12/12/2023 Comments Unknown Sex [...] EDT Clinical Support [facility] 112 [facility] 120 [place] [phone] Maxi Macdonald, DPM 0928 [facility] 5 [place] [address] 01/11/2026 10:15 AM EDT Office Visit SOPHIE MENDEZ [address] [phone] Monika Gillette, DO [address] [address] documented as of this encounter Visit Diagnoses Not on filedocumented in this encounter Care Teams Dry Chain Operator Relationship Specialty Start Date End Date Leroy White MD 112 [facility] 110 [place] [address] PCP - General Internal Medicine 11/06/22 documented as of this encounter
--- OUTSIDE RECORDS SUMMARY | 2025-01-13 13:10 | XMS_ITS | Encounter Summary ---
Author Organization [facility] Address [address] [facility] [place] [address] Care Team Providers Care Die Mechanic Name Role Phone Leroy White MD Primary Care Provider [phone] Encounter Details Date Type Department Care Team (Late st Contact Info) Description 05/06/2024 Abstract [facility] 112 [facility] [facility] 110 [place] [address] Leroy White MD 112 [place] [facility] 110 [place] [address] Social History Tobacco Use Types [...] week 12/12/2023 How often do you attend lutheran or anabaptist serv ices? Never 12/12/2023 Do you belong to any clubs o r organizations such as lutheran groups, unions, fraternal or athletic groups, or [...] Recorded Patient Health Questionnaire-2 Score 0 12/20/2022 [facility] - Occupational Stress Questionnaire Answer Date [...] in a jail (including now)? No 12/05/2022 Housing Stability Vital Sign Answer Jan e Recorded In the last 12 months, was t here a time when you were not able to pay the mortgage or rent on time? Yes 12/12/2023 In the past 12 months, how m any times have you moved where you were living? 0 12/12/2023 At any time in the past 12 m [facility], were you homeless or living in a jail (including now)? No 12/12/2023 Comments Unknown Sex [...] EDT Clinical Support [facility] 112 [facility] 120 [place] [phone] Maxi Macdonald DPM 4218 [facility] 5 [place] [address] 01/11/2026 10:15 AM EDT Office Visit SOPHIE MENDEZ [address] D [address] [phone] Monika Gillette, DO [address] [place] [address] [address] documented as of this encounter Visit Diagnoses Not on filedocumented in this encounter Care Teams Die Mechanic Relationship Specialty Start Date End Date Leroy White MD 112 [facility] 110 [place] [address] PCP - General Internal Medicine 11/06/22 documented as of this encounter
--- OUTSIDE RECORDS SUMMARY | 2025-01-13 13:10 | XMS_ITS | Encounter Summary ---
Author Organization [facility] Address [address] [facility] [place] [address] Care Team Providers Care Lens Molding Equipment Operator Name Role Phone Leroy White MD Primary Care Provider [phone] Encounter Details Date Type Department Care Team (Late st Contact Info) Description 03/12/2023 Abstract [facility] 112 [address] [facility] 110 [place] [address] Leroy White MD 112 [place] [facility] 110 [place], [place] [phone] Social History Tobacco Use Types Packs/Day Years [...] often do you attend chur ch or methodist services? Never 12/05/2022 Do you belong to any clubs o r organizations such as buddhism groups, unions, fraternal or athletic groups, or [...] EDT Clinical Support [facility] 112 [facility] 120 [place] [address] Maxi Macdonald DPM 3001 [facility] 5 [place] [address] 01/11/2026 10:15 AM EDT Office Visit NOM[facility] Adriana MENDEZ [address] MICHELLE D [address] [address] Monika Gillette DO [address] [address] documented as of this encounter Visit Diagnoses Not on filedocumented in this encounter Care Teams Lens Molding Equipment Operator Relationship Specialty Start Date End Date Leroy White MD 112 [place] [id number] PCP - General Internal Medicine 11/06/22 documented as of this encounter
--- OUTSIDE RECORDS SUMMARY | 2025-01-13 13:10 | XMS_ITS | Encounter Summary ---
Author Organization [facility] Address [address] [facility] [place] [address] Care Team Providers Care Marsh Buggy Operator Name Role Phone Leroy White MD Primary Care Provider [phone] Encounter Details Date Type Department Care Team (Late st Contact Info) Description 02/05/2023 Abstract [facility] 112 [address] [facility] 110 [place] [address] Leroy White MD 112 [facility] 110 [place] [address] Social History Tobacco Use Types [...] often do you attend chur ch or baptist services? Never 12/05/2022 Do you belong to any clubs o r organizations such as islam groups, unions, fraternal or athletic groups, or [...] Recorded Patient Health Questionnaire-2 Score 0 12/20/2022 [facility] of Occupat ional Health - Occupational [...] place to sleep or slept in a nursing home (including now)? No 12/05/2022 Comments Unknown Sex [...] EDT Clinical Support [facility] 112 [facility] 120 [place] [address] Maxi Macdonald DPM 3009 [facility] 5 [place] [address] 01/11/2026 10:15 AM EDT Office Visit NOM[facility] Adriana MENDEZ [address] MICHELLE D [address] [address] Monika Gillette DO [address] [address] documented as of this encounter Visit Diagnoses Not on filedocumented in this encounter Care Teams Marsh Buggy Operator Relationship Specialty Start Date End Date Leroy White MD 112 [place] [id number] PCP - General Internal Medicine 11/06/22 documented as of this encounter
--- OUTSIDE RECORDS SUMMARY | 2025-01-13 13:10 | XMS_ITS | Encounter Summary ---
Author Organization [facility] Address [address] [facility] [place] [address] Care Team Providers Care Weaving Instructor Name Role Phone Leroy White MD Primary Care Provider [phone] Encounter Details Date Type Department Care Team (Late st Contact Info) Description 10/25/2023 Abstract [facility] 112 [address] [facility] 110 [place] [address] Leroy White MD 112 [place] [facility] 110 [place] [address] Social History Tobacco Use Types [...] How often do you attend chur or denominational services? Never 12/05/2022 Do you belong to [...] Recorded Patient Health Questionnaire-2 Score 0 12/20/2022 [facility] of Occupat ional Health - Occupational [...] Upcoming Encounters Date Type Department Care Team ([facility] st Contact Info) Description 01/15/2025 1:30 PM EDT Clinical Support [facility] 112 [facility] 120 [place] [phone] Maxi Macdonald DPM 3006 [facility] 5 [place] [address] 01/11/2026 10:15 AM EDT Office Visit NOM[facility] Adriana MENDEZ [address] MICHELLE D [address] [address] Monika Gillette DO [address] [address] documented as of this encounter Visit Diagnoses Not on filedocumented in this encounter Care Teams Weaving Instructor Relationship Specialty Start Date End Date Leroy White MD 112 [facility] 110 [place] [address] PCP - General Internal Medicine 6/19/23 documented as of this encounter
--- OUTSIDE RECORDS SUMMARY | 2025-01-13 13:10 | XMS_ITS | Encounter Summary ---
Author Organization [facility] Address [address] [place] [address] Care Team Providers Care Thermite Welder Name Role Phone Leroy White MD Primary Care Provider [phone] Encounter Details Date Type Department Care Team (Late st Contact Info) Description 03/04/2024 Abstract [facility] 112 [address] [facility] 110 [place] [address] Leroy White MD 112 [facility] 110 [place] [address] Social History Tobacco Use Types [...] How often do you attend lutheran or buddhism serv ices? Never 12/12/2023 Do you belong [...] Recorded Patient Health Questionnaire-2 Score 0 12/20/2022 [facility] - Occupational Stress Questionnaire Answer Date [...] in a long-term (including now)? No 12/05/2022 Housing Stability Vital Sign Answer Jan e Recorded In the last 12 months, was t here a time when you were not able to pay the mortgage or rent on time? Yes 12/12/2023 In the past 12 months, how m any times have you moved where you were living? 0 12/12/2023 At any time in the past 12 m [facility], were you homeless or living in a long-term (including now)? No 12/12/2023 Comments Unknown Sex [...] Clinical Support [facility] 112 [facility] 120 [place] [phone] Maxi Macdonald DPM 9997 [facility] 5 [place] [address] 01/11/2026 10:15 AM EDT Office Visit SOPHIE MENDEZ 282 [address]INE[address] D [address] [phone] Monika Gillette, DO [address] [place] [address] [address] documented as of this encounter Visit Diagnoses Not on filedocumented in this encounter Care Teams Thermite Welder Relationship Specialty Start Date End Date Leroy White MD 112 [facility] 110 [place] [address] PCP - General Internal Medicine 11/06/22 documented as of this encounter
--- OUTSIDE RECORDS SUMMARY | 2025-01-13 13:10 | XMS_ITS | Encounter Summary ---
Author Organization [facility] Address [address] [facility] [place] [address] Care Team Providers Care Modern Dancer Name Role Phone Leroy White MD Primary Care Provider [phone] Encounter Details Date Type Department Care Team ([facility] st Contact Info) Description 01/01/2025 Bamboo flowsheet [facility] 112 [facility] 120 [place] [address] Maxi Macdonald, TERESA 3006 [facility] 5 [place] [address] Social History Tobacco Use Types [...] week 12/12/2023 How often do you attend orthodoxy or adventism serv ices? Never 12/12/2023 Do you belong to any clubs o r organizations such as orthodoxy groups, unions, fraternal or athletic groups, or [...] Patient Health Questionnaire-2 Score 0 12/20/2022 [facility] of Occupat ional Health [...] EDT Clinical Support [facility] 112 [facility] 120 [place] [address] Maxi Macdonald, DPM 2846 [facility] 5 [place] [address] 01/11/2026 10:15 AM EDT Office Visit NOMS Adriana MENDEZ [address] MICHELLE D [address] [phone] Monika Gillette, DO [address] [phone] documented as of this encounter Visit Diagnoses Not on filedocumented in this encounter Care Teams Modern Dancer Relationship Specialty Start Date End Date Leroy White MD [address] [place] [address] 110 [place] [address] PCP - General Internal Medicine 11/06/22 documented as of this encounter
--- OUTSIDE RECORDS SUMMARY | 2025-01-13 13:10 | XMS_ITS | Encounter Summary ---
Author Organization [facility] Address [address] [facility] [place] [address] Care Team Providers Care Sales Engineering Manager Name Role Phone Leroy White MD Primary Care Provider [phone] Encounter Details Date Type Department Care Team (Late st Contact Info) Description 05/05/2024 Abstract [facility] [address] [facility] 110 [place] [address] Leroy White MD 112 [facility] 110 [place] [address] Social History Tobacco Use Types [...] week 12/12/2023 How often do you attend samaritan or jain serv ices? Never 12/12/2023 Do you belong to any clubs o r organizations such as samaritan groups, unions, fraternal or athletic groups, or [...] Recorded Patient Health Questionnaire-2 Score 0 12/20/2022 [facility] - Occupational Stress Questionnaire Answer Date [...] in a residential (including now)? No 12/05/2022 Housing Stability Vital [...] were you homeless or living in a residential (including now)? No 12/12/2023 Comments Unknown Sex [...] EDT Clinical Support [facility] 112 [facility] 120 [place] [address] Maxi Macdonald DPM 2233 [facility] 5 [place] [address] 01/11/2026 10:15 AM EDT Office Visit SOPHIE MENDEZ [address] [phone] Monika Gillette, DO [address] [place] [address] [address] documented as of this encounter Visit Diagnoses Not on filedocumented in this encounter Care Teams Sales Engineering Manager Relationship Specialty Start Date End Date Leroy White MD 112 [facility] 110 [place] [address] PCP - General Internal Medicine 11/06/22 documented as of this encounter
--- OUTSIDE RECORDS SUMMARY | 2025-01-13 13:10 | XMS_ITS | Encounter Summary ---
Author Organization [facility] Address [address] [place] [address] Care Team Providers Care Visually Impaired Teacher Name Role Phone Leroy White MD Primary Care Provider [phone] Reason for Visit * Reason Onset Date Comments Employment Physical 12/15/2024 Encounter Details Date Type Department Care Team ([facility] st Contact Info) Description 12/15/2024 Telephone [facility] [address] [place] [address] Maxi Macdonald, TERESA [address] [address] Employment Physical Social History Tobacco Use Types Packs/Day Years [...] week 12/12/2023 How often do you attend rastafari or buddhism serv ices? Never 12/12/2023 Do you belong to any clubs o r organizations such as rastafari groups, unions, fraternal or athletic groups, or [...] place to sleep or slept in a long term (including now)? No 12/05/2022 Housing Stability Vital Sign Answer Jan e Recorded In the last 12 months, was t here a time when you were not able to pay the mortgage or rent on time? Yes 12/12/2023 In the past 12 months, how m any times have you moved where you were living? 0 12/12/2023 At any time in the past 12 m onths, were you homeless or living in a long term (including now)? No 12/12/2023 Comments Unknown Sex and Gender Information Value Date Recorded Sex Assigned at Not on file Legal Sex Female 6:49 PM EDT Gender Identity Not on file Sexual Orientation Not on file documented as of this encounter Miscellaneous Notes * Telephone Encounter - Maxi Macdonald DPM - 12/15/2024 2:30 PM EDT Ok to do, have patient excelsior picker the note from you * Telephone Encounter - Adrian Willson - 12/15/2024 2:24 PM EDT Pt called asking to be off of work for two weeks, states that her job does not allowed her to work with the boot she was told to wear, work does not allow restrictions, she has been seen by Dr. Jeronimo, was wondering if pt needed another apt to get the note. documented in this encounter Plan of Treatment Upcoming Encounters Date Type Department Care Team (Late st Contact Info) Description 01/15/2025 1:30 PM EDT Clinical Support [facility] 112 [facility] 120 [place] [address] Maxi Macdonald DPM 3006 [facility] 5 [place] [address] 01/11/2026 10:15 AM EDT Office Visit [facility] Adriana MENDEZ [address] MICHELLE D [facility] 2 [place] [address] Monika Gillette DO [address] [facility] 2 [place] [address] documented as of this encounter Visit Diagnoses Not on filedocumented in this encounter Care Teams Visually Impaired Teacher Relationship Specialty Start Date End Date Leroy White MD 112 [facility] 110 [place] [address] PCP - General Internal Medicine 11/06/22 documented as of this encounter
--- OUTSIDE RECORDS SUMMARY | 2025-01-13 13:10 | XMS_ITS | Clinical Summary ---
Author Organization [facility] Address [address] [place] [address] Care Team Providers Care Manager Data Name Role Phone Leroy White MD Primary Care Provider [phone] Allergies Active Allergy Reactions Criticality Noted Date Comments Ciprofloxacin Swelling 11/06/2022 Latex 12/12/2024 Wound Dressing Adhesive Unknown 11/06/2022 Medications Vortioxetine HBr (Trintellix) 20 MG tabletIndications :Depression with anxiety Take 20 mg by mouth Daily 30 tablet 11 024 Active SUMAtriptan (Imitrex) 50 MG tabletIndications :Migraine syndrome TAKE 1 TABLET BY MOUTH ONCE DAILY WITHIN 1 HOUR OF MIGRAINE START *MAX 2 PER 24 HOURS* 15 tablet 2 024 Active cyclobenzaprine (Flexeril) 10 MG tabletIndications :Cervical radiculopathy Take 1 tablet (10 mg) by mouth 3 (three) times a day as needed for muscle spasms 90 tablet 2 025 Active ondansetron ODT (Zofran-ODT) 4 MG disintegrating tabletIndications :Nausea TAKE 1 TABLET (4 MG) BY MOUTH EVERY 8 HOURS NEEDED FOR NAUSEA AND VOMITING 28 tablet 1 025 Active zolpidem (Ambien) 10 MG tabletIndications :Other insomnia TAKE 1 TABLET (10 MG) BY MOUTH NEEDED AT BEDTIME FOR SLEEP 30 tablet 2 025 Active diazePAM (Valium) 5 MG tabletIndications :Panic attacks Take 1 tablet (5 mg) by mouth every 12 (twelve) hours if needed for anxiety, sleep or muscle spasms 60 tablet 1 025 2024 Active methylPREDNISolon e (Medrol Dospak) 4 MG tabletsIndication s:Left Achilles tendinitis Follow schedule on MEDROL PACK package instructions to be used as directed 21 tablet 025 Active zolpidem (Ambien) 10 MG tabletIndications :Other insomnia Take 1 tablet (10 mg) by mouth as needed at bedtime for sleep 30 tablet 2 025 2024 Discontinued diazePAM (Valium) 5 MG tabletIndications :Panic attacks Take 1 tablet (5 mg) by mouth every 12 (twelve) hours if needed for anxiety, sleep or muscle spasms 60 tablet 025 2024 Discontinued(R eorder) HYDROcodone-aceta minophen ([place]) 5-325 MG tabletIndications :Osteoarthritis of spine with radiculopathy, lumbar region Take 1 tablet by mouth every 6 (six) hours if needed for severe pain for up to 10 days 40 tablet 025 2024 Discontinued(R eorder) HYDROcodone-aceta minophen ([place]) 5-325 MG tabletIndications :Osteoarthritis of spine with radiculopathy, lumbar region Take 1 tablet by mouth every 6 (six) hours if needed for severe pain for up to 10 days 40 tablet 025 2024 Active Problems Problem Noted Date Diagnosed Date [...] Encounters Date Type Department Care Team Description 01/07/2025 11:00 AM EDT Ancillary Procedure SOPHIE Wright OBJASMYN [address] Scot[address] Hughes [address] [place] [address] Menorrhagia with regular cycle; Dysmenorrhea 01/07/2025 10:00 AM EDT Office Visit [facility] [place] MICHELLE Garcia [address] [phone] Monika Gillette DO Encounter for gynecological examination without abnormal finding (Primary Dx); Screening for malignant neoplasm of cervix; Encounter for screening for human papillomavirus (HPV); Other screening mammogram; Menorrhagia with regular cycle; Dysmenorrhea; Hx of nonchemical tubal occlusion; Thyroid disorder screen 01/07/2025 Travel 01/01/2025 10:10 AM EDT Office Visit [facility] [address] [facility] 120 [place] [address] Maxi Macdonald, DPJose Left Achilles tendinitis (Primary Dx); Verruca plantaris; Foot pain, right; Contracture of left ankle; Plantar fasciitis 01/01/2025 Bamboo flowsheet [facility] [address] [facility] 120 [place] [address] Maxi Macdonald DPM 01/01/2025 Travel 12/31/2024 Travel 12/30/2024 Refill [facility] [address] [facility] 110 [place] [address] Leroy White MD Panic attacks 12/26/2024 Abstract [facility] [address] [facility] 120 [place] [address] Maxi Macdonald DPM 12/24/2024 Refill [facility] [address] [facility] 110 [place] [address] Leroy White MD Other insomnia 12/23/2024 Refill [facility] [address] [facility] 110 [place] [address] Ny Nathan PA Other insomnia 12/19/2024 Refill [facility] [address] [facility] 110 [place] [address] Leroy White MD Osteoarthritis of spine with radiculopathy, lumbar region 12/18/2024 Abstract [facility] 112 [facility] 120 [place] [address] Maxi Macdonald DPM 12/15/2024 Telephone [facility] [address] [place] [address] Maxi Macdonald DPM Employment Physical 12/12/2024 4:30 PM EDT Office Visit [facility] [address] [place] [address] Maxi Macdonald DPM Neoplasm of uncertain behavior of skin (Primary Dx); Tendonitis, Achilles, left; [place] of foot; Left Achilles tendinitis; Contracture of left ankle; Verruca plantaris; Foot pain, right 12/12/2024 Bamboo flowsheet [facility] [address] [place] [address] Maix Macdonald DPM 12/12/2024 Travel 12/10/2024 9:45 AM EDT Office Visit [facility] 112 [facility] 110 [place] [address] Leroy White MD Tendonitis, Achilles, left (Primary Dx); [place] of foot; Osteoarthritis of spine with radiculopathy, lumbar region 12/10/2024 Abstract [facility] 112 [facility] 120 [place] [address] Maxi Macdonald DPM 12/10/2024 Abstract [facility] 112 [facility] 110 [place] [address] Leroy White MD 12/10/2024 Travel 12/08/2024 Refill [facility] 112 [facility] 110 [place] [address] eLroy White MD Nausea 12/02/2024 Orders Only [facility] [address] MICHELLE D [facility] 2 [place] [address] Arlene Bledsoe MA 11/30/2024 Refill [facility] [address] [facility] 110 [place] [address] Ny Nathan PA Panic attacks 10/30/2024 Refill [facility] [address] [facility] 110 [place] [address] Ny Nathan PA Panic attacks 10/20/2024 Abstract [facility] 112 [facility] 110 [place] [address] Leroy White MD from Last 3 Months Immunizations Immunization Administration [...] Mother Shaun Depression Mother Shaun Fibromyalgia Mother Sahun Heart disease Mother Shaun Hypertension Mother Shaun [...] week 12/12/2023 How often do you attend jehovah's witness or moravian serv ices? Never 12/12/2023 Do you belong to any clubs o r organizations such as jehovah's witness groups, unions, fraternal or athletic groups, or [...] Recorded Patient Health Questionnaire-2 Score 0 12/20/2022 [facility] ional [facility] - Occupational Stress Questionnaire Answer Date Recorded [...] any time in the past 12 m [facility], were you homeless or living in a half-way (including now)? No 12/12/2023 Comments No Sex and Gender Information Value Date Recorded Sex Assigned at Not on file Legal Sex Female 6:49 PM EDT Gender Identity Not on file Sexual Orientation Not on file Last Filed Vital Signs Vital Sign Reading Time Taken Comments Blood Pressure 116/74 01/07/2025 10:10 AM EDT Pulse 75 12/10/2024 9:57 AM EDT Temperature 36.8 C (98.2 F) 06/04/2024 9:31 AM EST Respiratory Rate 16 01/01/2025 10:15 AM EDT Oxygen Saturation 97% 12/10/2024 9:57 AM EDT Inhaled Oxygen Concentration - - Weight 79.8 kg (176 lb) 01/07/2025 10:10 AM EDT Height 165.1 cm (5' 5 ) 01/01/2025 10:15 AM EDT Body Mass Index 29.29 01/01/2025 10:15 AM EDT Plan of Treatment Upcoming Encounters Date Type Department Care Team (Late st Contact Info) Description 01/15/2025 1:30 PM EDT Clinical Support [facility] 112 [facility] 120 [place] [address] Maxi Macdonald, TERESA 3004 [facility] 5 [place] [address] 01/11/2026 10:15 AM EDT Office Visit NOMTone Wright OBJASMYN [address] MICHELLE D [address] [address] Monika Gillette DO [address] [address] Health Maintenance Due Date Last Done Comments Pap Smear 2005 Mammogram 2024 Influenza Vaccine (#1) 2025 02/23/2022, 2019, 03/01/2015 Cervical Cancer Screening 01/07/2030 HPV/Cotest 01/07/2030 01/07/2025, 04/26/2020, 06/2018 Procedures Procedure Name Priority Date/Time Associated Diagnosis Comments IGP, APT HPV,RFX 16/18,45 Routine 01/07/2025 12:00 AM EDT Screening for malignant neoplasm of cervix Encounter for screening for human papillomavirus (HPV) from Last 3 Months Results * IGP, APT HPV,RFX 16/18,45 (01/07/2025 [...] - 01/10/2025 12:35 PM EDT [facility]formed at: [facility] [address] [place] [address], [place], [place] [id number] Green Chain Offbearer: Johnson Camacho MD, Phone: [phone] Performed at: - [address], [place] [id number] Green Chain Offbearer: Catherine Stone MD, Phone: [phone] Performed at: 03 - [address] [id number] Green Chain Offbearer: Catherine Stone MD, Phone: [phone] Specimen Comment: No. of containers..01 ThinPrep Vial Monika Gillette DO LAB BLOOD ORDERABLES Final Result [facility] from Last [address] [place] [address] [facility] Care Teams Manager Data Relationship Specialty Start Date End Date Leroy White MD 112 [facility] 110 [place] [address] PCP - General Internal Medicine 11/06/22
--- OUTSIDE RECORDS SUMMARY | 2025-01-13 13:10 | XMS_ITS | Encounter Summary ---
Author Organization [facility] Address [address] [facility] [place] [address] Care Team Providers Care Sports Statistician Name Role Phone Leroy White MD Primary Care Provider Encounter Details Date Type Department Care Team (Late st Contact Info) Description 05/05/2024 Abstract [facility] [address] [facility] 110 [place] [address] Leroy White MD 112 [facility] 110 [place] [address] Social History Tobacco Use Types [...] week 12/12/2023 How often do you attend zoroastrian or adventism serv ices? Never 12/12/2023 Do you belong to any clubs o r organizations such as zoroastrian groups, unions, fraternal or athletic groups, or [...] Recorded Patient Health Questionnaire-2 Score 0 12/20/2022 [facility] - Occupational Stress Questionnaire Answer Date Recorded [...] time in the past 12 m [facility], were you homeless or living in [...] EDT Clinical Support [facility] 112 [facility] 120 [place] [address] Maxi Macdonald DPM 7504 [facility] 5 [place] [address] 01/11/2026 10:15 AM EDT Office Visit SOPHIE MENDEZ 282 Scotty MARTINEZ D [address] [phone] Moniak Gillette, DO [address] [place] [address] [address] documented as of this encounter Visit Diagnoses Not on filedocumented in this encounter Care Teams Sports Statistician Relationship Specialty Start Date End Date Leroy White MD 112 [facility] 110 [place] [address] PCP - General Internal Medicine 11/06/22 documented as of this encounter
--- OUTSIDE RECORDS SUMMARY | 2025-01-13 13:10 | XMS_ITS | Encounter Summary ---
Author Organization [facility] Address [address] [facility] [place] [address] Care Team Providers Care Machining Department Supervisor Name Role Phone Leroy White MD Primary Care Provider [phone] Encounter Details Date Type Department Care Team (Latest Contact Info) Description 12/31/2024 Travel Social History Tobacco Use Types Packs/Day [...] week 12/12/2023 How often do you attend yazidi or denominational serv ices? Never 12/12/2023 Do [...] Recorded Patient Health Questionnaire-2 Score 0 12/20/2022 [facility] - [...] any time in the past 12 m [facility], were you homeless or living in a alf (including now)? No 12/12/2023 Comments Unknown Sex and Gender Information Value Date Recorded Sex Assigned at Not on file Legal Sex Female 6:49 PM EDT Gender Identity Not on file Sexual Orientation Not on file documented as of this encounter Plan of Treatment Upcoming Encounters Date Type Department Care Team ([facility] st Contact Info) Description 01/15/2025 1:30 PM EDT Clinical Support [facility] 112 [facility] 120 [place] [address] Maxi Macdonald, TERESA 6861 [facility] 5 [place] [address] 01/11/2026 10:15 AM EDT Office Visit [facility] Adriana MENDEZ [address] MICHELLE D [address] [address] Monika Gileltte DO [address] [address] documented as of this encounter Visit Diagnoses Not on filedocumented in this encounter Care Teams Machining Department Supervisor Relationship Specialty Start Date End Date Leroy White MD [address] [address] PCP - General Internal Medicine 11/06/22 documented as of this encounter
--- OUTSIDE RECORDS SUMMARY | 2025-01-13 13:10 | XMS_ITS | Encounter Summary ---
Author Organization [facility] Address [address] [facility] [place] [address] Care Team Providers Care Trial Examiner Name Role Phone Leroy White MD Primary Care Provider [phone] Encounter Details Date Type Department Care Team (Late st Contact Info) Description 01/09/2024 Orders Only [facility] [address] MICHELLE [address] [place] [address] Radha Delgado LPN [address] [place] [address] Absent pedal pulses; Acute pain of both [...] week 12/12/2023 How often do you attend evangelical or baptism serv ices? Never 12/12/2023 Do you belong to any clubs o r organizations such as evangelical groups, unions, fraternal or athletic groups, or [...] Recorded Patient Health Questionnaire-2 Score 0 12/20/2022 [facility] Occupat ional [facility] - Occupational Stress Questionnaire Answer Date [...] a senior care (including now)? No 12/05/2022 Housing Stability Vital Sign Answer Jan e Recorded In the last 12 months, was t here a time when you were not able to pay the mortgage or rent on time? Yes 12/12/2023 In the past 12 months, how m any times have you moved where you were living? 0 12/12/2023 At any time in the past 12 m [facility], were you homeless or living in a senior care (including now)? No 12/12/2023 Comments Unknown Sex [...] EDT Clinical Support [facility] 112 [facility] 120 [place] [address] Maxi Macdonald DPM 3618 [facility] 5 [place] [address] 01/11/2026 10:15 AM EDT Office Visit NOMS Adriana MENDEZ [address] MICHELLE D [facility] 2 [place] [address] Monika Gillette, DO [address] [address] documented as of this encounter Visit Diagnoses Diagnosis Absent pedal pulses Acute pain of both knees Verruca plantaris- Primary Plantar wart Foot pain, right Pain in soft tissues of limb Left Achilles tendinitis Plantar fasciitis Plantar fascial fibromatosis Contracture of left ankle documented in this encounter Care Teams Trial Examiner Relationship Specialty Start Date End Date Leroy White MD 112 [facility] 110 [place] [address] PCP - General Internal Medicine 11/06/22 documented as of this encounter
--- OUTSIDE RECORDS SUMMARY | 2025-01-13 13:10 | XMS_ITS | Encounter Summary ---
Author Organization [facility] Address [address] [place] [address] Care Team Providers Care Biometric Fingerprinting Technician Name Role Phone Leroy White MD Primary Care Provider [phone] Reason for Visit * Reason Onset Date Comments Med Refill 12/30/2024 Encounter Details Date Type Department Care Team (Late st Contact Info) Description 12/30/2024 Refill [facility] [address] [place] 110 [place] [address] Leroy White MD [address] [facility] 110 [place] [address] Panic attacks Social History Tobacco Use Types Packs/Day Years [...] week 12/12/2023 How often do you attend restorationism or judaism serv ices? Never 12/12/2023 Do you belong to any clubs o r organizations such as restorationism groups, unions, fraternal or athletic groups, or [...] any time in the past 12 m [facility], were you homeless or living in a group home (including now)? No 12/12/2023 Comments Unknown Sex and Gender Information Value Date Recorded Sex Assigned at Not on file Legal Sex Female 6:49 PM EDT Gender Identity Not on file Sexual Orientation Not on file documented as of this encounter Miscellaneous Notes * Telephone Encounter - Selena Ellis - 12/30/2024 8:54 AM EDT diazePAM (Valium) 5 MG tablet [facility] shauna She knows its a bit early but wanted to make sure Dr. White would send it in before he is out of the office. She knows she wont be able to pick it up until the or 15 documented in this encounter Plan of Treatment Upcoming Encounters Date Type Department Care Team (Late st Contact Info) Description 01/15/2025 1:30 PM EDT Clinical Support [facility] [address] [facility] 120 [place] [address] Maxi Macdonald, DPM 3006 [facility] 5 [place] [address] 01/11/2026 10:15 AM EDT Office Visit [facility] [address] MICHELLE D [address] [address] Monika Gillette DO [address] [address] documented as of this encounter Visit Diagnoses Diagnosis Panic attacks Panic disorder without agoraphobia Verruca plantaris- Primary Plantar wart Foot pain, right Pain in soft tissues of limb Left Achilles tendinitis Plantar fasciitis Plantar fascial fibromatosis Contracture of left ankle documented in this encounter Care Teams Biometric Fingerprinting Technician Relationship Specialty Start Date End Date Leroy White MD 112 [facility] 110 [place] [address] PCP - General Internal Medicine 11/06/22 documented as of this encounter
--- OUTSIDE RECORDS SUMMARY | 2025-01-13 13:10 | XMS_ITS | Encounter Summary ---
Author Organization [facility] Address [address] [facility] [place] [address] Care Team Providers Care Instrument Specialist Name Role Phone Leroy White MD Primary Care Provider [phone] Encounter Details Date Type Department Care Team (Late st Contact Info) Description 12/10/2024 Abstract [facility] 112 [facility] 110 [place] [address] Leroy White MD 112 [facility] 110 [place] [address] Social History Tobacco Use Types [...] week 12/12/2023 How often do you attend gnosticist or holiness serv ices? Never 12/12/2023 Do you belong to any clubs o r organizations such as gnosticist groups, unions, fraternal or athletic groups, or [...] Recorded Patient Health Questionnaire-2 Score 0 12/20/2022 [facility] - Occupational Stress Questionnaire [...] a nursing home (including now)? No 12/05/2022 Housing Stability [...] any time in the past 12 m [facility], were you homeless or living in a nursing home (including now)? No 12/12/2023 Comments Unknown [...] EDT Clinical Support [facility] 112 [facility] 120 [place] [phone] Maxi Macdonald DPM 7356 [facility] 5 [place] [address] 01/11/2026 10:15 AM EDT Office Visit SOPHIE MENDEZ [address] [phone] Monika Gillette, DO [address] [address] documented as of this encounter Visit Diagnoses Not on filedocumented in this encounter Care Teams Instrument Specialist Relationship Specialty Start Date End Date Leroy White MD 112 [facility] 110 [place] [address] PCP - General Internal Medicine 11/06/22 documented as of this encounter
--- OUTSIDE RECORDS SUMMARY | 2025-01-13 13:10 | XMS_ITS | Encounter Summary ---
Author Organization [facility] Address [address] [place] [address] Care Team Providers Care Manager Marketing Sales Name Role Phone Leroy White MD Primary Care Provider [phone] Encounter Details Date Type Department Care Team ([facility] st Contact Info) Description 12/10/2024 Abstract [facility] 112 [facility] 120 [place] [address] Maxi Macdonald, DPM [facility] 5 [place] [address] Social History Tobacco Use Types [...] How often do you attend jain or shinto serv ices? Never 12/12/2023 Do you belong [...] 0 12/20/2022 [facility]at ional Health - Occupational [...] place to sleep or slept in a intermediate (including now)? No 12/05/2022 Housing Stability Vital [...] time in the past 12 m [facility], were you homeless or living in a intermediate (including now)? No 12/12/2023 Comments Unknown Sex [...] Support [facility] 112 [facility] 120 [place] [phone] Maxi Macdonald, DPM [facility]47 [facility] 5 [place] [address] 01/11/2026 10:15 AM EDT Office Visit SOPHIE MENDEZ 282 [address] MART[address] D [address] [phone] Monika Gillette, DO [address] [address] documented as of this encounter Visit Diagnoses Not on filedocumented in this encounter Care Teams Manager Marketing Sales Relationship Specialty Start Date End Date Leroy White MD 112 [facility] 110 [place] [address] PCP - General Internal Medicine 11/06/22 documented as of this encounter
--- OUTSIDE RECORDS SUMMARY | 2025-01-13 13:10 | XMS_ITS | Encounter Summary ---
Author Organization [facility] Address [address] [facility] [place] [address] Care Team Providers Care Construction Scheduler Name Role Phone Leroy White MD Primary Care Provider [phone] Encounter Details Date Type Department Care Team (Late st Contact Info) Description 05/05/2024 Abstract [facility] 112 [facility] 110 [place] [address] Leroy White MD 112 [place] 110 [place] [address] Social History Tobacco Use Types [...] How often do you attend gnosticist or rastafarian serv ices? Never 12/12/2023 Do you belong [...] Recorded Patient Health Questionnaire-2 Score 0 12/20/2022 [facility] - Occupational Stress Questionnaire Answer [...] time in the past [address] [facility], were you homeless or living [...] EDT Clinical Support [facility] 112 [facility] 120 [place] [phone] Maxi Macdonald DPM 9124 [facility] 5 [place] [address] 01/11/2026 10:15 AM EDT Office Visit SOPHIE MENDEZ 282 [address] D [address] [phone] Monika Gillette, DO [address] [place] [address] [address] documented as of this encounter Visit Diagnoses Not on filedocumented in this encounter Care Teams Construction Scheduler Relationship Specialty Start Date End Date Leroy White MD 112 [facility] 110 [place] [address] PCP - General Internal Medicine 11/06/22 documented as of this encounter
--- OUTSIDE RECORDS SUMMARY | 2025-01-13 13:10 | XMS_ITS | Encounter Summary ---
Author Organization [facility] Address [address] [facility] [place] [address] Care Team Providers Care Education Research Analyst Name Role Phone Leroy White MD Primary Care Provider [phone] Encounter Details Date Type Department Care Team (Latest Contact Info) Description 01/01/2025 Travel Social History Tobacco Use Types Packs/Day [...] week 12/12/2023 How often do you attend sabianism or baptist serv ices? Never 12/12/2023 Do you belong to any clubs o r organizations such as sabianism groups, unions, fraternal or athletic groups, or [...] place to sleep or slept in a correction (including now)? No 12/05/2022 Housing Stability Vital Sign Answer Jan e Recorded In the last 12 months, was t here a time when you were not able to pay the mortgage or rent on time? Yes 12/12/2023 In the past 12 months, how m any times have you moved where you were living? 0 12/12/2023 At any time in the past 12 m [facility], were you homeless or living in a correction (including now)? No 12/12/2023 Comments Unknown Sex and Gender Information Value Date Recorded Sex Assigned at Not on file Legal Sex Female 6:49 PM EDT Gender Identity Not on file Sexual Orientation Not on file documented as of this encounter Plan of Treatment Upcoming Encounters Date Type Department Care Team ([facility] st Contact Info) Description 01/15/2025 1:30 PM EDT Clinical Support [facility] 112 [facility] 120 [place] [phone] Maxi Macdonald, TERESA 1791 [facility] 5 [place] [address] 01/11/2026 10:15 AM EDT Office Visit NOMS Adriana MENDEZ [address] MICHELLE D [address] [address] Monika Gillette DO [address] [address] documented as of this encounter Visit Diagnoses Not on filedocumented in this encounter Care Teams Education Research Analyst Relationship Specialty Start Date End Date Leroy White MD [address] [address] PCP - General Internal Medicine 11/06/22 documented as of this encounter
--- OUTSIDE RECORDS SUMMARY | 2025-01-13 13:10 | XMS_ITS | Encounter Summary ---
Author Organization [facility] Address [address] [facility] [place] [address] Care Team Providers Care School Photographer Name Role Phone Leroy White MD Primary Care Provider [phone] Encounter Details Date Type Department Care Team (Late st Contact Info) Description 02/05/2023 Abstract [facility] [address] [facility] 110 [place] [address] Ciara Lyles, NATIONAL SALES CONSULTANT [address] [facility] 110 [place], [place] [phone] Social History Tobacco Use Types Packs/Day Years [...] often do you attend chur ch or tenriism services? Never 12/05/2022 Do you belong to [...] Recorded Patient Health Questionnaire-2 Score 0 12/20/2022 [facility] Occupat ional Health - Occupational Stress [...] EDT Clinical Support [facility] 112 [facility] 120 [place] [address] Maxi Macdonald DPM 3002 [facility] 5 [place] [address] 01/11/2026 10:15 AM EDT Office Visit NOMS Adriana MENDEZ [address] MICHELLE D [address] [address] Monika Gillette DO [address] [address] documented as of this encounter Visit Diagnoses Not on filedocumented in this encounter Care Teams School Photographer Relationship Specialty Start Date End Date Leroy White MD 112 [place] [phone] PCP - General Internal Medicine 11/06/22 documented as of this encounter
--- OUTSIDE RECORDS SUMMARY | 2025-01-13 13:10 | XMS_ITS | Encounter Summary ---
Author Organization [facility] Address [address] [place] [address] Care Team Providers Care Precipitator Name Role Phone Leroy White MD Primary Care Provider [phone] Encounter Details Date Type Department Care Team ([facility] st Contact Info) Description 12/18/2024 Abstract [facility] 112 [facility] 120 [place] [address] Maxi Macdonald, DPM 3005 [facility] 5 [place] [address] Social History Tobacco Use Types [...] How often do you attend catholic or latter day serv ices? Never 12/12/2023 Do you belong [...] Patient Health Questionnaire-2 Score 0 12/20/2022 [facility] of Occupat ional Health - Occupational [...] any time in the past 12 m [facility], were you homeless or [...] Clinical Support [facility] [address] [facility] 120 [place] [phone] Maxi Macdonald, DPM 9304 [facility] 5 [place] [address] 01/11/2026 10:15 AM EDT Office Visit SOPHIE MENDEZ 282 [address] M[address] D [address] [phone] Monika Gillette, DO [address] [address] documented as of this encounter Visit Diagnoses Not on filedocumented in this encounter Care Teams Precipitator Relationship Specialty Start Date End Date Leroy White MD 112 [facility] 110 [place] [address] PCP - General Internal Medicine 11/06/22 documented as of this encounter
--- OUTSIDE RECORDS SUMMARY | 2025-01-13 13:10 | XMS_ITS | Encounter Summary ---
Author Organization [facility] Address [address] [place] [address] Care Team Providers Care Occ Therapist Name Role Phone Leroy White MD Primary Care Provider Encounter Details Date Type Department Care Team (Late st Contact Info) Description 10/01/2023 Clinisync Result Encounter NOMS External Department Unsolicited Leroy White MD [address] [facility] 110 [place] [address] Social History Tobacco Use Types Packs/Day Years [...] often do you attend chur ch or episcopal services? Never 12/05/2022 Do you belong to any clubs o r organizations such as sikh groups, unions, fraternal or athletic groups, or [...] in a intermediate (including now)? No 12/05/2022 Comments Unknown Sex [...] EDT Clinical Support [facility] 112 [facility] 120 [place] [address] Maxi Macdonald DPM 3006 [facility] 5 [place] [address] 01/11/2026 10:15 AM EDT Office Visit SOPHIE MENDEZ [address] MICHELLE D [address] [address] Monika Gillette DO [address] [phone] documented as of this encounter Procedures Procedure Name Priority Date/Time Associated Diagnosis Comments VASC US LOWER EXTREMITY ARTERIAL DUPLEX BILATERAL 10/01/2023 1:43 PM EDT documented in this encounter Results * Vascular US lower extremity arterial duplex bilateral (10/01/2023 1:43 PM EDT) Anatomical Region Laterality Modality Lower Extremities Ultrasound 10/01/2023 1:43 PM EDT Narrative 10/01/2023 1:45 PM EDT [address] [address] Ultrasound Report Signed Patient: KELLY URIBE MR#: [id number] : 1985 Acct:[id number] Age/Sex: 38 / F ADM Date: 10/01/23 Loc: US Attending Dr: LEROY WHITE Ordering Physician: LEROY WHITE Date of Service: 10/01/23 Procedure(s): US arterial duplex LE BI Accession Number(s): [id number] cc: LEROY WHITE [place] [id number] Patient Name: KELLY URIBE MRN: [id number] date: 1985 Sex: F Assigned Patient Location: US Current Patient Location: US Accession/Order Number: [id number] Exam Date: 10/01/2023 11:12 Report Date: 10/01/2023 [...] Dictated By: Donna Navarrete M.D. Signed By: 10/01/23 1345 DD/ 1343 TD/TT: Financial Systems Manager: Procedure Note Radiology, Radiologist, MD - 10/01/2023 [place] [address] Ultrasound Report Signed Patient: KELLY URIBE [facility]#: [id number] : 1985Acct:[id number] Age/Sex: 38 / FADM Date: 10/01/23 Loc: US Attending Dr: LEROY WHITE Ordering Physician: LEROY WHITE Date of Service: 10/01/23 Procedure(s): US arterial duplex LE BI Accession Number(s): [id number] cc: LEROY WHITE [place] [id number] Patient Name: KELLY URIBE MRN: [id number] date: 1985 Sex: F Assigned Patient Location: US Current Patient Location: US Accession/Order Number: [id number] Exam Date: 10/01/2023 11:12 Report Date: 10/01/2023 [...] M.D. Signed By:10/01/23 1345 DD/ 1343 TD/TT: Financial Systems Manager: us Leroy White MD IMG US PROCEDURES Final Result documented in this encounter Visit Diagnoses Not on filedocumented in this encounter Care Teams Occ Therapist Relationship Specialty Start Date End Date Leroy White MD 112 [facility] 110 [place] [address] PCP - General Internal Medicine 11/06/22 documented as of this encounter
--- OUTSIDE RECORDS SUMMARY | 2025-01-13 13:11 | XMS_ITS | Encounter Summary ---
Author Organization [facility] Address [address] [facility] [place] [address] Care Team Providers Care Housecalls Nurse Name Role Phone Leroy White MD Primary Care Provider [phone] Encounter Details Date Type Department Care Team (Late st Contact Info) Description 05/15/2024 Orders Only [facility] 112 [facility] 110 [place] [address] Leroy White MD 112 [facility] 110 [place] [address] Social History Tobacco Use Types [...] How often do you attend confucianism or amish serv ices? Never 12/12/2023 Do you belong [...] Recorded Patient Health Questionnaire-2 Score 0 12/20/2022 [facility] - Occupational Stress Questionnaire Answer Date Recorded [...] in the past [address] [facility], were you homeless or living in a [...] Clinical Support [facility] 112 [facility] 120 [place] [phone] Maxi Macdonald, TERESA 8389 [facility] 5 [place] [address] 01/11/2026 10:15 AM EDT Office Visit NOMTone MENDEZ 282 Scot[address] MARTINEZ D [address] [phone] Monika Gillette, DO [address] [address] documented as of this encounter Procedures Procedure Name Priority Date/Time Associated Diagnosis Comments RHYTHM ECG, REPORT Routine 05/15/2024 2:51 PM EST documented in this encounter Results * ECG 3 Lead (05/15/2024 2:51 PM EST) us Leroy White MD IN CLINIC/BEDSIDE ORDERABLES F inal Result documented in this encounter Visit Diagnoses Not on filedocumented in this encounter Care Teams Housecalls Nurse Relationship Specialty Start Date End Date Leroy White MD 112 [facility] 110 [place] [address] PCP - General Internal Medicine 11/06/22 documented as of this encounter
--- OUTSIDE RECORDS SUMMARY | 2025-01-13 13:11 | XMS_ITS | Encounter Summary ---
Author Organization [facility] Address [address] [facility] [place] [address] Care Team Providers Care Assistant Distribution Manager Name Role Phone Leroy White MD Primary Care Provider [phone] Encounter Details Date Type Department Care Team (Late st Contact Info) Description 09/04/2024 Abstract [facility] 112 [facility] 110 [place] [address] Leroy White MD [address] [facility] 110 [place] [address] Social History Tobacco Use Types [...] How often do you attend sabianist or adventist serv ices? Never 12/12/2023 Do you belong [...] Questionnaire-2 Score 0 12/20/2022 [facility] - Occupational Stress Questionnaire Answer [...] place to sleep or slept in a usp (including now)? No 12/05/2022 Housing Stability Vital Sign Answer Jan e Recorded In the last 12 months, was t here a time when you were not able to pay the mortgage or rent on time? Yes 12/12/2023 In the past 12 months, how m any times have you moved where you were living? 0 12/12/2023 At any time in the past 12 m [facility], were you homeless or living in a usp (including now)? No 12/12/2023 Comments Unknown Sex [...] EDT Clinical Support [facility] 112 [facility] 120 [place] [phone] Maxi Macdonald DPM 6337 [facility] 5 [place] [address] 01/11/2026 10:15 AM EDT Office Visit SOPHIE MENDEZ 282 Scotty MARTINEZ D [address] [phone] Monika Gillette, DO [address] [place] [address] [address] documented as of this encounter Visit Diagnoses Not on filedocumented in this encounter Care Teams Assistant Distribution Manager Relationship Specialty Start Date End Date Leroy White MD 112 [facility] 110 [place] [address] PCP - General Internal Medicine 11/06/22 documented as of this encounter"
--- OUTSIDE RECORDS SUMMARY | 2025-01-13 13:11 | XMS_ITS | Encounter Summary ---
Author Organization [facility] Address [address] [facility] [place] [address] Care Team Providers Care Cook Manager Name Role Phone Leroy White MD Primary Care Provider [phone] Reason for Visit * Reason Onset Date Comments Med Refill 08/28/2024 Encounter Details Date Type Department Care Team (Late st Contact Info) Description 08/28/2024 Refill [facility] 112 [facility] 110 [place] [phone] Ny Nathan PA 112 [facility] 110 [place] [address] Panic attacks Social History Tobacco Use Types [...] week 12/12/2023 How often do you attend jainism or baptism serv ices? Never 12/12/2023 Do you belong to any clubs o r organizations such as jainism groups, unions, fraternal or athletic groups, or [...] any time in the past 12 m [facility], were you homeless or living in a skilled nursing (including now)? No 12/12/2023 Comments Unknown Sex and Gender Information Value Date Recorded Sex Assigned at Not on file Legal Sex Female 6:49 PM EDT Gender Identity Not on file Sexual Orientation Not on file documented as of this encounter Miscellaneous Notes * Telephone Encounter - JANELL Saexna - 08/28/2024 4:18 PM EDT OARRS reviewed, Rx sent into patient's pharmacy. Please help pt get set up for controlled medication follow up this month. Last refill until seen. documented in this encounter Plan of Treatment Upcoming Encounters Date Type Department Care Team (Late st Contact Info) Description 01/15/2025 1:30 PM EDT Clinical Support [facility] 112 [facility] 120 [place] [address] Maxi Macdonald, DPJose 3006 [facility] 5 [place] [address] 01/11/2026 10:15 AM EDT Office Visit NOMS Adriana GAYLEGYMayela [address] MICHELLE D [address] [phone] Monika Gillette DO [address] [address] documented as of this encounter Visit Diagnoses Diagnosis Panic attacks Panic disorder without agoraphobia Verruca plantaris- Primary Plantar wart Foot pain, right Pain in soft tissues of limb Left Achilles tendinitis Plantar fasciitis Plantar fascial fibromatosis Contracture of left ankle documented in this encounter Care Teams Cook Manager Relationship Specialty Start Date End Date Leroy White MD 112 [facility] 110 [place] [address] PCP - General Internal Medicine 11/06/22 documented as of this encounter
--- OUTSIDE RECORDS SUMMARY | 2025-01-13 13:11 | XMS_ITS | Encounter Summary ---
Author Organization [facility] Address [address] [place] [facility] [place] [address] Care Team Providers Care Drying Oven Attendant Name Role Phone Leroy White MD Primary Care Provider [phone] Encounter Details Date Type Department Care Team (Late st Contact Info) Description 08/29/2024 Abstract [facility] 112 [facility] [facility] 110 [place] [address] Leroy White MD 112 [place] [facility] 110 [place] [address] Social History Tobacco Use Types [...] week 12/12/2023 How often do you attend religious or yazdanism serv ices? Never 12/12/2023 Do you belong to any clubs o r organizations such as religious groups, unions, fraternal or athletic groups, or [...] 12/20/2022 [facility] - Occupational Stress Questionnaire Answer Date Recorded [...] any time in the past 12 m [facility], were you homeless or living in [...] PODIATRY 112 [facility] 120 [place] [phone] Maxi Macdonald DPM 2567 [facility] 5 [place] [address] 01/11/2026 10:15 AM EDT Office Visit SOPHIE MENDEZ 282 [address] M[address]INE[address] D [address] [phone] Monika Gillette, DO [address] [place] [address] [address] documented as of this encounter Visit Diagnoses Not on filedocumented in this encounter Care Teams Drying Oven Attendant Relationship Specialty Start Date End Date Leroy White MD 112 [facility] 110 [place] [address] PCP - General Internal Medicine 11/06/22 documented as of this encounter
--- OUTSIDE RECORDS SUMMARY | 2025-01-13 13:11 | XMS_ITS | Encounter Summary ---
Author Organization [facility] Address [address] [facility] [place] [address] Care Team Providers Care Loss Control Consultant Name Role Phone Leroy White MD Primary Care Provider [phone] Encounter Details Date Type Department Care Team (Late st Contact Info) Description 06/23/2024 Abstract [facility] 112 [facility] [facility] 110 [place] [address] Leroy White MD 112 [place] [facility] 110 [place] [address] Social History Tobacco Use Types [...] week 12/12/2023 How often do you attend methodist or jehovah's witness serv ices? Never 12/12/2023 Do you belong to any clubs o r organizations such as methodist groups, unions, fraternal or athletic groups, or [...] Score 0 12/20/2022 [facility] - Occupational Stress Questionnaire Answer Date [...] EDT Clinical Support [facility] 112 [facility] 120 [place] [phone] Maxi Macdonald DPM 1948 [facility] 5 [place] [address] 01/11/2026 10:15 AM EDT Office Visit SOPHIE MENDEZ 282 [address] MARTINEZ D [address] [phone] Monika Gillette, DO [address] [place] [address] [address] documented as of this encounter Visit Diagnoses Not on filedocumented in this encounter Care Teams Loss Control Consultant Relationship Specialty Start Date End Date Leroy White MD 112 [facility] 110 [place] [address] PCP - General Internal Medicine 11/06/22 documented as of this encounter
--- OUTSIDE RECORDS SUMMARY | 2025-01-13 13:11 | XMS_ITS | Encounter Summary ---
Author Organization [facility] Address [address] [facility] [place] [address] Care Team Providers Care Emt Intermediate Name Role Phone Leroy White MD Primary Care Provider [phone] Encounter Details Date Type Department Care Team (Late st Contact Info) Description 06/17/2024 Abstract [facility] [address] [facility] [address] [place] [address] Leroy White MD [address] [place] [facility] [address] [place] [address] Social History Tobacco Use Types [...] week 12/12/2023 How often do you attend caodaism or zoroastrian serv ices? Never 12/12/2023 Do you belong to any clubs o r organizations such as caodaism groups, unions, fraternal or athletic groups, or [...] Patient Health Questionnaire-2 Score 0 12/20/2022 [facility] - Occupational Stress Questionnaire Answer Date [...] any time in the past 12 m [facility], were you homeless or living in a [...] EDT Clinical Support [facility] [address] [facility] [address] [place] [id number] Maxi Macdonald DPM [address] [facility] [address] [place] [address] 01/11/2026 10:15 AM EDT Office Visit SOPHIE MENDEZ [address] [phone] Monika Gillette, DO [address] [phone] documented as of this encounter Visit Diagnoses Not on filedocumented in this encounter Care Teams Emt Intermediate Relationship Specialty Start Date End Date Leroy White MD [address] [facility] [address] [place] [address] PCP - General Internal Medicine 11/06/22 documented as of this encounter
--- OUTSIDE RECORDS SUMMARY | 2025-01-13 13:33 | XMS_ITS | CCD ---
Author Organization [facility] Care Team Providers Care Carrier Associate Name Role Phone SUNITHA ., DR GANT Admitting Unavailable HAY ., DR GANT Attending Unavailable WHITE, DR FAY Primary Care Unavailable GRECHSIMEON ., JANELL MCMILLAN Consulting Unavailabl e BERNCARITO, CONCEPCIÓN Consulting Unavailable MARKER ., DR ELLIOTT Admitting Unavailable ZIEBMAE, DR SIXTO Delgado Consulting Unavailable MARKER ., DR ELLIOTT Attending Unavailable DALY, DR FAY Primary Care Unavailable PAY ., DR UGARTE Consulting Unavailable MARKER ., DR ELLIOTT Consulting Unavailable ANNE ., RENETTA Attending Unavailable GRECHSIMEON ., JANELL MCMILLAN Consulting Unavailabl e DALY, DR FAY Primary Care Unavailable ANNE ., RENETTA Admitting Unavailable HEMMER, DR [place] Garcia Attending Unavailable WEST, DR DONNA Wright Consulting Unavailable DALY, DR FAY Primary Care Unavailable HEMCURTIS, DR [place] Garcia Admitting Unavailable HEMCURTIS, DR [place] Garcia Consulting Unavailable DALY, DR FAY Primary Care Unavailable DALY, DR FAY Admitting Unavailable DALY, DR FAY Attending Unavailable DALY, DR FAY Consulting Unavailable SABRINA, DR SIXTO Delgado Consulting Unavailable Leroy White MD Primary Care Provider [phone] [place] PARHAM Attending Unavailable LEROY WHITE Attending Unavailable MAXI MACDONALD Attending Unavailable LEROY WHITE Referring Unavailable MAXI MACDONALD Attending Unavailable MONIKA GILLETTE Attending Unavailable LEROY WHITE Attending Unavailable LEROY WHITE Attending Unavailable LEROY WHITE Attending Unavailable LEROY WHITE Attending Unavailable [place] PARHAM Attending Unavailable Allergies Allergy Classification Reported Allergen(s) Allergy Type Date of Onset Reaction(s) Facility (1 source) Adhesive agent Drug allergy (disorder) 7 [facility] (1 source) Ciprofloxacin Drug Allergy 3 [facility] (1 source) natural latex rubber Drug allergy (disorder) 7 [facility] (20 sources) Ciprofloxacin Drug Allergy 3 Swelling [facility] Work Phone: (20 sources) Wound Dressing Adhesive Drug Allergy 3 Unknown [facility] (11 sources) Latex Propensity to adverse reactions 5 [facility] Medications Current Medications Medication Drug Class(es) Dates Sig (Normalized) Sig (Original) acetaminophen 325 mg / HYDROcodone bitartrate 5 mg oral tablet (20 sources) Opioid Agonist Start: 12-10-2024 End: 12-29-2024 take 1 tablet by mouth every six hours for pain HYDROcodone-acetamin ophen (Elbert) 5-325 MG tablet Indications: Osteoarthritis of spine with radiculopathy, lumbar region Take 1 tablet by mouth every 6 (six) hours if needed for severe pain for up to 10 days 40 tablet 12/19/2024 12/29/2024 Active Start: 09-12-2024 End: 09-17-2024 take 1 tablet by mouth every six hours for pain HYDROcodone-acetaminophen (Elbert) 5-325 MG tablet Indications: Osteoarthritis of spine with radiculopathy, lumbar region Take 1 tablet by mouth every 6 (six) hours if needed for severe pain for up to 5 days 20 tablet 09/12/2024 09/17/2024 Active Start: 05-07-2024 End: 05-17-2024 take 1 tablet by mouth every six hours for pain HYDROcodone-acetaminophen (Elbert) 10-325 MG tablet Indications: Spondylosis of lumbar region without myelopathy or radiculopathy Take 1 tablet by mouth every 6 (six) hours if needed for moderate pain or severe pain for up to 10 days 40 tablet 05/07/2024 05/17/2024 Active Start: 03-03-2024 End: 03-24-2024 take 1 tablet by mouth every six hours for pain HYDROcodone-acetaminophen (Elbert) 10-325 MG tablet Indications: Spondylosis of lumbar region without myelopathy or radiculopathy Take 1 tablet by mouth every 6 (six) hours if needed for moderate pain or severe pain for up to 10 days 40 tablet 03/14/2024 03/24/2024 Active Start: 06-21-2023 End: 06-26-2023 take 1 tablet by mouth every six hours for pain HYDROcodone-acetaminophen (Elbert) 7.5-32 5 MG tablet Indications: Acute left-sided [...] Start: 03-24-2024 take 1 tablet by hal th three [...] Start: 03-08-2023 take 1 tablet by hal three times daily as needed for muscle spasms cyclobenzaprine (Flexeril) 10 MG tablet Indications: Cervical radiculopathy Take 1 tablet (10 mg) by mouth 3 (three) times a day as needed for muscle spasms. 90 tablet 2 03/08/2023 Active diazePAM 5 mg oral tablet (20 sources) Benzodiazepine Start: 11-21-2023 End: 03-01-2025 take 1 tablet by mouth once diazePAM (Valium) 5 MG tablet Indications: Panic attacks Take 1 tablet (5 mg) by mouth every 12 (twelve) hours if needed for anxiety, sleep or muscle spasms 60 tablet 1 12/31/2024 03/01/2025 Active Start: 06-01-2023 take 1 tablet by [...] 60 tablet 5 09/26/2023 09/25/2024 Active methylPREDNISolone (8 sources) Corticosteroid Start: 01-01-2025 methylPREDNISolone (Medrol Dospak) 4 MG tablets Indications: Left Achilles tendinitis Follow schedule on MEDROL PACK package instructions to be used as directed 21 tablet 01/01/2025 Active Start: 06-21-2023 End: 06-28-2023 methylPREDNISolone (Medrol D ospak) 4 MG tablets Indications: Acute left-sided low [...] tablet (20 sources) Serotonin-3 Receptor Antagonist Start: 12-08-2024 take 1 tablet by mouth every eight hours as needed for nausea and vomiting ondansetron ODT (Zofran-ODT) 4 MG disintegrating tablet Indications: Nausea TAKE 1 TABLET (4 MG) BY MOUTH EVERY 8 HOURS NEEDED FOR NAUSEA AND VOMITING 28 tablet 1 12/08/2024 Active Start: 01-25-2024 take 1 tablet by hal th every [...] (Imitrex) 50 MG tablet Indications: Migraine syndrome TAKE 1 TABLET BY MOUTH ONCE [...] tablet (20 sources) gamma-Aminobutyric Acid-ergic Agonist Start: 03-31-2024 End: 12-25-2024 zolpidem (Ambien) 10 MG tablet Indications: Other insomnia TAKE 1 TABLET (10 MG) BY MOUTH NEEDED AT BEDTIME FOR SLEEP 30 tablet 2 12/25/2024 Active Start: 12-26-2023 End: 03-28-2024 zolpidem (Ambien) [...] including migraine; Translations: [HEADACHE UNSPECIFIED] Onset: 04-17-2022 Immunizations and screening for infectious disease (4 sources) Patient encounter status; Translations: [Encounter for screening for human papillomavirus (HPV)] 01-07-2025 Episodic Intestinal infection (2 sources) Viral gastroenteritis; Translations: [...] Translations: [Nausea with vomiting, unspecified] 06-04-2024 Episodic Neoplasms of unspecified nature or uncertain behavior (2 sources) Neoplasm of uncertain behavior of skin; Translations: [Neoplasm of uncertain behavior of skin] 12-12-2024 Episodic Other acquired deformities (4 sources) Contracture of joint of left ankle; Translations: [Contracture, left ankle] 12-12-2024 Chronic Other aftercare (1 source) Other termite control representative (current) drug therapy; Translations: [OTH ASSOCIATE PROFESSOR OF ENGINEERING CURRENT DRUG THERAPY] Onset: 10-03-2022 Episodic Other bone disease and musculoskeletal deformities (4 sources) Costal chondritis; 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 [Tietze]] 05-07-2024 Episodic Other connective tissue disease (2 sources) Plantar fasciitis of right foot; Translations: [Plantar fascial fibromatosis] 06-21-2023 Episodic Other connective tissue disease (10 sources) Left achilles tendonitis; Translations: [Achilles tendinitis, left leg] 12-10-2024 Episodic Other connective tissue disease (4 sources) Pain in right foot; Translations: [Pain in right foot] 12-12-2024 Episodic Other connective tissue disease (2 sources) Plantar fasciitis; Translations: [Plantar fascial fibromatosis] 01-01-2025 Episodic Other nervous system disorders (20 sources) Chiari malformation type I; Translations: [Compression of brain] Onset: 11-06-2022 11-06-2022 Chronic Other nutritional; endocrine; and metabolic disorders (20 sources) Severe obesity; Translations: [Morbid (severe) obesity due to excess calories] Onset: 11-06-2022 11-06-2022 Chronic Other screening for suspected conditions (not mental disorders or infectious disease) (4 sources) Cancer cervix screening status; Translations: [Encounter for screening for malignant neoplasm of cervix] 01-07-2025 Episodic Other skin disorders (6 sources) [place] - lesion ; Translations: [Corns and callosities] 12-10-2024 Episodic Other upper respiratory infections (2 sources) Upper respiratory infection; Translations: [Acute upper respiratory infection, unspecified] 02-06-2024 Episodic Residual codes; unclassified (20 sources) Insomnia; Translations: [Other insomnia] Onset: 11-06-2022 11-06-2022 Chronic Residual codes; unclassified (1 source) Acquired absence of other specified parts of digestive tract; Translations: [ACQ ABSENCE OTH PART DIGESTV TRACT] Onset: 10-03-2022 Episodic Residual codes; unclassified (2 sources) History of female sterilization; Translations: [Other specified postprocedural states] 01-07-2025 Episodic Screening and history of mental health [...] BACK PAIN, UNSPECIFIED] Onset: 10-03-2022 Viral infection (6 sources) Viral disease; Translations: [Viral infection, unspecified] [...] on above: Performed By: #### 6 399, 61139, 803 #### [facility] [place] [address] Floorleader: Louie Agosto MD Basophils/100 WBC (Bld) 1.2 % Normal [facility] Comment on above: Performed By: #### 6 399, 21113, 809 #### [facility] [place] [address] Floorleader: Louie Agosto MD Eosinophils (Bld) [#/Vol] 0.213 10*3/uL Normal 15-500 [facility] Comment on above: Performed By: #### 6 399, 69029, 805 #### [facility] [place] [address] Floorleader: Louie Agosto MD Eosinophils/100 WBC (Bld) 4.1 % Normal [facility] Comment on above: Performed By: #### 6 399, 40789, 809 #### [facility] [place] [address] Floorleader: Louie Agosto MD Erythrocyte distribution width (RBC) [Ratio] 11.7 % Normal 11.0-15.0 [facility] Comment on above: Performed By: #### 6 399, 14051, 809 #### [facility] [place] [address] Floorleader: Louie Agosto MD Hematocrit (Bld) [Volume fraction] 42.6 % Normal 35.0-45.0 [facility] Comment on above: Performed By: #### 6 399, 95021, 809 #### [facility] [place] [address] Floorleader: Louie Agosto MD Hemoglobin (Bld) [Mass/Vol] 14.3 g/dL Normal 11.7-15.5 [facility] Comment on above: Performed By: #### 6 399, 55764, 809 #### [facility] [place] [address] Floorleader: Louie Agosto MD Lymphocytes (Bld) [#/Vol] 1.524 10*3/uL Normal 850-3900 [facility] Comment on above: Performed By: #### 6 399, 84921, 809 #### [facility] [place] [address] Floorleader: Louie Agosto MD Lymphocytes/100 WBC (Bld) 29.3 % Normal [facility] Comment on above: Performed By: #### 6 399, 11348, 809 #### [facility] [place] [address] Floorleader: Louie Agosto MD MCH (RBC) [Entitic mass] 31.5 pg Normal 27.0-33.0 [facility] Comment on above: Performed By: #### 6 399, 42820, 809 #### [facility] [place] [address] Floorleader: Louie Agosto MD MCHC (RBC) [Mass/Vol] 33.6 [...] clinical condition. Performed By: #### 6 399, 31449, 809 #### [facility] [place] [address] Floorleader: Louie Agosto MD MCV (RBC) [Entitic vol] 93.8 fL Normal 80.0-100.0 [facility] Comment on above: Performed By: #### 6 399, 06733, 809 #### [facility] [place] [address] Floorleader: Louie Agosto MD Monocytes (Bld) [#/Vol] 0.364 10*3/uL Normal 200-950 [facility] Comment on above: Performed By: #### 6 399, 54613, 809 #### [facility] [place] [address] Floorleader: Louie Agosto MD Monocytes/100 WBC (Bld) 7.0 % Normal [facility] Comment on above: Performed By: #### 6 399, 25377, 809 #### [facility] [place] [address] Floorleader: Louie Agosto MD Neutrophils (Bld) [#/Vol] 3.037 10*3/uL Normal 2155-9402 [facility] Comment on above: Performed By: #### 6 399, 21457, 809 #### [facility] [place] [address] Floorleader: Louie Agosto MD Neutrophils/100 WBC (Bld) 58.4 % Normal [facility] Comment on above: Performed By: #### 6 399, 61806, 809 #### [facility] [place] [address] Floorleader: Louie Agosto MD Platelet mean volume (Bld) [Entitic vol] 11.2 fL Normal 7.5-12.5 [facility] Comment on above: Performed By: #### 6 399, 21731, 809 #### [facility] [place] [address] Floorleader: Louie Agosto MD Platelets (Bld) [#/Vol] 327 10*3/uL Normal 140-400 [facility] Comment on above: Performed By: #### 6 399, 55851, 809 #### [facility] [place] [address] Floorleader: Louie Agosto MD RBC (Bld) [#/Vol] 4.54 10*6/uL Normal 3.80-5.10 [facility] Comment on above: Performed By: #### 6 399, 53218, 809 #### [facility] [place] [address] Floorleader: Louie Agosto MD WBC (Bld) [#/Vol] 5.2 10*3/uL Normal 3.8-10.8 [facility] Comment on above: Performed By: #### 6 399, 00628, 809 #### [facility] [place] [address] Floorleader: Louie Agotso MD [facility] 05-08-2024 Albumin [Mass/Vol] 4.1 g/dL Normal 3.6-5.1 [facility] Comment on above: Order Comment: FASTI NG:YES FASTING: YES Performed By: #### 6 399, 36502, 809 #### [facility] [place] [address] Floorleader: Louie Agosto MD Albumin/Globulin [Mass ratio] 1.4 {ratio} Normal 1.0-2.5 [facility] Comment on above: Order Comment: FASTI NG:YES FASTING: YES Performed By: #### 6 399, 52224, 809 #### [facility] [place] [address] Floorleader: Louie Agosto MD ALP [Catalytic activity/Vol] 85 U/L Normal 31-125 [facility] Comment on above: Order Comment: FASTI NG:YES FASTING: YES Performed By: #### 6 399, 88892, 809 #### [facility] [address], [address] [place] [address] Floorleader: Louie Agosto MD ALT [Catalytic activity/Vol] 38 U/L High 6-29 [facility] Comment on above: Order Comment: FASTI NG:YES FASTING: YES Performed By: #### 6 399, 94928, 809 #### [facility] [place] [address] Floorleader: Louie Agosto MD AST [Catalytic activity/Vol] 32 U/L High 10-30 [facility] Comment on above: Order Comment: FASTI NG:YES FASTING: YES Performed By: #### 6 399, 06999, 809 #### [facility] [place] [address] Floorleader: Louie Agosto MD Bilirubin [Mass/Vol] 0.6 mg/dL Normal 0.2-1.2 [facility] Comment on above: Order Comment: FASTI NG:YES FASTING: YES Performed By: #### 6 399, 15694, 809 #### [facility] [place] [address] Floorleader: Louie Agosto MD Calcium [Mass/Vol] 9.4 mg/dL Normal 8.6-10.2 [facility] Comment on above: Order Comment: FASTI NG:YES FASTING: YES Performed By: #### 6 399, 72985, 809 #### [facility] [address], [address] [place], [place] [address] Floorleader: Louie Agosto MD Chloride [Moles/Vol] 106 mmol/L Normal 98-110 [facility] Comment on above: Order Comment: FASTI NG:YES FASTING: YES Performed By: #### 6 399, 53496, 809 #### [facility] [place] [address] Floorleader: Louie Agosto MD CO2 [Moles/Vol] 25 mmol/L Normal 20-32 [facility] Comment on above: Order Comment: FASTI NG:YES FASTING: YES Performed By: #### 6 399, 03504, 809 #### [facility] [place] [address] Floorleader: Louie Agosto MD Creatinine [Mass/Vol] 1.09 mg/dL High 0.50-0.97 [facility] Comment on above: Order Comment: FASTI NG:YES FASTING: YES Performed By: #### 6 399, 68769, 809 #### [facility] [place] [address] Floorleader: Louie Agosto MD GFR/1.73 sq M.predicted among non-blacks MDRD (S/P/Bld) [Vol rate/Area] 66 mL/min/{1.73_m2} Normal > OR = 60 [facility] Comment on above: Order Comment: FASTI NG:YES FASTING: YES Performed By: #### 6 399, 65610, 809 #### [facility] [place] [address] Floorleader: Louie Agosto MD Globulin (S) [Mass/Vol] 2.9 g/dL Normal 1.9-3.7 [facility] Comment on above: Order Comment: FASTI NG:YES FASTING: YES Performed By: #### 6 399, 76887, 809 #### [facility] [place] [address] Floorleader: Louie Agosto MD Glucose [Mass/Vol] 81 mg/dL Normal 65-99 [facility] Comment on above: Order Comment: FASTI NG:YES FASTING: YES Result Comment: Fasting reference interval Performed By: #### 6 399, 81329, 809 #### [facility] [address], [address] [place] [address] Floorleader: Louie Agosto MD Potassium [Moles/Vol] 4.6 mmol/L Normal 3.5-5.3 [facility] Comment on above: Order Comment: FASTI NG:YES FASTING: YES Performed By: #### 6 399, 13940, 809 #### [facility] [address], [address] [place] [address] Floorleader: Louie Agosto MD Protein [Mass/Vol] 7.0 g/dL Normal 6.1-8.1 [facility] Comment on above: Order Comment: FASTI NG:YES FASTING: YES Performed By: #### 6 399, 36527, 809 #### [facility] [address], [address] [place] [address] Floorleader: Louie Agosto MD Sodium [Moles/Vol] 140 mmol/L Normal 135-146 [facility] Comment on above: Order Comment: FASTI NG:YES FASTING: YES Performed By: #### 6 399, 43021, 809 #### [facility] [address], [address] [place] [address] Floorleader: Louie Agosto MD Urea nitrogen [Mass/Vol] 13 mg/dL Normal 7-25 [facility] Comment on above: Order Comment: FASTI NG:YES FASTING: YES Performed By: #### 6 399, 78524, 809 #### [facility] [address], [address] [place] [address] Floorleader: Louie Agosto MD Urea nitrogen/Creatinine [Mass ratio] 12 mg/mg Normal 6-22 [facility] Comment on above: Order Comment: FASTI NG:YES FASTING: YES Performed By: #### 6 399, 35050, 809 #### [facility] [address], [address] [place] [address] Floorleader: Louie Agosto MD SED RATE BY MODIFIED WESTERG RENon 05-08-2024 SED RATE BY MODIFIED WESTKISHOREREN 29 mm/h High < OR = 20 [facility] Comment on above: Performed By: #### 6 399, 73048, 809 #### [facility] [address], [address] [place] [address] Floorleader: Louie Agosto MD CT LSPINE WO CONon [...] SIXTO BENNETT Date: 2022-09-29 07:12 Normal [facility] ER URINE PROFILEon 3 Bilirubin Ql (U) Negative Normal NEGATIVE [facility] Comment on above: Performed By: #### P T, PTT, DDIM #### [facility] [address] [place] [address] [address] Michelle Alfaro Clarity (U) CLEAR Normal CLEAR [facility] Comment on above: Performed By: #### P T, PTT, DDIM #### [facility] [address] [place] [address] Dr. Michelle Alfaro Color (U) YELLOW Normal YELLOW [facility] Comment on above: Performed By: #### P T, PTT, DDIM #### [facility] [address] [place] [address] Dr. Michelle GARRIDO A micrscopic examination will be performed if indicated. Normal [facility] Comment on above: Performed By: #### P T, PTT, DDIM #### [facility] [address] [place] [address] Dr. Michelle Alfaro Glucose Ql (U) Negative Normal NEGATIVE [facility] Comment on above: Performed By: #### P T, PTT, DDIM #### [facility] [address] [place] [address] Dr. Michelle Alfaro Hemoglobin Ql (U) TRACE-INTACT Abnormal NEGATIVE [facility] Comment on above: Performed By: #### P T, PTT, DDIM #### [facility] [address] [place] [address] Dr. Michelle Alfaro Ketones Ql (U) Negative Normal NEGATIVE The [facility] Comment on above: Performed By: #### P T, PTT, DDIM #### [facility] [address] [place] [address] Dr. Michelle Alfaro LEUKOCYTES Negative Normal NEGATIVE [facility] Comment on above: Performed By: #### P T, PTT, DDIM #### [facility] [address] [place] [address] Dr. Michelle Alfaro Nitrite Ql (U) Negative Normal NEGATIVE [facility] Comment on above: Performed By: #### P T, PTT, DDIM #### [facility] [address] [place] [address] Dr. Michelle Alfaro pH (U) 5.5 [pH] Normal 5-9 [facility] Comment on above: Performed By: #### P T, PTT, DDIM #### [facility] [address] [place] [address] Dr. Michelle Alfaro SPEC GRAVITY >=1.030 Abnormal 1.005-<=1.025 [facility] Comment on above: Performed By: #### P T, PTT, DDIM #### [facility] [address] [place] [address] Dr. Michelle Alfaro UA PROTEIN Negative Normal NEGATIVE/ TRACE [facility] Comment on above: Performed By: #### P T, PTT, DDIM #### [facility] [address] [place] [address] Dr. Michelle Alfaro UR MICRO IND NOT INDICATED Normal [facility] Comment on above: Performed By: #### P T, PTT, DDIM #### [facility] [address] [place] [address] Dr. Michelle Alfaro Urobilinogen Qn (U) 4 {Ramona'U}/dL Abnormal 0.2 - 1.0 [facility] Comment on above: Performed By: #### P T, PTT, DDIM #### [facility] [address] [place] [address] Dr. Michelle Alfaro XR CSPINE MIN 4 [...] DONNA NAVARRETE Date: 2022-06-06 09:11 Normal [facility] CBC W MANUAL DIFFon 04-10-20 22 ATYPICAL LYMPH # Normal [facility] Comment on above: Performed By: #### P T, PTT, DDIM #### [facility] [address] [place] [address] Dr. Michelle Alfaro ATYPICAL LYMPH % Normal [facility] Comment on above: Performed By: #### P T, PTT, DDIM #### [facility] [address] [place] [address] Dr. Michelle Alfaro BAND # Normal 0.0-0.3 [facility] Comment on above: Performed By: #### P T, PTT, DDIM #### [facility] [address] [place] [address] Dr. Michelle Alfaro BAND % Normal 0-5 [facility] Comment on above: Performed By: #### P T, PTT, DDIM #### [facility] [address] [place] [address] Dr. Michelle Alfaro BASOM # 0.09 103/ul Normal 0.00-0.10 [facility] Comment on above: Performed By: #### P T, PTT, DDIM #### [facility] [address] [place] [address] Dr. Michelle Alfaro BASOM % 1.0 % Normal 0.2-2.0 [facility] Comment on above: Performed By: #### P T, PTT, DDIM #### [facility] [address] [place] [address] Dr. Michelle Alfaro BLAST # Normal [facility] Comment on above: Performed By: #### P T, PTT, DDIM #### [facility] [address] [place] [address] Dr. Michelle Alfaro BLAST % Normal [facility] Comment on above: Performed By: #### P T, PTT, DDIM #### [facility] [address] [place] [address] Dr. Michelle Alfaro CORRECTED WBC Normal 4.0-11.0 The [facility] Comment on above: Performed By: #### P T, PTT, DDIM #### [facility] [address] [place] [address] Dr. Michelle Alfaro EOS # 0.28 103/ul Normal 0.00-0.70 [facility] Comment on above: Performed By: #### P T, PTT, DDIM #### [facility] [address] [place] [address] Dr. Michelle Alfaro EOS% 3.0 % Normal 0.9-7.0 [facility] Comment on above: Performed By: #### P T, PTT, DDIM #### [facility] [address] [place] [address] Dr. Michelle Alfaro HCT 40.7 % Normal 36.0-48.0 [facility] Comment on above: Performed By: #### P T, PTT, DDIM #### [facility] [address] [place] [address] Dr. Michelle Alfaro HGB 14.0 g/dl Normal 12.0-16.0 [facility] Comment on above: Performed By: #### P T, PTT, DDIM #### [facility] [address] [place] [address] Dr. Michelle Alfaro LYMPHM # 2.67 103/ul Normal 1.20-3.80 [facility] Comment on above: Performed By: #### P T, PTT, DDIM #### [facility] [address] [place] [address] Dr. Michelle Alfaro LYMPHM% 29.0 % Normal 20.5-60.0 [facility] Comment on above: Performed By: #### P T, PTT, DDIM #### [facility] [address] [place] [address] Dr. Michelle Alfaro MCH 32.1 pg Normal 26.7-34.0 [facility] Comment on above: Performed By: #### P T, PTT, DDIM #### [facility] [address] [place] [address] Dr. Michelle Alfaro MCHC 34.4 g/dl Normal 29.9-35.2 [facility] Comment on above: Performed By: #### P T, PTT, DDIM #### [facility] [address] [place] [address] Dr. Michelle Alfaro MCV 93.3 fL Normal 81.0-99.0 [facility] Comment on above: Performed By: #### P T, PTT, DDIM #### [facility] [address] [place] [address] Dr. Michelle Alfaro METAMYELOCYTE # Normal [facility] Comment on above: Performed By: #### P T, PTT, DDIM #### [facility] [address] [place] [address] Dr. Michelle Alfaro METAMYELOCYTE % Normal [facility] Comment on above: Performed By: #### P T, PTT, DDIM #### [facility] [address] [place] [address] Dr. Michelle Alfaro MONOM# 0.64 103/ul Normal 0.30-0.80 [facility] Comment on above: Performed By: #### P T, PTT, DDIM #### [facility] [address] [place] [address] Dr. Michelle Alfaro MONOM% 7.0 % Normal 1.7-12.0 [facility] Comment on above: Performed By: #### P T, PTT, DDIM #### [facility] [address] [place] [address] Dr. Michelle Alfaro MPV 10.0 fL Normal 9.5-13.5 [facility] Comment on above: Performed By: #### P T, PTT, DDIM #### [facility] [address] [place] [address] Dr. Michelle Alfaro MYELOCYTE # Normal [facility] Comment on above: Performed By: #### P T, PTT, DDIM #### [facility] [address] [place] [address] Dr. Michelle Alfaro MYELOCYTE % Normal [facility] Comment on above: Performed By: #### P T, PTT, DDIM #### [facility] [address] [place] [address] Dr. Michelle Alfaro NRBC Normal [facility] Comment on above: Performed By: #### P T, PTT, DDIM #### [facility] [address] [place] [address] Dr. Michelle Alfaro PLT 288 103/ul Normal 150-450 [facility] Comment on above: Performed By: #### P T, PTT, DDIM #### [facility] [address] [place] [address] Dr. Michelle Alfaro RBC 4.36 106/ul Normal 4.20-5.40 [facility] Comment on above: Performed By: #### P T, PTT, DDIM #### [facility] [address] [address] [address] Michelle Alfaro RDW 12.4 % Normal 11.0-15.0 [facility] Comment on above: Performed By: #### P T, PTT, DDIM #### [facility] [address] [address] [address] Michelle Alfaro SEG # 5.52 103/ul Normal 1.40-6.50 [facility] Comment on above: Performed By: #### P T, PTT, DDIM #### [facility] [address] [address] [address] Michelle Alfaro SEG % 60.0 % Normal 43.0-75.0 [facility] Comment on above: Performed By: #### P T, PTT, DDIM #### [facility] [address] [place] [address] Dr. Michelle Alfaro WBC 9.2 103/ul Normal 4.0-11.0 [facility] Comment on above: Performed By: #### P T, PTT, DDIM #### [facility] [address] [place] [address] Dr. Michelle Alfaro D-DIMERon 04-10-2022 D-DIMER 0.43 mg/L FEU Normal <=0.59 The [facility] Comment on above: Performed By: #### P T, PTT, DDIM #### [facility] [address] [place] [address] Dr. Michelle Alfaro D-DIMER COMMENTS SEE BELOW Normal The [facility] Comment on above: Result Comment: Incr [...] By: #### P T, PTT, DDIM #### [facility] [address] [address] [address] Michelle Alfaro PREG HCG QUALon 04-10-2022 , QUAL Negative Normal NEGATIVE [facility] Comment on above: Performed By: #### P T, PTT, DDIM #### [facility] [address] [address] [address] Michelle Alfaro PROF 14(COMP METB)on 022 Albumin [Mass/Vol] 3.6 g/dL Normal 3.4-5.0 [facility] Comment on above: Performed By: #### C MP, HSTROPN, TSH #### [facility] [address] [address] [address] Michelle Alfaro Albumin/Globulin [Mass ratio] 0.9 {ratio} Normal [facility] Comment on above: Performed By: #### C MP, HSTROPN, TSH #### [facility] [address] [address] [address] Michelle Alfaro ALP [Catalytic activity/Vol] 85 U/L Normal 46-116 [facility] Comment on above: Performed By: #### C MP, HSTROPN, TSH #### [facility] [address] [address] [address] Michelle Alfaro ALT [Catalytic activity/Vol] 28 U/L Normal 14-59 [facility] Comment on above: Performed By: #### C MP, HSTROPN, TSH #### [facility] [address] [address] [address] Michelle Alfaro Anion gap [Moles/Vol] 11.7 mmol/L Normal [facility] Comment on above: Performed By: #### C MP, HSTROPN, TSH #### [facility] [address] [address] [address] Michelle Alfaro AST [Catalytic activity/Vol] 19 U/L Normal 15-37 [facility] Comment on above: Performed By: #### C MP, HSTROPN, TSH #### [facility] [address] [address] [address] Michelle Alfaro Bilirubin [Mass/Vol] 0.2 mg/dL Normal 0.2-1.0 [facility] Comment on above: Performed By: #### C MP, HSTROPN, TSH #### [facility] [address] [place] [address] Dr. Michelle Alfaro Calcium [Mass/Vol] 8.8 mg/dL Normal 8.5-10.1 [facility] Comment on above: Performed By: #### C MP, HSTROPN, TSH #### [facility] [address] [address] [address] Michelle Alfaro Chloride [Moles/Vol] 103 mmol/L Normal 98-107 [facility] Comment on above: Performed By: #### C MP, HSTROPN, TSH #### [facility] [address] [place] [address] Dr. Michelle Alfaro CO2 [Moles/Vol] 26.7 mmol/L Normal 21.0-32.0 [facility] Comment on above: Performed By: #### C MP, HSTROPN, TSH #### [facility] [address] [place] [address] Dr. Michelle Alfaro Creatinine [Mass/Vol] 1.05 mg/dL Critically high 0.55-1.02 [facility] Comment on above: Performed By: #### C MP, HSTROPN, TSH #### [facility] [address] [place] [address] Dr. Michelle Alfaro EGFR-AF RWANDAN >60 Normal >=60 [facility] Comment on above: Performed By: #### C MP, HSTROPN, TSH #### [facility] [address] [place] [address] Dr. Michelle Alfaro EGFR-NON AF RWANDAN 59 mL/min/1.73m2 Critically low >=60 [facility] Comment on above: Performed By: #### C MP, HSTROPN, TSH #### [facility] [address] [place] [address] Dr. Michelle Alfaro Globulin (S) [Mass/Vol] 4.0 g/dL Normal [facility] Comment on above: Performed By: #### C MP, HSTROPN, TSH #### [facility] [address] [place] [address] Dr. Michelle Alfaro Glucose [Mass/Vol] 97 mg/dL Normal 74-106 [facility] [place] [facility] Comment on above: Performed By: #### C MP, HSTROPN, TSH #### [facility] [address] [place] [address] Dr. Michelle Alfaro Potassium [Moles/Vol] 3.4 mmol/L Critically low 3.5-5.1 [facility] Comment on above: Performed By: #### C MP, HSTROPN, TSH #### [facility] [address] [place] [address] Dr. Michelle Alfaro Protein [Mass/Vol] 7.6 g/dL Normal 6.4-8.2 [facility] Comment on above: Performed By: #### C MP, HSTROPN, TSH #### [facility] [address] [place] [address] Dr. Michelle Alfaro Sodium [Moles/Vol] 138 mmol/L Normal 136-145 [facility] [place] [facility] Comment on above: Performed By: #### C MP, HSTROPN, TSH #### [facility] [address] [place] [address] Dr. Michelle Alfaro Urea nitrogen [Mass/Vol] 11.0 mg/dL Normal 7.0-18.0 [facility] Comment on above: Performed By: #### C MP, HSTROPN, TSH #### [facility] [address] [place] [address] Dr. Michelle Alfaro Urea nitrogen/Creatinine [Mass ratio] 10.5 mg/mg Normal [facility] Comment on above: Performed By: #### C MP, HSTROPN, TSH #### [facility] [address] [place] [address] Dr. Michelle Alfaro PROTIMEon 04-10-2022 INR Coag (PPP) [Relative time] 0.95 {INR} Normal [facility] Comment on above: Performed By: #### P T, PTT, DDIM #### [facility] [address] [place] [address] Dr. Michelle Alfaro INR GUIDELINES SEE BELOW Normal The [facility] Comment on above: Result Comment: YASMIN RED INR: 2.0 - 3.0 CONDITIONS NOT LISTED BELOW 2.5 - 3.5 FOR PROSTHETIC HEART VALVE REPLACEMENT 2.5 - 3.5 RECURRENT THROMBOSIS Performed By: #### P T, PTT, DDIM #### [facility] [address] [place] [address] Dr. Michelle Alfaro PT Coag (PPP) [Time] 10.3 s Normal 9.0-11.6 [facility] Comment on above: Performed By: #### P T, PTT, DDIM #### [facility] [address] [place] [address] Dr. Michelle Alfaro PTTon 04-10-2022 aPTT Coag (Bld) [Time] 25.3 s Normal 22.3-36.2 [facility] Comment on above: Performed By: #### P T, PTT, DDIM #### [facility] [address] [place] [address] Dr. Michelle Alfaro TROPONIN, HIGH SENSITIVITYon 04-10-2022 HSTROP 12.0 pg/mL Normal 4.0-51.3 [facility] Comment on above: Result Comment: CUT- OFF POINTS HAVE BEEN ESTABLISHED BASED ON THE FOURTH UNIVERSAL DEFINITIONS OF MYOCARDIAL INFARCTION. THE UPPER REFERENCE LIMIT (URL) OF TROPONIN, DEFINED THE 99TH PERCENTILE OF cTnI DISTRIBUTION IN A REFERENCE POPULATION, HAS BEEN CONFIRMED THE DECISION THRESHOLD FOR RI DIAGNOSIS. Performed By: #### C MP, HSTROPN, TSH #### [facility] [address] [place] [address] Dr. Michelle Alfaro TSHon 04-10-2022 TSH 3.556 uIU/mL Normal 0.358-3.740 [facility] Comment on above: Performed By: #### C MP HSTROPN, TSH #### [facility] [address] [place] [address] Dr. Michelle Alfaro XR CHEST 1 Von [...] by: CONCEPCIÓN MUJICA Date: 2022-04-10 18:52 Normal [facility] XR LSPINE MIN 4 VIEWSon 08-0 [...] by: SIXTO BENNETT Date: 2021-12-21 08:04 Normal [facility] Coding Summary.on 04-08-2020 Coding Summary. CODING DATE: 04/08/2020 FINAL [facility] STATUS: Home (Routine DC) PAYOR: Commercial [...] CphT Date Saved: 04/08/2020 07:40 pm Normal [facility] SARS-CoV-2, NAAon 04-03-2020 SARS CORONAVIRUS 2 RNA:PRTHR:PT:RESPIR ATORY:ORD:PROBE.AMP .TAR Detected Abnormal Not Detected [facility] Comment on above: Result Comment: This nucleic acid amplification test was developed and its performance characteristics determined by [facility]. Nucleic acid amplification tests include PCR and [...] detected) result in this assay. Performed at: [facility] [address] [place], [place] [id number] [facility] Carmella Elizabeth Performed By: #### S ARS-CoV-2, CHRIS #### [facility] [address] [place] [address] Physician Orderon 03-30-2020 Physician Order [id number] #1.00CD:127 Normal [facility] Consent for Treatmenton Consent for Treatment [id number]#1.00CD:127 Normal [facility] Vital Signs Date Time Vital Sign Value Performing Clinician Kristopher hand 01-07-2025 10:10-0400 Body mass index (BMI) [Ratio] 29.29 kg/m2 Monikaramona Gillette DO Work Phone: [facility] 01-07-2025 10:10-040 Body weight 79.83 kg Monika [employer] DO Work Phone: [facility] 01-07-2025 10:10-0400 Diastolic blood pressure 74 mm[Hg] Monikaramona Gillette [employer] Work Phone: [facility] 01-07-2025 10:10-0400 Systolic blood pressure 116 mm[Hg] Monikaramona Gillette [employer] Work Phone: [facility] 01-01-2025 10:15-0400 Body height 165.1 cm Maxi Macdonald DPM Work Phone: [facility] 01-01-2025 10:15-0400 Body mass index (BMI) [Ratio] 29.12 kg/m2 Maxi Macdonald DPM Work Phone: [facility] 01-01-2025 10:15-0400 Body weight 79.38 kg Maxi Macdonald DPM Work Phone: [facility] 01-01-2025 10:15-0400 Respiratory rate 16 /min Maxi Brown DPM Work Phone: [facility] 12-12-2024 16:03-0400 Body height 165.1 cm Maxi Macdonald DPM Work Phone: [facility] 12-12-2024 16:03-0400 Body mass index (BMI) [Ratio] 29.12 kg/m2 Maxi Macdonald DPM Work Phone: [facility] 12-12-2024 16:03-0400 Body weight 79.38 kg Maxi Macdonald DPM Work Phone: [facility] 12-12-2024 16:03-0400 Respiratory rate 16 /min Maxi Macdonald DPM Work Phone: [facility] 12-10-2024 09:57-0400 Body height 162.6 cm Leroy White MD Work Phone: [facility] 12-10-2024 09:57-0400 Body mass index (BMI) [Ratio] 30.21 kg/m2 Leroy White MD Work Phone: [facility] 12-10-2024 09:57-0400 Body weight 79.83 kg Leroy White MD Work Phone: [facility] 12-10-2024 09:57-0400 Diastolic blood pressure 82 mm[Hg] Leroy White MD Work Phone: [facility] 12-10-2024 09:57-0400 Heart rate 75 /min Leroy White MD Work Phone: [facility] 12-10-2024 09:57-0400 SaO2% (BldA) [Mass fraction] 97 % Leroy White MD Work Phone: [facility] 12-10-2024 09:57-0400 Systolic blood pressure 122 mm[Hg] Leroy White MD Work Phone: [facility] 09-12-2024 11:46-0400 Body height 162.6 cm Ny Hemmer PA Work Phone: [facility] 09-12-2024 11:46-0400 Body mass index (BMI) [Ratio] 32.27 kg/m2 Ny Hemmer PA Work Phone: [facility] 09-12-2024 11:46-0400 Body weight 85.28 kg Ny Hemmer PA Work Phone: [facility] 09-12-2024 11:46-0400 Diastolic blood pressure 78 mm[Hg] Ny Hemmer PA Work Phone: [facility] 09-12-2024 11:46-0400 Heart rate 91 /min Ny Hemmer PA Work Phone: [facility] 09-12-2024 11:46-0400 SaO2% (BldA) [Mass fraction] 98 % Ny Hemmer PA Work Phone: [facility] 09-12-2024 11:46-0400 Systolic blood pressure 108 mm[Hg] Ny Hemmer PA Work Phone: [facility] 06-04-2024 09:31-0500 Body height 162.6 cm Ny Hemmer PA Work Phone: [facility] 06-04-2024 09:31-0500 Body mass index (BMI) [Ratio] 31.21 kg/m2 Ny Hemmer PA Work Phone: [facility] 06-04-2024 09:31-0500 Body temperature 98.2 [degF] Ny Hemmer PA Work Phone: [facility] 06-04-2024 09:31-0500 Body weight 82.46 kg Yn Hemmer PA Work Phone: [facility] 06-04-2024 09:31-0500 Diastolic blood pressure 86 mm[Hg] Ny Hemmer PA Work Phone: [facility] 06-04-2024 09:31-0500 Heart rate 91 /min Ny Hemmer PA Work Phone: [facility] 06-04-2024 09:31-0500 Respiratory rate 16 /min Ny Hemmer PA Work Phone: [facility] 06-04-2024 09:31-0500 SaO2% (BldA) [Mass fraction] 99 % Ny Hemmer PA Work Phone: [facility] 06-04-2024 09:31-0500 Systolic blood pressure 116 mm[Hg] Ny Hemmer PA Work Phone: [facility] 05-15-2024 08:33-0500 Body height 162.6 cm Leroy White MD Work Phone: [facility] 05-15-2024 08:33-0500 Body mass index (BMI) [Ratio] 32.61 kg/m2 Leroy White MD Work Phone: [facility] 05-15-2024 08:33-0500 Body weight 86.18 kg Leroy White MD Work Phone: [facility] 05-15-2024 08:33-0500 Diastolic blood pressure 82 mm[Hg] Leroy White MD Work Phone: [facility] 05-15-2024 08:33-0500 Heart rate 88 /min Leroy White MD Work Phone: [facility] 05-15-2024 08:33-0500 SaO2% (BldA) [Mass fraction] 100 % Leroy White MD Work Phone: [facility] 05-15-2024 08:33-0500 Systolic blood pressure 112 mm[Hg] Leroy White MD Work Phone: [facility] 05-07-2024 09:59-0500 Body height 162.6 cm Leroy White MD Work Phone: [facility] 05-07-2024 09:59-0500 Body mass index (BMI) [Ratio] 32.1 kg/m2 Leroy White MD Work Phone: [facility] 05-07-2024 09:59-0500 Body weight 84.82 kg Leroy White MD Work Phone: [facility] 05-07-2024 09:59-0500 Diastolic blood pressure 76 mm[Hg] Leroy White MD Work Phone: [facility] 05-07-2024 09:59-0500 Heart rate 94 /min Leroy White MD Work Phone: [facility] 05-07-2024 09:59-0500 SaO2% (BldA) [Mass fraction] 99 % Leroy White MD Work Phone: [facility] 05-07-2024 09:59-0500 Systolic blood pressure 124 mm[Hg] Leroy White MD Work Phone: [facility] 03-03-2024 11:42-0400 Body height 162.6 cm Leroy White MD Work Phone: [facility] 03-03-2024 11:42-0400 Body mass index (BMI) [Ratio] 33.47 kg/m2 eLroy White MD Work Phone: [facility] 03-03-2024 11:42-0400 Body weight 88.45 kg Leroy White MD Work Phone: [facility] 03-03-2024 11:42-0400 Diastolic blood pressure 70 mm[Hg] Leroy White MD Work Phone: [facility] 03-03-2024 11:42-0400 Heart rate 74 /min Leroy White MD Work Phone: [facility] 03-03-2024 11:42-0400 SaO2% (BldA) [Mass fraction] 98 % Leroy White MD Work Phone: [facility] 03-03-2024 11:42-0400 Systolic blood pressure 122 mm[Hg] Leroy White MD Work Phone: [facility] 02-06-2024 10:40-0400 Body height 162.6 cm Leroy White MD Work Phone: [facility] 02-06-2024 10:40-0400 Body mass index (BMI) [Ratio] 33.3 kg/m2 Leroy White MD Work Phone: [facility] 02-06-2024 10:40-0400 Body weight 88 kg Leroy White MD Work Phone: [facility] 02-06-2024 10:40-0400 Diastolic blood pressure 76 mm[Hg] Leroy White MD Work Phone: [facility] 02-06-2024 10:40-0400 Heart rate 84 /min Leroy White MD Work Phone: [facility] 02-06-2024 10:40-0400 SaO2% (BldA) [Mass fraction] 98 % Leroy White MD Work Phone: [facility] 02-06-2024 10:40-0400 Systolic blood pressure 124 mm[Hg] Leroy White MD Work Phone: [facility] 06-21-2023 15:53-0500 Body mass index (BMI) [Ratio] 37.35 kg/m2 Leroy White MD Work Phone: [facility] 06-21-2023 15:53-0500 Body weight 100.25 kg Leroy White MD Work Phone: [facility] 06-21-2023 15:53-0500 Diastolic blood pressure 78 mm[Hg] Leroy White MD Work Phone: [facility] 06-21-2023 15:53-0500 Heart rate 115 /min Leroy White MD Work Phone: [facility] 06-21-2023 15:53-0500 SaO2% (BldA) [Mass fraction] 99 % Leroy White MD Work Phone: [facility] 06-21-2023 15:53-0500 Systolic blood pressure 128 mm[Hg] Leroy White MD Work Phone: [facility] Encounters Encounter Date Encounter Type Care Provider Facility Start: 01-07-2025 End: 01-07-2025 ambulatory [place] PARHAM Not Available Start: 01-07-2025 End: 01-07-2025 Initial preventive medicine new patient 40-64yrs Monika Gillette DO Work Phone: [facility] Adriana MENDEZ Comment on above: Encounter for gyneco logical examination without abnormal finding (Primary Dx); Screening for malignant neoplasm of cervix; Encounter for screening for human papillomavirus (HPV); Other screening mammogram; Menorrhagia with regular cycle; Dysmenorrhea; Hx of nonchemical tubal occlusion; Thyroid disorder screen Start: 01-07-2025 End: 01-07-2025 Patient encounter status Monika Gillette DO Work Phone: [facility] [employer] Start: 01-07-2025 End: 01-07-2025 ambulatory MONIKA GILLETTE Not Available Start: 01-01-2025 End: 01-01-2025 Bamboo flowsheet Maxi Macdonald DPM Work Phone: [facility] Start: 01-01-2025 End: 01-01-2025 Bamboo flowsheet Maxi Macdonald DPM Work Phone: [facility] Start: 01-01-2025 End: 01-01-2025 Office outpatient visit 15 minutes Maxi Macdonald DPM Work Phone: [facility] Comment on above: Left Achilles tendin itis (Primary Dx); Verruca plantaris; Foot pain, right; Contracture of left ankle; Plantar fasciitis Start: 01-01-2025 End: 01-01-2025 ambulatory MAXI MACDONALD Not Available Start: 12-30-2024 End: 12-31-2024 Refill Leroy White MD Work Phone: [facility] Comment on above: Panic attacks Start: 12-24-2024 End: 12-25-2024 Refill Leroy White MD Work Phone: [facility] Comment on above: Other insomnia Start: 12-19-2024 End: 12-19-2024 Refill Leroy White MD Work Phone: [facility] Comment on above: Osteoarthritis of sp ine with radiculopathy, lumbar region Start: 12-15-2024 End: 12-31-2024 Telephone encounter Maxi Macdonald DPM Work Phone: [facility] Comment on above: Employment Physical Start: 12-12-2024 End: 12-12-2024 Office outpatient visit 15 minutes Maxi Macdonald DPM Work Phone: [facility] Comment on above: Neoplasm of uncertai n behavior of skin (Primary Dx); Tendonitis, Achilles, left; [place] of foot; Left Achilles tendinitis; Contracture of left ankle; Verruca plantaris; Foot pain, right Start: 12-12-2024 End: 12-12-2024 ambulatory MAXI MACDONALD Not Available Start: 12-12-2024 End: 12-12-2024 Bamboo flowsheet Maxi Macdonald DPM Work Phone: [facility] Start: 12-12-2024 End: 12-12-2024 Bamboo flowsheet Maxi Macdonald DPM Work Phone: [facility] Start: 12-10-2024 End: 12-10-2024 Office outpatient visit 25 minutes Leroy White MD Work Phone: [facility] Comment on above: Tendonitis, Achilles , left (Primary Dx); [place] of foot; Osteoarthritis of spine with radiculopathy, lumbar region Start: 12-10-2024 End: 12-10-2024 ambulatory LEROY WHITE Not Available Start: 11-30-2024 End: 12-01-2024 Refill Ny Parham PA Work Phone: [facility] Comment on above: Panic attacks Start: 10-30-2024 End: 10-31-2024 Refill Ny Parham PA Work Phone: [facility] Comment on above: Panic attacks Start: 09-29-2024 End: 09-29-2024 Refill Ny Parham PA Work Phone: [facility] Comment on above: Panic attacks (CMS/H CC) Start: 09-22-2024 End: 09-23-2024 Refill Leroy White MD Work Phone: [facility] Comment on above: Other insomnia Start: 09-12-2024 End: 09-12-2024 Office outpatient visit 25 minutes Ny Parham PA Work Phone: [facility] [...] attacks (CMS/H CC) Start: 06-25-2024 End: 06-26-2024 Refvidya White MD Work Phone: [facility] [...] [facility] Start: 03-28-2024 End: 03-31-2024 Refvidya Parham PA Work Phone: [facility] [...] or radiculopathy Start: 02-20-2024 End: 02-20-2024 Refvidya Parham PA Work Phone: [facility] Comment on above: Panic attacks (CMS/H CC) Start: 02-06-2024 End: 02-06-2024 Office outpatient visit 25 minutes Leroy White MD Work Phone: [facility] Comment on above: Upper respiratory tr act infection, unspecified type (Primary Dx); Severe obesity (BMI 35.0-39.9) with comorbidity (CMS/HCC) Start: 02-06-2024 End: 02-06-2024 ambulatory LEROY WHITE Not Available Start: 01-22-2024 End: 01-23-2024 Refvidya White MD Work Phone: [facility] Comment on above: Panic attacks (CMS/H CC) Start: 06-26-2023 Chart abstracting Triny Medrano DPM Work Phone: [facility] Start: 06-26-2023 Refvidya Parham PA Work Phone: [facility] [...] Treatment Date Care Activity Detail Author Start: 01-11-2026 End: 01-11-2026 Patient encounter procedure 01/11/2026 10:15 AM EDT [facility] [address] [place] D [address] [address] Monika Gillette DO [address] [address] [facility] Start: 04-26-2025 Screening for malign ant neoplasm of cervix [facility] Start: 01-19-2025 Influenza vaccination [facility] Start: 01-15-2025 End: 01-15-2025 Clinical Support 01/15/2025 1:30 PM EDT Clinical Support [facility] [address] [facility] [address] [place] [address] Maxi Macdonald, DPM [address] [facility] 5 [place] [address] [facility] Start: 01-07-2025 End: 01-07-2026 Thyrotropin [Units/volume] in Serum or Plasma Tsh+free t4 Lab Routine Thyroid disorder screen Expected: 01/07/2025 (Approximate), Expires: 01/07/2026 [facility] Comment on above: Expected: 01/07/2025 (Approximate), Expires: 01/07/2026 Start: 01-07-2025 End: 01-07-2025 Professional / ancillary services management 01/07/2025 11:00 AM EDT Ancillary Procedure [facility] [address] [facility] D [facility] 2 [place] [id number] [facility] Start: 01-07-2025 End: 01-07-2025 Patient encounter procedure [facility] Start: 01-01-2025 End: 01-01-2025 Patient encounter procedure [facility] Comment on above: Verruca plantaris (P rimary Dx); Foot pain, right; Left Achilles tendinitis; Contracture of left ankle Start: 12-12-2024 End: 12-12-2024 Patient encounter procedure 12/12/2024 4:30 PM EDT Office Visit [facility] [address] [place] [phone] Maxi Macdonald DPM [address] [facility] 5 [place] [address] Tendonitis, Achilles, left; [place] of foot [facility] Comment on above: Tendonitis, Achilles , left; [place] of foot Start: 12-04-2024 End: 12-04-2024 Patient encounter procedure 12/04/2024 10:00 AM EDT Office Visit [facility] [address] [facility] [address] [place] [address] Leroy White MD 112 [facility] 110 [place] [address] [facility] Start: 2024 Screening for malign ant neoplasm of breast Mammogram [facility] Start: 06-12-2024 End: 06-12-2024 Patient encounter procedure 06/12/2024 10:00 AM EST Office Visit [facility] [address] [place] [address] [place] [address] Leroy White MD [address] [place] [address] [place] [address] [facility] Start: 06-04-2024 End: 06-04-2024 Patient encounter procedure 06/04/2024 9:30 AM EST Office Visit [facility] [address] [place] [address] [place] [address] Ny Parham PA [address] [place] [address] [place] [address] Arrived [facility] Comment on above: [...] [address] [place] [address] [place] [address] Leroy White MD [address] [place] [address] [place] [address] [facility] Start: 02-06-2024 End: 02-06-2024 Patient encounter procedure 02/06/2024 10:45 AM EDT Office Visit [facility] [address] [facility] 110 [place] [phone] Leroy White MD [address] [facility] [address] [place] [address] [facility] Start: 01-20-2024 Influenza vaccination Influenza Vacc ine (#1) [facility] Start: 11-18-2023 Influenza vaccination Influenza Vacc ine (#1) [facility] Comment on above: Postponed from 01/19 (Patient Refused) Start: 06-26-2023 End: 06-26-2023 Patient encounter procedure 06/26/2023 9:00 AM EST Office Visit [facility] [address] [facility] [address] [place] [address] Triny Medrano DPM [address] [facility] [address] [place] [address] [facility] Start: 2005 Screening for malign ant neoplasm of cervix Pap Smear [facility] CBC panel - Blood by Automated count CBC Lab Routine Menorrhagia with regular cycle Dysmenorrhea Ordered: 01/07/2025 [facility] Comment on above: Ordered: 01/07/2025 CBC W Auto Different ial panel - Blood CBC and differential Lab Routine Costochondritis, acute Malaise and fatigue Viral syndrome Ordered: 05/07/2024 [facility] Work Phone: Comment on above: Ordered: 05/07/2024 Comprehensive metabo lic 2000 panel - Serum or Plasma Comprehensive metabolic panel Lab Routine Menorrhagia with regular cycle Dysmenorrhea Ordered: 01/07/2025 [facility] Comment on above: Ordered: 01/07/2025 DBT Breast - bilater al screening Bilateral screening mammogram with tomosynthesis Imaging Routine Other screening mammogram Ordered: 01/07/2025 [facility] Comment on above: Ordered: 01/07/2025 Follicle stimulating hormone Follicle stimulating hormone Lab Routine Menorrhagia with regular cycle Dysmenorrhea Ordered: 01/07/2025 [facility] Comment on above: Ordered: 01/07/2025 IGP, APT HPV,RFX 16/18,45 IGP, APT HPV,RFX 16/18,45 Lab Routine Screening for malignant neoplasm of cervix Encounter for screening for human papillomavirus (HPV) Ordered: 01/07/2025 [facility] Work Phone: Comment on above: Ordered: 01/07/2025 Immunizations Immunization Date Immunization Notes Care Provider [facility] 02-23-2022 influenza, injectabl e, quadrivalent, preservative free Leroy White MD Work Phone: [facility] 02-23-2022 influenza virus vacc ine, unspecified formulation Leroy White MD Work Phone: [facility] 11-03-2021 Pfizer Gómez Cap SARS-CoV-2 Vaccination Leroy White MD Work Phone: [facility] 10-10-2021 Pfizer Gómez Cap SARS-CoV-2 Vaccination Leroy White MD Work Phone: [facility] 02-25-2020 influenza, injectabl e, quadrivalent, preservative free Leroy White MD Work Phone: [facility] 03-01-2015 influenza, injectabl e, quadrivalent, preservative free Leroy White MD Work Phone: [facility] Payers Date Payer Category Payer [facility] [id number] 2022 Medicaid [employer] [place] [id number] 2022-Present [address] [place] [address] [id number] 2022 Unknown BCBS BCBS [id number] 2022-Present [phone] [address] [place] [address] [id number] 2022 Unknown [id number] 1984 Unknown [id number] 2.16.840.1.471011.3.579.2. 593 1984 Unknown [id number] 2.16.840.1.526116.3.579.2. 593 1984 Unknown [id number] 2.16.840.1.066302.3.579.2. 593 1984 Unknown [id number] 2.16.840.1.872098.3.579.2. 593 1984 Unknown [id number] 2.16.840.1.779834.3.579.2. 593 1984 Unknown [id number] 2.16.840.1.807459.3.579.2. 1259 1984 Unknown [id number] 2.16.840.1.766044.3.579.2. 1259 1984 Unknown [id number] 2.16.840.1.030854.3.579.2. 1259 1984 Unknown [id number] 2.16.840.1.069760.3.579.2. 1259 1984 Unknown [id number] 2.16.840.1.355184.3.579.2. 1259 1984 Unknown [id number] 2.16.840.1.183200.3.579.2. 1259 1984 Unknown [id number] 2.16.840.1.304614.3.579.2. 1259 1984 Unknown [id number] 2.16.840.1.094961.3.579.2. 9 1984 Unknown [id number] 2.16.840.1.285839.3.579.2. 1259 1984 Unknown [id number] 2.16.840.1.480756.3.579.2. 9 1984 Unknown [id number] 2.16.840.1.237025.3.579.2. 1259 1959 Unknown [id number] 1959 Unknown [id number] 1959 Unknown [id number] Social History Date Type Detail Facility Start: 04-27-2023 End: 01-07-2025 Tobacco smoking status KYIS Ex-smoker [facility] Start: 12-20-2011 End: 12-19-2021 History of tobacco use Current smoker [facility] Start: 12-20-2011 End: 12-19-2021 History of tobacco use Cigarette Smoker [facility] Start: 04-27-2023 End: 12-12-2023 Cigarettes smoked current (pack per day) - Reported 1 [facility] Start: 04-27-2023 End: 01-07-2025 Tobacco use and exposure Smokeless tobacco non-user [facility] Start: 06-21-2023 End: 01-07-2025 Alcohol intake Ex-drinker (finding) [facility] Start: [...] Never [facility] Clinical Notes 06-21-2023 to 01-07-2025 Monika Gillette DO - 01/07/2025 10:00 AM RACHELTMaxi Macdonald DPM - 01/01/2025 10:10 AM EDTTelephone Encounter - Selena Ellis - 12/30/2024 8:54 AM EDTLeroy White MD - 12/10/2024 9:45 AM EDT Note Date & Type Note Facility 01-07-2025 History of Present illness Narrative Images from the original note were not included. Monika Gillette DO Obstetrics and Gynecology Name: Kelly Perez Date/Time of Service:01/07/2025 10:38 AM :1985 Age: 39 y.o. Subjective Kelly Perez is a 39 y.o. female who is here for a routine exam. Gynecologic Exam (New patient here for a yearly. Denies problems. Mammogram order sent to [facility]. Having monthly periods lasting days with heavy bleeding, changing a super+ plus tampon in 1 hr and severe cramping. LMP 12/31/24 Has Non-chemical tubal (coils) for [...] tablets Follow schedule on MEDROL PACK package instructions to be used as directed 21 tablet 0 [...] Father's Brother Marcos Cancer Father's Sister Nisha Social History Tobacco Use Smoking status: Former [...] Wt 176 lb LMP 12/31/2024 BMI 29.29 kg/m Body mass index is 29.29 kg/m . Physical Exam Genitourinary: Urethral meatus normal. No [...] Mood normal. Vitals and nursing note reviewed. Assessment/Plan 1. Encounter for gynecological examination without [...] 5. Menorrhagia with regular cycle Pelvic ultrasound to be scheduled. Will assess CMP, CBC, FSH and TSH levels, orders given to patient. Will discuss findings at the next office visit - CBC - Comprehensive metabolic panel - [...] Z13.29 Tsh+free t4 Tsh+free t4 Follow up first available, for pelvic us and OV. Monika Gillette DO 01/07/2025 10:38 AM documented in this encounter [facility] 01-01-2025 History of Present illness Narrative Patient: Kelly Perez : 1985 PCP: Leroy White MD SUBJECTIVE [...] steps in the morning and has tried qgec-iwd-vqwvpsq treatments and arch supports with negative improvement [...] spasms, Disp: 60 tablet, Rfl: 0 HYDROcodone-acetaminophen (Elbert) 5-325 MG tablet, Take 1 tablet by [...] 30 min Stress: Stress Concern Present (12/12/2023) [employer] [place] [employer] - Occupational Stress Questionnaire Feeling of Stress : Rather much Social Connections: Moderately Isolated (12/12/2023) Social Connection and Isolation Panel [NHANES] Frequency of Communication with Friends and Family: Twice a week Frequency of Social Gatherings with Friends and Family: Once a week Attends Church Services: Never Active Member of Clubs or [...] tendon and retrocalcaneal bursa with negative palpable [place] Positive pain on palpation to the left [...] fascia with its origin at the medial plantar tuberosity of the calcaneus. The area of thickening [...] procedure including high reoccurence rate, infection, pain and consent given. Application of DSD post procedure. Patient have additional 2 weeks off work Maxi Macdonald DPM documented in this encounter [facility] 12-30-2024 Telephone encounter Note diazePAM (Valium) 5 MG tablet [facility] She knows its a bit early but wanted to make sure Dr. White would send it in before he is out of the office. She knows she wont be able to pick it up until the 14th or 15th [facility] 12-30-2024 Miscellaneous Notes diazePAM (Valium) 5 MG tablet [facility] She knows its a bit early but wanted to make sure Dr. White would send it in before he is out of the office. She knows she wont be able to pick it up until the 14th or 15th documented in this encounter [facility] 12-19-2024 Telephone encounter Note OARRS reviewed, Rx sent into patient's pharmacy. [facility] 12-19-2024 Miscellaneous Notes OARRS reviewed, Rx sent into patient's pharmacy. documented in this encounter [facility] 12-15-2024 Telephone encounter Note Ok to do, have patient knot picker cloth the note from you [facility] Work Phone: 12-15-2024 Miscellaneous Notes Ok to do, have patient knot picker cloth the note from you Pt called asking to be off of work for two weeks, states that her job does not allowed her to work with the boot she was told to wear, work does not allow restrictions, she has been seen by Dr. Macdonald once, was wondering if pt needed another apt to get the note. documented in this encounter [facility] 12-15-2024 Telephone encounter Note Pt called asking to be off of work for two weeks, states that her job does not allowed her to work with the boot she was told to wear, work does not allow restrictions, she has been seen by Dr. Macdonald once, was wondering if pt needed another apt to get the note. [facility] 12-12-2024 History of Present illness Narrative Patient: Kelly Perez : 1985 PCP: Leroy White MD SUBJECTIVE This is a 39 y.o. 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 Allergies: Allergies Allergen Reactions Ciprofloxacin Swelling Latex [...] spasms, Disp: 60 tablet, Rfl: 0 HYDROcodone-acetaminophen (Elbert) 5-325 MG tablet, Take 1 tablet by [...] date: 12/20/2011 Quit date: 12/19/2021 Years since quittin.9 Smokeless tobacco: Never Vaping Use Vaping status: [...] 30 min Stress: Stress Concern Present (12/12/2023) [place] [employer] - Occupational Stress Questionnaire Feeling of Stress : Rather much Social Connections: Moderately Isolated (12/12/2023) Social Connection and Isolation Panel [NHANES] Frequency of Communication with Friends and Family: Twice a week Frequency of Social Gatherings with Friends and Family: Once a week Attends Church Services: Never Active Member of Clubs or [...] Ankle ROM less than 10 degrees b/l. Positive pain on palpation to left Achilles tendon and retrocalcaneal bursa with negative palpable [place] XRAY: US: DIAGNOSTIC US REPORT: Verbal order for ultrasound today The achilles tendon of the left foot/leg were scanned today with a 12 MHz linear probe in the transverse/sagital planes. Images were obtained. FINDINGS: US examination in the longitudinal and transverse images of the achilles tendon insertion to calcaneus demonstrates a small amount of hypo-echoic density anterior to achilles insertion point on calcaneus. IMPRESSION: US findings of left Retrocalcaneal bursitis ASSESSMENT 1. Neoplasm of uncertain behavior of skin 2. Tendonitis, Achilles, left 3. [place] of foot 4. Left Achilles tendinitis 5. Contracture of left ankle 6. Verruca plantaris 7. Foot pain, right PLAN Reviewed ultrasound today with patient Recommended to apply ice to affected areas for 20 minutes, twice daily. Ice should not be applied directly to skin. Patient to continue with oral anti - inflammatories as needed for pain and recommended OTC medications such as tylenol or Ibuprofen Pt dispensed pneumatic CAM walker ([id number]) today to maintain 90 degree foot to ankle position. Pt informed to only remove walker when at rest or bathing. ABN signed and in chart for device if warranted. The boot was assembled and adjusted liner and straps and pneumatically inflated for proper custom fitting by Maxi Macdonald DPM and staff. A verbal order was given for dispensing of device. The patient is ambulatory and may benefit functionally from this device. It may be used for the following conditions as noted per medical diagnosis. Pt was given steroid injection to the left retrocalcaneal bursa under US guidance with visualization of injected fluid into area of concern per imaging. Injection consisted of a 2:1 mixture of xylocaine 2%plain and dexathesone 4mg for a total of 3ccs. Informed pt of risks and benefits of procedure including infection,damage or rupture to soft tissue structures and steroid flare. This is the patients 1st injections Pt understood and consented. Discussed condition in detail with patient today and discussed conservative treatments and possible excisional biopsy of lesion in the future for pathological diagnosis of specimen. Patient may take lyvj-jdr-xnqpppo NSAID p.r.n. for pain Application of salinocaine acid medication to lesion/lesions located at right foot Informed pt of risks and benefits of procedure including high reoccurence rate, infection, pain and consent given. Application of DSD post procedure. Maxi Macdonald DPM documented in this encounter [facility] 12-10-2024 History of Present illness Narrative Images from the original note were not included. Subjective Patient ID: Kelly Perez is a 39 y.o. female who presents [...] steroids, but those are not helping. Pt is complaining of her feet hurting and this will also hurt her back , both feet right foot possible there is a calcus on the bottom and left foot it is in her heel , pt has tried different things for her feet Back Pain Current Outpatient Medications on File [...] sleep or muscle spasms 60 tablet 0 ondansetron ODT (Zofran-ODT) 4 MG [...] for sleep 30 tablet 2 [DISCONTINUED] HYDROcodone-acetaminophen (Elbert) 5-325 MG tablet Take 1 tablet by mouth every 6 (six) hours if needed for severe pain for up to 5 days 20 tablet 0 [DISCONTINUED] ondansetron ODT (Zofran-ODT) 4 MG disintegrating tablet Take 1 tablet (4 mg) by mouth every 8 (eight) hours if needed for nausea or vomiting 28 tablet 1 No current facility-administered medications on file prior to visit. I have reviewed and reconciled the history and medication list with the patient today. Allergies Allergen Reactions Ciprofloxacin Swelling Wound Dressing Adhesive Unknown Social History Tobacco Use Smoking status: Former Current packs/day: 0.00 Average packs/day: 1 pack/day for 10.0 years (10.0 ttl pk-yrs) Types: Cigarettes Start date: 12/20/2011 Quit date: 12/19/2021 Years since quittin.9 Smokeless tobacco: Never Vaping Use Vaping status: [...] ESOPHAGOGASTRODUODENOSCOPY IUD INSERTION [place] Visit Vitals BP 122/82 Pulse 75 Ht 5' 4 Wt 176 lb SpO2 97% BMI 30.21 kg/m Smoking Status Former BSA 1.9 m Review of Systems Musculoskeletal: Positive for back pain. Objective Physical Exam Constitutional: General: She is [...] test. Negative left straight leg raise test. Left ankle: Left Achilles Tendon: Tenderness present. No defects. Feet: Comments: BLE strength 5/5 except for right knee extension/flexion 5-5, left knee flexion/extension 4+/5. Feet: Comments: Right foot corn as noted Skin: General: Skin is warm and dry. Neurological: General: No focal deficit present. Mental Status: She is alert and oriented to person, place, and time. Sensory: Sensation is intact. Psychiatric: Mood and Affect: Mood normal. Behavior: Behavior normal. Assessment/Plan Diagnoses and all orders for this visit: Tendonitis, Achilles, left - Ambulatory referral to Podiatry; Future [place] of foot - Ambulatory referral to Podiatry; Future Osteoarthritis of spine with radiculopathy, lumbar region - HYDROcodone-acetaminophen (Elbert) 5-325 MG tablet; Take 1 tablet by mouth every 6 (six) hours if needed for severe pain for up to 10 days Follow up in about 4 weeks (around 01/07/2025) for Recheck. documented in this encounter [facility] 12-01-2024 Telephone encounter Note Pt scheduled [facility] 12-01-2024 Miscellaneous Notes Pt scheduled Lvm OARRS reviewed, Rx sent into patient's pharmacy. Please help pt get set up for routine follow up by the end of the month. documented in this encounter [facility] 12-01-2024 Telephone encounter Note Lvm [facility] 12-01-2024 Telephone encounter Note OARRS reviewed, Rx sent into patient's pharmacy. Please help pt get set up for routine follow up by the end of the month. [facility] 10-31-2024 Telephone encounter Note OARRS reviewed, Rx sent into patient's pharmacy. [facility] 10-31-2024 Miscellaneous Notes OARRS reviewed, Rx sent into patient's pharmacy. documented in this encounter [facility] 09-29-2024 Telephone encounter Note OARRS reviewed, Rx sent into patient's pharmacy. [facility] 09-29-2024 Miscellaneous Notes OARRS reviewed, Rx sent into patient's pharmacy. documented in this encounter [facility] 09-23-2024 Telephone encounter Note OARRS reviewed, Rx sent into patient's pharmacy. [facility] 09-23-2024 Miscellaneous Notes OARRS reviewed, Rx sent into patient's pharmacy. documented in this encounter [facility] 09-12-2024 History of Present illness Narrative Images from the original note were not included. Subjective Patient ID: Kelly Perez is a 39 y.o. female who presents [...] of Onset Fibromyalgia Mother Shaun Lupus Mother Shanu Hypertension Mother Shaun Heart disease Mother Shaun [...] spine with radiculopathy, lumbar region - HYDROcodone-acetaminophen (Elbert) 5-325 MG tablet; Take 1 tablet by [...] Medication Follow Up. documented in this encounter [facility] 07-29-2024 Telephone encounter Note OARRS reviewed, Rx sent into patient's pharmacy. [facility] 07-29-2024 Miscellaneous Notes OARRS reviewed, Rx sent into patient's pharmacy. documented in this encounter [facility] 06-04-2024 History of Present illness Narrative Images from the original note were not included. Subjective Patient ID: Kelly Perez is a 38 y.o. female who presents for vomiting. Kelly is present today for evaluation of vomiting. [...] Appointment As Scheduled. documented in this encounter [facility] 05-15-2024 History of Present illness Narrative Images from the original note were not included. Subjective Patient ID: Kelly Perez is a 38 y.o. female who presents [...] mg) before bedtime. 60 tablet 5 HYDROcodone-acetaminophen (Elbert) 10-325 MG tablet Take 1 tablet by [...] follow-ups on file. documented in this encounter [facility] 05-07-2024 History of Present illness Narrative Images from the original note were not included. HPI Follow-up Additional comments: [facility] 05/02/24 DX: CP,PLEURISY RX FOR NABUMETONE GIVEN Last edited by Radha Delgado LPN on 05/07/2024 9:59 AM. Subjective Patient ID: Kelly Perez is a 38 y.o. female who presents for controlled/pain med follow up and Follow-up ([facility] 05/02/24 DX: CP,PLEURISY RX FOR NABUMETONE GIVEN). Flowsheet Row Documentation from 05/06/2024 in [facility] with Sowmya Aguillon MA Hospital Information ED, Hospital or Jail Facility Discharge? ED Patient has been contacted within 1 week of being seen in the ED Yes Diagnosis pleurisy,cp Discharge Date 05/02/24 Discharged To: Home Setting Discharge Hospital [facility] Engagement Call Start Time 1308 Admission Date [...] for sleep 30 tablet 2 [DISCONTINUED] HYDROcodone-acetaminophen (Elbert) 10-325 MG tablet Take 1 tablet by [...] Mother Shaun Lupus Mother Shaun Hypertension Mother Hsaun Heart disease Mother Shaun Depression Mother Shaun [...] region without myelopathy or radiculopathy - HYDROcodone-acetaminophen (Elbert) 10-325 MG tablet; Take 1 tablet by mouth every 6 (six) hours if needed for moderate pain or severe pain for up to 10 days Follow up in about 1 week (around 05/14/2024) for prn. documented in this encounter [facility] 04-24-2024 Telephone encounter Note OARRS reviewed, Rx sent into patient's pharmacy. [facility] 04-24-2024 Miscellaneous Notes OARRS reviewed, Rx sent into patient's pharmacy. documented in this encounter [facility] 04-07-2024 Telephone encounter Note Dose adjusted, Rx sent. [facility] 04-07-2024 Miscellaneous Notes Dose adjusted, Rx sent. Tirzepatide (Mounjaro) 5 MG/0.5ML solution pen-injector pt would like to up her dosage. LEX Short documented in this encounter [facility] 04-07-2024 Telephone encounter Note Tirzepatide (Mounjaro) 5 MG/0.5ML solution pen-injector pt would like to up her dosage. LEX Short [facility] 03-24-2024 Telephone encounter Note OARRS reviewed, Rx sent into patient's pharmacy. [facility] 03-24-2024 Miscellaneous Notes OARRS reviewed, Rx sent into patient's pharmacy. documented in this encounter [facility] 03-03-2024 History of Present illness Narrative Images from the original note were not included. Subjective Patient ID: Kelly Perez is a 38 y.o. female who presents [...] for sleep 30 tablet 2 [DISCONTINUED] HYDROcodone-acetaminophen (Elbert) 10-325 MG tablet Take 1 tablet by [...] region without myelopathy or radiculopathy - HYDROcodone-acetaminophen (Elbert) 10-325 MG tablet; Take 1 tablet by mouth every 6 (six) hours if needed for moderate pain or severe pain for up to 10 days Follow up in about 2 weeks (around 03/17/2024) for F/U med changes. documented in this encounter [facility] 02-20-2024 Telephone encounter Note OARRS reviewed, Rx sent into patient's pharmacy. [facility] 02-20-2024 Miscellaneous Notes OARRS reviewed, Rx sent into patient's pharmacy. documented in this encounter [facility] 02-06-2024 History of Present illness Narrative Images from the original note were not included. HPI Med Refill Additional comments: Mounjaro-- discuss increasing dose-- [facility] Last edited by Radha Delgado LPN on 02/06/2024 10:47 AM. Subjective Patient ID: Kelly Perez is a 38 y.o. female who presents for Depression, Obesity, URI, and Med Refill (Mounjaro-- discuss increasing dose-- [facility]). Kelly is in for anxiety/depression. States its been [...] for Routine F/U. documented in this encounter [facility] 01-23-2024 Telephone encounter Note OARRS reviewed, Rx sent into patient's pharmacy. [facility] 01-23-2024 Miscellaneous Notes OARRS reviewed, Rx sent into patient's pharmacy. documented in this encounter [facility] 06-21-2023 History of Present illness Narrative Images from the original note [...] Follow schedule on package instructions - HYDROcodone-acetaminophen (Elbert) 7.5-325 MG tablet; Take 1 tablet by [...] [facility]* Diagnosis Panic attacks Panic disorder without agoraphobia [facility]* Diagnosis Panic attacks Panic disorder without agoraphobia [facility]* Diagnosis Tendonitis, Achilles, left- Primary [place] of foot Osteoarthritis of spine with radiculopathy, lumbar region [facility]* Diagnosis Neoplasm of uncertain behavior of skin- Primary Tendonitis, Achilles, left [place] of foot Left Achilles tendinitis Contracture of left ankle Verruca plantaris Plantar wart Foot pain, right Pain in soft tissues of limb documented [facility]* Diagnosis Osteoarthritis of spine with radiculopathy, lumbar region documented [facility]* Diagnosis Other insomnia Verruca plantaris- Primary Plantar wart Foot pain, right Pain in soft tissues of limb Left Achilles tendinitis Contracture of left ankle [facility]* Diagnosis Panic attacks Panic disorder without agoraphobia Verruca plantaris- Primary Plantar wart Foot pain, right Pain in soft tissues of limb Left Achilles tendinitis Contracture of left ankle [facility]* Diagnosis Left Achilles tendinitis- Primary Verruca plantaris Plantar wart Foot pain, right Pain in soft tissues of limb Contracture of left ankle Plantar fasciitis Plantar fascial fibromatosis [facility]* Diagnosis Encounter for gynecological examination without abnormal [...] of left ankle [facility] Consultation (Routine) - Pending Review Specialty Diagnoses / Procedures Referred By Bc burr Referred To Contact Podiatry Diagnoses Plantar fasciitis of right foot Procedures AR OFFICE/OUTPATIENT NEW HIGH MDM 60 MINUTES Leroy White MD [address] [facility] [address] [place] [address] Danny Chung, DPM FACFAS [address] [facility] [place] [address] Referral ID Status Reason Start Date Expiration Date Visits Requested Visits Authorized [id number] Pending Review Specialty Services Required 06/21/2023 12/18/2023 [...] and content) DATE CREATED AUTHOR 04/19/2020 [facility] DATE CREATED AUTHOR AUTHOR'S ORGANIZ ATION 10/04/2022 [facility] DATE CREATED AUTHOR AUTHOR'S ORGANIZ ATION 05/11/2024 [facility] DATE CREATED AUTHOR AUTHOR'S ORGANIZ ATION 01/09/2025 [facility] EPIC Reason for Visit (unrecogniz ed [...] Reason Comments controlled/pain med follow up Follow-up [facility] 05/02/24 DX: CP,PLEURISY RX FOR NABUMETONE GIVEN Reason Onset Date Comments Med Refill 01/22/2024 Reason Comments Chest Pain Reason Onset Date Comments Med Refill 06/25/2024 Reason Onset Date Comments Med Refill 07/29/2024 Reason Comments Back Pain Reason Onset Date Comments Med Refill 09/22/2024 Reason Onset Date Comments Med Refill 09/29/2024 Reason Onset Date Comments Med Refill 10/30/2024 Reason Onset Date Comments Med Refill 11/30/2024 Reason Comments Back Pain Reason Comments Ankle Pain Foot Callouses Specialty Diagnoses / Procedures Referred By Bc burr Referred To Contact Podiatry Diagnoses Tendonitis, Achilles, left [place] of foot Procedures AR OFFICE/OUTPATIENT NEW HIGH MDM 60 MINUTES Leroy White MD [address] [facility] [address] [place] [address] Phone: tel: fax: Maxi Macdonald DPM [address] [place] [address] Phone: tel: fax: Referral ID Status Reason Start Date Expiration Date V isits Requested Visits Authorized [id number] Closed Specialty Services Required 12/10/2024 06/08/2025 1 1 Reason Onset Date Comments Med Refill 12/19/2024 Reason Onset Date Comments Employment Physical 12/15/2024 Reason Onset Date Comments Med Refill 12/30/2024 Reason Comments Follow-up RT LESION/LT KATTY S Reason Comments Gynecologic Exam New patient here for a yearly. Denies problems. Mammogram order sent to [facility]. Having monthly periods lasting days with heavy bleeding, changing a super+ plus tampon in 1 hr and severe cramping. LMP 12/31/24 Has Non-chemical tubal (coils) for birthcontrol. Last pap more that 2 years ago. Hx of abnormal pap 18 years ago. Care Teams (unrecognized sec tion and content) Carrier Associate Relationship Specialty Start Date End Date Leryo White MD [address] [facility] [address] [place] [address] PCP - General Internal Medicine 11/06/22 Carrier Associate Relationship Specialty Start Date End Date Leroy White MD [address] [facility] [address] [place] [address] PCP - General Internal Medicine 11/06/22 Carrier Associate Relationship Specialty Start Date End Date Leroy White MD [address] [place] [address] PCP - General Internal Medicine 11/06/22 Carrier Associate Relationship Specialty Start Date End Date Leroy White MD [address] [place] [address] PCP - General Internal Medicine 11/06/22 Carrier Associate Relationship Specialty Start Date End Date Leroy White MD [address] [place] [address] PCP - General Internal Medicine 11/06/22 Carrier Associate Relationship Specialty Start Date End Date Leroy White MD [address] [place] [address] PCP - General Internal Medicine 11/06/22 Carrier Associate Relationship Specialty Start Date End Date Leroy White MD [address] [place] [address] PCP - General Internal Medicine 11/06/22 Carrier Associate Relationship Specialty Start Date End Date Leroy White MD [address] [place] [address] PCP - General Internal Medicine 11/06/22 Carrier Associate Relationship Specialty Start Date End Date Leroy White MD [address] [place] [address] PCP - General Internal Medicine 11/06/22 Carrier Associate Relationship Specialty Start Date End Date Leroy White MD [address] [place] [address] PCP - General Internal Medicine 11/06/22 Carrier Associate Relationship Specialty Start Date End Date Leroy White MD [address] [place] [address] PCP - General Internal Medicine 11/06/22 Carrier Associate Relationship Specialty Start Date End Date Leroy White MD [address] [place] [address] PCP - General Internal Medicine 11/06/22 Carrier Associate Relationship Specialty Start Date End Date Leroy White MD [address] [place] [address] PCP - General Internal Medicine 11/06/22 Carrier Associate Relationship Specialty Start Date End Date Leroy White MD [address] [place] [address] PCP - General Internal Medicine 11/06/22 Carrier Associate Relationship Specialty Start Date End Date Leroy White MD [address] [place] [address] PCP - General Internal Medicine 11/06/22 Carrier Associate Relationship Specialty Start Date End Date Leroy White MD [address] [place] [address] PCP - General Internal Medicine 11/06/22 Carrier Associate Relationship Specialty Start Date End Date Leroy White MD [address] [place] [address] PCP - General Internal Medicine 11/06/22 Carrier Associate Relationship Specialty Start Date End Date Leroy White MD [address] [place] [address] PCP - General Internal Medicine 11/06/22 FOR [...] BE BASED ON THE PRIMARY CLINICAL RECORDS. [facility]. provides no warranty or guarantee of the accuracy or completeness of information in this document.
== END 2025-01-13 13:07 | disposition home or self-care (01) ==
LOC: MAMMO 13:07
PROVIDERS: PCP Internal Medicine; Visit Provider Obstetrics & Gynecology
DX: Z12.31 Encounter for screening mammogram for malignant neoplasm of breast (principal); Z80.3 Family history of malignant neoplasm of breast; Z80.8 Family history of malignant neoplasm of other organs or systems
CPT/HCPCS: 77063; 77067

== ENCOUNTER 2025-04-24 21:02 | Emergency (ER) | payer BC, SELFPAY ==
[2025-04-24 21:07] VITALS: BP 137/82; PULSE 88; TEMP 36.3; O2SAT 100; BMI 29.1
--- NOTE | 2025-04-24 21:24 | CT_ITS ---
The [address] [address] Patient Name: KELLY PEREZ MRN: [id number] date: 1985 Sex: F Assigned Patient Location: ED.MAIN Current Patient Location: ED.MAIN Accession/Order Number: [id number] Exam Date: 04/24/2025 21:58 Report Date: 04/24/2025 22:57 At the request of: JAMIL MACIEL Procedure: CT head/brain wo con CT BRAIN WITHOUT CONTRAST: CLINICAL HISTORY: Atypical migraine, episode of LUE/ face numbness COMPARISON: None TECHNIQUE: Contiguous axial unenhanced images were obtained through the brain. This CT exam was performed using one or more following dose reduction techniques: Automated exposure control, adjustment of the mA and/or kV according to patient size, or use of iterative reconstruction technique. FINDINGS: There is no evidence of midline shift, intra or extra-axial fluid collection, hemorrhage or CT evidence of acute large vascular distribution stroke Visualized intraorbital contents appear unremarkable. Mild paranasal sinus mucosal thickening. Mastoids are clear. The surrounding soft tissues are normal. CT/CT head/brain wo con IMPRESSION: NO ACUTE INTRACRANIAL ABNORMALITY. Impression dictated by: Josue Mack M.D. 04/24/2025 10:57 PM Dictation Location: [place] [address] Electronically authenticated by: [id number] Y Date: 04/24/2025 22:57
--- NOTE | 2025-04-24 21:28 | ED_ITS ---
Documented by User: JANELL Aguirre 04/24/25 21:56 HPI HPI - General Adult General Chief complaint: Headache Stated complaint: MIGRAINE Time Seen by Provider: 04/24/25 21:13 Source: patient Mode of arrival: walk-in Limitations: no limitations History of Present Illness HPI narrative: Patient is a 39-year-old female with a PMH of migraines that presents to the emergency department with complaint of migraine that started behind her left eye approximately 4 to 5 hours ago. She did take Tylenol and sumatriptan without relief. She also reports nausea and photophobia. She also notes 2 days ago on Sunday she had a brief episode at work where she noticed that her her left hand and arm were numb as it hit her leg and she thought it was some other o bject. She also notes she was confused and was doing her paperwork backwards. She also felt numbness in her face/mouth. This episode lasted a few minutes and resolved. She has never experienced an episode like this before. She usually gets about 2 migraines a year. Related Data Home Medications ?Medication ?Instructions ?Recorded ?Confirmed cyclobenzaprine 10 mg tablet 10 mg PO BID PRN muscle s pasm 05/02/24 10/17/24 diazepam 5 mg tablet 5 mg PO BID PRN anxiety 04/2010/17/24 ondansetron HCl 4 mg tablet 4 mg PO TID-QID PRN nausea and 05/02/24 10/17/24 vomiting zolpidem 10 mg tablet 10 mg PO .HS 05/02/24 Allergies Allergy/AdvReac Type Severity Reaction Status Date / Time ciprofloxacin (From Cipro) Allergy Severe SWELLING Verified 04/24/25 21:10 Latex, Natural Rubber Allergy Intermediate Rash Verified 04/24/25 21:10 Opioid HPI Opioid Management Most Recent Opioid Data: Last Pain Scale 5 05/02/24, 19:09 Review of Systems ROS Status of ROS 10 or more systems reviewed and unremark able except as noted in history and below PFSH PFSH Social History Little interest or pleasure in doing things: not at all Feeling down, depressed, or hopeless: not at all Exam Narrative Exam Narrative: General: No distress but appears uncomfortable, sitting in dark room, age- appropriate Skin: Warm, dry, no pallor. No rash. Head: Normocephalic, atraumatic. Neck: Supple, non-tender. Eye: Pupils are equal, round and EOMI. No scleral icterus. Ears, Nose, Mouth, and Throat: No nasal mucosal hypertrophy. Oral mucosa is moist, no posterior oropharynx erythema, uvula is mid-line Cardiovascular: Regular Rate and Rhythm without murmur, gallop or rub. Respiratory: No accessory muscle use or respiratory distress. Lungs are clear to auscultation, no wheezing, rales or rhonchi Musculoskeletal: Full ROM of all extremities, no calf or popliteal tenderness Neurological: A&O x4. No cranial nerve dysfunction observed. No truncal ataxia. Moves all extremities. Sensation intact. Psychiatric: Cooperative and interactive. Normal mood and affect. Constitutional Vital Signs, click to edit/add: Last Vital Signs Temp 97.4 F L 04/24/25 21:07 Pulse 88 04/24/25 21:07 Resp 18 04/24/25 21:07 BP 137/82 04/24/25 21:07 Pulse Ox 100 04/24/25 21:07 O2 Del Method Room Air 04/24/25 21:07 Documenting provider has reviewed patient's vital signs: yes Course Vital Signs Vital signs: Vital Signs Temperature 97.4 F L 04/24/25 21:07 Pulse Rate 88 04/24/25 21:07 Respiratory Rate 18 04/24/25 21:07 Blood Pressure 137/82 04/24/25 21:07 Pulse Oximetry 100 04/24/25 21:07 Oxygen Delivery Method Room Air 04/24/25 21:07 Temperature 97.4 F L 04/24/25 21:07 Pulse Rate 88 04/24/25 21:07 Respiratory Rate 18 04/24/25 21:07 Blood Pressure 137/82 04/24/25 21:07 Pulse Oximetry 100 04/24/25 21:07 Oxygen Delivery Method Room Air 04/24/25 21:07 Medical Decision Making MDM Narrative Medical decision making narrative: The patient is a 39-year-old female with a history of infrequent migraines who presents with a new-onset, severe, left retro-orbital headache associated with nausea and photophobia, unresponsive to acetaminophen and sumatriptan. She repor ts a brief, self-limited episode 2 days ago of left-sided numbness (hand, arm, face/mouth) with confusion and difficulty performing tasks, which fully resolved. A non-contrast CT head has been ordered to rule out acute intracranial pathology. IV line has been established. Supportive treatment for pain and nausea has been initiated with 1 L normal saline, Reglan 10 mg IV, Decadron 10 mg IV, Toradol 30 mg IV, and Benadryl 50 mg IV. At this time, 2200, my shift was coming to an end and patient's care was signed out to Dr Laura. Disposition pending CT Head results and treatment response. Differential Diagnosis Differential Diagnosis: Migraine with aura, TIA, stroke, seizure Discharge Plan Discharge Chief Complaint: Headache Clinical Impression: Migraine Patient Disposition: Home, Self-Care Prescriptions / Home Meds: No Action diazepam 5 mg tablet 5 mg PO BID PRN (Reason: anxiety) zolpidem 10 mg tablet 10 mg PO .HS ondansetron HCl 4 mg tablet 4 mg PO TID-QID PRN (Reason: nausea and vomiting) cyclobenzaprine 10 mg tablet 10 mg PO BID PRN (Reason: muscle spasm) Print Language: Panamanian Instructions: Migraine Headache (ED) Additional Instructions: follow up with your doctor next week for recheck Referrals: SUMEET KAUFFMAN [Primary Care Provider, Internal Medicine] - 1 week Documented by User: Dante Laura MD 04/24/25 23:56 HPI HPI - General Adult General Chief complaint: Headache Stated complaint: MIGRAINE Time Seen by Provider: 04/24/25 21:13 Related Data Home Medications ?Medication ?Instructions ?Recorded ?Confirmed cyclobenzaprine 10 mg tablet 10 mg PO BID PRN muscle s pasm 05/02/24 10/17/24 diazepam 5 mg tablet 5 mg PO BID PRN anxiety 04/2010/17/24 ondansetron HCl 4 mg tablet 4 mg PO TID-QID PRN nausea and 05/02/24 10/17/24 vomiting zolpidem 10 mg tablet 10 mg PO .HS 05/02/24 Allergies Allergy/AdvReac Type Severity Reaction Status Date / Time ciprofloxacin (From Cipro) Allergy Severe SWELLING Verified 04/24/25 21:10 Latex, Natural Rubber Allergy Intermediate Rash Verified 04/24/25 21:10 Opioid HPI Opioid Management Most Recent Opioid Data: Last Pain Scale 5 05/02/24, 19:09 PFSH PFSH Social History Little interest or pleasure in doing things: not at all Feeling down, depressed, or hopeless: not at all Exam Constitutional Vital Signs, click to edit/add: Last Vital Signs Temp 97.4 F L 04/24/25 21:07 Pulse 88 04/24/25 21:07 Resp 18 04/24/25 21:07 BP 137/82 04/24/25 21:07 Pulse Ox 100 04/24/25 21:07 O2 Del Method Room Air 04/24/25 21:07 Course Vital Signs Vital signs: Vital Signs Temperature 97.4 F L 04/24/25 21:07 Pulse Rate 88 04/24/25 21:07 Respiratory Rate 18 04/24/25 21:07 Blood Pressure 137/82 04/24/25 21:07 Pulse Oximetry 100 04/24/25 21:07 Oxygen Delivery Method Room Air 04/24/25 21:07 Temperature 97.4 F L 04/24/25 21:07 Pulse Rate 88 04/24/25 21:07 Respiratory Rate 18 04/24/25 21:07 Blood Pressure 137/82 04/24/25 21:07 Pulse Oximetry 100 04/24/25 21:07 Oxygen Delivery Method Room Air 04/24/25 21:07 Medical Decision Making [facility] Narrative Medical decision making narrative: The patient is a 39-year-old female with a history of infrequent migraines who presents with a new-onset, severe, left retro-orbital headache associated with nausea and photophobia, unresponsive to acetaminophen and sumatriptan. She reports a brief, self-limited episode 2 days ago of left-sided numbness (hand, arm, face/mouth) with confusion and difficulty performing tasks, which fully resolved. A non-contrast CT head has been ordered to rule out acute intracranial pathology. IV line has been established. Supportive treatment for pain and nausea has been initiated with 1 L normal saline, Reglan 10 mg IV, Decadron 10 mg IV, Toradol 30 mg IV, and Benadryl 50 mg IV. At this time, 2200, my shift was coming to an end and patient's care was signed out to Dr Laura. Disposition pending CT Head results and treatment response. care transferred end of shift. CT pending and returned as without acute findings. Patient rechecked adn states she is feeling much better and is ready to go home. Discharged and advised to follow up with her doctor Discharge Plan Discharge Chief Complaint: Headache Clinical Impression: Migraine Patient Disposition: Home, Self-Care Prescriptions / Home Meds: No Action diazepam 5 mg tablet 5 mg PO BID PRN (Reason: anxiety) zolpidem 10 mg tablet 10 mg PO .HS ondansetron HCl 4 mg tablet 4 mg PO TID-QID PRN (Reason: nausea and vomiting) cyclobenzaprine 10 mg tablet 10 mg PO BID PRN (Reason: muscle spasm) Print Language: Panamanian Instructions: Migraine Headache (ED) Additional Instructions: follow up with your doctor next week for recheck Referrals: SUMEET KAUFFMAN [Primary Care Provider, Internal Medicine] - 1 week
--- OUTSIDE RECORDS SUMMARY | 2025-04-24 21:34 | XMS_ITS | CCD ---
Author Organization [facility] Care Team Providers Care Clinic Assistant Name Role Phone SUNITHA ., DR GANT [...] Unavailable HEMCURTIS, DR [place] Garcia Admitting Unavailable HEMMER, DR [place] Garcia Consulting Unavailable DALY, DR FAY Primary Care Unavailable DALY, DR FAY Admitting Unavailable WHITE, DR FAY Attending Unavailable DALY, DR FAY Consulting Unavailable ZIEBMAE, DR SIXTO Delgado Consulting Unavailable Leroy White MD Primary Care Provider [place] PARHAM Attending Unavailable LEROY WHITE Attending Unavailable MAXI BENTLEY Attending Unavailable LEROY WHITE Referring Unavailable MAXI BENTLEY Attending Unavailable MONIKA GILLETTE Attending Unavailable LEROY WHITE Attending Unavailable LEROY WHITE Attending Unavailable [place] PARHAM Attending Unavailable MAXI BENTLEY Attending Unavailable MAXI BENTLEY Attending Unavailable LEROY WHITE Attending Unavailable Allergies Allergy ClassificationReported Allergen(s)Allergy TypeDate of OnsetReaction(s) Facility (1 source)Adhesive agentDrug allergy (disorder)96-15-8808Azm [facility] Repository (1 source)CiprofloxacinDrug Igejvmt19-67-0860Tmi [facility] Rep[facility] (1 source)natural latex rubberDrug allergy (disorder)39-46-7918Cic [facility] Repository (20 sources)CiprofloxacinDrug Rdxlrpa92-46-5814FjrunervGOVY Healthcare Work Phone: (20 sources)Wound Dressing AdhesiveDrug Ioqwhgt70-84-0158NdwslclYJVT Healthcare (20 sources)LatexPropensity to adverse -95-6905[facility] Medications Current Medications MedicationDrug Class(es)DatesSig (Normalized)Sig (Original)acetaminophen 325 mg / HYDROcodone bitartrate 10 mg oral tablet (20 sources)Opioid AgonistStart: 03-23-2025 End: 49-26-9569ydzc 1 tablet by mouth every six hours for painHYDROcodone- acetaminophen ([place]) 10-325 MG tablet Indications: Left sided sciatica Take 1 tablet by mouth every 6 (six) hours if needed for severe pain for up to 5 days 20 tablet 03/27/2025 04/01/2025 ActiveStart: 12-10-2024 End: 89-57-1399nkru 1 tablet by mouth every six hours for painHYDROcodone- acetaminophen ([place]) 5-325 MG tablet Indications: Osteoarthritis of spine with radiculopathy, lumbar region Take 1 tablet by mouth every 6 (six) hours if needed for severe pain for up to10 days 40 tablet 12/19/2024 12/29/2024 Active Start: 09-12-2024 End: 13-62-7308hufs 1 tablet by mouth every six hours for painHYDROcodone- acetaminophen ([place]) 5-325 MG tablet Indications: Osteoarthritis of spine with radiculopathy, lumbar region Take 1 tablet by mouth every 6 (six) hours if needed for severe pain for up to5 days 20 tablet 09/12/2024 09/17/2024 Active Start: 05-07-2024 End: 64-54-4760qnez 1 tablet by mouth every six hours for painHYDROcodone- acetaminophen ([place]) 10-325 MG tablet Indications: Spondylosis of lumbar region without myelopathy or radiculopathy Take 1 tablet by mouth every 6 (six) hours if needed for moderate painor severe pain for up to 10 days 40 tablet 05/07/2024 05/17/2024 ActiveStart: 03-03-2024 End: 89-45-7628ftoh 1 tablet by mouth every six hours for painHYDROcodone- acetaminophen ([place]) 10-325 MG tablet Indications: Spondylosis of lumbar region without myelopathy or radiculopathy Take 1 tablet by mouth every 6 (six) hours if needed for moderate painor severe pain for up to 10 days 40 tablet 03/14/2024 03/24/2024 ActiveStart: 06-21-2023 End: 56-52-4845wbgu 1 tablet by mouth every six hours for painHYDROcodone- acetaminophen ([place]) 7.5-325 MG tablet Indications: Acute left-sided low back pain with left-sided sciatica Take 1 tablet by mouth every 6 (six) hours if needed for severe pain for up to5 days 20 tablet 0 06/21/2023 06/26/2023 Active azithromycin 250 mg oral tablet (2 sources)Macrolide AntimicrobialStart: 02-06-2024 End: 24-41-3186gpdr 2 tablets by mouth once daily, then take 1 tablet by mouth once dailyazithromycin (Zithromax) 250 MG tablet Indications: Upper respiratory tract infection, unspecified type Take 2 tablets (500 mg) by mouth Daily for 1 day, THEN 1 tablet (250 mg) Daily for 4 days. 6 tablet 02/06/2024 02/11/2024 Activebetamethasone 0.5 mg/ml / clotrimazole 10 mg/ml topical cream (1 source)Azole Antifungal, CorticosteroidStart: 06-26-2023 End: 79-25-6121sgbgcgoudnlv-betamethasone (Lotrisone) cream Indications: Tinea pedis of left foot Apply topically 2 (two) times a day for 28 days 60 g 2 06/26/2023 07/24/2023 Activecyclobenzaprine hydrochloride 10 mg oral tablet (20 sources)Muscle RelaxantStart: 47-41-0749vqzp 1 tablet by mouth three times daily as needed for muscle spasmscyclobenzaprine (Flexeril) 10 MG tablet Indications: Cervical radiculopathy TAKE 1 TABLET (10 MG) BY MOUTH 3 (THREE) TIMES A DAY NEEDED FOR MUSCLE SPASMS 90 tablet 2 01/20/2025 ActiveStart: 83-53-1003kxsh 1 tablet by mouth three times daily as needed for muscle spasms cyclobenzaprine (Flexeril) 10 MG tablet Indications: Cervical radiculopathy Take 1 tablet (10 mg) by mouth 3 (three) times a day as needed for muscle spasms 90 tablet 2 05/26/2024 ActiveStart: 52-45-9018ztph 1 tablet by mouth three times daily as needed for muscle spasmscyclobenzaprine (Flexeril) 10 MG tablet Indications: Cervical radiculopathy Take 1 tablet (10 mg) by mouth 3 (three) times a day as needed for muscle spasms 90 tablet 2 03/24/2024 ActiveStart: 86-07-0374yiqu 1 tablet by mouth three times daily as needed for muscle spasms cyclobenzaprine (Flexeril) 10 MG tablet Indications: Cervical radiculopathy TAKE 1 TABLET (10 MG) BY MOUTH 3 (THREE) TIMES A DAY NEEDED FOR MUSCLE SPASMS. 90 tablet 2 07/30/2023 ActiveStart: 71-62-7001pfzh 1 tablet by mouth three times daily as needed for muscle spasmscyclobenzaprine (Flexeril) 10 MG tablet Indications: Cervical radiculopathy Take 1 tablet (10 mg) by mouth 3 (three) times a day as needed for muscle spasms. 90 tablet 2 03/08/2023 ActivediazePAM 5 mg oral tablet (20 sources)BenzodiazepineStart: 11-21-2023 End: 89-37-4895enmx 1 tablet by mouth oncediazePAM (Valium) 5 MG tablet Indications: Panic attacks Take 1 tablet (5 mg) by mouth every 12 (twelve) hours if needed for anxiety, sleep or muscle spasms 60 tablet 1 03/06/2025 05/05/2025 ActiveStart: 94-12-7471shji 1 tablet by mouth oncediazePAM (Valium) 5 MG tablet Indications: Panic attacks (CMS/HCC) Take 1 tablet (5 mg) by mouth every 12 (twelve) hours if needed for anxiety, sleep or muscle spasms 30 tablet 0 06/01/2023 Activediclofenac potassium 50 mg oral tablet (20 sources)Nonsteroidal Anti-inflammatory DrugStart: 09-26-2023 End: 05-24-7173zgyx 1 tablet by mouth in the morningdiclofenac (Cataflam) 50 MG tablet Indications: Spondylosis of lumbar region without myelopathy or r adiculopathy Take 1 tablet (50 mg) by mouth in the morning and 1 tablet (50 mg) before bedtime. 60 tablet 5 09/26/2023 09/25/2024 ActivemethylPREDNISolone (20 sources)CorticosteroidStart: 75-52-5812nmwqhfQDOPOSWmktyo (Medrol Dospak) 4 MG tablets Indications: Left sided sciatica Follow schedule onMEDROL PACK package instructions to be used as directed 21 tablet 03/23/2025 ActiveStart: 02-05-2025 End: 28-28-6417phouetHGNTCSVqogpn (Medrol Dospak) 4 MG tablets Indications: Left Achilles tendinitis Follow schedule on MEDROL PACK package instructions to be used as directed 21 tablet 02/05/2025 03/23/2025 Discontinued (Therapy completed)Start: 68-86-3379argtyiMHBLMJPjudnu (Medrol Dospak) 4 MG tablets Indications: Left Achilles tendinitis Follow schedule on MEDROL PACK package instructions to be used as directed 21 tablet 02/05/2025 ActiveStart: 01-01-2025 End: 32-72-9594fvpiupLERFSOLvluer (Medrol Dospak) 4 MG tablets Indications: Left Achilles tendinitis Follow schedule on MEDROL PACK package instructions to be used as directed 21 tablet 01/01/2025 02/05/2025 Discontinued (Therapy completed)Start: 47-27-8414zatsujPYTIWLOddzhx (Medrol Dospak) 4 MG tablets Indications: Left Achilles tendinitis Follow schedule on MEDROL PACK package instructions to be used as directed 21 tablet 01/01/2025 ActiveStart: 06-21-2023 End: 69-85-5090xxsuctQKTGRQHnqnjq (Medrol Dospak) 4 MG tablets Indications: Acute left-sided low back pain with left-sided sciatica Follow schedule on package instructions 21 tablet 0 06/21/2023 06/28/2023 Activenabumetone 500 mg oral tablet (7 sources)Nonsteroidal Anti-inflammatory DrugStart: 05-07-2024 End: 64-69-8681keuy 1 tablet by mouth in the morningnabumetone (Relafen) 500 MG tablet Indications: Costochondritis, acute Take 1 tablet (500 mg) by mouth in the morning and 1 tablet (500 mg) before bedtime. Do all this for 28 days. 28 tablet 1 05/07/2024 06/04/2024 Activeondansetron 4 mg disintegrating oral tablet (20 sources)Serotonin-3 Receptor AntagonistStart: 38-07-8096lfyf 1 tablet by mouth every eight hours as needed for nausea and vomitingondansetron ODT (Zofran-ODT) 4 MG disintegrating tablet Indications: Nausea TAKE 1 TABLET (4 MG) BYMOUTH EVERY 8 HOURS NEEDED FOR NAUSEA AND VOMITING 28 tablet 1 12/08/2024 ActiveStart: 55-21-5840gxri 1 tablet by mouth every eight hours as needed for nausea and vomiting and nausea and nauseaondansetron ODT (Zofran-ODT) 4 MG disintegrating tablet Indications: Nausea Take 1 tablet (4 mg) bymouth every 8 (eight) hours if needed for nausea or vomiting 28 tablet 1 01/25/2024 Active Start: 29-30-5892etuh 1 tablet by mouth every eight hours as needed for nausea and vomiting and nausea and nauseaondansetron ODT (Zofran-ODT) 4 MG disintegrating tablet Indications: Nausea Take 1 tablet (4 mg) bymouth every 8 (eight) hours if needed for nausea or vomiting 28 tablet 1 11/01/2023 Active phentermine hydrochloride 37.5 mg oral tablet (4 sources)Sympathomimetic Amine AnorecticStart: 99-63-1021cxnp 1 tablet by mouth once dailyphentermine (Adipex-P) 37.5 MG tablet Indications: Severe obesity (BMI 35.0-39.9) with comorbidity (CMS/HCC) Take 1 tablet (37.5 mg) by mouth 1 (one) time each day at the same time 30 tablet 0 06/04/2023 Active predniSONE 20 mg oral tablet (2 sources)Start: 05-15-2024 End: 62-48-2281wemd 1 tablet by mouth once dailypredniSONE (Deltasone) 20 MG tablet Indications: Costochondritis, acute Take 1 tablet (20 mg) by mouth Daily for 5 days 5 tablet 05/15/2024 05/20/2024 ActiveSUMAtriptan 50 mg oral tablet (20 sources)Serotonin-1b and Serotonin-1d Receptor AgonistStart: 52-80-4190pgdt 1 tablet by mouth once daily, then take 2 tablets by mouth every twenty-four hoursSUMAtriptan (Imitrex) 50 MG tablet Indications: Migraine syndrome TAKE 1 TABLET BY MOUTH ONCE DAILYWITHIN 1 HOUR OF MIGRAINE START *MAX 2 PER 24 HOURS* 15 tablet 2 02/21/2024 ActiveTirzepatide (Mounjaro) 7.5 MG/0.5ML solution auto-injector (15 sources)Start: 09-01-2024 End: 46-06-3944hpzelh 7.5 mg by subcutaneous injection every weekTirzepatide (Mounjaro) 7.5 MG/0.5ML solution auto-injector Indications: Severe obesity (BMI 35.0-39.9) with comorbidity (CMS/HCC) Inject 7.5 mg under the skin 1 (one) time per week 2 mL 3 09/01/2024 09/12/2024 Discontinued (Other)Start: 04-07-2024 End: 99-83-9145whbgno 7.5 mg by subcutaneous injection every weekTirzepatide (Mounjaro) 7.5 MG/0.5ML solution auto-injector Indications: Severe obesity (BMI 35.0-39.9) with comorbidity (CMS/HCC) Inject 7.5 mg under the skin 1 (one) time per week 2 mL 3 04/07/2024 04/07/2025 Activevortioxetine 20 mg oral tablet (20 sources)Start: 36-90-4037vspe 1 tablet by mouth once dailyVortioxetine HBr (Trintellix) 20 MG tablet Indications: Depression with anxiety Take 20 mg by mouthDaily 30 tablet 11 10/22/2023 Activetake 1 tablet by mouth once daily Vortioxetine HBr (Trintellix) 10 MG tablet Take 1 tablet by mouth 1 (one) time each day at the sametime. 0 Activezolpidem tartrate 10 mg oral tablet (20 sources)gamma-Aminobutyric Acid-ergic AgonistStart: 40-04-3570zjhmnilp (Ambien) 10 MG tablet Indications: Other insomnia Take 1 tablet (10 mg) by mouth as neededat bedtime for sleep 30 tablet 2 03/20/2025 ActiveStart: 03-31-2024 End: 32-34-1808sgnddybe (Ambien) 10 MG tablet Indications: Other insomnia TAKE 1 TABLET (10 MG) BY MOUTH NEEDEDAT BEDTIME FOR SLEEP 30 tablet 2 12/25/2024 ActiveStart: 12-26-2023 End: 05-46-1965hknigntv (Ambien) 10 MG tablet Indications: Other insomnia Take 1 tablet (10 mg) by mouth as neededat bedtime for sleep 30 tablet 2 12/26/2023 03/28/2024 Discontinued (Reorder)Start: 00-39-2009fpjqrrmr (Ambien) 10 MG tablet Indications: Other insomnia TAKE 1 TABLET (10 MG) BY MOUTH NEEDEDAT BEDTIME FOR SLEEP. 30 tablet 2 06/27/2023 ActiveStart: 03-27-2023 End: 33-50-8151tkqjiake (Ambien) 10 MG tablet Indications: Other insomnia TAKE 1 TABLET (10 MG) BY MOUTH NEEDEDAT BEDTIME FOR SLEEP. 30 tablet 2 03/27/2023 06/27/2023 Discontinued Completed/Discontinued Medications MedicationDrug Class(es)DatesSig (Normalized)Sig (Original)2 ml ketorolac tromethamine 30 mg/ml cartridge (4 sources)Nonsteroidal Anti-inflammatory Drug, Cyclooxygenase InhibitorStart: 09-12-2024 End: 02-98-285261 mg, Intramuscular, Once, On Sun09/12/24 at 1230, For 1 dose, Max daily dose: 120 mg. Max duration: 5 days totalStart: 09-12-2024 End: 94-60-4386unkcqjxkh (Toradol) injection 60 mgStart: 09-12-2024 End: 64-56-543673 mg, Intramuscular, Once, On Sun09/12/24 at 1230, For 1 dose, Max daily dose: 120 mg. Max duration: 5 days totalStart: 09-12-2024 End: 68-39-8144qhmdnaank (Toradol) injection 60 mg1 ml promethazine hydrochloride 25 mg/ml injection (6 sources)PhenothiazineStart: 06-04-2024 End: 01-01-5579wcgeeoksemkx (Phenergan) injection 12.5 mgStart: 06-04-2024 End: 76-97-3597euighxdmnluv (Phenergan) injection 25 mgStart: 06-04-2024 End: 17-12-5576hssrhf 25 mg by intramuscular injection once25 mg, Intramuscular, Once, On Sun06/04/24 at 0945, For 1 doseTirzepatide (Mounjaro) 5 MG/0.5ML solution pen-injector (13 sources)Start: 02-06-2024 End: 31-49-5094qrjgvq 5 mg by subcutaneous injection every weekTirzepatide (Mounjaro) 5 MG/0.5ML solution pen-injector Indications: Severe obesity (BMI 35.0-39.9)with comorbidity (CMS/HCC) Inject 5 mg under the skin 1 (one) time per week 2 mL 3 02/06/2024 04/07/2024 Discontinued (Dose adjustment)Start: 94-25-3803eyhprd 5 mg by subcutaneous injection every weekTirzepatide (Mounjaro) 5 MG/0.5ML solution pen-injector Indications: Severe obesity (BMI 35.0-39.9)with comorbidity (CMS/HCC) Inject 5 mg under the skin 1 (one) time per week 2 mL 3 02/06/2024 ActiveStart: 10-22-2023 End: 36-05-5679ftmbck 5 mg by subcutaneous injection every weekTirzepatide (Mounjaro) 5 MG/0.5ML solution pen-injector Indications: Severe obesity (BMI 35.0-39.9)with comorbidity (CMS/HCC) Inject 5 mg under the skin 1 (one) time per week 2 mL 3 10/22/2023 02/06/2024 Discontinued (Reorder)Start: 17-42-2365faevsj 5 mg by subcutaneous injection every weekTirzepatide (Mounjaro) 5 MG/0.5ML solution pen-injector Indications: Severe obesity (BMI 35.0-39.9)with comorbidity (CMS/HCC) Inject 5 mg under the skin 1 (one) time per week 2 mL 3 10/22/2023 Active Problems Active Problems Problem ClassificationProblemDateDocumented DateEpisodic/ChronicAdjustment disorders (20 sources)Adjustment disorder; Translations: [Adjustment disorder, unspecified]Onset: 115076-85-4874OlqacajDkljjfq disorders (20 sources)Panic attack; Translations: [Panic disorder [episodic paroxysmal anxiety]]Onset: 622753-14-1819RqoglgbLcetosc tract disease (20 sources)Disorder of biliary tract; Translations: [Other specified diseases of biliary tract]Onset: 387941-31-7713YvhndaaPoqkqgaw; including migraine (20 sources)Migraine; Translations: [Migraine, unspecified, not intractable, without status migrainosus]Onset: 742223-43-1644CgwfsryIfnrikpg; including migraine (1 source)Headache; including migraine; Translations: [HEADACHE UNSPECIFIED] Onset: 12-14-0897Qswcqhquztobm and screening for infectious disease (4 sources)Patient encounter status; Translations: [Encounter for screening for human papillomavirus (HPV)]60-99-0154NqzrbfkxIwchgmpbyz infection (2 sources)Viral gastroenteritis; Translations: [Viral intestinal infection, unspecified]17-16-8737LyisoyxaTficcom and fatigue (4 sources)Malaise and fatigue; Translations: [Other malaise]11-74-3372Zwhynqxr Menstrual disorders (20 sources)Dysmenorrhea; Translations: [Dysmenorrhea, unspecified]Onset: 532323-32-1176AkenifbXbji disorders (20 sources)Major depressive disorder; Translations: [Major depressive disorder, single episode, unspecified]Onset: 930322-96-0194HmkxbhdPmltrc and vomiting (2 sources)Nausea and vomiting; Translations: [Nausea with vomiting, unspecified]49-50-1272KvmxttshOppaepoev of unspecified nature or uncertain behavior (2 sources)Neoplasm of uncertain behavior of skin; Translations: [Neoplasm of uncertain behavior of skin]40-33-5206SjuastzjUjqzq acquired deformities (7 sources)Contracture of joint of left ankle; Translations: [Contracture, left ankle]43-70-6653VrsfhdfJnokz aftercare (1 source)Other termite technician (current) drug therapy; Translations: [OTH PRISON CURRENT DRUG THERAPY]Onset: 81-68-4499GumowohuGehnm bone disease and musculoskeletal deformities (4 sources)Costal chondritis; 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 [Tietze]]03-62-5030JpuqgiadZtmbf connective tissue disease (2 sources)Plantar fasciitis of right foot; Translations: [Plantar fascial fibromatosis]80-87-5237GxqevzvcXmuoe connective tissue disease (13 sources)Left achilles tendonitis; Translations: [Achilles tendinitis, left leg]23-69-0403OuoifygsAbpps connective tissue disease (7 sources)Pain in right foot; Translations: [Pain in right foot]12-12-2024 EpisodicOther connective tissue disease (5 sources)Plantar fasciitis; Translations: [Plantar fascial fibromatosis] 68-26-0404UnbtttnsPqjsf nervous system disorders (20 sources)Chiari malformation type I; Translations: [Compression of brain] Onset: 656107-88-9491FlioxmeYpeaa nutritional; endocrine; and metabolic disorders (20 sources)Severe obesity; Translations: [Morbid (severe) obesity due to excess calories]Onset: 800197-92-8800TzwaphqXbnql screening for suspected conditions (not mental disorders or infectious disease) (4 sources)Cancer cervix screening status; Translations: [Encounter for screening for malignant neoplasm of cervix]25-21-4747HpcbfzlzRwnwf skin disorders (6 sources)[place] - lesion ; Translations: [Corns and callosities]12-10-2024 EpisodicOther upper respiratory infections (2 sources)Upper respiratory infection; Translations: [Acute upper respiratory infection, unspecified]75-96-5774KkrxnobaTtiizywt codes; unclassified (20 sources)Insomnia; Translations: [Other insomnia]Onset: ChronicResidual codes; unclassified (1 source)Acquired absence of other specified parts of digestive tract; Translations: [ACQ ABSENCE OTH PART DIGESTV TRACT]Onset: 49-43-3240Oujqjyjl Residual codes; unclassified (2 sources)History of female sterilization; Translations: [Other specified postprocedural states]70-33-3656UqvxwqbsKwwdyenfp and history of mental health and substance abuse codes (1 source)Personal history of nicotine dependence; Translations: [PERSONAL HISTORY OF NICOTINE DEPEND]Onset: 97-83-1534GgaayqruUiqcpsdvaxg; intervertebral disc disorders; other back problems (20 sources)Other cervical disc degeneration, unspecified cervical region; Translations: [Degeneration of cervical intervertebral disc]Onset: 06-10-2022 46-51-2576EjopemtCkwjzfgowus; intervertebral disc disorders; other back problems (20 sources)Radiculopathy, lumbar region; Translations: [Radiculopathy, cervical region]Onset: 00-13-7697RgmrvdmkCwqnvjmxo-related disorders (1 source)Nicotine dependence, cigarettes, uncomplicated; Translations: [NICOTINE DEPEND CIGARETTES UNCOMP]Onset: 43-69-3738YyezpvnFstmivxujjow (3 sources)LOW BACK PAIN, UNSPECIFIED; Translations: [LOW BACK PAIN, UNSPECIFIED]Onset: 39-44-6019Xxpbn infection (9 sources)Viral disease; Translations: [Viral infection, unspecified]05-07-2024 Episodic Past or Other Problems Problem ClassificationProblemDateDocumented DateEpisodic/ChronicCardiac dysrhythmias (4 sources)Palpitations; Translations: [PALPITATIONS]Onset: 86-70-9274Vpnojwgx Mood disorders (3 sources)Mood disordersOnset: 930707-26-4977Dlflm nervous system disorders (20 sources)Loss of taste; Translations: [Parageusia]Onset: 352555-29-0909 EpisodicUnclassified (1 source)LOW BACK PAIN, UNSPECIFIED; Translations: [LOW BACK PAIN, UNSPECIFIED] Onset: 09-29-2022 Results Test NameValueInterpretationReference RangeFacilityMM TOMOSYNTHESIS SCREENING BI on 39-03-3003Mmw[place], [place] [address] Mammography Report Signed Patient: TERESE PEREZ MR#: [id number] : 1985 Acct:[id number] Age/Sex: 39 / F ADM Date: 01/13/25 Loc: MAMMO Attending Dr: MONIKA GILLETTE Ordering Physician: MONIKA GILLETTE Results: Date of Service: 01/13/25 Follow Up: Procedure(s): MM tomosynthesis screening BI Accession Number(s): [id number] cc: LEROY WHITE ; MONIKA GILLETTE Patient Name: TERESE PEREZ MR#: [id number] : 1985 Exam Date: 01/13/2025 Ordering Doctor: DR. MONIKA GILLETTE D.O. RADIOLOGY REPORT PROCEDURE: MM TOMOSYNTHESIS SCREENING BI COMPARISON: None. INDICATIONS: screening mammogram Calculator Name NCI Breast Cancer Risk Assessment Tool 5 Year Breast Cancer Risk 0.40% Lifetime Breast Cancer Risk 6.70% Personal Breast Cancer No Personal Ovarian Cancer No Treatments None Family Cancers Grandmother-paternal with breast cancer at age 45; Aunt-paternal with breast cancer at age 45; Uncle-paternal with small cell cancer at age 40; Uncle-paternal with small cell cancer at age 42. LOCATION: [facility] BREAST COMPOSITION: The breasts are heterogeneously dense, which may obscure small masses. FINDINGS: DIAGNOSTIC CATEGORY 1--NEGATIVE. RIGHT BREAST: No significant suspicious finding. LEFT BREAST: No significant suspicious finding. RECOMMENDATIONS: ROUTINE MAMMOGRAM AND CLINICAL EVALUATION IN 12 MONTHS. Dictated by: Campbell Manley DO on 01/14/2025 at 14:51 Approved by: Campbell Manley DO on 01/14/2025 at 14:52 Dictated By: Campbell Manley M.D. Signed By: 01/14/25 1453 DD/ 1452 TD/TT: Ep Specialist:TBHRadiology, Radiologist, MD - 01/14/2025 [place] [address] Mammography Report Signed Patient: TERESE PEREZ MR#: [id number] : 1985 Acct:[id number] Age/Sex: 39 / F ADM Date: 01/13/25 Loc: MAMMO Attending Dr: MONIKA GILLETTE Ordering Physician: MONIKA GILLETTE Results: Date of Service: 01/13/25 Follow Up: Procedure(s): MM tomosynthesis screening BI Accession Number(s): [id number] cc: LEROY WHITE ; MONIKA GILLETTE Patient Name: TERESE PEREZ MR#: [id number] : 1985 Exam Date: 01/13/2025 Ordering Doctor: DR. MONIKA GILLETTE D.O. RADIOLOGY REPORT PROCEDURE: MM TOMOSYNTHESIS SCREENING BI COMPARISON: None. INDICATIONS: screening mammogram Calculator Name NCI Breast Cancer Risk Assessment Tool 5 Year Breast Cancer Risk 0.40% Lifetime Breast Cancer Risk 6.70% Personal Breast Cancer No Personal Ovarian Cancer No Treatments None Family Cancers Grandmother-paternal with breast cancer at age 45; Aunt-paternal with breast cancer at age 45; Uncle-paternal with small cell cancer at age 40; Uncle-paternal with small cell cancer at age 42. LOCATION: [facility] BREAST COMPOSITION: The breasts are heterogeneously dense, which may obscure small masses. FINDINGS: DIAGNOSTIC CATEGORY 1--NEGATIVE. RIGHT BREAST: No significant suspicious finding. LEFT BREAST: No significant suspicious finding. RECOMMENDATIONS: ROUTINE MAMMOGRAM AND CLINICAL EVALUATION IN 12 MONTHS. Dictated by: Campbell Manley DO on 01/14/2025 at 14:51 Approved by: Campbell Manley DO on 01/14/2025 at 14:52 Dictated By: Campbell Manley M.D. Signed By: 01/14/251452 DD/ 51 TD/TT: Ep Specialist: [facility] Study observation (narrative)[facility] TOMOSYNTHESIS SCREENING BIOrdered By: Radiologist Radiology on 53-32-3131YICPCarondelet Health Work Phone: cBC (INCLUDES DIFF/PLT)on 65-52-6544Zvegkxgpe (Bld) [#/Vol]0.062 10*3/uLNormal0-200Quest DiagnosticsComment on above:Performed By: #### [id number], [id number], 802 #### [facility] [address], [address] [place] [id number] Human Resources Leader: Louie Agosto MDBasophils/100 WBC (Bld)1.2 %NormalQuest DiagnosticsComment on above:Performed By: #### [id number], [id number], 805 #### [facility] Diagnostics [facility] [address] [place], [place] [address]e , [address] [place] [address] Human Resources Leader: Louie Agosto MDEosinophils (Bld) [#/Vol]0.213 10*3/uLNormal 15-500Quest DiagnosticsComment on above:Performed By: #### 6399, 87002, 809 #### [facility] [place] [address] Human Resources Leader: Louie Agosto MDEosinophils/100 WBC (Bld)4.1 %NormalQuest DiagnosticsComment on above:Performed By: #### 6399, 54058, 809 #### [facility] [place] [address] Human Resources Leader: Louie Agosto MDErythrocyte distribution width (RBC) [Ratio] 11.7 %Pdedhx02.0-15.0Quest DiagnosticsComment on above:Performed By: #### 6399, 01158, 809 #### [facility] [place] [address] Human Resources Leader: Louie Agosto MDHematocrit (Bld) [Volume fraction]42.6 %Normal 35.0-45.0Quest DiagnosticsComment on above:Performed By: #### 6399, 31995, 809 #### [facility] [place] [address] Human Resources Leader: Louie Agosto MDHemoglobin (Bld) [Mass/Vol]14.3 g/dLNormal 11.7-15.5Quest DiagnosticsComment on above:Performed By: #### 6399, 10497, 809 #### [facility] [place] [address] Human Resources Leader: Louie Agosto MDLymphocytes (Bld) [#/Vol]1.524 10*3/uLNormal 850-3900Quest DiagnosticsComment on above:Performed By: #### 6399, 12486, 809 #### [facility] [place] [address] Human Resources Leader: Louie Agosto MDLymphocytes/100 WBC (Bld)29.3 %NormalQuest DiagnosticsComment on above:Performed By: #### 6399, 76318, 809 #### [facility] [address], [address] [place] [address] Human Resources Leader: Louie CARROLLCH (RBC) [Entitic mass]31.5 eoQzbibo28.0-33.0 Quest DiagnosticsComment on above:Performed By: #### 6399, 90018, 809 #### [facility] of [address], [address] [place] [address] Human Resources Leader: Louie CARROLLCHC (RBC) [Mass/Vol]33.6 g/bXAmgybr84.0-36.0 Quest DiagnosticsComment on above:Result Comment: For adults, a slight decrease in the calculated MCHC value (in the range of 30 to 32 g/dL) is most likely not clinically significant; however, it should be interpreted with caution in correlation with other red cell parameters and the patient's clinical condition.Performed By: #### 6399, 80842, 809 #### [facility] [address], [address] [place] [address] Human Resources Leader: Louie CARROLLCV (RBC) [Entitic vol]93.8 kNStmsrp14.0-100.0 Quest DiagnosticsComment on above:Performed By: #### 6399, 82679, 809 #### [facility] [address], [address] [place] [address] Human Resources Leader: Louie Agosto MDMonocytes (Bld) [#/Vol]0.364 10*3/uLNormal 200-950Quest DiagnosticsComment on above:Performed By: #### 6399, 26962, 809 #### [facility] [place] [address] Human Resources Leader: Louie Agosto MDMonocytes/100 WBC (Bld)7.0 %NormalQuest DiagnosticsComment on above:Performed By: #### 6399, 47101, 809 #### [facility] of [place] [address] [address] , [address] [place] [address] Human Resources Leader: Louie Patrickutrophilana (Bld) [#/Vol]3.037 10*3/uLNormal 1500-7800Quest DiagnosticsComment on above:Performed By: #### 6399, 86308, 809 #### [facility] of [address], [address] [place] [address] Human Resources Leader: Louie Patrickutrophils/100 WBC (Bld)58.4 %NormalQuest DiagnosticsComment on above:Performed By: #### 6399, 30960, 809 #### [facility] of [address], [address] [place] [address] Human Resources Leader: Louie GONSALEZlatelet mean volume (Bld) [Entitic vol]11.2 fLNormal7.5-12.5Quest DiagnosticsComment on above:Performed By: #### 6399, 47465, 809 #### [facility] of [address], [address] [place] [address] Human Resources Leader: Louie Agosto MDPlatelets (Bld) [#/Vol]327 10*3/uLNormal 140-400Quest DiagnosticsComment on above:Performed By: #### 6399, 91218, 809 #### [facility] of [address], [address] [place] [address] Human Resources Leader: Louie Agosto MDRBC (Bld) [#/Vol]4.54 10*6/uLNormal3.80-5.10 Quest DiagnosticsComment on above:Performed By: #### 6399, 47503, 809 #### [facility] of [address], [address] [place] [address] Human Resources Leader: Louie Agosto MDWBC (Bld) [#/Vol]5.2 10*3/uLNormal3.8-10.8 Quest DiagnosticsComment on above:Performed By: #### 6399, 13547, 809 #### [facility] [place] [address] Human Resources Leader: Louie Agosto MDCOMPREHENSIVE METABOLIC PANELon 05-08-2024 Albumin [Mass/Vol]4.1 g/dLNormal3.6-5.1Quest DiagnosticsComment on above:Order Comment: FASTING:YES FASTING: YESPerformed By: #### 6399, 97182, 809 #### [facility] of [address], [address] [place] [address] Human Resources Leader: Louie Agosto MDAlbumin/Globulin [Mass ratio]1.4 {ratio}Normal 1.0-2.5Quest DiagnosticsComment on above:Order Comment: FASTING:YES FASTING: YESPerformed By: #### 6399, 71735, 809 #### [facility] [place] [address] Human Resources Leader: Louie Agosto MDALP [Catalytic activity/Vol]85 U/DXswtmt92-891 Quest DiagnosticsComment on above:Order Comment: FASTING:YES FASTING: YESPerformed By: #### 6399, 17094, 809 #### [facility] [place] [address] Human Resources Leader: Louie Agosto MDALT [Catalytic activity/Vol]38 U/LHigh6-29 Quest DiagnosticsComment on above:Order Comment: FASTING:YES FASTING: YESPerformed By: #### 6399, 53813, 809 #### [facility] of [address], [address] [place] [address] Human Resources Leader: Louie Agosto MDAST [Catalytic activity/Vol]32 U/IEzlu16-10 Quest DiagnosticsComment on above:Order Comment: FASTING:YES FASTING: YESPerformed By: #### 6399, 29984, 809 #### [facility] of [address], [address] [place] [address] Human Resources Leader: Luoie Agosto MDBilirubin [Mass/Vol]0.6 mg/dLNormal0.2-1.2 Quest DiagnosticsComment on above:Order Comment: FASTING:YES FASTING: YESPerformed By: #### 6399, 44969, 809 #### [facility] [address], [address] [place] [address] Human Resources Leader: Louie Agosto MDCalcium [Mass/Vol]9.4 mg/dLNormal8.6-10.2Quest DiagnosticsComment on above:Order Comment: FASTING:YES FASTING: YESPerformed By: #### 6399, 31830, 809 #### [facility] [place] [address] Human Resources Leader: Louie Agosto MDChloride [Moles/Vol]106 mmol/XBkibqd18-426 Quest DiagnosticsComment on above:Order Comment: FASTING:YES FASTING: YESPerformed By: #### 6399, 19241, 809 #### [facility] [address], [address] [place] [address] Human Resources Leader: Louie Agosto MDCO2 [Moles/Vol]25 mmol/GOoweil93-72Bzlge DiagnosticsComment on above:Order Comment: FASTING:YES FASTING: YESPerformed By: #### 6399, 35362, 809 #### [facility] [place] [address] Human Resources Leader: Louie LUNAreatinine [Mass/Vol]1.09 mg/dLHigh0.50-0.97 Quest DiagnosticsComment on above:Order Comment: FASTING:YES FASTING: YESPerformed By: #### 6399, 83278, 809 #### [facility] [place] [address] Human Resources Leader: Louie Agosto MDGFR/1.73 sq M.predicted among non-blacks MDRD (S/P/Bld) [Vol rate/Area]66 mL/min/{1.73_m2}Normal> OR = 60[facility] Comment on above:Order Comment: FASTING:YES FASTING: YESPerformed By: #### 6399, 47724, 809 #### [facility] [place] [address] Human Resources Leader: Louie Agosto MDGlobulin (S) [Mass/Vol]2.9 g/dLNormal1.9-3.7 Quest DiagnosticsComment on above:Order Comment: FASTING:YES FASTING: YESPerformed By: #### 6399, 78106, 809 #### [facility] [address], [address] [place] [address] Human Resources Leader: Louie Agosto MDGlucose [Mass/Vol]81 mg/hMEbcjei50-25Qjilx DiagnosticsComment on above:Order Comment: FASTING:YES FASTING: YESResult Comment: Fasting reference intervalPerformed By: #### 6399, 95664, 809 #### [facility] [place] [address] Human Resources Leader: Louie Agosto MDPotassium [Moles/Vol]4.6 mmol/LNormal3.5-5.3 Quest DiagnosticsComment on above:Order Comment: FASTING:YES FASTING: YESPerformed By: #### 6399, 01657, 809 #### [facility] [place] [address] Human Resources Leader: Louie Agosto MDProtein [Mass/Vol]7.0 g/dLNormal6.1-8.1Quest DiagnosticsComment on above:Order Comment: FASTING:YES FASTING: YESPerformed By: #### 6399, 09447, 809 #### [facility] [place] [address] Human Resources Leader: Louie Agosto MDSodium [Moles/Vol]140 mmol/LXtgdcu074-033Faxwt DiagnosticsComment on above:Order Comment: FASTING:YES FASTING: YESPerformed By: #### 6399, 34644, 809 #### [facility] of [address], [address] [place] [address] Human Resources Leader: Louie Agosto MDUrea nitrogen [Mass/Vol]13 mg/dLNormal7-25 Quest DiagnosticsComment on above:Order Comment: FASTING:YES FASTING: YESPerformed By: #### 6399, 45241, 809 #### [facility] [address], [address] [place] [address] Human Resources Leader: Louie Agosto MDUrea nitrogen/Creatinine [Mass ratio]12 mg/mg Normal6-Quest DiagnosticsComment on above:Order Comment: FASTING:YES FASTING: YESPerformed By: #### 6399, 89493, 809 #### [facility] [address], [address] [place] [address] Human Resources Leader: Louie Agosto MDSED RATE BY MODIFIED WESTERGRENon 05-08-2024 SED RATE BY MODIFIED JBCPKYFXEM48 mm/hHigh< OR = 20Quest DiagnosticsComment on above:Performed By: #### 6399, 91746, 809 #### [facility] [address], [address] [place] [address] Human Resources Leader: Louie QUIÑONES.doppler Lower extremity artery - bilateral on 35-20[place] [address] Ultrasound Report Signed Patient: TERESE PEREZ MR#: [id number] : 1985 Acct:[id number] Age/Sex: 38 / F ADM Date: 10/01/23 Loc: US Attending Dr: LEROY WHITE Ordering Physician: LEROY WHITE Date of Service: 10/01/23 Procedure(s): US arterial duplex LE BI Accession Number(s): [id number] cc: LEROY WHITE [place] [id number] Patient Name: TERESE PEREZ MRN: [id number] date: 1985 Sex: F Assigned Patient Location: [place] Current Patient Location: [place] Accession/Order Number: [id number] Exam Date: 10/01/2023 11:12 Report Date: 10/01/2023 [...] flow significant stenosis Electronically authenticated by: DONNA POLK Date: 10/01/2023 13:43 Dictated By: Donna Polk M.D. Signed By: 10/01/23 1345 DD/ 1343 TD/TT: Ep Specialist:TBHRadiology, Radiologist, - 10/01/2023 [place] [address] Ultrasound Report Signed Patient: TERESE PEREZ MR#: [id number] : 1985 Acct:[id number] Age/Sex: 38 / F ADM Date: 10/01/23 Loc: US Attending Dr: LEROY WHITE Ordering Physician: LEROY WHITE Date of Service: 10/01/23 Procedure(s): US arterial duplex LE BI Accession Number(s): [id number] cc: LEROY WHITE [address] [place] [address] Patient Name: TERESE PEREZ MRN: [facility]:[id number] date: 1985 Sex: F Assigned Patient Location: US Current Patient Location: US Accession/Order Number: [id number] Exam Date: 10/01/2023 11:12 Report Date: 10/01/2023 [...] flow significant stenosis Electronically authenticated by: DONNA POLK Date: 10/01/2023 13:43 Dictated By: Donna Polk M.D. Signed By: 10/01/23 1345 DD/ 42 TD/TT: Ep Specialist: SOPHIE HannahRadiology Study observation (narrative)SOPHIE Dennis.doppler Lower extremity artery - bilateralOrdered By: Radiologist Radiology on [id number] [employer] Work Phone: cT LSPINE WO CONon [id number] LSPINE WO CON EXAMINATION: CT LSPINE WO [...] Electronically authenticated by: SIXTO BENNETT Date: 2022-09-29 07:12[facility] URINE PROFILEon 02-50-2940Phbasquik Ql (U)NegativeNormal NEGATIVEThe [facility] CenterComment on above:Performed By: #### PT, PTT, DDIM #### [facility] [address] [place] [address] Dr. Michelle Ozunaarity (U)CLEARNormalCLEARThe [facility] Medical CenterComment on above: Performed By: #### PT, PTT, DDIM #### [facility] [address] [place] [address] [address] Michelle Medrano (U)YELLOWNormalYELLOWAvita Health System Bucyrus HospitalComment on above: Performed By: #### PT, PTT, DDIM #### [facility] [address] [place] [address] [address] Michelle Murillo micrscopic examination will be performed if indicated. NormalThe Saint Paul HospitalComment on above:Performed By: #### PT, PTT, DDIM #### [facility] [address] [place] [address] [address] Michelle AlfaroGlucose Ql (U)NegativeNormalNEGATIVEAvita Health System Bucyrus HospitalComment on above:Performed By: #### PT, PTT, DDIM #### [facility] [address] [place] [address] Dr. Michelle AlfaroHemoglobin Ql (U)TRACE-INTACTAbnormalNEGATIVEAvita Health System Bucyrus HospitalComment on above:Performed By: #### PT, PTT, DDIM #### [facility] [address] [place] [address] Dr. Michelle Garciaones Ql (U)NegativeNormalNEGATIVEAvita Health System Bucyrus HospitalComment on above:Performed By: #### PT, PTT, DDIM #### [facility] [address] [place] [address] Dr. Michelle AlfaroLEUKOCYTESNegativeNormalNEGATIVEAvita Health System Bucyrus HospitalComhenry ford cottage hospital on above:Performed By: #### PT, PTT, DDIM #### [facility] [address] [place] [address] [address] Michelle AlfaroNitrite Ql (U)NegativeNormalNEGATIVEAvita Health System Bucyrus HospitalComment on above:Performed By: #### PT, PTT, DDIM #### [facility] [address] [place] [address] [address] Michelle AlfaropH (U)5.5 [pH]Normal5-9Av[facility] Bucy[facility] HospitalComment on above: Performed By: #### PT, PTT, DDIM #### [facility] [address] [place] [address] [address] Michelle Johnson GRAVITY>=1.801Zpggqxga1.005-<=1.025The [facility] Comment on above:Performed By: #### PT, PTT, DDIM #### [facility] [address] [place] [address] Dr. Michelle Gan PROTEINNegativeNormalNEGATIVE/ TRACEThe [facility] Comment on above:Performed By: #### PT, PTT, DDIM #### [facility] [address] [place] [address] Dr. Michelle De La Garza MICRO INDNOT INDICATEDMercy HospitalComment on above:Performed By: #### PT, PTT, DDIM #### [facility] [address] [place] [address] Dr. Michelle Flores Qn (U)4 {Ramona'U}/dLAbnormal0.2 - 1.0The [facility] Medical CenterComment on above:Performed By: #### PT, PTT, DDIM #### [facility] [address] [place] [address] Dr. Michelle AlfaroXR CSPINE MIN 4 VIEWSon [id number] CSPINE MIN 4 VIEWS EXAMINATION: XR CSPINE [...] normal cervical lordosis Electronically authenticated by: DONNA POLK Date: 2022-06-06 09:[address] [place] [address] W MANUAL DIFFon [id number] LYMPH #NormalThe [facility] Medical CenterComment on above:Performed By: #### PT, PTT, DDIM #### [facility] [address] [place] [address] Dr. Michelle AlfaroATYPICAL LYMPH %NormalThe [facility] Medical CenterComment on above: Performed By: #### PT, PTT, DDIM #### [facility] [address] [place] [address] Dr. Michelle Bates #Normal0.0-0.3The [facility] Va Medical CenterComment on above: Performed By: #### PT, PTT, DDIM #### [facility] [address] [place] [address] Dr. Michelle Bates %Normal0-5The [facility] Medical CenterComment on above:Performed By: #### PT, PTT, DDIM #### [facility] [address] [place] [address] Dr. Michelle Grewal #0.09 103/ulNormal0.00-0.10The [facility] Va Medical CenterComment on above:Performed By: #### PT, PTT, DDIM #### [facility] [address] [place] [address] Dr. Michelle Grewal %1.0 %Normal0.2-2.0The [facility] Medical CenterComment on above: Performed By: #### PT, PTT, DDIM #### [facility] [address] [place] [address] Dr. Michelle Cronin #NormalThe [facility] Medical CenterComment on above:Performed By: #### PT, PTT, DDIM #### [facility] [address] [place] [address] Dr. Michelel Cronin %NormalThe [facility] Medical CenterComhenry ford cottage hospital on above:Performed By: #### PT, PTT, DDIM #### [facility] [address] [place] [address] Dr. Michelle AlfaroCORRECTED WBCNormal4.0-11.0The [facility] Medical CenterComhenry ford cottage hospital on above: Performed By: #### PT, PTT, DDIM #### [facility] [address] [place] [address] Dr. Michelle Michel #0.28 103/ulNormal0.00-0.70The [facility] Medical CenterComhenry ford cottage hospital on above:Performed By: #### PT, PTT, DDIM #### [facility] [address] [place] [address] Dr. Yilan ChangEOS%3.0 %Normal0.9-7.0The [facility] Medical CenterComment on above: Performed By: #### PT, PTT, DDIM #### [facility] [address] [place] [address] Dr. Michelle AlfaroHCT40.7 %Zcqlsx36.0-48.0The [facility] Medical CenterComment on above: Performed By: #### PT, PTT, DDIM #### [facility] [address] [place] [address] Dr. Michelle AlfaroHGB14.0 g/ynVjvzkj19.0-16.0The [facility] CenterComhenry ford [facility] hospital on above: Performed By: #### PT, PTT, DDIM #### [facility] [address] [place] [address] Dr. Michelle Lange #2.67 103/ulNormal1.20-3.80The [facility] on above:Performed By: #### PT, PTT, DDIM #### [facility] [address] [place] [address] Dr. Michelle Lange%29.0 %Jjpydf97.5-60.0The [facility] on above:Performed By: #### PT, PTT, DDIM #### [facility] [address] [place] [address] Dr. Michelle BlakelyH32.1 osNgfsja95.7-34.0The [facility] on above: Performed By: #### PT, PTT, DDIM #### [facility] [address] [place] [address] Dr. Michelle BlakelyHC34.4 g/yhXddwww32.9-35.2The [facility] CenterComhenry ford [facility] hospital on above:Performed By: #### PT, PTT, DDIM #### [facility] [address] [place] [address] Dr. Michelle BlakelyV93.3 zDImijug99.0-99.0The [facility] CenterComhenry for[facility] hospital on above: Performed By: #### PT, PTT, DDIM #### [facility] [address] [place] [address] Dr. Michelle Arevalo #NormalAvita Health System Bucyrus HospitalComhenry ford cottage hospital on above: Performed By: #### PT, PTT, DDIM #### [facility] [address] [place] [address] Dr. Michelle Arevalo %NormalAvita Health System Bucyrus HospitalComhenry for[facility] hospital on above: Performed By: #### PT, PTT, DDIM #### [facility] [address] [place] [address] Dr. Michelle Schmitz#0.64 103/ulNormal0.30-0.80The [facility] on above:Performed By: #### PT, PTT, DDIM #### [facility] [address] [place] [address] Dr. Michelle Schmitz%7.0 %Normal1.7-12.0[facility] on above: Performed By: #### PT, PTT, DDIM #### [facility] [address] [place] [address] Dr. Michelle MunguiaV10.0 fLNormal9.5-13.5The [facility] on above: Performed By: #### PT, PTT, DDIM #### [facility] [address] [place] [address] Dr. Michelle Jin #NormalUC [facility] Center on above:Performed By: #### PT, PTT, DDIM #### [facility] [address] [place] [address] Dr. Michelle Jin %NormalAvita Health System Bucyrus HospitalComhenry ford [facility] hospital on above:Performed By: #### PT, PTT, DDIM #### [facility] [address] [place] [address] Dr. Michelle SimonBCNormalThMercy Health [facility] on above:Performed By: #### PT, PTT, DDIM #### [facility] [address] [place] [address] Dr. Michelle AlfaroPLT288 103/lrDksccw828-185Mle [facility] on above: Performed By: #### PT, PTT, DDIM #### [facility] [address] [place] [address] Dr. Michelle SantiagoC4.36 106/ulNormal4.20-5.40The [facility] on above:Performed By: #### PT, PTT, DDIM #### [facility] [address] [place] [address] Dr. Michelle HarryW12.4 %Ipsfhb43.0-15.0The [facility] on above: Performed By: #### PT, PTT, DDIM #### [facility] [address] [place] [address] Dr. Michelle Garcia #5.52 103/ulNormal1.40-6.50The [facility] on above:Performed By: #### PT, PTT, DDIM #### [facility] [address] [place] [address] Dr. Michelle Garcia %60.0 %Ptvroi10.0-75.0The [facility] on above: Performed By: #### PT, PTT, DDIM #### [facility] [address] [place] [address] Dr. Michelle HansenBC9.2 103/ulNormal4.0-11.0The [facility] on above: Performed By: #### PT, PTT, DDIM #### [facility] [address] [place] [address] Dr. Michelle Davison 32-71-2054D-DIMER0.43 mg/L FEUNormal<=0.59The [facility] on above:Performed By: #### PT, PTT, DDIM #### [facility] [address] [place] [address] Dr. Michelle Davis [facility] on above:Result Comment: Increases in D-Dimer concentration observed with thromboembolic events [...] thrombolytic or anticoagulant therapy, stress, and generalized hospitalization.Performed By: #### PT, PTT, DDIM #### [facility] [address] [place] [address] Dr. Michelle AlfaroPREG HCG QUALon 48-05-4685PPXNAKIWK, QUALNegativeNormalNEGATIVE The [facility] Medical CenterComment on above:Performed By: #### PT, PTT, DDIM #### [facility] [address] [place] [address] Dr. Michelle AlfaroPROF 14(COMP METB)on 31-96-7356Xeaogai [Mass/Vol]3.6 g/dLNormal 3.4-5.0The [facility] Medical CenterComment on above:Performed By: #### CMP, HSTROPN, TSH #### [facility] [address] [place] [address] Dr. Michelle AlfaroAlbumin/Globulin [Mass ratio]0.9 {ratio}NormalThe [facility] Medical CenterComment on above:Performed By: #### CMP, HSTROPN, TSH #### [facility] [address] [place] [address] Dr. Michelle Morin [Catalytic activity/Vol]85 U/HJyitoy83-570Arf [facility] CenterComment on above:Performed By: #### CMP, HSTROPN, TSH #### [facility] [address] [place] [address] Dr. Michelle Alston [Catalytic activity/Vol]28 U/WUqzsft20-37Dhm [facility] CenterComment on above:Performed By: #### CMP, HSTROPN, TSH #### [facility] [address] [place] [address] Dr. Michelle Rosales gap [Moles/Vol]11.7 mmol/LNormalThe [facility] Comment on above:Performed By: #### CMP, HSTROPN, TSH #### [facility] [address] [place] [address] Dr. Michelle AlfaroAST [Catalytic activity/Vol]19 U/MEmpfox32-79Acf [facility] CenterComment on above:Performed By: #### CMP, HSTROPN, TSH #### [facility] [address] [address] [address] Michelle AlfaroBilirubin [Mass/Vol]0.2 mg/dLNormal0.2-1.0The [facility] Comment on above:Performed By: #### CMP, HSTROPN, TSH #### [facility] [address] [address] [address] Michelle AlfaroCalcium [Mass/Vol]8.8 mg/dLNormal8.5-10.1The [facility] Comment on above:Performed By: #### CMP, HSTROPN, TSH #### [facility] Laboratory [address] [place] [address] Dr. Michelle AlfaroChloride [Moles/Vol]103 mmol/VLwcpox54-067Avg [facility] Comment on above:Performed By: #### CMP, HSTROPN, TSH #### [facility] Laboratory [address] [address] [address] Michelle AlfaroCO2 [Moles/Vol]26.7 mmol/XHfqxmz21.0-32.0The [facility] Comment on above:Performed By: #### CMP, HSTROPN, TSH #### [facility] Laboratory [address] [address] [address] Michelle AlfaroCreatinine [Mass/Vol]1.05 mg/dLCritically high0.55-1.02The [facility] CenterComment on above:Performed By: #### CMP, HSTROPN, TSH #### [facility] Laboratory [address] [address] [address] Martinez ChangEGFR-AF PARAGUAYAN>60Normal>=60The [facility] CenterComment on above:Performed By: #### CMP, HSTROPN, TSH #### [facility] Laboratory [address] [address] [address] Michelle AlvaradoGFR-NON AF JODDCMSM83 mL/min/1.74n9Kntvcgxzez low>=60The [facility] CenterComment on above:Performed By: #### CMP, HSTROPN, TSH #### [facility] Laboratory [address] [address] [address] Michelle AlfaroGlobulin (S) [Mass/Vol]4.0 g/dLNormOhioHealth Doctors HospitalComment on above:Performed By: #### CMP, HSTROPN, TSH #### [facility] Laboratory [address] [address] [address] Michelle AlfaroGlucose [Mass/Vol]97 mg/aCHmqhhr73-777Orw [facility] Comment on above:Performed By: #### CMP, HSTROPN, TSH #### [facility] Laboratory [address] [address] [address] Michelle AlfaroPotassium [Moles/Vol]3.4 mmol/LCritically low3.5-5.1The [facility] CenterComment on above:Performed By: #### CMP, HSTROPN, TSH #### [facility] Laboratory [address] [place] [address] Dr. Michelle AlfaroProtein [Mass/Vol]7.6 g/dLNormal6.4-8.2The [facility] Comment on above:Performed By: #### CMP, HSTROPN, TSH #### [facility] Laboratory [address] [place] [address] Dr. Michelle AlfaroSodium [Moles/Vol]138 mmol/BXcoqkg467-329Psa [facility] Comment on above:Performed By: #### CMP, HSTROPN, TSH #### [facility] Laboratory [address] [place] [address] Dr. Michelle AlfaroUrea nitrogen [Mass/Vol]11.0 mg/dLNormal7.0-18.0The [facility] CenterComhenry [facility] on above:Performed By: #### CMP, HSTROPN, TSH #### [facility] Laboratory [address] [place] [address] Dr. Michelle AlfaroUrea nitrogen/Creatinine [Mass ratio]10.5 mg/mgNoCorey HospitalComment on above:Performed By: #### CMP, HSTROPN, TSH #### [facility] Laboratory [address] [place] [address] Dr. Michelle Colemanon 92-15-3111ZBI Coag (PPP) [Relative time]0.95 {INR} NormalUC [facility] on above:Performed By: #### PT, PTT, DDIM #### [facility] Laboratory [address] [place] [address] Dr. Michelle Hines [facility] HospitalComment on above:Result Comment: DESIRED INR: 2.0 - 3.0 CONDITIONS NOT LISTED BELOW 2.5 - 3.5 FOR PROSTHETIC HEART VALVE REPLACEMENT 2.5 - 3.5 RECURRENT THROMBOSIS Performed By: #### PT, PTT, DDIM #### [facility] Laboratory [address] [place] [address] Dr. Michelle Smith Coag (PPP) [Time]10.3 sNormal9.0-11.6The [facility] Comment on above:Performed By: #### PT, PTT, DDIM #### [facility] Laboratory [address] [place] [address] Dr. Michelle Flores 39-26-3979tVQX Coag (Bld) [Time]25.3 tGmeyzl18.3-36.2[facility] HospitalComhenry [facility] on above:Performed By: #### PT, PTT, DDIM #### [facility] Laboratory [address] [place] [address] Dr. Michelle Atkinosn, HIGH SENSITIVITYon 87-79-8413GNYSKY33.0 pg/mLNormal 4.0-51.3The [facility] CenterComhenry [facility] on above:Result Comment: CUT-OFF POINTS HAVE BEEN ESTABLISHED BASED ON THE FOURTH UNIVERSAL DEFINITIONS OF MYOCARDIAL INFARCTION. THE UPPER REFERENCE LIMIT (URL) OF TROPONIN, DEFINED THE 99TH PERCENTILE OF cTnI DISTRIBUTION IN A REFERENCE POPULATION, HAS BEEN CONFIRMED THE DECISION THRESHOLD FOR CO DIAGNOSIS.Performed By: #### CMP, HSTROPN, TSH #### [facility] Laboratory [address] [place] [address] Dr. Michelle Hardy 59-74-8542QIU0.556 uIU/mLNormal0.358-3.740[facility] HospitalComment on above:Performed By: #### CMP, HSTROPN, TSH #### [facility] Laboratory [address] [address] [address] Michelle AlfaroXR CHEST 1 Von 34-91-2661GT CHEST 1 VEXAM: XR CHEST 1 V HISTORY: Palpitations COMPARISON(S): None. TECHNIQUE: Single portable AP chest radiograph FINDINGS: Support devices: None. Lungs/pleura: Lungs are clear. No pleural effusion or pneumothorax. Heart/mediastinum: Heart and mediastinum are normal. Bones/Soft Tissues: No acute osseous abnormality. Upper abdomen: Imaged upper abdomen is unremarkable. IMPRESSION: No evidence for acute cardiopulmonary disease. 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 Nucleic acid amplification tests include PCR and [...] detected) result in this assay. Performed at: [facility] [address], [place] [id number] [facility] Carmella Perezformed By: #### SARS-CoV-2, CHRIS #### [facility] [address] [place], [place] [address]Jdnpbmdpj Orderon 28-16-1790Dvwvmwkgi Order [id number]#1.00CD:127NoOhioHealth Southeastern Medical CenterConsent for Treatmenton 94-52-9208Finiikm for Treatment [id number]#1.00CD:127NoOhioHealth Southeastern Medical Center Vital Signs Date TimeVital SignValuePerforming SaeqqegbdTikkbsny03-67-7194 11:50-0500Body knpvbu581.1 cmLeroy White MD Work Phone: [facility] HealthDmngxqnvlo00-51-2753 11:50-0500Body mass index (BMI) [Ratio]29.62 kg/b5QveyhvLeroy White MD Work Phone: [facility] HealthPyjmzbpilx84-67-6225 11:50-0500Body ixskje01.74 kgLeroy White MD Work Phone: [facility] HealthLjvsaojnfo96-94-9831 11:50-0500Diastolic blood oefqgqql16 mm[Hg]Leroy White MD Work Phone: [facility] HealthOvxdlqacvf09-16-6949 11:50-0500Heart rate90 /min Leroy White MD Work Phone: [facility] HealthOmjwjkxqjn16-41-5804 11:50-0500Respiratory rate16 /minDdenis White MD Work Phone: [facility] HealthHcjkizlram60-59-5270 11:50-6263AnN0% (BldA) [Mass fraction]98 %Leroy White MD Work Phone: [facility] HealthQwgddkypiy99-02-6857 11:50-0500Systolic blood hteocees783 mm[Hg]Leroy White MD Work Phone: [facility] HealthKuecepixdy20-55-1963 08:33-0400Body ynbytn337.1 cmMaxi Brown DPM Work Phone: [facility] HealthQkrvxrpzoj69-76-5454 08:33-0400Body mass index (BMI) [Ratio]29.29 kg/i5Dyizjqwv Brown DPM Work Phone: [facility] HealthDzdvuybipq11-91-4371 08:33-0400Body kxrbjy09.83 kgNicholerik Brown DPM Work Phone: [facility] HealthQnubopxpqr56-97-0932 08:33-0400Respiratory rate16 /minMaxi Bentley DPM Work Phone: [facility] HealthKnneihrpzc86-93-9307 13:16-0400Body xtrcdu995.1 cmNicshen Brown DPM Work Phone: [facility] HealthUisnbnmpnq06-24-8870 13:16-0400Body mass index (BMI) [Ratio]29.29 kg/u5Ppiirwaq Brown DPM Work Phone: [facility] HealthXgrjozppji21-81-9155 13:16-0400Body zpujvq65.83 kgNicholas Brown DPM Work Phone: [facility] HealthUtfotllcgh35-80-0280 13:16-0400Respiratory rate16 /minNicholas Brown DPM Work Phone: [facility] HealthIfvewtdhhv66-91-8104 10:10-0400Body mass index (BMI) [Ratio]29.29 kg/m2Mona Nataprawira DO Work Phone: [facility] HealthLcygaoscov97-95-6233 10:10-0400Body hweavj50.83 kgMona Nataprawira DO Work Phone: [facility] HealthBrfnxiahsi94-32-5140 10:10-0400Diastolic blood dqvvnkve28 mm[Hg]Monika Nataprawira DO Work Phone: [facility] HealthFuwwuiwonc76-07-4214 10:10-0400Systolic blood xdbijmak767 mm[Hg]Monika Nataprawira DO Work Phone: [facility] HealthTzysousszj80-47-1476 10:15-0400Body .1 cmNicholas Brown DPM Work Phone: [facility] HealthYfqocvojpa02-98-6874 10:15-0400Body mass index (BMI) [Ratio]29.12 kg/b0Bbefmkhi Brown DPM Work Phone: [facility] HealthUgsmbwmptg01-10-3573 10:15-0400Body bvkagd48.38 kgNicholas Brown DPM Work Phone: [facility] HealthMndivzcwfb22-26-9360 10:15-0400Respiratory rate16 /minNicholas Brown DPM Work Phone: [facility] HealthAbsrmzmaku84-02-0486 16:03-0400Body disbnz113.1 cmNicholas Brown DPM Work Phone: [facility] HealthQinditryjk64-12-7386 16:03-0400Body mass index (BMI) [Ratio]29.12 kg/y4Axfcqewf Brown DPM Work Phone: noThe [facility] InstituteWdlpduiuhq55-73-8098 16:03-0400Body pqtger04.38 kgRyanneerik Bentley DPM Work Phone: noThe [facility] InstituteHpvornwnpa34-74-4282 16:03-0400Respiratory rate16 /minNegritoshen Bentley DPM Work Phone: noThe [facility] InstituteZyqfqrubtr48-95-8468 09:57-0400Body yndoch380.6 cmLeroy White MD Work Phone: NOThe [facility] InstituteUeqykfkasb04-72-1749 09:57-0400Body mass index (BMI) [Ratio]30.21 kg/d3VzxndtLeroy White MD Work Phone: NOThe [facility] InstituteCrnukvwelc50-12-2243 09:57-0400Body einrvj78.83 kgLeroy White MD Work Phone: NOThe [facility] InstituteDrxpmhlkhr12-69-0429 09:57-0400Diastolic blood mm[Hg]Leroy White MD Work Phone: NOThe [facility] InstituteIigiiidikz38-22-8902 09:57-0400Heart rate75 /min Leroy White MD Work Phone: noThe [facility] InstituteRxfzwjrjby29-38-4076 09:57-9073SiY5% (BldA) [Mass fraction]97 %Leroy White MD Work Phone: NOThe [facility] InstituteBralffflqd58-84-1735 09:57-0400Systolic blood qtftuyrb539 mm[Hg]Leroy White MD Work Phone: NOThe [facility] InstituteRryhokwkmi80-49-6822 11:46-0400Body pkrevj210.6 cmNy Parham PA Work Phone: NOThe [facility] InstituteHavtdfklrr65-11-4822 11:46-0400Body mass index (BMI) [Ratio]32.27 kg/f2OihkwNy Lizamamer PA Work Phone: NOThe [facility] InstituteSfhravuwiw54-31-5691 11:46-0400Body redrnc56.28 kgKaren Hemmer PA Work Phone: noThe [facility] InstituteRgqxmsueae84-05-0386 11:46-0400Diastolic blood mm[Hg]Ny Hemmer PA Work Phone: noThe [facility] InstituteSbabwllqmz22-10-2227 11:46-0400Heart rate91 /min Ny Hemmer PA Work Phone: [facility] HealthPgzcnbyspn86-37-8365 11:46-3768KpI8% (BldA) [Mass fraction]98 %Ny Hemmer PA Work Phone: noThe [facility] InstituteKqfdpxulzl94-19-1550 11:46-0400Systolic blood mm[Hg]Ny Hemmer PA Work Phone: [facility] HealthWdqfsnduqf07-91-2755 09:31-0500Body puuvag055.6 cmKaren Hemmer PA Work Phone: [phone] HealthVjlzmpdbhv42-52-7212 09:31-0500Body mass index (BMI) [Ratio]31.21 kg/h7Loreq Hemmer PA Work Phone: [facility] HealthMdiqcihubl20-08-8095 09:31-0500Body temperature 98.2 [degF]Ny Hemmer PA Work Phone: [phone] HealthWildtpnins35-98-5329 09:31-0500Body tzoxrw39.46 kgKaren Hemmer PA Work Phone: [facility] HealthEqoxqcdnoy31-36-8069 09:31-0500Diastolic blood jasqxtov10 mm[Hg]Ny Hemmer PA Work Phone: [facility] HealthHfuquhfihc56-68-8808 09:31-0500Heart rate91 /min Ny Hemmer PA Work Phone: noThe [facility] InstituteSulmyhfrvc32-95-6389 09:31-0500Respiratory rate16 /minKaren Hemmer PA Work Phone: [facility] HealthGspmhkftvd09-05-1687 09:31-3025DqD8% (BldA) [Mass fraction]99 %Ny Hemmer PA Work Phone: [facility] HealthXpzbesisyf98-04-4982 09:31-0500Systolic blood mtwsadqb155 mm[Hg]Ny MACIEL Work Phone: NOThe [facility] InstituteIlcvcfalgf14-82-0143 08:33-0500Body yjpbxi454.6 cmLeroy White MD Work Phone: NOThe [facility] InstituteLpkswipfjo86-15-4312 08:33-0500Body mass index (BMI) [Ratio]32.61 kg/u8KgcwsxLeroy White MD Work Phone: NOThe [facility] InstituteYgmtgnpxef55-04-0773 08:33-0500Body letfwl25.18 kgLeroy White MD Work Phone: NOThe [facility] InstituteHqtxsjvkkk93-84-6760 08:33-0500Diastolic blood szroveqk85 mm[Hg]Leroy White MD Work Phone: NOThe [facility] InstituteXabwrhgyvc02-94-8739 08:33-0500Heart rate88 /min Leroy White MD Work Phone: NOThe [facility] InstituteNxgassxmuj75-60-1918 08:33-9354IkS3% (BldA) [Mass fraction]100 %Leroy White MD Work Phone: NO[facility] InstituteYupegadcwv68-26-2123 08:33-0500Systolic blood mgihhqso443 mm[Hg]Leroy White MD Work Phone: NOThe [facility] InstituteYbhikvwrcn38-69-0982 09:59-0500Body .6 cmLeroy White MD Work Phone: NO[facility] InstituteMqdqnjrxac48-84-9804 09:59-0500Body mass index (BMI) [Ratio]32.1 kg/u9MfdtgtLeroy White MD Work Phone: NOThe [facility] InstituteJdfevzfauk93-83-5752 09:59-0500Body utbaxq93.82 kgLeroy White MD Work Phone: NO[facility] InstituteJbrdelxjtj09-74-9348 09:59-0500Diastolic blood jujnuppe16 mm[Hg]Leroy White MD Work Phone: NO[facility] InstituteFnnuwyjbnc93-57-3901 09:59-0500Heart rate94 /min Leroy White MD Work Phone: NOThe [facility] InstituteAzdjihpskf90-38-6183 09:59-5095MdW8% (BldA) [Mass fraction]99 %Leroy White MD Work Phone: NOThe [facility] InstituteUcqghzqnpk10-70-1192 09:59-0500Systolic blood lgcadxjf322 mm[Hg]Leroy White MD Work Phone: NO[facility] InstituteOkbwtxfbnw13-28-7888 11:42-0400Body yqvkqc469.6 cmLeroy White MD Work Phone: NOThe [facility] InstituteZeleqzmgnb37-19-6411 11:42-0400Body mass index (BMI) [Ratio]33.47 kg/r2WownrnLeroy White MD Work Phone: [phone] Rehabilitation InstituteSdhfauflkq69-22-6639 11:42-0400Body .45 kgLeroy White MD Work Phone: NO[facility] InstituteEjdryojwlo31-37-6549 11:42-0400Diastolic blood ypjyekuk56 mm[Hg]Leroy White MD Work Phone: NOThe [facility] InstituteVyqrqinltt06-01-9689 11:42-0400Heart rate74 /min Leroy White MD Work Phone: [facility] HealthGywqxsflnw49-26-2490 11:42-6549JuH3% (BldA) [Mass fraction]98 %Leroy White MD Work Phone: NOThe [facility] InstituteQgaermgbwo27-55-5796 11:42-0400Systolic blood vvkyorjy735 mm[Hg]Leroy White MD Work Phone: NOThe [facility] InstituteDlffambchi57-80-8552 10:40-0400Body .6 cmLeroy White MD Work Phone: NOThe [facility] InstituteEcinjrxwob22-64-5971 10:40-0400Body mass index (BMI) [Ratio]33.3 kg/w0CekaiwLeroy White MD Work Phone: NOThe [facility] InstituteRonceeogut72-27-5997 10:40-0400Body foafcu81 kg Leroy White MD Work Phone: [phone] Rehabilitation InstituteIokeypgguq71-39-6793 10:40-0400Diastolic blood ibtnfjsj99 mm[Hg]Leroy White MD Work Phone: NOThe [facility] InstituteBcborzcutf06-37-7290 10:40-0400Heart rate84 /min Leroy White MD Work Phone: NOThe [facility] InstituteJfwmgpqysl90-86-7366 10:40-9724OkT0% (BldA) [Mass fraction]98 %Leroy White MD Work Phone: NOThe [facility] InstituteEtzavourgs83-32-9109 10:40-0400Systolic blood ymdasjfm942 mm[Hg]Leroy White MD Work Phone: NOThe [facility] InstituteNbhtzymezu47-67-0113 15:53-0500Body mass index (BMI) [Ratio]37.35 kg/t1DmjnwtLeroy White MD Work Phone: NO[facility] InstituteFnubvaqkpg98-17-6642 15:53-0500Body zcturf839.25 kgLeroy White MD Work Phone: NOThe [facility] InstituteDkqdhfihxj05-73-9820 15:53-0500Diastolic blood izbboutf99 mm[Hg]Leroy White MD Work Phone: NOThe [facility] InstituteNghgaddkgj35-97-2508 15:53-0500Heart xkdd604 /min Leroy White MD Work Phone: NOThe [facility] InstituteRixzojecvo93-60-5152 15:53-9025TuK3% (BldA) [Mass fraction]99 %Leroy White MD Work Phone: NOThe [facility] InstituteKyalywoubb08-06-0012 15:53-0500Systolic blood xolorgou419 mm[Hg]Leroy White MD Work Phone: [facility] Encounters Encounter DateEncounter TypeCare ProviderFacilityStart: 03-27-2025 End: 06-03-0952XbnombKztslx B Berry MD Work Phone: [facility] MedinceComment on above:Left sided sciaticaStart: 03-23-2025 End: 23-64-2324Pspeof flowsheetLeroy White MD Work Phone: [facility] MedinceStart: 03-23-2025 End: 68-59-3420Kumwnw Dann White MD Work Phone: [facility] MedinceStart: 03-23-2025 End: 88-19-0287Hzugff outpatient visit 25 minutesDasenthil White MD Work Phone: [facility] MedinceComment on above:Left sided sciatica (Primary Dx); Major depressive disorder, recurrent, in remission, unspecifiedStart: 03-23-2025 End: 24-19-3869tsrtnzbgcgNVDQWN B BERRYNot AvailableStart: 03-06-2025 End: 59-43-7409StndrxUdadwj B Berry MD Work Phone: [facility] MedinceComment on above:Panic attacksStart: 02-05-2025 End: 55-50-4063Ssnzhg Maria Alejandra Bentley DPM Work Phone: [facility] CI PODIATRYStart: 02-05-2025 End: 47-75-6195Pzhlqj flowsheetNicholas A Brown DPM Work Phone: noMS CI PODIATRYStart: 02-05-2025 End: 47-96-1958Uyxnbd outpatient visit 15 minutesNicshen Lowe Brown DPM Work Phone: [facility] CI PODIATRYComment on above:Left Achilles tendinitis (Primary Dx); Verruca plantaris; Foot pain, right; Plantar fasciitis; Contracture of left ankleStart: 02-05-2025 End: 29-09-0299jgyenplpkyVRFZWJSS A BROWNNot AvailableStart: 01-15-2025 End: 96-11-1264Slemgo flowsheetNicholas A Brown DPM Work Phone: [facility] CI PODIATRYStart: 01-15-2025 End: 42-45-8958Eguwvo flowsheetNicholas A Brown DPM Work Phone: [facility] CI PODIATRYStart: 01-15-2025 End: 99-81-1406Chvvpz outpatient visit 15 minutesMaxi Bentley DPM Work Phone: [facility] CI PODIATRYComment on above:Verruca plantaris (Primary Dx); Foot pain, right; Left Achilles tendinitis; Plantar fasciitis; Contracture of left ankleStart: 01-15-2025 End: 35-86-7545jphbnhczgnDPGHXTCZ A BROWNNot AvailableStart: 01-14-2025 End: 60-64-6177Iqvtcxcan Result EncounterGeneric External Data ProviderNOLA External Department UnsolicitedStart: 01-14-2025 End: 16-48-2037Yelexicss Result EncounterGeneric External Data ProviderNOLA External Department UnsolicitedStart: 01-07-2025 End: 35-63-8562jpbijhwdafYMTVP HEMMERNot AvailableStart: 01-07-2025 End: 56-80-6213Vtvfixf preventive medicine new patient 40-64yrsMona Eugene Gillette DO Work Phone: [facility] OBGYNComment on above:Encounter for gynecological examination without abnormal finding (Primary Dx); Screening for malignant neoplasm of cervix; Encounter for screening for human papillomavirus (HPV); Other screening mammogram; Menorrhagia with regular cycle; Dysmenorrhea; Hx of nonchemical tubal occlusion; Thyroid disorder screenStart: 01-07-2025 End: 43-35-2498Ukhpagf encounter statusMonika Gillette DO Work Phone: [facility] HealthcareStart: 01-07-2025 End: 49-99-3666epvlhewsozUUVS J NATAPRAWIRANot AvailableStart: 01-01-2025 End: 43-23-3407Ofbanw Maria Alejandra Bentley DPM Work Phone: [facility] CI PODIATRYStart: 01-01-2025 End: 31-82-4412Evolml Maria Alejandra Bentley DPM Work Phone: [facility] CI PODIATRYStart: 01-01-2025 End: 92-80-6183Rrprwm outpatient visit 15 minutesMaxi Bentley DPM Work Phone: [facility] PODIATRYComment on above:Left Achilles tendinitis (Primary Dx); Verruca plantaris; Foot pain, right; Contracture of left ankle; Plantar fasciitisStart: 01-01-2025 End: 54-16-3521jboyzccddaMECQCOWK A BROWNNot AvailableStart: 12-30-2024 End: 09-04-9146PzxbmdVlgbni B Berry MD Work Phone: [facility] MedinceComment on above:Panic attacksStart: 12-24-2024 End: 40-50-7165CswmdeMmtxhd B Berry MD Work Phone: [facility] MedinceComment on above:Other insomniaStart: 12-19-2024 End: 83-78-1446UzfpsqDozauv B Berry MD Work Phone: [facility] MedinceComment on above: Osteoarthritis of spine with radiculopathy, lumbar regionStart: 12-15-2024 End: 14-76-2668Zmhwmwgsj encounterMaxi Bentley DPM Work Phone: [facility] Rosado PodiatryComment on above: Employment PhysicalStart: 12-12-2024 End: 65-14-0263Gzrjon outpatient visit 15 Maylin Bentley DPM Work Phone: [facility] Paul Rosado PodiatryComment on above: Neoplasm of uncertain behavior of skin (Primary Dx); Tendonitis, Achilles, left; [place] of foot; Left Achilles tendinitis; Contracture of left ankle; Verruca plantaris; Foot pain, rightStart: 12-12-2024 End: 68-36-6552tzueqpytpmKOCUHJGN A BROWNNot AvailableStart: 12-12-2024 End: 62-05-9559Dvfyhw flowsheetMaxi Bentley DPM Work Phone: [facility] Rosado PodiatryStart: 12-12-2024 End: 62-37-0788Wgalyj Maria Alejandra Bentley DPM Work Phone: [facility] Rosado PodiatryStart: 12-10-2024 End: 92-90-8344Weqjab outpatient visit 25 minutesLeroy White MD Work Phone: [phone] CI FMComment on above:Tendonitis, Achilles, left (Primary Dx); [place] of foot; Osteoarthritis of spine with radiculopathy, lumbar regionStart: 12-10-2024 End: 59-33-5781ubjfamkvsrTZQGSR B BERRYNot AvailableStart: 11-30-2024 End: 55-21-8311NecnveBojfb M Hemmer PA Work Phone: [phone] CI FMComment on above:Panic attacksStart: 10-30-2024 End: 18-34-3610MbvkzvLahdo M Hemmer PA Work Phone: [phone] CI FMComment on above:Panic attacksStart: 09-29-2024 End: 35-47-2462LoppsqEnknw M Hemmer PA Work Phone: [phone] CI FMComment on above:Panic attacks (CMS/HCC) Start: 09-22-2024 End: 04-30-2458EfzukaMabzit B Berry MD Work Phone: [phone] CI FMComment on above:Other insomniaStart: 09-12-2024 End: 14-09-4940Ewkwmr outpatient visit 25 minutesNy Parham PA Work Phone: [phone] CI FMComment on above:Osteoarthritis of spine with radiculopathy, lumbar region (Primary Dx); Right sciatic nerve pain; Panic attacks (CMS/HCC); Other insomniaStart: 09-12-2024 End: 95-53-9822omhtaavfpeNBUWABhavna Hawkins AvailableStart: 07-29-2024 End: 92-71-8452WwwkzhEllfeiKenny White MD Work Phone: [phone] CI FMComment on above:Panic attacks (CMS/HCC) Start: 06-25-2024 End: 29-68-6402BneabsEmtmqjKenny White MD Work Phone: [facility] CI FMComment on above:Other insomniaPanic attacks (CMS/HCC)Start: 06-04-2024 End: 65-94-9883Yslljl Yolis Parham PA Work Phone: [phone] CI FMStart: 06-04-2024 End: 67-07-9995Tkayne flowsDiana Parham PA Work Phone: [phone] CI FMStart: 06-04-2024 End: 03-16-0007Ssmfyl outpatient visit 15 minutesNy Parham PA Work Phone: [phone] CI FMComment on above:Viral gastroenteritis (Primary Dx); Nausea and vomiting, unspecified vomiting typeStart: 06-04-2024 End: 81-63-4124vbvgguyproTCLTW M HEMMERNot AvailableStart: 05-15-2024 End: 16-09-7755Cpmxzu outpatient visit 15 minutesLeroy White MD Work Phone: [phone] CI FMComment on above:Costochondritis, acute (Primary Dx); Malaise and fatigueStart: 05-15-2024 End: 01-28-3153dpgnqghpinTRHTSA B BERRYNot AvailableStart: 05-07-2024 End: 10-72-2922Xbrwxv Dann White MD Work Phone: [phone] CI FMStart: 05-07-2024 End: 31-97-2404Kmempk Dann White MD Work Phone: [phone] CI FMStart: 05-07-2024 End: 03-74-5675Ttkncm outpatient visit 25 minutesLeroy White MD Work Phone: [phone] CI FMComment on above:Costochondritis, acute (Primary Dx); Malaise and fatigue; Viral syndrome; Spondylosis of lumbar region without myelopathy or radiculopathyStart: 05-07-2024 End: 31-71-2465czdphhycsrMRQINU B BERRYNot AvailableStart: 04-23-2024 End: 37-04-2370ZjsrtfMkrkq M Hemmer PA Work Phone: NOMS CI FMComment on above:Panic attacks (CMS/HCC) Start: 04-07-2024 End: 10-92-6098Jvndeuwpc Dk White MD Work Phone: [phone] CI FMStart: 03-28-2024 End: 56-02-8983GthqvsUpocv M Hemmer PA Work Phone: [phone] CI FMComment on above:Other insomniaStart: 03-24-2024 End: 61-48-4573PtrbrfAdspq M Hemmer PA Work Phone: [phone] CI FMComment on above:Panic attacks (CMS/HCC) Start: 03-14-2024 End: 52-01-7761ZgvdwnKgmhul B Berry MD Work Phone: [phone] CI FMComment on above:Spondylosis of lumbar region without myelopathy or radiculopathyStart: 03-03-2024 End: 16-81-4889Srsxxq Dann White MD Work Phone: NOM[facility] CI FMStart: 03-03-2024 End: 64-93-6523Zkrrbk Dann White MD Work Phone: [phone] CI FMStart: 03-03-2024 End: 86-44-9163Gehrmy outpatient visit 15 minutesLeroy White MD Work Phone: [facility] CI FMComment on above:Left sided sciatica (Primary Dx); Spondylosis of lumbar region without myelopathy or radiculopathyStart: 02-20-2024 End: 77-06-0342RbwwsiXnbrw M Hemmer PA Work Phone: [phone] CI FMComment on above:Panic attacks (CMS/HCC) Start: 02-06-2024 End: 07-18-2537Bowykd outpatient visit 25 minutesLeroy White MD Work Phone: [phone] CI FMComment on above:Upper respiratory tract infection, unspecified type (Primary Dx); Severe obesity (BMI 35.0-39.9) with comorbidity (CMS/HCC)Start: 01-22-2024 End: 98-66-8105UmwsvoNvbngr B Berry MD Work Phone: [facility] CI FMComment on above:Panic attacks (CMS/HCC) Start: 10-01-2023 End: 24-40-5003Gidbdphcp Result EncounterLeroy White MD Work Phone: [facility] External Department UnsolicitedStart: 10-01-2023 End: 16-53-4455Tzjpashcl Result EncounterLeroy White MD Work Phone: [facility] External Department UnsolicitedStart: 06-26-2023 Chart abstractingCaanjelica Medrano DPM Work Phone: [facility] PODIATRYStart: 05-74-3255BwxaomAcxml M Hemmer PA Work Phone: [facility] CI FMComment on above:Other insomniaStart: 06-21-2023 End: 38-10-8535Rjmbxo outpatient visit 25 minutesDasenthil White MD Work Phone: [facility] CI FMComment on above:Acute left-sided low back pain with left-sided sciatica (Primary Dx); Plantar fasciitis of right footStart: 09-29-2022 End: 60-74-2077mxfqsfccufYE LEXI CARLYN .Facility:P0Tmthl: 06-05-2022 End: 70-71-3487ibogockhqcZG [place] PARHAMFacility:B0Bryim: 04-10-2022 End: 28-34-2010ecrqgsithdOD STALIN HELTON .Facility:T0Oamqf: 12-20-2021 End: 81-42-7403yfwdclowjnMD LEROY WHITEFacility:Q3Txbsj: 12-15-2021 End: 11-32-8902qakaxrkpobQOBBDY RODRIGUEZ .Facility: Procedures DateProcedureProcedure DetailPerforming ClinicianStart: 26-54-8742PK TOMOSYNTHESIS SCREENING BIGeneric External Data ProviderStart: 01-14-2025 MammographyGeneric ProviderStart: 49-24-2487Bsb-scan lxtr art/artl bpgs compl bi studyLeroy White MD Work Phone: Plan of Treatment DateCare ActivityDetailAuthorStart: 71-28-0604Kqxrmtavc for malignant neoplasm of cervixNOMS HealthcareStart: 22-50-7189Ljtdfwtna for malignant neoplasm of breastMammogramNOMS HealthcareStart: 01-11-2026 End: 98-45-1840Desgqpq encounter vlxjmhwor85/24/2026 10:15 AM EDT Office Visit [facility] MENDE[facility] [address] [address] [address] Monika Gillette DO [address] [address] [facility] Start: 79-95-0933Ournngotg for malignant neoplasm of cervixNOMS HealthcareStart: 04-02-2025 End: 15-17-6104Dhnojpi encounter oqbhblpxd92/13/2025 10:30 AM EST Office Visit [facility] [address] [place] [address] Leroy White MD [address] [place] [address] [facility] MedinceStart: 03-23-2025 End: 61-21-8220Oxiflpf encounter /03/2025 11:45 AM EST Office Visit [facility] [address] [place] [address] Leroy White MD [address] [place] [address] ArrivedNOMS [facility] Family MedinceComment on above:ArrivedStart: 02-19-2025 End: 68-03-3750Wiylwkt encounter cpzwfzaqi50/02/2025 8:30 AM EDT Office Visit [facility] [address] [facility] [address] [place] [address] Maxi Bentley, TERESA [address] [address] [facility] CI PODIATRYStart: 02-05-2025 End: 91-46-1821Cypytlo encounter czubxtugn91/18/2025 8:40 AM EDT Office Visit [facility] [address] [facility] [address] [place] [address] Maxi Bentley DPM [address] [address] Verruca plantaris (Primary Dx); Foot pain, right; Left Achilles tendinitis; Plantar fasciitis; Contracture of left ankleNOMS CI PODIATRYComment on above:Verruca plantaris (Primary Dx); Foot pain, right; Left Achilles tendinitis; Plantar fasciitis; Contracture of left ankleStart: 47-27-6288MJDXC-19 Vaccine ( season) COVID-19 Vaccine ( season)[facility] HealthcareStart: 00-92-5634Dlsuhsqwr vaccinationNOMS HealthcareStart: 01-15-2025 End: 53-85-6828Mirbzsvu SupportNOMS CI PODIATRYComment on above:Verruca plantaris (Primary Dx); Foot pain, right; Left Achilles tendinitis; Plantar fasciitis; Contracture of left ankleStart: 01-07-2025 End: 50-92-1898Jsaicnqdkln [Units/volume] in Serum or PlasmaTsh+free t4 Lab Routine Thyroid disorder screen Expected: 01/07/2025 (Approximate), Expires: 01/07/2026NOMS HealthcareComment on above:Expected: 01/07/2025 (Approximate), Expires: 01/07/2026Start: 01-07-2025 End: 89-37-0275Xwlbsxvjqugm / ancillary services /20/2025 11:00 AM EDT Ancillary Procedure [facility] [address] [facility] [address] [place] [address] [facility] OBGYNStart: 01-07-2025 End: 52-15-8950Evksosj encounter procedureNOMS NB OBStart: 01-01-2025 End: 93-21-0956Mmrczdl encounter procedureNOMS CI FMComment on above:Verruca plantaris (Primary Dx); Foot pain, right; Left Achilles tendinitis; Contracture of left ankleStart: 12-12-2024 End: 92-84-8463Ezjhreh encounter nyavqeaai10/25/2025 4:30 PM EDT Office Visit [facility] [address] [place] [address] Maxi Bentley DPJose [address] [address] Tendonitis, Achilles, left; [place] of foot NOM[facility] PodiatryComment on above:Tendonitis, Achilles, left; [place] of footStart: 12-04-2024 End: 18-31-5293Zryuwzt encounter hysawhjvs28/17/2025 10:00 AM EDT Office Visit [facility] [address] [facility] [address] [place] [address] Leroy White MD [address] [facility] [address] [place] [address] N[facility] CI FMStart: 44-04-3539Ggkrgeoec for malignant neoplasm of breastMammogramNOLA HealthcareStart: 06-12-2024 End: 01-30-8530Etvcewd encounter qqgjjybga45/23/2025 10:00 AM EST Office Visit [facility] [address] [facility] [address] [place] [address] Leroy White MD [address] [facility] [address] [place] [address] N[facility] CI FMStart: 06-04-2024 End: 05-97-4764Bpjgvbw encounter jetcpwvfp78/15/2025 9:30 AM EST Office Visit [facility] [address] [facility] [address] [place] [address] Ny Parham PA [address] [facility] [address] [place] [address] ArrivedNOMS CI FMComment on above:ArrivedStart: 05-07-2024 End: 13-78-7216Ohzwtohesxkcx metabolic 2000 panel - Serum or PlasmaComprehensive metabolic panel Lab Routine Costochondritis, acute Malaise and fatigue Viral syndromeExpected: 05/07/2024 (Approximate), Expires: 05/07/2025[facility] Comment on above:Expected: 05/07/2024 (Approximate), Expires: 05/07/2025Start: 05-07-2024 End: 50-58-2038Mxdpdvkvrzm sedimentation rateSedimentation rate, automated Lab Routine Costochondritis, acute Malaise and fatigue Viral syndromeExpected: 05/07/2024 (Approximate), Expires: 05/07/2025NOLA HealthcareComment on above: Expected: 05/07/2024 (Approximate), Expires: 05/07/2025Start: 05-07-2024 End: 29-42-2842Quxgrbd encounter procedureNOMS CI FMComment on above:Arrived Start: 03-19-2024 End: 18-65-2505Jjugzoc encounter ckplcruqm40/30/2024 9:45 AM EDT Office Visit [facility] [address] [facility] [address] [place] [address] Leroy White MD [address] [facility] [address] [place] [address] N[facility] CI FMStart: 02-06-2024 End: 71-38-1703Usnyvzg encounter uxpxmcexy24/18/2024 10:45 AM EDT Office Visit [facility] [address] [facility] [address] [place] [address] Leroy White MD [address] [facility] [address] [place] [address] [facility] FMStart: 12-88-8601Hsrgpcnev vaccinationInfluenza Vaccine (#1)[facility] HealthcareStart: 48-23-6267Uyftneqty vaccinationInfluenza Vaccine (#1)[facility] HealthcareComment on above:Postponed from 01/19/2023 (Patient Refused)Start: 06-26-2023 End: 26-52-2042Futecwo encounter wichowzqj86/06/2024 9:00 AM EST [facility] [address] [place] [address] Triny Medrano DPM [address] [place] [address] [facility] PODIATRYStart: 48-23-0430Isepvfhwv for malignant neoplasm of cervixPap SmearPARK CITY HOSPITAL HealthcareCBC panel - Blood by Automated countCBC Lab Routine Menorrhagia with regular cycle Dysmenorrhea Ordered: 01/07/2025[facility] HealthcareComment on above:Ordered: 5CBC W Auto Differential panel - BloodCBC and differential Lab Routine Costochondritis, acute Malaise and fatigue Viral syndrome Ordered:05/07/2024[facility] Work Phone: Comment on above:Ordered: 05/07/2024omprehensive metabolic 2000 panel - Serum or PlasmaComprehensive metabolic panel Lab Routine Menorrhagia with regular cycle Dysmenorrhea Ordered: 01/07/2025[facility] Comment on above:Ordered: 01/07/2025DBT Breast - bilateral screeningBilateral screening mammogram with tomosynthesis Imaging Routine Other screening mammogram Ordered:01/07/2025[facility] HealthcareComment on above:Ordered: 01/07/2025Follicle stimulating hormoneFollicle stimulating hormone Lab Routine Menorrhagia with regular cycle Dysmenorrhea Ordered: 01/07/2025[facility] HealthcareComment on above: Ordered: 01/07/2025IGP, APT HPV,RFX 16/18,45IGP, APT HPV,RFX 16/18,45 Lab Routine Screening for malignant neoplasm of cervix Encounter for screening for human papillomavirus (HPV) Ordered: 01/07/2025[facility] Healthcare Work Phone: comment on above:Ordered: 01/07/2025 Immunizations Immunization DateImmunizationNotesCare DqhfthauVokufjct94-01-6368ybewoghcr, injectable, quadrivalent, preservative Lilliana White MD Work Phone: [facility] HealthBxzubilsbc69-47-9690aozrpxptp virus vaccine, unspecified formulationLeroy White MD Work Phone: [phone] HealthXsjumuuhxk20-14-5047Ltcxhk Gómez Cap SARS-CoV-2 VaccinationLeroy White MD Work Phone: [phone] HealthQtqrmoqtuu21-31-6832Jagwaz Gómez Cap SARS-CoV-2 VaccinationLeroy White MD Work Phone: [facility] HealthHabhbdfnls98-22-2177uooyrmpei, injectable, quadrivalent, preservative Lilliana White MD Work Phone: [facility] HealthJvxtvxsxzl74-25-4698qulimgbjx, injectable, quadrivalent, preservative Lilliana White MD Work Phone: [facility] Payers DatePayer CategoryPayerPolicy [id number] [facility] [id number] 2023MedicaidUNITEDITED HEALTHCARE MEDICAID [employer] [place]ICA[place] [id number] 2022- Present [address] [place] [address] [id number] BCBS [id number] 2022-Present [phone] [facility] [address] [place] [id number]87-34-0635Aynucqt [id number] 2.16840.1.680230.3.579.2. [id number] 2.16840.1.201748.3.579.[id number] 2.16.840.1.838205.3.579.2.[id number] 2.16840.1.599314.3.579.[id number] 2.16840.1.703644.3.579.[id number] 2.16840.1.061417.3.579.2.[id number] 2.16.840.1.903552.3.579.[id number] 2.16840.1.624614.3.57[id number] 2.16.840.1.645575.3.579.2.4[id number] 2.16840.1.893999.3.579.[id number] 2.16840.1.071787.3.579.2.27[id number] 2.16840.1.520828.3.579.[id number] 2.16.840.1.666127.3.579.2.0[id number] 2.16.840.1.022625.3.57[id number] 2.16.840.1.362998.3.57[id number] 2.16.840.1.389984.3.579.2.138180-69-4555Sigdviz0370612 2.16.0.1.556539.3.579.2.889823-85-4801Cvxtuoz25928789334597-50-1330Lgfcsmc [id number]Z74824 Social History DateTypeDetailFacilityStart: 04-27-2023 End: 77-66-4158Mozbdva smoking status NHISEx-smokerNOMS HealthcareStart: 12-20-2011 End: 49-89-5798Ljnflgo of tobacco useCurrent smokerNOMS HealthcareStart: 12-20-2011 End: 87-58-1881Aieqjln of tobacco useCigarette SmokerNOMS HealthcareStart: 04-27-2023 End: 94-71-2996Lnpdikvpji smoked current (pack per day) - Ulhltrdr3DUEY HealthcareStart: 04-27-2023 End: 31-85-0380Vxshwin use and exposureSmokeless tobacco non-userNOMS Healthcare Start: 06-21-2023 End: 94-80-6604Qdemmmo intakeEx-drinker (finding)[facility] HealthcareStart: 12-05-2022 End: 52-42-3018Mzfoqqqcndf, Afraid, Rape, and Kick questionnaire [HARK]NOMS HealthcareWithin the last year, have you been afraid of your partner or ex-partner?NoNOMS HealthcareAre you now , , , , never or living with a partner?MarriedNOMS HealthcareHow often to you have a drink containing alcohol?Monthly or lessNOMS HealthcareHow many standard drinks containing alcohol do you have on a typical day?1 or 2NOMS HealthcareHow often do you have 6 or more drinks on 1 occasion?Less than monthlyNOMS HealthcareHow hard is it for you to pay for the very basics like food, housing, medical care, and heatingSomewhat hardNOMS HealthcareDo you feel stress - tense, restless, nervous, or anxious, or unable to sleep at night because yourmind is troubled all the time - these days [OSQ]To some extentNOMS Healthcare(I/We) worried whether (my/our) food would run out before (I/we) got money to buy more. DK or RefusedNOMS HealthcareStart: 88-60-1318Tn the past 12 months, has lack of transportation kept you from medical appointments or from getting medications?No NOMS HealthcareStart: 37-82-3902Utewtmk CommentCaffeine intake: 1 can pop daily NOMS HealthcareStart: 57-60-6124Rwu Assigned At BirthNot on fileNOMS Healthcare Do you feel stress - tense, restless, nervous, or anxious, or unable to sleep at night because yourmind is troubled all the time - these days [OSQ]Rather much [facility](I/We) worried whether (my/our) food would run out before (I/we) got money to buy more.Sometimes trueNOMS HealthcareThe food that (I/we) bought just didn't last, and (I/we) didn't have money to get more.Never trueNOMS HealthcareIn the past 12 months, was there a time when you were not able to pay the mortgage or rent on time?YesNOMS HealthcareHow often do you need to have someone help you when you read instructions, pamphlets, or other written material from your doctor or pharmacy [SILS]NeverNOMS HealthcareHow hard is it for you to pay for the very basics like food, housing, medical care, and heating HardNOMS Healthcare Functional Status YyduQhwmipbwodYxaiyzSzdwngbl62-95-0788Nuqhj score [AUDIT-C]1 03/23/2025 11:55 AM Manny GodfreyNOMS Cpxusrsodb37-91-7024Zlk often do you have a drink containing alcohol?Monthly or less 03/23/2025 11:55 AM EST Mychart, Generic Monthly or [facility] LouisVkpvnnhlxd91-92-2529Fkd many standard drinks containing alcohol do you have on a typical day?1 or 2 03/23/2025 11:55 AM EST Mychart, Generic 1 or 2NOMS Sebicgymvs80-58-3454Ejb often do you have 6 or more drinks on 1 occasion?Never 03/23/2025 11:55 AM EST Mychart, Generic NeverCarondelet Health 15-98-9308Itvzbla Health Questionnaire 2 item (PHQ-2) [Reported][facility] 85-92-7903Drgdv score [AUDIT-C]2 12/12/2023 8:29 AM EDT Mychart, GenericCarondelet HealthAwksgrvqpy43-34-0716Uqz often do you have a drink containing alcohol?Monthly or less 12/12/2023 8:29 AM EDT Mychart, Generic Monthly or [facility] 87-52-7172Tez many standard drinks containing alcohol do you have on a typical day?1 or 2 12/12/2023 8:29 AM EDT Mychart, Generic 1 or 2N[facility]S [facility] 48-54-3249Rku often do you have 6 or more drinks on 1 occasion?Less than monthly 12/12/2023 8:29 AM EDT Mychart, Generic Less than [facility] Clinical Notes 06-21-2023 to 03-23-2025 Note Date & JxgyKxccGshbkisi02-46-1309 History of Present illness Narrative* Leroy White MD - 03/23/2025 11:45 AM EST Images from the original note were not included. Subjective Patient ID: Terese Perez is a 39 y.o. female who presents for back pain. Terese presents today for lower back pain that is going down the left legs. She was reaching over the bed of a truck to get a box and then jumped down and that is when she felt the pull of her back. This pain has been going on for the last 3 days. She has tried both Ice and heat and OTC tylenol, nothing has helped. Over the past 2 weeks, how often have you been bothered by any of the following problems? Little interest or pleasure in doing things: Several days Feeling down, depressed, or hopeless: Several days Patient Health Questionnaire-2 Score: 2 Over the past 2 weeks, how often have you been bothered by any of the following problems? Trouble falling or staying asleep, or sleeping too much: Several days Feeling tired or having little energy: Several days Poor appetite or overeating: Several days Feeling bad about yourself - or that you are a failure or have let yourself or your family down: Several days Trouble concentrating on things, such as reading the newspaper or watching television: Not at all Moving or speaking so slowly that other people could have noticed? Or the opposite - being so fidgety or restless that you have been moving around a lot more than usual.: Not at all Thoughts that you would be better off or hurting yourself in some way: Not at all Patient Health Questionnaire-9 Score: 6 Current Outpatient Medications on File Prior to Visit Medication Sig Dispense Refill cyclobenzaprine (Flexeril) 10 MG tablet TAKE 1 TABLET (10 MG) BY MOUTH 3 (THREE) TIMES A DAY NEEDED FOR MUSCLE SPASMS 90 tablet 2 diazePAM (Valium) 5 MG tablet Take 1 tablet (5 mg) by mouth every 12 (twelve) hours if needed for anxiety, sleep or muscle spasms 60 tablet 1 ondansetron ODT (Zofran-ODT) 4 MG [...] bedtime for sleep 30 tablet 2 [DISCONTINUED] methylPREDNISolone (Medrol Dospak) 4 MG tablets Follow schedule on MEDROL PACK package instructions to be used as directed 21 tablet 0 [DISCONTINUED] zolpidem (Ambien) 10 MG tablet TAKE 1 TABLET (10 MG) BY MOUTH NEEDED AT BEDTIME FOR SLEEP 30 tablet 2 No current facility-administered medications on file prior to visit. I have reviewed and reconciled the history and medication list with the patient today. Allergies Allergen Reactions Ciprofloxacin Swelling Latex Wound Dressing Adhesive Unknown Social History Tobacco [...] Father's Brother Brendan Alcohol abuse Father's Brother Marocs Cancer Father's Brother Marcos Cancer Father's Sister Pat Past Medical History: Diagnosis Date Abnormal Pap smear of cervix 2003 Acute shoulder pain 2012 accident Anxiety Brachial neuritis or radiculitis Cervicalgia Chlamydia 2014 CTS (carpal tunnel syndrome) Depression Disturbance of skin sensation Fibrocystic breast 2011 Gall bladder disease 1998 HPV (human papilloma virus) infection 2007 Migraine headache Muscle spasm Pain in limb Spina bifida with hydrocephalus (HCC) Past Surgical History: Procedure Laterality Date SECTION, LOW TRANSVERSE 2007 x2 CHOLECYSTECTOMY 1998 ESOPHAGOGASTRODUODENOSCOPY IUD INSERTION Adiana TUBAL LIGATION 2011 Visit Vitals BP 110/62 Pulse 90 Resp 16 Ht 5' 5 Wt 178 lb SpO2 98% BMI 29.62 kg/m OB Status Having periods Smoking Status Former BSA 1.92 m Review of Systems Objective Physical Exam Constitutional: Appearance: She is [...] scoliosis. Neurological: Motor: No weakness. Gait: Gait abnormal. Deep Tendon Reflexes: Reflexes normal. Reflex Scores: Patellar reflexes are 2+ on the right side and 3+ on the left side. Achilles reflexes are 2+ on the right side and 2+ on the left side. Assessment/Plan Diagnoses and all orders for this visit: Left sided sciatica - methylPREDNISolone (Medrol Dospak) 4 MG tablets; Follow schedule on MEDROL PACK package instructions to be used as directed - HYDROcodone-acetaminophen ([place]) 10-325 MG tablet; Take 1 tablet by mouth every 6 (six) hours ifneeded for severe pain for up to 5 days Major depressive disorder, recurrent, in remission, unspecified Other orders - Follow Up In Family Medicine; Future Follow up with Dr. Leroy White in 2 weeks (on 04/06/2025). documented in this encounterCarondelet HealthLbbjzxlqvj65-02-5432 History of Present illness Narrative* Maxi Bentley, JACKIE - 02/05/2025 8:40 AM EDT Patient: Terese Perez : 1985 PCP: Leroy White MD SUBJECTIVE Pt presents today for follow up of skin lesion/neoplasm of unknown origin to the right foot Pt states that previous treatment of acid tx with some improvement Pt rates pain the pain on a 1-10 scale an intensity of 7 Pt presents today for followup. Pt presents today for follow up of left achilles tendonitis . Pt has had previous treatment of walking boot with positive improvement. Pt has been work Pt states current pain on a 1-10 scale is a 2 Pt presents to day for follow up tx. Pt presents today for follow up of left HSS. Pt has had previous treatment of 2nd steroid injection, nsaids, stretching with negative relief. Pt states current pain on a 1-10 scale is a 3 Pt presents to day for follow up tx. Allergies: Allergies Allergen Reactions Ciprofloxacin Swelling Latex Wound Dressing Adhesive Unknown Past Medical History: Past Medical History: Diagnosis Date Abnormal Pap [...] Outpatient Medications: cyclobenzaprine (Flexeril) 10 MG tablet, TAKE 1 TABLET (10 MG) BY MOUTH 3 (THREE) TIMES A DAY NEEDED FOR MUSCLE SPASMS, Disp: 90 tablet, Rfl: 2 diazePAM (Valium) 5 MG tablet, Take 1 tablet (5 mg) by mouth every 12 (twelve) hours if needed for anxiety, sleep or muscle spasms, Disp: 60 tablet, Rfl: 1 methylPREDNISolone (Medrol Dospak) 4 MG tablets, Follow schedule on MEDROL PACK package instructions to be used as directed, Disp: 21 tablet, Rfl: 0 ondansetron ODT (Zofran-ODT) 4 [...] Rfl: 11 zolpidem (Ambien) 10 MG tablet, TAKE 1 TABLET (10 MG) BY MOUTH NEEDED AT BEDTIME FOR SLEEP, Disp: 30 tablet, Rfl: 2 Social History: [...] 30 min Stress: Stress Concern Present (12/12/2023) [place] [employer] - Occupational Stress Questionnaire Feeling of Stress : Rather much Social Connections: Moderately Isolated (12/12/2023) Social Connection and Isolation Panel [NHANES] Frequency of Communication with Friends and Family: Twice a week Frequency of Social Gatherings with Friends and Family: Once a week Attends Religion Services: Never Active Member of Clubs or [...] Ankle ROM less than 10 degrees b/l. minimal pain on palpation to left Achilles tendon and retrocalcaneal bursa with negative palpable Temple diminished pain on palpation to the left medial calcaneal tubercle Positive pain on palpation to right foot lesion ASSESSMENT 1. Verruca plantaris 2. Foot pain, right 3. Left Achilles tendinitis 4. Plantar fasciitis 5. Contracture of left ankle PLAN Recommended to apply ice to affected areas for 20 minutes, twice daily. Ice should not be applied directly to skin. Patient to continue with oral anti - inflammatories as needed for pain and recommended OTC medications such as tylenol or Ibuprofen Discontinue cam walker Patient is to continue with stretching excercizes daily with patient to continue with night stretching splint or manual stretching. Pt to take nsaids as needed PRN pain Application of salinocaine acid medication to lesion/lesions located at right foot Informed pt of risks and benefits of procedure including high reoccurence rate, infection, pain andconsent given. Application of DSD post procedure. Patient had surgical excision of lesion on follow up Prescription today for Medrol pack Maxi Bentley DPM documented in this encounterCarondelet HealthXdxvpkepij26-60-3482 History of Present illness Narrative* Maxi Bentley DPM - 01/15/2025 1:30 PM EDT Patient: Terese Perez : 1985 PCP: Leroy White MD SUBJECTIVE Pt presents today for follow up of skin lesion/neoplasm of unknown origin to the right foot Pt states that previous treatment of acid tx with some improvement Pt rates pain the pain on a 1-10 scale an intensity of 6 Pt presents today for followup. Pt presents today for follow up of left achilles tendonitis . Pt has had previous treatment of Medrol pack with ice and walking boot with Minimal improvement. Pt states current pain on a 1-10 scale is a 7 Pt presents to day for follow up tx. Pt presents today for follow up of left HSS. Pt has had previous treatment of 1st steroid injection, nsaids, stretching with negative relief. Pt states current pain on a 1-10 scale is a 7 Pt presents to day for follow up tx. Allergies: Allergies Allergen Reactions Ciprofloxacin Swelling Latex [...] or muscle spasms, Disp: 60 tablet, Rfl: 1 methylPREDNISolone (Medrol Dospak) 4 MG tablets, Follow schedule on MEDROL PACK package instructions to be used as directed, Disp: 21 tablet, Rfl: 0 ondansetron ODT (Zofran-ODT) 4 [...] Rfl: 11 zolpidem (Ambien) 10 MG tablet, TAKE 1 TABLET (10 MG) BY MOUTH NEEDED AT BEDTIME FOR SLEEP, Disp: 30 tablet, Rfl: 2 Social History: [...] 30 min Stress: Stress Concern Present (12/12/2023) [facility] [place] [facility] [employer] [facility] - Occupational Stress Questionnaire Feeling of Stress : Rather much Social Connections: Moderately Isolated (12/12/2023) Social Connection and Isolation Panel [NHANES] Frequency of Communication with Friends and Family: Twice a week Frequency of Social Gatherings with Friends and Family: Once a week Attends Religion Services: Never Active Member of Clubs or [...] tendon and retrocalcaneal bursa with negative palpable Temple positive pain on palpation to the left medial calcaneal tubercle ASSESSMENT 1. Verruca plantaris 2. Foot pain, right 3. Left Achilles tendinitis 4. Plantar fasciitis 5. Contracture of left ankle PLAN Recommended to apply ice to affected areas for 20 minutes, twice daily. Ice should not be applied directly to skin. Patient to continue with oral anti - inflammatories as needed for pain and recommended OTC medications such as tylenol or Ibuprofen Continue with cam walker Pt given steroid injection to left medial calcaneal tubercle under US guidance with visualization of injected fluid into area of concern per imaging. Injection of 1cc kenalog 10 and 2cc xylocaine 2% plain. Informed patient of risks and benefits of injection including non resolution of symptoms,steroid flare, tendon damage or rupture. Pt consents to proceed. This is the patients 2nd injection Pt to take nsaids as needed PRN pain Application of salinocaine acid medication to lesion/lesions located at right foot Informed pt of risks and benefits of procedure including high reoccurence rate, infection, pain andconsent given. Application of DSD post procedure. Discussed physical therapy today the patient like to hold off and another 1 month off work Maxi Bentley DPM documented in this encounterCarondelet HealthXvlbtnhbnx07-20-2224 History of Present illness Narrative* Monika Gillette DO - 01/07/2025 10:00 AM EDT Images from the original note were not included. Monika Gillette DO Obstetrics and Gynecology Name: Terese Perez Date/Time of Service:01/07/2025 10:38 AM :1985 Age: 39 y.o. Subjective Terese Perez is a 39 y.o. female who is here for a routine exam. Gynecologic Exam (New patient here for a yearly. Denies problems. Mammogram order sent to [facility]. Having monthly periods lasting days with heavy bleeding, changing a super+ plus tampon in 1 hr and severe cramping. LMP 12/31/24 Has Non-chemical tubal (coils) for birthcontrol. Last pap morethat 2 years ago. Hx of abnormal pap [...] smear of cervix 2002 Acute shoulder pain 2012 accident Anxiety Brachial [...] 1998 ESOPHAGOGASTRODUODENOSCOPY IUD INSERTION Adiana TUBAL LIGATION 2011 Family History Problem Relation Name Age of [...] DO 01/07/2025 10:38 AM documented in this encounterCarondelet [id number] History of Present illness Narrative* Maxi Bentley, JACKIEM - 01/01/2025 10:10 AM EDT Patient: Terese Perez : 1985 PCP: Leroy White MD [...] steps in the morning and has tried hajo-ftt-ifegavl treatments and arch supports with negative improvement [...] spasms, Disp: 60 tablet, Rfl: 0 HYDROcodone-acetaminophen (Mulliken) 5-325 MG tablet, Take 1 tablet by [...] 30 min Stress: Stress Concern Present (12/12/2023) [place] [facility] [employer] [facility] - Occupational Stress Questionnaire Feeling of Stress : Rather much Social Connections: Moderately Isolated (12/12/2023) Social Connection and Isolation Panel [NHANES] Frequency of Communication with Friends and Family: Twice a week Frequency of Social Gatherings with Friends and Family: Once a week Attends Religion Services: Never Active Member of Clubs or [...] tendon and retrocalcaneal bursa with negative palpable Temple Positive pain on palpation to the left [...] have additional 2 weeks off work Maxi Bentley DPM documented in this encounterCarondelet [id number] Telephone encounter Note* Telephone Encounter - Selena Ellis - 12/30/2024 8:54 AM EDT diazePAM (Valium) 5 MG tablet [facility] She knows its a bit early but wanted to make sure Dr. White would send it in before he is out of the office. She knows she wont be able to pick it up until the th or 15th [facility] [id number] Miscellaneous Notes* Telephone Encounter - Selena Ellis - 12/30/2024 8:54 AM EDT diazePAM (Valium) 5 MG tablet [facility] She knows its a bit early but wanted to make sure Dr. White would send it in before he is out of the office. She knows she wont be able to pick it up until the 14th or 15th documented in this encounterCarondelet [id number] Telephone encounter Note* Telephone Encounter - JANELL Saxena - 12/19/2024 12:22 PM EDT OARRS reviewed, Rx sent into patient's pharmacy. [facility] [id number] Miscellaneous Notes* Telephone Encounter - JANELL Saxena - 12/19/2024 12:22 PM EDT OARRS reviewed, Rx sent into patient's pharmacy. 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 documented in this [facility]07-28-2025 Telephone encounter Note* Telephone Encounter - Adrian Willson - 12/15/2024 2:24 PM EDT Pt called asking to be off of work for two weeks, states that her job does not allowed her to work with the boot she was told to wear, work does not allow restrictions, she has been seen by Dr. Jeronimo, was wondering if pt needed another apt to get the note. [facility] [id number] History of Present illness Narrative* Maxi Bentley, TERESA - 12/12/2024 4:30 PM EDT Patient: Terese Perez : 1985 PCP: Leroy White MD SUBJECTIVE This is a 39 y.o. female that presents today for a chief complaint of painful lesion to the right foot for the past year and states it is sharp and painful ambulation has tried nheh-fvl-iouoqdx treatments with negative improvement and rates pain up to an 8/10 Patient also has pain to the posterior left heel region states it has been present for the past year particularly 1st steps in morning rates it up to an 8/10 and has tried treatments of prior kier tender visit with use of baqb-sqz-zxhabet inserts and anti-inflammatories with minimal improvement. Allergies: [...] spasms, Disp: 60 tablet, Rfl: 0 HYDROcodone-acetaminophen (Mulliken) 5-325 MG tablet, Take 1 tablet by [...] 30 min Stress: Stress Concern Present (12/12/2023) [place] [employer] - Occupational Stress Questionnaire Feeling of Stress : Rather much Social Connections: Moderately Isolated (12/12/2023) Social Connection and Isolation Panel [NHANES] Frequency of Communication with Friends and Family: Twice a week Frequency of Social Gatherings with Friends and Family: Once a week Attends Religion Services: Never Active Member of Clubs or [...] tendon and retrocalcaneal bursa with negative palpable Temple XRAY: US: DIAGNOSTIC US REPORT: Verbal order [...] of skin 2. Tendonitis, Achilles, left 3. [place] of foot 4. Left Achilles tendinitis 5. [...] and straps and pneumatically inflated for proper customfitting by Maxi Bentley DPM and staff. A verbal order was [...] procedure including infection,damage or rupture to soft tissuestructures and steroid flare. This is the patients 1st injections Pt understood and consented. Discussed condition in detail with patient today and discussed conservative treatments and possibleexcisional biopsy of lesion in the future for pathological diagnosis of specimen. Patient may take xdzk-hmz-hkedwux NSAID p.r.n. for pain Application of salinocaine acid medication to lesion/lesions located at right foot Informed pt of risks and benefits of procedure including high reoccurence rate, infection, pain andconsent given. Application of DSD post procedure. Maxi Bentley DPM documented in this encounterCarondelet [id number] History of Present illness Narrative* Leroy White MD - 12/10/2024 9:45 AM EDT Images from the original note were not included. Subjective Patient ID: Terese Perez is a 39 y.o. female who presents for Back Pain. Back Pain Patient presents for evaluation of low back problems. Symptoms have been present for months now andinclude pain in lower back and goes down [...] for sleep 30 tablet 2 [DISCONTINUED] HYDROcodone-acetaminophen (Mulliken) 5-325 MG tablet Take 1 tablet by [...] for right knee extension/flexion 5-5, left knee flexion/extension4+/5. Feet: Comments: Right foot corn as noted Skin: General: Skin is warm and dry. Neurological: General: No focal deficit present. Mental Status: She is alert and oriented to person, place, and time. Sensory: Sensation is intact. Psychiatric: Mood and Affect: Mood normal. Behavior: Behavior normal. Assessment/Plan Diagnoses and all orders for this visit: Tendonitis, Achilles, left - Ambulatory referral to Podiatry; Future [place] of foot - Ambulatory referral to Podiatry; Future Osteoarthritis of spine with radiculopathy, lumbar region - HYDROcodone-acetaminophen (Mulliken) 5-325 MG tablet; Take 1 tablet by mouth every 6 (six) hours if needed for severe pain for up to 10 days Follow up in about 4 weeks (around 01/07/2025) for Recheck. documented in this encounterCarondelet [id number] Telephone encounter Note* Telephone Encounter - Selena Ellis - 12/01/2024 9:21 AM EDT Pt scheduled [facility] [id number] Miscellaneous Notes* Telephone Encounter - Selena Rhonda - 12/01/2024 9:21 AM EDT Pt scheduled * Telephone Encounter - Selena Ellis - 12/01/2024 9:14 AM EDT Lvm * Telephone Encounter - JANELL Saxena - 12/01/2024 8:52 AM EDT OARRS reviewed, Rx sent into patient's pharmacy. Please help pt get set up for routine follow up by the end of the month. documented in this encounterCarondelet HealthDvapoctuzy55-59-6218 Telephone encounter Note* Telephone Encounter - Selena Ellis - 12/01/2024 9:14 AM EDT Lvm [facility] HealthVejtnvdtkz04-96-7170 Telephone encounter Note* Telephone Encounter - JANELL Saxena - 12/01/2024 8:52 AM EDT OARRS reviewed, Rx sent into patient's pharmacy. Please help pt get set up for routine follow up by the end of the month. [facility] [id number] Telephone encounter Note* Telephone Encounter - JANELL Saxena - 10/31/2024 8:09 AM EDT OARRS reviewed, Rx sent into patient's pharmacy. [facility] HealthIuzhclescd79-47-7739 Miscellaneous Notes* Telephone Encounter - JANELL Saxena - 10/31/2024 8:09 AM EDT OARRS reviewed, Rx sent into patient's pharmacy. documented in this encounterCarondelet HealthYbtzuozfld92-49-6994 Telephone encounter Note* Telephone Encounter - JANELL Saxena - 09/29/2024 9:58 AM EDT OARRS reviewed, Rx sent into patient's pharmacy. [facility] HealthOicxgqnrxj21-91-4954 Miscellaneous Notes* Telephone Encounter - JANELL Saxena - 09/29/2024 9:58 AM EDT OARRS reviewed, Rx sent into patient's pharmacy. documented in this [facility]05-06-2025 Telephone encounter Note* Telephone Encounter - JANELL Saxena - 09/23/2024 9:06 AM EDT OARRS reviewed, Rx sent into patient's pharmacy. [facility] HealthBkhfcrsinn66-55-7941 Miscellaneous Notes* Telephone Encounter - JANELL Saxena - 09/23/2024 9:06 AM EDT OARRS reviewed, Rx sent into patient's pharmacy. documented in this [facility]04-25-2025 History of Present illness Narrative* JANELL Saxena - 09/12/2024 12:00 PM EDT Images from the original note were not included. Subjective Patient ID: Terese Perez is a 39 y.o. female who presents for Back Pain. Back Pain Patient presents for evaluation of low back problems. Symptoms have been present for months now andinclude pain in lower back and goes down [...] for right knee extension/flexion 5-5, left knee flexion/extension4+/5. Skin: General: Skin is warm and dry. Neurological: General: No focal deficit present. Mental Status: She is alert and oriented to person, place, and time. Sensory: Sensation is intact. Psychiatric: Mood and Affect: Mood normal. Behavior: Behavior normal. Assessment/Plan Diagnoses and all orders for this visit: Osteoarthritis of spine with radiculopathy, lumbar region - HYDROcodone-acetaminophen (Mulliken) 5-325 MG tablet; Take 1 tablet by [...] least every three months for monitoring. At eachfollow up visit I will reassess the patient's [...] for Medication Follow Up. documented in this encounterNOThe Rehabilitation InstituteKyfhsxgngx91-93-8005 Telephone encounter Note* Telephone Encounter - JANELL Saxena - 07/29/2024 4:12 PM EDT OARRS reviewed, Rx sent into patient's pharmacy. [facility] HealthIarescoxfr04-61-6573 Miscellaneous Notes* Telephone Encounter - JANELL Saxena - 07/29/2024 4:12 PM EDT OARRS reviewed, Rx sent into patient's pharmacy. documented in this encounterCarondelet HealthBrmylrruxw05-30-8995 History of Present illness Narrative* JANELL Saxena - 06/04/2024 9:30 AM EST Images from the original note were not included. Subjective Patient ID: Terese Perez is a 38 y.o. female who presents for vomiting. Terese is present today for evaluation of vomiting. Admits nausea and vomiting started Sunday evening, body aches, no fever. She is starting to improve. She did take her zofran but did not help thenausea Sunday evening. Throws up stomach bile, and [...] mouth in the morning and 1 tablet (500mg) before bedtime. Do all this for 28 [...] for Appointment As Scheduled. documented in this encounterCarondelet [id number] History of Present illness Narrative* Leroy White MD - 05/15/2024 8:30 AM EST Images from the original note were not included. Subjective Patient ID: Terese Perez is a 38 y.o. female who [...] mg) before bedtime. 60 tablet 5 HYDROcodone-acetaminophen (Mulliken) 10-325 MG tablet Take 1 tablet by mouth every 6 (six) hours if needed for moderate pain or severe pain for up to 10 days 40 tablet 0 nabumetone (Relafen) 500 MG tablet Take 1 tablet (500 mg) by mouth in the morning and 1 tablet (500mg) before bedtime. Do all this for 28 [...] COPD Paternal Grandfather Marcel Cancer Paternal Grandmother Slaly Sweet Alcohol abuse Mother's Sister Aida Alcohol [...] No follow-ups on file. documented in this encounterCarondelet HealthIqvfftbbjy07-37-9784 History of Present illness Narrative* Leroy White MD - 05/07/2024 10:00 AM EST Images from the original note were not included. HPI Follow-up Additional comments: [facility] ER 05/02/24 DX: CP,PLEURISY RX FOR NABUMETONE GIVEN Last edited by Radha Delgado LPN on 05/07/2024 9:59 AM. Subjective Patient ID: Terese Perez is a 38 y.o. female who presents for controlled/pain med follow up and Follow-up ([facility] ER 05/02/24 DX: CP,PLEURISY RX FOR NABUMETONE GIVEN). Flowsheet Row Documentation from 05/06/2024 in [facility] with [facility] [place] [facility] Information ED, Hospital or Senior Care Facility Discharge? ED Patient has been contacted within 1 week of being seen in the ED Yes Diagnosis pleurisy,cp Discharge Date 05/02/24 Discharged To: Home Setting Discharge Hospital [facility] Engagement Call Start Time 1308 Admission [...] for sleep 30 tablet 2 [DISCONTINUED] HYDROcodone-acetaminophen (Mulliken) 10-325 MG tablet Take 1 tablet by [...] region without myelopathy or radiculopathy - HYDROcodone-acetaminophen (Mulliken) 10-325 MG tablet; Take 1 tablet by mouth every 6 (six) hours ifneeded for moderate pain or severe pain for up to 10 days Follow up in about 1 week (around 05/14/2024) for prn. documented in this encounterCarondelet HealthYyhaxralee06-58-2780 Telephone encounter Note* Telephone Encounter - JANELL Saxena - 04/24/2024 7:59 AM EST OARRS reviewed, Rx sent into patient's pharmacy. [facility] HealthRlbfgqeujz83-42-2309 Miscellaneous Notes* Telephone Encounter - JANELL Saxena - 04/24/2024 7:59 AM EST OARRS reviewed, Rx sent into patient's pharmacy. documented in this encounterCarondelet HealthYcvfhlzojw99-18-9623 Telephone encounter Note* Telephone Encounter - Leroy White MD - 04/07/2024 12:10 PM EST Dose adjusted, Rx sent. [facility] [id number] Miscellaneous Notes* Telephone Encounter - Leroy White MD - 04/07/2024 12:10 PM EST Dose adjusted, Rx sent. * Telephone Encounter - Jess Paulino - 04/07/2024 9:18 AM EST Tirzepatide (Mounjaro) 5 MG/0.5ML solution pen-injector pt would like to up her dosage. [facility] documented in this encounterCarondelet HealthHrnpbgspxk73-73-3600 Telephone encounter Note* Telephone Encounter - Jess Paulino - 04/07/2024 9:18 AM EST Tirzepatide (Mounjaro) 5 MG/0.5ML solution pen-injector pt would like to up her dosage. [facility] [place] [facility] HealthDikuefmlzo79-62-3195 Telephone encounter Note* Telephone Encounter - JANELL Saxena - 03/24/2024 4:05 PM EST OARRS reviewed, Rx sent into patient's pharmacy. [facility] HealthQndqxijvga56-95-1048 Miscellaneous Notes* Telephone Encounter - JANELL Saxena - 03/24/2024 4:05 PM EST OARRS reviewed, Rx sent into patient's pharmacy. documented in this encounterCarondelet [id number] History of Present illness Narrative* Leroy White MD - 03/03/2024 11:30 AM EDT Images from the original note were not included. Subjective Patient ID: Terese Perez is a 38 y.o. female who presents for Back Pain. Back Pain Patient presents for evaluation of low back problems. Symptoms have been present for 4 days and include pain in lower back Initial inciting event: none. Alleviating factors identifiable by the patient are none. Aggravating factors identifiable by the patient are bending forwards, sitting, standing,and walking. Treatments initiated by the patient: biofreeze [...] mg under the skin 1 (one) time perweek 2 mL 3 Vortioxetine HBr (Trintellix) 20 MG tablet Take 20 mg by mouth Daily 30 tablet 11 zolpidem (Ambien) 10 MG tablet Take 1 tablet (10 mg) by mouth as needed at bedtime for sleep 30 tablet 2 [DISCONTINUED] HYDROcodone-acetaminophen (Mulliken) 10-325 MG tablet Take 1 tablet by [...] region without myelopathy or radiculopathy - HYDROcodone-acetaminophen (Mulliken) 10-325 MG tablet; Take 1 tablet by mouth every 6 (six) hours ifneeded for moderate pain or severe pain for up to 10 days Follow up in about 2 weeks (around 03/17/2024) for F/U med changes. documented in this [facility]10-02-2024 Telephone encounter Note* Telephone Encounter - JANELL Saxena - 02/20/2024 2:56 PM EDT OARRS reviewed, Rx sent into patient's pharmacy. [facility] HealthWknnnedrsa08-83-1364 Miscellaneous Notes* Telephone Encounter - JANELL Saxena - 02/20/2024 2:56 PM EDT OARRS reviewed, Rx sent into patient's pharmacy. documented in this [facility]09-18-2024 History of Present illness Narrative* Leroy White MD - 02/06/2024 10:45 AM EDT Images from the original note were not included. HPI Med Refill Additional comments: [place]-- discuss increasing dose-- [facility] Last edited by Radha Delgado LPN on 02/06/2024 10:47 AM. Subjective Patient ID: Terese Perez is a 38 y.o. female who presents for Depression, Obesity, URI, and Med Refill (Mounlisharo-- discuss increasing dose-- [facility]). Terese is [...] pen-injector Inject 5 mg under the skin 1(one) time per week 2 mL 3 No [...] 05/07/2024) for Routine F/U. documented in this encounterCarondelet HealthCxaghovymt09-72-3174 Telephone encounter Note* Telephone Encounter - JANELL Saxena - 01/23/2024 9:43 AM EDT OARRS reviewed, Rx sent into patient's pharmacy. [facility] HealthForsrqwpdb10-74-4306 Miscellaneous Notes* Telephone Encounter - JANELL Saxena - 01/23/2024 9:43 AM EDT OARRS reviewed, Rx sent into patient's pharmacy. documented in this encounterCarondelet HealthIofhhrpniz61-67-3330 History of Present illness Narrative* Leroy White MD - 06/21/2023 4:00 PM EST Images from the original note were not included. Subjective Patient ID: Terese Perez is a 37 y.o. female who [...] mouth 1 (one) time each day at thesame time 30 tablet 0 Vortioxetine HBr (Trintellix) 10 MG tablet Take 1 tablet by mouth 1 (one) time each day at the sametime. zolpidem (Ambien) 10 MG tablet TAKE 1 [...] Follow schedule on package instructions - HYDROcodone-acetaminophen (Mulliken) 7.5-325 MG tablet; Take 1 tablet by mouth every 6 (six) hours if needed for severe pain for up to 5 days Plantar fasciitis of right foot - Ambulatory referral to Podiatry; Future No follow-ups on file. documented in this encounterNOMS HealthcareEvaluation note* Diagnosis Acute left-sided low back pain with [...] HealthcareEvaluation note* Diagnosis Tendonitis, Achilles, left- Primary [place] of foot Osteoarthritis of spine with radiculopathy, lumbar region documented in this encounter [facility] HealthcareEvaluation note* Diagnosis Neoplasm of uncertain behavior of skin- Primary Tendonitis, Achilles, left [place] of foot Left Achilles tendinitis Contracture of [...] in this encounter [facility] HealthcareEvaluation note* Diagnosis Verruca plantaris- Primary Plantar wart Foot pain, right Pain in soft tissues of limb Left Achilles tendinitis Plantar fasciitis Plantar fascial fibromatosis Contracture of left ankle documented in this encounter [facility] HealthcareEvaluation note* Diagnosis Left Achilles tendinitis- Primary Verruca plantaris Plantar wart Foot pain, right Pain in soft tissues of limb Plantar fasciitis Plantar fascial fibromatosis Contracture of left ankle documented in this encounter [facility] HealthcareEvaluation note* Diagnosis Panic attacks Panic disorder without agoraphobia documented in this encounter [facility] HealthcareEvaluation note* Diagnosis Left sided sciatica- Primary Sciatica Major depressive disorder, recurrent, in remission, unspecified documented in this encounter [facility] HealthcareEvaluation note* Diagnosis Left sided sciatica Sciatica documented in this encounter [facility] HealthcareReason for referral (narrative)* Consultation (Routine) - Pending ReviewSpecialtyDiagnoses / ProceduresReferred By ContactReferred To Contact Podiatry Diagnoses Plantar fasciitis of right foot Procedures [place] OFFICE/OUTPATIENT NEW HIGH MDM 60 MINUTES Leroy White MD [address] [address] Danny Chung, DPM FACFAS [address] [place] [address] [place] [address] Referral IDStatusReasonStart DateExpiration DateVisits RequestedVisits [id number] Review Specialty Services Required [facility] Summary Purpose Family History No Family History Records FoundNo Family History Records FoundNo Family History Records FoundNo Family History Records Found Advance Directives No Advanced Directives Records FoundNo Advanced Directives Records FoundNo Advanced Directives Records FoundNo Advanced Directives Records Found Additional Source Comments INFORMATION SOURCE (unrecogn ized section and content) DATE CREATED AUTHOR 04/19/2020 [facility] DATE CREATED AUTHOR AUTHOR'S ORGANIZ ATION 10/04/2022 [facility] DATE CREATED AUTHOR AUTHOR'S ORGANIZ ATION 05/11/2024 [facility] DATE CREATED AUTHOR AUTHOR'S ORGANIZ ATION 03/24/2025 [facility] EPIC Reason for Visit (unrecogniz ed section and content) ReasonCommentsfoot and back painLeft sideReasonCommentsMed RefillReasonOnset DateCommentsMed Pyxunk0702/20/2024easonCommentsBack PainReasonOnset DateComments Med [id number] DateCommentsMed Ldlszp1503/24/2024easonOnset Date CommentsMed Kyshbp4703/28/2024easonOnset DateCommentsMed Omacyg5204/23/2024eason CommentsDepressionObesityURIMed RefillMounjaro-- discuss increasing dose-- [facility] bellReasonCommentscontrolled/pain med follow upFollow-upTBH ER 05/02/24 DX: CP,PLEURISY RX FOR NABUMETONE GIVENReasonOnset DateCommentsMed Erpetb8101/22/2024 ReasonCommentsChest PainReasonOnset DateCommentsMed Qzvobi3506/25/2024ReasonOnset DateCommentsMed Qoqctg4007/29/2024ReasonCommentsBack PainReasonOnset DateComments Med Kxjcef4509/22/2024ReasonOnset DateCommentsMed Jsfqax1309/29/2024ReasonOnset Date CommentsMed Hkapkz8910/30/2024ReasonOnset DateCommentsMed Agsdfi6711/30/2024Reason CommentsBack PainReasonCommentsAnkle PainFoot CallousesSpecialtyDiagnoses / ProceduresReferred By ContactReferred To ContactPodiatry Diagnoses Tendonitis, Achilles, left [place] of foot Procedures [place] OFFICE/OUTPATIENT NEW HIGH MDM 60 MINUTES Leroy White MD [address] [facility] [address] [place] [address] Phone: tel: fax: Maxi Bentley, TERESA [address] [facility] [address] [place] [address] Phone: tel: fax: Referral IDStatusReasonStart DateExpiration DateVisits RequestedVisits [id number] Specialty Services Required /[id number] DateCommentsMed Zzgkux4212/19/2024ReasonOnset Date CommentsEmployment Oeixfqdg59/28/2025ReasonOnset DateCommentsMed Refill 12/30/2024ReasonCommentsFollow-upRT LESION/LT ACHILLESReasonCommentsGynecologic ExamNew patient here for a yearly. Denies problems. Mammogram order sent to [facility]. Having monthly periods lasting days with heavy bleeding, changing a super+ plus tampon in 1 hr and severe cramping. LMP 12/31/24 Has Non- chemical tubal (coils) for birthcontrol. Last pap more that 2 years ago.Hx of abnormal pap 18 years ago.ReasonCommentsFollow-upLt pf/achillesReasonComments Follow-upLt achillesReasonOnset DateCommentsMed Zqvpvr3503/06/2025ReasonOnset Date CommentsMed Yqywud3403/27/2025 Care Teams (unrecognized sec tion and content) Team MemberRelationshipSpecialtyStart DateEnd Date Leroy White MD [address] [facility] [address] [place] [address] PCP - GeneralInternal Medicine11/06/22Te MemberRelationshipSpecialtyStart Date End Date Leroy White MD [address] [place] [address] PCP - GeneralInternal Medicine11/06/22 MemberRelationshipSpecialtyStart Date End Date Leroy White MD [address] [place] [address] PCP - GeneralInternal Medicine11/06/22 MemberRelationshipSpecialtyStart Date End Date Leroy White MD [address] [place] [address] PCP - GeneralInternal Medicine11/06/22Te MemberRelationshipSpecialtyStart Date End Date Leroy White MD [address] [place] [address] PCP - GeneralInternal Medicine11/06/22Team MemberRelationshipSpecialtyStart Date End Date Leroy White MD [address] [place] [address] PCP - GeneralInternal Medicine11/06/22Team MemberRelationshipSpecialtyStart Date End Date Leroy White MD [address] [place] [address] PCP - GeneralInternal Medicine11/06/22Team MemberRelationshipSpecialtyStart Date End Date Leroy White MD [address] [place] [address] PCP - GeneralInternal Medicine11/06/22Team MemberRelationshipSpecialtyStart Date End Date Leroy White MD [address] [place] [address] PCP - GeneralInternal Medicine11/06/22Team MemberRelationshipSpecialtyStart Date End Date Leroy White MD [address] [place] [address] PCP - GeneralInternal Medicine11/06/22Team MemberRelationshipSpecialtyStart Date End Date Leroy White MD [address] [place] [address] PCP - GeneralInternal Medicine11/06/22Team MemberRelationshipSpecialtyStart Date End Date Leroy White MD [address] [place] [address] PCP - GeneralInternal Medicine6/19/23Team MemberRelationshipSpecialtyStart Date End Date Leroy White MD [address] [place] [address] PCP - GeneralInternal Medicine11/06/22Team MemberRelationshipSpecialtyStart Date End Date Leroy White MD [address] [place] [address] PCP - GeneralInternal Medicine11/06/22Team MemberRelationshipSpecialtyStart Date End Date Leroy White MD [address] [place] [address] PCP - GeneralInternal Medicine11/06/22Team MemberRelationshipSpecialtyStart Date End Date Leroy White MD [address] [place] [address] PCP - GeneralInternal Medicine11/06/22Team MemberRelationshipSpecialtyStart Date End Date Leroy White MD [address] [place] [address] PCP - GeneralInternal Medicine11/06/22Team MemberRelationshipSpecialtyStart Date End Date Leroy White MD [address] [place] [address] PCP - GeneralInternal Medicine11/06/22Team MemberRelationshipSpecialtyStart Date End Date Leroy White MD [address] [place] [address] PCP - GeneralInternal Medicine11/06/22Team MemberRelationshipSpecialtyStart Date End Date Leroy White MD [address] [facility] [address] [place] [address] PCP - GeneralInternal Medicine11/06/22 FOR RECORDS PERTAINING TO PATIENTS WHO ARE [...] BE BASED ON THE PRIMARY CLINICAL RECORDS. [facility]. provides no warranty or guarantee of the accuracy or completeness of information in this document.
--- OUTSIDE RECORDS SUMMARY | 2025-04-24 21:36 | XMS_ITS | Clinical Summary ---
Author Organization [facility] Address [address] [place] [address] Care Team Providers Care Coil Connector Name Role Phone Leroy White MD Primary Care Provider [phone] Allergies Active AllergyReactionsCriticalityNoted DateCommentsCiprofloxacinSwelling 11/06/20229269Wdtfe61/25/2025Wound Dressing IvsjkoarBgozafe16/19/2023 Medications MedicationSigDispense QuantityRefillsLast FilledStart DateEnd DateStatus Vortioxetine HBr (Trintellix) 20 MG tablet Indications:Depression with anxietyTake 20 mg by mouth Daily 30 tablet 1104Active SUMAtriptan (Imitrex) 50 MG tablet Indications:Migraine syndromeTAKE 1 TABLET BY MOUTH ONCE DAILY WITHIN 1 HOUR OF MIGRAINE START *MAX 2 PER 24 HOURS* 15 tablet 4Active ondansetron ODT (Zofran-ODT) 4 MG disintegrating tablet Indications:NauseaTAKE 1 TABLET (4 MG) BY MOUTH EVERY 8 HOURS NEEDED FOR NAUSEA AND VOMITING 28 tablet 5Active cyclobenzaprine (Flexeril) 10 MG tablet Indications:Cervical radiculopathyTAKE 1 TABLET (10 MG) BY MOUTH 3 (THREE) TIMES A DAY NEEDED FOR MUSCLE SPASMS 90 tablet 5Active diazePAM (Valium) 5 MG tablet Indications:Panic attacksTake 1 tablet (5 mg) by mouth every 12 (twelve) hours if needed for anxiety, sleep or muscle spasms 60 tablet 5Active zolpidem (Ambien) 10 MG tablet Indications:Other insomniaTake 1 tablet (10 mg) by mouth as needed at bedtime for sleep 30 tablet 5Active methylPREDNISolone (Medrol Dospak) 4 MG tablets Indications:Left sided sciaticaFollow schedule on MEDROL PACK package instructions to be used as directed 21 tablet 5Active HYDROcodone-acetaminophen ([place]) 10-325 MG tablet Indications:Left sided sciaticaTake 1 tablet by mouth every 6 (six) hours if needed for severe pain for up to 5 days 20 tablet Discontinued(Reorder) HYDROcodone-acetaminophen ([place]) 10-325 MG tablet Indications:Left sided sciaticaTake 1 tablet by mouth every 6 (six) hours if needed for severe pain for up to 5 days 20 tablet Expired Active Problems ProblemNoted DateDiagnosed DateOsteoarthritis of lumbar spine09/26/2023 Adjustment /19/2023ervical idlzcsrpcljji22/19/2023hiari malformation type I11/06/2022egenerative disc disease, pzlocryl75/19/2023ysmenorrhea 11/06/2022Left sided wmdeloyu78/19/2023Loss of taste11/06/2022Major depression 11/06/2022Menorrhagia with irregular cycle11/06/2022Menorrhagia with regular cycle11/06/2022Migraine usostxmk35/19/2023Other wurhzvhm80/19/2023anic attacks 11/06/20220598Lsbkkahqhxv74/19/2023Severe obesity (BMI 35.0-39.9) with comorbidity 11/06/2022 Encounters DateTypeDepartmentCare QharQznbdembkwn38/07/2025Refill [facility] [address] [facility] [address] [place] [address] Leroy White MD Left sided stwpfpga61/04/2025Telephone [facility] [address] [facility] [address] [place] [address] Ny Nathan PA 03/23/2025 11:45 AM ESTOffice Visit [facility] [address] [facility] [address] [place] [address] Leroy White MD Left sided sciatica (Primary Dx); Major depressive disorder, recurrent, in remission, mwunzvwupqu38/03/2025amboo flowsheet [facility] [address] [place] [address] Leroy White MD 03/23/20255939Itnlsi16/31/2025Refill [facility] [address] [facility] [address] [place] [address] Leroy White MD Other xhqhlnla70/17/2025Refill [facility] [address] [facility] [address] [place] [address] Leroy White MD Panic obrkdex6302/05/2025 8:40 AM EDTOffice Visit [facility] [address] [place] [address] Maxi Macdonald DPM Left Achilles tendinitis (Primary Dx); Verruca plantaris; Foot pain, right; Plantar fasciitis; Contracture of left ankle02/05/2025amboo flowsheet [facility] [address] [facility] [address] [place] [address] Maxi Macdonald DPM 02/05/2025Travelfrom Last 3 Months Immunizations ImmunizationAdministration DatesNext DueInfluenza, injectable, quadrivalent, preservative free02/23/2022,02/25/2020,03/01/2015Pfizer Gómez Cap SARS-CoV-2 Vsmhvlikogk00/16/2022,10/10/2021 Family History Medical HistoryRelationNameCommentsDDDFatherAlcohol abuseFather's Brother 1Tom CancerFather's Brother 1TomAlcohol abuseFather's Brother 2LloydAlcohol abuse Father's Brother 3WalterCancerFather's Brother 3WalterCancerFather's SisterPat COPDMotherRobinDepressionMotherRobinFibromyalgiaMotherRobinHeart diseaseMother RobinHypertensionMotherRobinLupusMotherRobinAlcohol abuseMother's SisterMichelle COPDPaternal GrandfatherWarrenCancerPaternal GrandmotherAlma BeanNo Known ProblemsSisterRelationNameStatusCommentsDaughterAlive1 daughterFatherAlive Father's Brother 1TomFather's Brother 2LloydFather's Brother 3WalterFather's SisterPatMotherRobinAliveMother's SisterMichellePaternal GrandfatherWarren Paternal GrandmotherAlma BeanSister1 sisterSonAlive1 son Social History Tobacco UseTypesPacks/DayYears UsedDateSmoking Tobacco: FormerCigarettes1.113.3 12/20/2011 - 12/19/2021mokeless Tobacco: Never Tobacco Cessation:Counseling Given: Yes Alcohol UseStandard Drinks/WeekCommentsNot Currently0 (1 standard drink = 0.6 oz pure alcohol)Caffeine intake: 1 can pop dailyPHQ-2AnswerDate RecordedPatient Health Questionnaire-2 Anjrd28305/23/2024Housing Stability Vital SignAnswerDate RecordedIn the last 12 months, was there a time when you were not able to pay the mortgage or rent on time?No12/05/2022In the last 12 months, how many places have you lived?In the last 12 months, was there a time when you did not have a steady place to sleep or slept in modenaelter (including now)?No 12/05/2022Housing Stability Vital SignAnswerDate RecordedIn the last 12 months, was there a time when you were not able to pay the mortgage or rent on time?Yes 12/12/2023In the past 12 months, how many times have you moved where you were living?t any time in the past 12 months, were you homeless or living in a senior care (including now)?No12/12/2023Humiliation, Afraid, Rape, and Kick questionnaireAnswerDate RecordedWithin the last year, have you been afraid of your partner or ex-partner?Patient inncosgl55/03/2025Within the last year, have you been humiliated or emotionally abused in other ways by your partner or ex-partner?Patient lnohjxqt19/03/2025Within the last year, have you been kicked, hit, slapped, or otherwise physically hurt by your partner or ex-partner?No 03/23/2025Within the last year, have you been raped or forced to have any kind of sexual activity by your partner or ex-partner?No03/23/2025Social Connection and Isolation PanelAnswerDate RecordedIn a typical week, how many times do you talk on the phone with family, friends, or neighbors?More than three times a week03/23/2025How often do you get together with friends or relatives?Once a week03/23/2025How often do you attend taoist or druze services?More than 4 times per year03/23/2025Do you belong to any clubs or organizations such as taoist groups, unions, fraAppn[employer] or athletic groups, or school groups?No 03/23/2025How often do you attend meetings of the clubs or organizations you belong to?1 to 4 times per year03/23/2025re you , , , , never , or living with a partner?Ashmqio0703/23/2025UDIT-C AnswerDate RecordedQ1: How often do you have a drink containing alcohol?Monthly or less03/23/2025Q2: How many drinks containing alcohol do you have on a typical day when you are drinking?1 or Q3: How often do you have six or more drinks on one occasion?Never03/23/2025Overall Financial Resource Strain (CARDIA) AnswerDate RecordedHow hard is it for you to pay for the very basics like food, housing, medical care, and heating?Hard03/23/2025[facility] Occup[facility] Health - Occupational Stress QuestionnaireAnswerDate RecordedDo you feel stress - tense, restless, nervous, or anxious, or unable to sleep at night because yourmind is troubled all the time - these days?Rather much03/23/2025 Exercise Vital SignAnswerDate RecordedOn average, how many days per week do you engage in moderate to strenuous exercise (like a brisk walk)?4 days03/23/2025On average, how many minutes do you engage in exercise at this level?10 min 03/23/2025Hunger Vital SignAnswerDate RecordedWithin the past 12 months, you worried that your food would run out before you got the money to buymore. Sometimes true03/23/2025Within the past 12 months, the food you bought just didn't last and you didn't have money to get more.Never true03/23/2025PRAPARE - TransportationAnswerDate RecordedIn the past 12 months, has lack of transportation kept you from medical appointments or from getting medications?No 03/23/2025In the past 12 months, has lack of transportation kept you from meetings, work, or from getting things needed for daily living?No03/23/2025 Housing Stability Vital SignAnswerDate RecordedIn the last 12 months, was there a time when you were not able to pay the mortgage or rent on time?No03/23/2025In the past 12 months, how many times have you moved where you were living?0 03/23/2025t any time in the past 12 months, were you homeless or living in a senior care (including now)?No03/23/2025B1300 Health LiteracyAnswerDate RecordedHow often do you need to have someone help you when you read instructions, pamphlets, or other written material from your doctor or pharmacy?Never 03/23/2025CommentsNoSex and Gender InformationValueDate RecordedSex Assigned at BirthNot on fileLegal KyiWifhnf23/15/2023 6:49 PM EDTGender Identity Not on fileSexual OrientationNot on file Last Filed Vital Signs Vital SignReadingTime TakenCommentsBlood Pvnyllqp056/6203/23/2025 11:50 AM EST Tisxj7511/03/2025 11:50 AM YYOQtvudnitems43.8 ??C (98.2 ??F)06/04/2024 9:31 AM ESTRespiratory Bmvq020505/23/2024 11:50 AM ESTOxygen Vavjqdqiug42%03/23/2025 11:50 AM ESTInhaled Oxygen Concentration--Owpuzz34.7 kg (178 lb)03/23/2025 11:50 AM ZQRLjvlcr157.1 cm (5' 5 )03/23/2025 11:50 AM ESTBody Mass Index29.6211/07/2024 11:50 AM EST Plan of Treatment DateTypeDepartmentCare Team (Latest Contact Info)Pyrsijasnss37/24/2026 10:15 AM EDTOffice Visit [facility] [address] [address] Phuc Gillette DO [address] [address] Health MaintenanceDue DateLast DoneCommentsPap Smear2005COVID-19 Vaccine ( season)/, 10/10/2021Influenza Vaccine (#1) /10/2021, 02/25/2020, 03/01/20153369Zuppzjnzx61 Cervical Cancer Ropfwosgw85/20/2030HPV/Yeuoeh84, 04/26/2020, 02/19/2019Pneumococcal Vaccine: Pediatrics (0 to 5 Years) and At-Risk Patients (6 to 64 Years)Aged OutNo longer eligible based on patient's age to complete this topic Procedures Procedure NamePriorityDate/TimeAssociated DiagnosisCommentsMM TOMOSYNTHESIS SCREENING BI01/14/2025 2:52 PM EDT IGP, APT HPV,RFX 16/18,31Fxuqrcl23/20/2025 12:00 AM EDT Screening for malignant neoplasm of cervix Encounter for screening for human papillomavirus (HPV) from Last 3 Months or Most Recently Relevant to Health Maintenance Results * MM TOMOSYNTHESIS SCREENING BI (01/14/2025 2:52 PM EDT)Anatomical Region LateralityModalityOtherSpecimen (Source)Anatomical Location / Laterality Collection Method / VolumeCollection TimeReceived Time01/14/2025 2:52 PM EDT Narrative 01/14/2025 2:53 PM EDT [facility] ?[address] ? [place] [address] ? Mammography Report ? Signed ? Patient: ANA,KELLY A ?MR#: [id number] ?? : 1985 ?Acct:[id number] ?? Age/Sex: 39 / F ?ADM Date: 08/26/25 ?? Loc: MAMMO ? Attending Dr: PHUC GILLETTE ? Ordering Physician: PHUC GILLETTE ? Results: ? Date of Service: 01/13/25 ?Follow Up: ? Procedure(s): MM tomosynthesis screening BI ?? Accession Number(s): [id number] ? cc: LEROY WHITE ; PHUC GILLETTE ? Patient Name: ? KELLY ANA ? MR#: [id number] ? : 1985 ? Exam Date: 01/13/2025 ?? Ordering Doctor: DR. PHUC GILLETTE D.O. ? RADIOLOGY REPORT ? PROCEDURE: ? MM TOMOSYNTHESIS SCREENING BI ? COMPARISON: ? None. ? INDICATIONS: ? screening mammogram ? Calculator Name ? NCI Breast Cancer Risk Assessment Tool ?? 5 Year Breast Cancer Risk ? 0.40% ?? Lifetime Breast Cancer Risk ? 6.70% ?? Personal Breast Cancer ?No ?? Personal Ovarian Cancer ? No ?? Treatments ? None ?? Family Cancers ? Grandmother-paternal with breast cancer at age 45; ?? Aunt-paternal with breast cancer at age 45; Uncle-paternal with small cell ?? cancer at age 40; Uncle-paternal with small cell cancer at age 42. ? LOCATION: ? [facility] ? BREAST COMPOSITION: ? The breasts are heterogeneously dense, which may ?? obscure small masses. ? FINDINGS: ? DIAGNOSTIC CATEGORY 1--NEGATIVE. ? RIGHT BREAST: ??No significant suspicious finding. ? LEFT BREAST: ??No significant suspicious finding. ? RECOMMENDATIONS: ? ROUTINE MAMMOGRAM AND CLINICAL EVALUATION IN 12 MONTHS. ? Dictated by: Campbell Manley DO on 01/14/2025 at 14:51 ? Approved by: Campbell Manley DO on 01/14/2025 at 14:52 ? Dictated By: ?Campbell Manley M.D. ? Signed By: ?01/14/253 ? DD/ 1452 ? TD/TT: ? Rx Specialist: Procedure Note Radiology, Radiologist, MD - 01/14/2025 [place] [address] Mammography Report Signed Patient: KELLY URIBE AMR#: [id number] : 1985Acct:[id number] Age/Sex: 39 / FADM Date: 01/13/25 Loc: MAMMO Attending Dr: PHUC GILLETTE Ordering Physician: Pamela GILLETTEults: Date of Service: 01/13/25Follow Up: Procedure(s): MM tomosynthesis screening BI Accession Number(s): [id number] cc: LEROY WHITE ; PHUC GILLETTE Patient Name: KELLY URIBE MR#: [id number] : 1985 Exam Date: 01/13/2025 Ordering Doctor: DR. PHUC GILLETTE D.O. RADIOLOGY REPORT PROCEDURE: MM TOMOSYNTHESIS [...] cell cancer at age 42. LOCATION: [facility] BREAST COMPOSITION: The breasts are heterogeneously dense, which may obscure small masses. FINDINGS: DIAGNOSTIC CATEGORY 1--NEGATIVE. RIGHT BREAST: No significant suspicious finding. LEFT BREAST: No significant suspicious finding. RECOMMENDATIONS: ROUTINE MAMMOGRAM AND CLINICAL EVALUATION IN 12 MONTHS. Dictated by: Campbell Manley DO on 01/14/2025 at 14:51 Approved by: Campbell Manley DO on 01/14/2025 at 14:52 Dictated By: Campbell Manley M.D. Signed By:01/14/25 1453 DD/ 1452 TD/TT: Rx Specialist: Authorizing ProviderResult TypeResult StatusGeneric External Data Provider CLINISYNC IMAGINGFinal Result * IGP, APT HPV,RFX 16/18,45 (01/07/2025 12:00 AM EDT)ComponentValueRef RangeTest MethodAnalysis TimePerformed AtPathologist SignatureDiagnosis:CommentLABC[facility]P Comment:NEGATIVE FOR INTRAEPITHELIAL LESION OR MALIGNANCY.Specimen Adequacy: CommentLABCORPComment:Satisfactory for evaluation. No endocervical component is identified.Clinician Provided ICD10:CommentLABCORPComment: Z12.4 Z11.51 Performed By:CommentLABCORPComment:Munira Ayoub, Measurement Department Chief Clerk ([facility])Cyto Comments. LABCORPNote:CommentLABCORPComment: The Pap smear is a screening test designed to aid in the detection of premalignant and malignant conditions of the uterine cervix. ??It is not a diagnostic procedure and should not be used as the sole means of detecting cervical cancer. ??Both false-positive and false-negative reports do occur. Test Methodology:CommentLABCORPComment: This liquid based ThinPrep(R) pap test was screened with the use of an image guided system. HPV AptimaNegativeNegativeLABCORPComment: This nucleic acid amplification test detects fourteen high-risk HPV types (16,18,31,33,35,39,45,51,52,56,58,59,66,68) without differentiation. Specimen (Source)Anatomical Location / LateralityCollection Method / Volume Collection TimeReceived TimeVaginal Fluid/ Narrative [facility] - 01/10/2025 12:35 PM EDT Performed at: 01 - [facility] [address] [facility] [address], [place], [place] ??[id number] Group Chief Operator: Johnson Camacho MD, Phone: ??[phone] Performed at: ??02 - [facility] [address], [place] ??[id number] Group Chief Operator: Catherine Stone MD, Phone: ??[phone] Performed at: ??03 - [facility] [place] [address] [facility], [place] ??[id number] Group Chief Operator: Catherine Stone MD, Phone: ??[phone] Specimen Comment: No. of containers..01 ThinPrep Vial Authorizing ProviderResult TypeResult StatusMona J Nataprawira DOLAB BLOOD ORDERABLESFinal ResultPerforming OrganizationAddressCity/State/ZIP CodePhone Number [facility] from Last 3 Months or Most Recently Relevant to Health Maintenance Insurance Care Teams Team MemberRelationshipSpecialtyStart DateEnd Date Leroy White MD [address] [facility] [address] [place] [address] PCP - GeneralInternal Medicine11/06/22
[2025-04-24] MEDS: 0.9 % SODIUM CHLORIDE 1,000 ML 1000 ML IV (21:41)
[2025-04-24] MEDS: KETOROLAC TROMETHAMINE 30 MG/ML VIAL IVP (21:41)
[2025-04-24] MEDS: DIPHENHYDRAMINE HCL 50 MG/ML VIAL IVP (21:41)
[2025-04-24] MEDS: METOCLOPRAMIDE HCL 10 MG/2 ML VIAL IVP (21:41)
[2025-04-24] MEDS: DEXAMETHASONE SOD PHOS 10 MG/ML VIAL INJ (21:41)
== END 2025-04-25 00:11 | disposition home or self-care (01) ==
PROVIDERS: Emergency Provider Internal Medicine; PCP Internal Medicine
DX: G43.909 Migraine, unspecified, not intractable, without status migrainosus (principal)
CPT/HCPCS: 70450; 96374; 96375; 99284; J1100; J1200; J1885; J2765